=== PATIENT | female | born 1930 | race Caucasian/White ===

== ENCOUNTER → 2016-09-22 | Outpatient (CLI) | payer OTHER, MEDICARE ==
[~2016-09-22] MED LIST: ACET-1311 PO; ALBINS/ INH; ALBU1NEB10 INH; ALUMSUS2 PO; ASPI81TA28 PO; ATOR-26 PO; BSP/5 PO; CITA20TA4 PO; CITA40TA12 PO; CLR10 PO; CMD4 PO; DIPH25TA24 PO; DOCU-94 PO; FLUC100T4 PO; FOLI1TAB7 PO; FRRS300 PO; FRS/40 PO; GABA1CAP5 PO; GABA800T PO; INSUINJ4 SQ; LEVO-18 PO; LORA-741 PO; LORA10TA5 PO; LOSA50TA6 PO; LVMI SC; MCRK20 PO; METO2.5T PO; NTRGSL/4 UT; NVLGI SC; NVLGI/PEN SC; OXGN; OXYC1TAB3 PO; POLY335025 PO; POTA10CA28 PO; PRED10TA PO; PRLSR20 PO; ROSU40TA PO; RXNS5 PO; SCOP1DIS14 TD; TAMO20TA47 PO; TOBRSUS OPB; WARF1TAB6 PO; WARF2TAB PO; WARF2TAB8 PO
[2016-09-22 08:30] LABS: BLOOD UREA NITROGEN 33 mg/dl (7-18); BUN/CREATININE RATIO 29.8 (10-20); CALCIUM 8.2 mg/dl (8.5-10.1); CARBON DIOXIDE 33 mmol/L (21-32); CHLORIDE 98 mmol/L (98-107); GLUCOSE 111 mg/dl (70-99); POTASSIUM 3.5 mmol/L (3.5-5.1); SODIUM 141 mmol/L (136-145)
== END | disposition home or self-care (01) ==
LOC: C.LABCC 08:05
PROVIDERS: ATTEND Internal Medicine
DX: R42 Dizziness and giddiness (principal)

== ENCOUNTER → 2016-09-27 | Outpatient (CLI) | payer OTHER, MEDICARE ==
[2016-09-27 10:47] LABS: ESTIMATED AVERAGE GLUCOSE 186 mg/dl; HA1C FLAG Normal (Normal)
== END ==
LOC: C.LABCC 09:22
PROVIDERS: ATTEND Internal Medicine
DX: E11.9 Type 2 diabetes mellitus without complications (principal)

== ENCOUNTER 2016-11-08 11:40 | Inpatient (IN) | payer OTHER, MEDICARE ==
[~2016-11-08] VITALS: Ht 152.4 cm; Wt 87.0 kg
[2016-11-08] VITALS (12 sets, daily range): BP systolic 133–172; BP diastolic 55–80; PULSE 75–87; TEMP 36.3–37.1; O2SAT 96–99; BMI 37.9
[~2016-11-08 11:40] MED LIST changes: -ACET-1311 PO; -ALBINS/ INH; -ALUMSUS2 PO; -CITA20TA4 PO; -CLR10 PO; -FLUC100T4 PO; -FOLI1TAB7 PO; -FRRS300 PO; -GABA800T PO; -LEVO-18 PO; -LORA-741 PO; -LVMI SC; -METO2.5T PO; -NTRGSL/4 UT; -NVLGI/PEN SC; -POTA10CA28 PO; -ROSU40TA PO; -RXNS5 PO; -SCOP1DIS14 TD; -TOBRSUS OPB; -WARF1TAB6 PO; -WARF2TAB PO; -WARF2TAB8 PO
[2016-11-08] MEDS ORDERED: FOLI1TAB7 PO (12:21)
[2016-11-08] MEDS ORDERED: LVMI SC (12:21)
[2016-11-08] MEDS ORDERED: WARF2TAB8 PO (12:21)
[2016-11-08] MEDS ORDERED: POTA10CA28 PO (12:21)
[2016-11-08] MEDS ORDERED: OXYC1TAB3 PO (12:21)
[2016-11-08] MEDS ORDERED: ACET-1311 PO (12:21)
[2016-11-08] MEDS ORDERED: CITA20TA4 PO (12:21)
[2016-11-08] MEDS ORDERED: ALBINS/ INH (12:21)
[2016-11-08] MEDS ORDERED: METO2.5T PO (12:21)
[2016-11-08] MEDS ORDERED: WARF1TAB6 PO (12:21)
[2016-11-08] MEDS ORDERED: NVLGI/PEN SC ×2 (12:21)
[2016-11-08] MEDS ORDERED: PHYTONADIONE INJ 10 MG in SODIUM CHLORIDE 0.9% 50ML 50 ML IV ONE (13:00)
--- NOTE | 2016-11-08 13:24 | DIAGNOSTIC IMAGING REPORT ---
CHEST ONE VIEW PORTABLE CLINICAL HISTORY: sob chest pain COMPARISON STUDY: 11/10/2015 FINDINGS: Moderate cardiomegaly. Lungs are clear. Diaphragms are smooth. IMPRESSION: Moderate cardiomegaly. Otherwise negative study Electronically signed by: Abimael Perez M.D. 11/08/2016 1:22 PM Dictated Date/Time: 11/08/2016 1:21 PM
[2016-11-08] MEDS ORDERED: PANTOprazole INJ 80 MG in DEXTROSE 5% 100ML IV SCH (13:30)
[2016-11-08 13:39] LABS: MAGNESIUM 1.5 mg/dl (1.8-2.4)
[2016-11-08] MEDS ORDERED: MAGNESIUM SULFATE 1GM / D5W 1 GM BAG IV STA (13:42)
[2016-11-08] MEDS ORDERED: PANTOprazole INJ 40 MG in DEXTROSE 5% 100ML IV SCH (13:45)
--- NOTE | 2016-11-08 14:27 | EMERGENCY ROOM VISIT NOTE ---
History Report prepared by Cyndi: Soha Hernandez Under the Supervision of: Dr. Davidson Xiong M.D. 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 The patient had lab work drawn within the past day or two and was found to have a hemoglobin of 5.3. Currently, the patient states that she feels "drunk." She admits to feeling dizzy when she moves, although her family notes this is an ongoing issue that is being worked up. Her family agrees that the patient appears pale compared to baseline. The patient is unsure if she has had any black or bloody stool, but her family states that no one has made a comment about it from [facility]. The patient has been anemic in the past. She follows up with Dr. Encinas from Oncology for breast cancer. Denies chest pain, shortness of breath, vomiting, diarrhea, abdominal pain, urinary symptoms, fever, or other complaints. She is on Coumadin due to a history of blood clots. Denies a history of GI bleeding. Source of History: patient Onset: FORKLIFT TECHNICIAN Position: other (global) Symptom Intensity: hemoglobin 5.3 Timing: constant Associated Symptoms: No SOB, No chest pain, No diarrhea, No fevers, No urinary symptoms, No vomiting Note: Other symptoms: feels "drunk," dizziness Review of Systems See HPI for pertinent positives & negatives. A total of 10 systems reviewed and were otherwise negative. Past Medical & Surgical Medical Problems: (1) Anticoagulated on warfarin (2) Benign hypertension (3) Breast mass (4) Cerebrovascular disease (5) Chronic respiratory failure (6) COPD (chronic obstructive pulmonary disease) (7) Crohn's disease (8) Depressive disorder (9) Diabetes mellitus type 2 (10) Diabetic neuropathy (11) Dyslipidemia (12) History of pulmonary embolism (13) Hypercoagulable state (14) Obstructive sleep apnea syndrome (15) Panic disorder (16) Polymyalgia rheumatica (17) Pulmonary nodules (18) Supratherapeutic INR (19) Urinary tract infection (20) UTI (urinary tract infection) Surgical Problems: (1) Status post appendectomy (2) Status post hip replacement (3) Status post hysterectomy (4) Status post partial colectomy Family History FH: breast cancer DAUGHTER FH: coronary artery disease FATHER FH: diabetes mellitus BROTHER BROTHER FH: lung cancer FATHER FH: stroke FATHER MOTHER Social History Smoking Status: Former Smoker Alcohol Use: none Drug Use: none Marital Status: Housing Status: lives with family Occupation Status: retired Current/Historical Medications Scheduled Aspirin (Aspirin Ec), 81 MG PO HS Atorvastatin (Lipitor), 80 MG PO DAILY Buspirone HCl (Buspirone HCl), 5 MG PO QAM Citalopram Hydrobromide (Citalopram Hydrobromide), 20 MG PO DAILY Docusate Sodium (Colace), 100 MG PO BID Folic Acid (Folvite), 1 MG PO DAILY Furosemide (Lasix), 40 MG PO BID Gabapentin (Neurontin), 800 MG PO HS Gabapentin (Neurontin), 400 MG PO QAM Insulin Aspart (Novolog Flexpen), 15 UNITS SC BID Insulin Detemir (Levemir), 25 UNITS SC BID Losartan Potassium (Cozaar), 50 MG PO DAILY Metolazone (Zaroxolyn), 2.5 MG PO QAM Omeprazole (Prilosec), 20 MG PO QAM Potassium Chloride (Micro-K Ext Rel), 40 MEQ PO TID Prednisone (Prednisone), 10 MG PO DAILY Tamoxifen (Nolvadex), 20 MG PO DAILY Warfarin Sod (Jantoven), 1 MG PO 2XWK Warfarin Sod (Jantoven), 2 MG PO 5XWK Scheduled PRN Acetaminophen (Tylenol), 650 MG PO Q6 PRN for Mild Pain Albuterol Sulf (Proventil 0.083% 2.5MG/3ML), 2.5 MG INH Q4 PRN for SOB/Wheezing Insulin Aspart (Novolog Flexpen), 8-18 UNITS SC UD PRN for SLIDING SCALE Oxycodone Immediate Rel Tab (Roxicodone Ir), 5 MG PO Q8 PRN for Moderate Pain Oxycodone Ir (Roxicodone Ir), 10 MG PO Q8 PRN for Severe Pain Allergies Coded Allergies: Ibuprofen (Verified Allergy, Severe, ANAPHYLAXIS, 05/23/16) Amoxicillin (Verified Allergy, Mild, URTICARIA-HAS TOLERATED ZOSYN PREV ADM., 05/23/16) Noted at [facility] 12/07/10 Has tolerated Zosyn on previous admissions Aspartame (Unverified Allergy, Mild, HIVES, 05/23/16) Cephalexin (Unverified Allergy, Mild, HIVES, 05/23/16) Clavulanic Acid (Verified Allergy, Mild, urticaria-HAS TOLERATED ZOSYN PREV ADM., 05/23/16) Noted at [facility] 12/07/10 Cephalosporins (Verified Allergy, Unknown, HAS TOLERATED CEFTRIAXONE, CEFEPIME, 05/23/16) 05/14/12 - PATIENT DENIES EVER HAVING A REACTION TO OR TAKING ANY CEPHALOSPORINS Codeine (Verified Allergy, Unknown, 05/23/16) Cromolyn (Verified Allergy, Unknown, 05/23/16) Morphine and Related (Verified Allergy, Unknown, Unknown, 05/23/16) Naproxen (Verified Allergy, Unknown, ANAPHYLAXIS, 05/23/16) Penicillins (Verified Allergy, Unknown, Unknown, 05/23/16) Sulfa Antibiotics (Verified Allergy, Unknown, 05/14/12 - STATES THAT SHE IS UNABLE TO TOLERATE ANY SULFA, 05/23/16) 05/14/12 - STATES THAT SHE IS UNABLE TO TOLERATE ANY SULFA DRUGS Quinolones (Verified Adverse Reaction, Mild, NAUSEA, 05/23/16) PER DR. GARCIA - SPOKE W PT WHO SAID SHE HAD CIPRO FOR UTI A "LONG TIME AGO". REACTION WAS NAUSEA. I CONFIRMED ADMINISTREATION HX WITH OUR RECORDS - ADMIN 06/19/08. THEREFORE PT LIKELY ABLE TO TOLERATE CIPRO. Physical Exam Vital Signs Date Time Temp Pulse Resp B/P Pulse Ox O2 Delivery O2 Flow Rate FiO2 11/08/16 16:53 37.1 82 18 139/67 97 2.0 11/08/16 16:41 36.7 80 20 133/57 99 11/08/16 16:21 36.7 83 20 155/62 98 11/08/16 15:45 81 18 99 11/08/16 15:31 172/69 11/08/16 15:15 82 20 100 11/08/16 15:00 140/63 11/08/16 14:52 36.6 87 20 146/62 99 11/08/16 14:45 89 17 146/62 99 11/08/16 14:34 36.3 85 20 144/72 98 11/08/16 14:30 36.7 80 20 172/69 99 11/08/16 14:30 144/72 11/08/16 14:15 96 18 140/62 97 11/08/16 14:00 151/61 11/08/16 13:50 152/57 11/08/16 13:45 84 20 100 11/08/16 13:30 129/71 11/08/16 13:15 85 22 11/08/16 13:03 134/70 11/08/16 13:03 84 20 134/70 97 11/08/16 12:45 87 19 11/08/16 12:40 84 19 98 11/08/16 12:00 135/61 11/08/16 11:58 95 11/08/16 11:55 114/57 11/08/16 11:42 36.7 95 18 132/73 99 Nasal Cannula 2.0 Physical Exam GENERAL: Patient is in no acute distress. HEENT: No acute trauma, normocephalic atraumatic, mucous membranes moist, no nasal congestion, no scleral icterus. NECK: No stridor, no adenopathy, no meningismus, trachea is midline. LUNGS: Clear to auscultation bilaterally, no wheeze, no rhonchi, breath sounds equal. HEART: Irregular with a normal rate and a 2/6 systolic murmur ABDOMEN: Soft, nontender, bowel sounds positive, right sided ventral abdominal wall hernia, no peritonitis. RECTAL: Brown stool, heme positive. EXTREMITIES: No cyanosis or edema, full range of motion of all the joints without pain or difficulty, no signs for acute trauma. NEUROLOGIC: Oriented x 3, no acute motor or sensory deficits, no focal weakness. SKIN: Pale, no rash, no jaundice, no diaphoresis. Medical Decision & Procedures ER Provider Diagnostic Interpretation: Radiology results and stated below per my review and radiologist interpretation: CHEST ONE VIEW PORTABLE CLINICAL HISTORY: sob chest pain COMPARISON STUDY: 11/10/2015 FINDINGS: Moderate cardiomegaly. Lungs are clear. Diaphragms are smooth. IMPRESSION: Moderate cardiomegaly. Otherwise negative study Electronically signed by: Abimael Perez M.D. 11/08/2016 1:22 PM Dictated Date/Time: 11/08/2016 1:21 PM Laboratory Results Test 11/08/16 12:05 Magnesium Level 1.5 mg/dl (1.8-2.4) Troponin I < 0.015 ng/ml (0-0.045) Laboratory results reviewed by me. Medications Administered Medications (Trade) Dose Ordered Sig/Rea Route Start Time Stop Time Status Last Admin Dose Admin Phytonadione 10 mg/Sodium Chloride 51 ml @ 102 mls/hr ONE ONCE IV 11/08/16 13:00 11/08/16 13:29 DC 11/08/16 13:46 102 MLS/HR Pantoprazole Sodium 80 mg/ Dextrose 120 ml @ 480 mls/hr 1330 IV 11/08/16 13:30 11/08/16 13:44 DC 11/08/16 13:42 480 MLS/HR Pantoprazole Sodium/Dextrose (Protonix Inj/D5 100ml) 100 ml @ 20 mls/hr TODAY@1345 IV 11/08/16 13:45 11/08/16 18:44 11/08/16 13:43 20 MLS/HR Magnesium Sulfate (Magnesium Sulfate) 1 gm NOW STAT IV 11/08/16 13:42 11/08/16 13:44 DC 11/08/16 14:54 1 GM Furosemide (Lasix Inj) 40 mg STK-MED ONCE .ROUTE 11/08/16 16:23 11/08/16 16:26 DC 11/08/16 16:29 40 MG ECG Indication: other (low hemoglobin) Rate (beats per minute): 86 Rhythm: sinus rhythm Findings: PAC, no acute ischemic change, no ectopy ED Course 1239: The patient was evaluated in room C1A. A complete history and physical exam was performed. 1250: Ordered Pantoprazole Sodium 1 ea IV. 1256: I discussed the case with Dr. Sarabia, [facility] [place] Hospitalist. The patient will be evaluated for further management. 1300: Ordered Phytonadione 10 mg/NSS 51 ml @ 102 mls/hr IV. 1315: Upon reexamination the patient is resting comfortably. I discussed results and treatment plan with the patient. She verbalizes agreement and understanding. The patient will be evaluated for further management. 1330: Ordered Pantoprazole Sodium 80 mg/Dextrose 120 ml @ 480 mls/hr IV. 1342: Ordered Magnesium Sulfate 1 gm IV, Pantoprazole Sodium 40 mg/Dextrose 100 ml @ 20 mls/hr IV. Medical Decision Differential includes but is not limited to electrolyte imbalance, anemia, dehydration, upper or lower GI bleeding, UTI, cardiac ischemia, stroke, vertigo. I did review the patient's blood work from earlier today. There was no leukocytosis. She was markedly anemic with a hemoglobin of 5.3. INR was elevated at 2.9 consistent with her Coumadin use. No significant electrolyte abnormality, kidney failure or hepatitis. Urinalysis did not show infection. Here, an EKG was performed. This showed a sinus rhythm with PACs, no acute ischemia. Cardiac enzyme testing 1 is not suggestive of acute cardiac injury. Chest x-ray did not show CHF or pneumonia. Magnesium was low 1.5. The patient has felt short of breath and dizzy for about a month. I suspect her symptoms are from her low hemoglobin value. A rectal exam was performed and her stool is heme positive, the stool is brown. Patient was given IV Protonix, she received IV magnesium and was given IV vitamin K. She was ordered for blood for transfusion, 2 units were ordered to be transfused. She did sign consent for the transfusion. I talked to the patient and family at length. I spoke with the case repairer. The on-call hospitalist was consulted. Consults Time Called: 1250 Consulting Physician: Dr. Sarabia [facility] [place] Hospitalist Returned Call: [phone] I discussed the case with her. The patient will be evaluated for further management. Impression Primary Impression: Anemia Additional Impressions: Weakness GI bleeding Hypomagnesemia Critical Care I have personally spent greater than 30 minutes of critical care time in the direct management of this patient. This includes bedside care, interpretation of diagnostic studies, and testing, discussion with consultants, patient, and family members, and other required patient management activities. This 30 minutes is in excess of all separately billable procedures. Scribe Attestation The scribe's documentation has been prepared under my direction and personally reviewed by me in its entirety. I confirm that the note above accurately reflects all work, treatment, procedures, and medical decision making performed by me. Departure Information Dispostion Being Evaluated By Hospitalist Referrals Ryne Walters (PCP) Patient Instructions My [facility] Problem Qualifiers
[2016-11-08] MEDS ORDERED: GLUCOSE 40% GEL 15 GM TUBE PO PRN (14:45)
[2016-11-08] MEDS ORDERED: GLUCOSE 10 TABS/TUBE PO PRN (14:45)
[2016-11-08] MEDS ORDERED: POLYETHYLENE (MIRALAX) 17 GM PACK PO PRN (14:45)
[2016-11-08] MEDS ORDERED: ALBUTEROL 0.083% NEBU SOLN 3 ML VIAL INH PRN (14:45)
[2016-11-08] MEDS ORDERED: FUROSEMIDE INJ 20 MG in SYRINGE 0 ML IV ONE (14:45)
[2016-11-08] MEDS ORDERED: DEXTROSE 50% 50 ML SYR IV PRN (14:45)
[2016-11-08] MEDS ORDERED: ALUMINUM/MAGNESIUM/SIMETH (MAALOX MAX) 30 ML UDC PO PRN (14:45)
[2016-11-08] MEDS ORDERED: GLUCAGON FOR INJ 1 MG VIAL SQ PRN (14:45)
[2016-11-08] MEDS ORDERED: MAGNESIUM HYDROXIDE SUSP 30 ML UDC PO PRN (14:45)
--- NOTE | 2016-11-08 15:54 | History and Physical ---
History & Physical Date & Time of Service: Nov 08, 2016 at 15:11 Chief Complaint: Ref By Dr Ramo Babcock Lab Work Primary Care Physician: Ryne Walters History of Present Illness Source: patient, family (son and daughter in law at bedside), hospital records , [facility] ([facility] records) This is an 86 y/o female with a history of breast cancer, DM II w/neuropathy, hypertension, hyperlipidemia, COPD, chronic diastolic heart failure, anxiety/ depression, h/o PE/DVT, and GERD who presented to the ED on 11/08 with acute on chronic anemia. The patient is a resident at [facility] and had routine labs done prior to arrival which revealed a hemoglobin of 5.3. Patient has baseline hemoglobin of 8-10. The patient reports feeling dizziness for the last month. She states that this is worse with movement and activity, although it can occur at rest or while lying down as well. The patient complains of dyspnea on exertion but denies shortness of breath at rest. She also notes that she is been feeling more fatigued lately. Her son and [id number] are at bedside and state that when they visit the patient, she seems less engaged than normal and has not been getting out of bed much lately. They also note that she looks very pale. The patient denies any bloody stools, blood in the urine, bruising, falls or any other obvious source of bleeding. Family states that they have not heard anything like that from the [facility] staff either. The patient is on long-term Coumadin for previous DVT and PE, although is unclear why she has been on this chronically. Patient is unsure if she has had multiple episodes of clotting. She reports that she has had an EGD and a colonoscopy in the past, but she is unsure of when these were or what the findings were. [facility] records show that she has a history of colonic polyps. The patient denies fevers, chills, sweats, chest pain, palpitations, claudication, cough, wheezing, nausea, vomiting, abdominal pain, dysuria, hematuria, urinary retention, paralysis, numbness and tingling. In the ED, the patient had a bowel movement which appeared to be brown, although it was heme-positive. The patient has received 10 mg of vitamin K and was started on a Protonix drip. 3 units of packed red blood cells have been ordered per the ED physician. Past Medical/Surgical History Medical Problems: (1) Anticoagulated on warfarin Status: Chronic (2) Benign hypertension Status: Chronic (3) Breast mass Permanent Comment: noted on CT 04/21/14 Status: Chronic (4) Cerebrovascular disease Permanent Comment: s/p stroke Status: Chronic (5) Chronic respiratory failure Permanent Comment: home O2 3 LPM Status: Chronic (6) COPD (chronic obstructive pulmonary disease) Permanent Comment: severe Status: Chronic (7) Crohn's disease Status: Chronic (8) Depressive disorder Status: Chronic (9) Diabetes mellitus type 2 Status: Chronic (10) Diabetic neuropathy Status: Chronic (11) Dyslipidemia Status: Chronic (12) History of pulmonary embolism Status: Chronic (13) Hypercoagulable state Permanent Comment: homozygous MTHFR Status: Chronic (14) Obstructive sleep apnea syndrome Status: Chronic (15) Panic disorder Status: Chronic (16) Polymyalgia rheumatica Status: Chronic (17) Pulmonary nodules Permanent Comment: (stable per CT 06/11/12 --> 04/21/14) Status: Chronic (18) Urinary tract infection Status: Resolved Surgical Problems: (1) Status post appendectomy Status: Chronic (2) Status post hip replacement Permanent Comment: left COLTON Dr. Martines 2012 Status: Chronic (3) Status post hysterectomy Status: Chronic (4) Status post partial colectomy Permanent Comment: diverticulitis Status: Chronic Family History FH: breast cancer DAUGHTER FH: coronary artery disease FATHER FH: diabetes mellitus FATHER MOTHER BROTHER BROTHER FH: lung cancer FATHER FH: stroke FATHER MOTHER Social History Smoking Status: Former Smoker Smokeless Tobacco Use: No Alcohol Use: none Drug Use: none Marital Status: Housing status: [facility] ([facility]) Occupational Status: retired Immunizations History of Influenza Vaccine: Yes History of Tetanus Vaccine?: Yes Tetanus Immunization Date: Oct 25, 2012 History of Pneumococcal: Yes Pneumococcal Date: Nov 16, 2014 History of Hepatitis B Vaccine: No Multi-Drug Resistant Organisms History of MDRO: No Allergies Coded Allergies: Ibuprofen (Verified Allergy, Severe, ANAPHYLAXIS, 05/23/16) Amoxicillin (Verified Allergy, Mild, URTICARIA-HAS TOLERATED ZOSYN PREV ADM., 05/23/16) Noted at [facility] 12/07/10 Has tolerated Zosyn on previous admissions Aspartame (Unverified Allergy, Mild, HIVES, 05/23/16) Cephalexin (Unverified Allergy, Mild, HIVES, 05/23/16) Clavulanic Acid (Verified Allergy, Mild, urticaria-HAS TOLERATED ZOSYN PREV ADM., 05/23/16) Noted at [facility] 12/07/10 Cephalosporins (Verified Allergy, Unknown, HAS TOLERATED CEFTRIAXONE, CEFEPIME, 05/23/16) 05/14/12 - PATIENT DENIES EVER HAVING A REACTION TO OR TAKING ANY CEPHALOSPORINS Codeine (Verified Allergy, Unknown, 05/23/16) Cromolyn (Verified Allergy, Unknown, 05/23/16) Morphine and Related (Verified Allergy, Unknown, Unknown, 05/23/16) Naproxen (Verified Allergy, Unknown, ANAPHYLAXIS, 05/23/16) Penicillins (Verified Allergy, Unknown, Unknown, 05/23/16) Sulfa Antibiotics (Verified Allergy, Unknown, 05/14/12 - STATES THAT SHE IS UNABLE TO TOLERATE ANY SULFA, 05/23/16) 05/14/12 - STATES THAT SHE IS UNABLE TO TOLERATE ANY SULFA DRUGS Quinolones (Verified Adverse Reaction, Mild, NAUSEA, 05/23/16) PER DR. GARCIA - SPOKE W PT WHO SAID SHE HAD CIPRO FOR UTI A "LONG TIME AGO". REACTION WAS NAUSEA. I CONFIRMED ADMINISTREATION HX WITH OUR RECORDS - ADMIN 06/19/08. THEREFORE PT LIKELY ABLE TO TOLERATE CIPRO. Home Medications Scheduled Aspirin (Aspirin Ec), 81 MG PO HS Atorvastatin (Lipitor), 80 MG PO DAILY Buspirone HCl (Buspirone HCl), 5 MG PO QAM Citalopram Hydrobromide (Citalopram Hydrobromide), 20 MG PO DAILY Docusate Sodium (Colace), 100 MG PO BID Folic Acid (Folvite), 1 MG PO DAILY Furosemide (Lasix), 40 MG PO BID Gabapentin (Neurontin), 800 MG PO HS Gabapentin (Neurontin), 400 MG PO QAM Insulin Aspart (Novolog Flexpen), 15 UNITS SC BID Insulin Detemir (Levemir), 25 UNITS SC BID Losartan Potassium (Cozaar), 50 MG PO DAILY Metolazone (Zaroxolyn), 2.5 MG PO QAM Omeprazole (Prilosec), 20 MG PO QAM Potassium Chloride (Micro-K Ext Rel), 40 MEQ PO TID Prednisone (Prednisone), 10 MG PO DAILY Tamoxifen (Nolvadex), 20 MG PO DAILY Warfarin Sod (Jantoven), 1 MG PO 2XWK Warfarin Sod (Jantoven), 2 MG PO 5XWK Scheduled PRN Acetaminophen (Tylenol), 650 MG PO Q6 PRN for Mild Pain Albuterol Sulf (Proventil 0.083% 2.5MG/3ML), 2.5 MG INH Q4 PRN for SOB/Wheezing Insulin Aspart (Novolog Flexpen), 8-18 UNITS SC UD PRN for SLIDING SCALE Oxycodone Immediate Rel Tab (Roxicodone Ir), 5 MG PO Q8 PRN for Moderate Pain Oxycodone Ir (Roxicodone Ir), 10 MG PO Q8 PRN for Severe Pain Review of Systems Constitutional: + fatigue, + weakness, No chills, No fever, No sweats Eyes: No diplopia, No eye pain, No worsening of vision ENT: No hearing loss, No sore throat, No trouble swallowing Respiratory: + dyspnea on exertion, No cough, No dyspnea at rest, No wheezing Cardiovascular: No chest pain, No claudication, No palpitations Abdomen: + GI bleeding (heme positive stool), No nausea, No pain, No vomiting Musculoskeletal: No calf pain, No joint pain, No muscle pain Genitourinary - Female: + urinary incontinence, No dysuria, No hematuria Neurologic: + memory loss (per family, declining over last 6 months), + problem reported (dizziness x 1 month), No numbness/tingling, No paralysis, No weakness Integumentary: No color change, No itch, No rash Physical Exam Vital Signs Date Time Temp Pulse Resp B/P Pulse Ox O2 Delivery O2 Flow Rate FiO2 11/08/16 14:52 36.6 87 20 146/62 99 11/08/16 14:34 36.3 85 20 144/72 98 11/08/16 13:03 84 20 134/70 97 11/08/16 12:40 84 19 98 11/08/16 12:00 135/61 11/08/16 11:58 95 11/08/16 11:55 114/57 11/08/16 11:42 36.7 95 18 132/73 99 Nasal Cannula 2.0 General Appearance: WD/WN, no apparent distress, + obese Head: normocephalic, atraumatic Eyes: normal inspection, EOMI, + pertinent finding (R pupil more dilated but both reactive to light) ENT: normal ENT inspection, hearing grossly normal, pharynx normal, + pertinent finding (pale oral mucosa) Neck: supple, no JVD, trachea midline Respiratory/Chest: normal breath sounds, no respiratory distress, + decreased breath sounds (bases), + crackles (right base) Cardiovascular: regular rate, rhythm, no gallop, + systolic murmur Abdomen/GI: normal bowel sounds, soft, + tenderness (mild diffuse tenderness), + hernia (large hernia RLQ) Extremities/Musculoskelatal: normal inspection, no calf tenderness, + swelling (1+ pitting edema bilaterally) Neurologic/Psych: alert, normal mood/affect, + disoriented (oriented to person and place, not time) Skin: warm/dry, no rash, + pallor Diagnostics Laboratory Results Results Past 24 Hours Test 11/08/16 12:05 Range/Units Magnesium Level 1.5 1.8-2.4 mg/dl Troponin I < 0.015 0-0.045 ng/ml Diagnostic Radiology Reviewed the following studies and agree with interpretation as follows: Patient Name: NGOZI EISENBERG Unit Number: [id number] Dictated: 11/08/161320 Transcribed: 11/08/161320 MS Printed Date/Time: [~ rep prt dt]/[~ rep prt tm] [~ rep ct labl] - [~ rep ct ivnm] [facility] [place] [place] [address] Dictated: 11/08/161320 Transcribed: 11/08/16 132 MS Printed Date/Time: [~ rep prt dt]/[~ rep prt tm] [~ rep ct labl] - [~ rep ct ivnm] Patient: NGOZI EISENBERG Address1: [address] [facility] Rec: [id number] Address2: Acct ID: [id number] [facility] Zip: [place] [address] Date: 1930 Sex: F Room/Bed: Ref Phy: Ryne Walters SC: MAKENNA Att Phy: Report #: [id number] [place] Phy: Ryne Walters Test: CXR1P Admit Phy: Flexible Nanny: MARCIA Interpreting Phy: Abimael Perez M.D. Diagnosis: REF BY - AMALIA LAB WORK Ordering Phy: Davidson Xiong M.D. Service Date: 11/08/16 Admit Date: 11/08/16 MNE: [id number] CONF: DICTATED BY: Abimael Perez M.D.]] CC: Heath, Goldsby Davidson Xiong M.D. Endcc: [~ rep ct add3]] CHEST ONE VIEW PORTABLE CLINICAL HISTORY: sob chest pain COMPARISON STUDY: 11/10/2015 FINDINGS: Moderate cardiomegaly. Lungs are clear. Diaphragms are smooth. IMPRESSION: Moderate cardiomegaly. Otherwise negative study Electronically signed by: Abimael Perez M.D. 11/08/2016 1:22 PM Dictated Date/Time: 11/08/2016 1:21 PM The status of this report is Signed. Draft = Not yet reviewed or approved by Radiologist. Signed = Reviewed and approved by Radiologist. <AttendingPhy></AttendingPhy> <FamilyPhy>[facility]</FamilyPhy> <PrimaryPhy> [facility]</PrimaryPhy> <UnitNumber>[id number]</UnitNumber> <VisitNumber> [id number]</VisitNumber> <PatientName>NGOZI EISENBERG</PatientName> <DateOfBirth >1930</DateOfBirth> <Location>[facility]</Location> <ServiceDate>11/08/16</ ServiceDate> <MNE>ESINDI</MNE> <OrderingPhy>Davidson Xiong M.D.</OrderingPhy> < OrderingPhyMNE>f rep ord dr rosenthal</OrderingPhyMNE> <DictatingPhyMNE>f rep dict dr rosenthal</DictatingPhyMNE> <CCListMNE>f rep ct mne</CCListMNE> <AdmittingPhyMNE>f pt admit dr rosenthal</AdmittingPhyMNE> <AttendingPhyMNE>f pt attend dr rosenthal</ AttendingPhyMNE> <ConsultingPhyMNE>f pt consult dr rosenthal</ConsultingPhyMNE> <FamilyPhyMNE>f pt fam dr rosenthal</FamilyPhyMNE> <OtherPhyMNE>f pt other dr rosenthal</OtherPhyMNE> < PrimaryPhyMNE>f pt prim care dr rosenthal</PrimaryPhyMNE> <ReferringPhyMNE>f pt referring dr rosenthal</ReferringPhyMNE> EKG Reviewed EKG and agree with interpretation as follows: 86 bpm, sinus rhythm with PACs, 1st degree AV block (RI interval 208 ms) Impression Assessment and Plan 86 y/o female with a history of breast cancer, DM II w/neuropathy, hypertension , hyperlipidemia, COPD, chronic diastolic heart failure, anxiety/depression, h/ o PE/DVT, and GERD who presented to the ED on 11/08 with acute on chronic anemia. Patient complaining of dizziness for the last month. She has baseline anemia with hemoglobin around 8-10. After getting routine labs done at [facility] prior to arrival, she was found to have a hemoglobin of 5.3. Patient has been on chronic warfarin. No obvious source of acute bleeding, however, she was positive for occult blood in her stool. Patient presented to the ED with tachycardia and pallor. INR 2.9. Patient given 10 mg of vitamin K for reversal. 3 units of packed red blood cells ordered by Dr. Xiong and patient started on Protonix drip. Acute on chronic anemia secondary to "acute" blood loss--Likely the patient has actually been slowly bleeding for quite some time -Admit to telemetry -H&H every 6 hours 4. -3 units PRBC ordered in ED. Patient with crackles and pitting edema on exam, will give Lasix 20 mg IV x 1 between first and second units of blood -Continue Protonix drip -Consult GI, appreciate recs -Clear liquid diet -D/C Coumadin -Follow PT/INR Hypomagnesemia -Magnesium on arrival 1.5 -Given magnesium sulfate 1 gm IV x 1 -Continue to monitor H/o breast cancer status post left mastectomy -Continue tamoxifen 20 mg PO qd Diabetes type 2 w/diabetic neuropathy--last hemoglobin A1c on 09/27/16 was 8.1 -Lantus 20 units SC BID. Pt typically takes 25 units BID of Levemir, reduce to 80% due to little PO intake -Insulin sliding scale -Check BSGs q ac and qhs -Continue gabapentin 400 mg PO qam and 800 mg PO qhs HTN--stable -Continue losartan 50 mg PO qd HLD -Continue atorvastatin 80 mg PO qd COPD--pt on supplemental oxygen at home continuously, 2L NC -O2 by protocol -Continue prednisone 10 mg PO qd and albuterol nebulizers when necessary Chronic diastolic CHF -Continue Lasix 40 mg PO BID and metolazone 2.5 mg PO qam -Continue KCl 40 mEq PO TID Anxiety and depression -Continue BuSpar 5 mg PO qd , Celexa 20 mg PO qd DVT prophylaxis -Hold chemical prophylaxis due to bleeding -STACIA argueta and SCDs Code Status -Level V, DO NOT RESUSCITATE Level of Care Telemetry Resuscitation Status DO NOT RESUSCITATE VTE Prophylaxis VTE Risk Assessment Done? Y/N: Yes Risk Level: Moderate Given or contraindicated: Gamal Stockings, SCD's Reviewed: Pt Seen/Exam by Me History Physician Analog Device Designer Supervision Note: I interviewed and examined the patient. Discussed with MYLES Mojica and agree with findings and plan as documented in the note. 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 Here with chronic blood loss severe symptomatic anemia. With no gross bleeding and advanced age, will not likely require urgent endoscopies, however consideration should be given for this. She does have a h/ o Crohn's and is on chronic steroid use, both of which can cause chronic blood loss anemia. Pt denies cheat pain, headache, SOB. INR reversed with Vit K in ER. Vital sreviewed Obese, NAD, AAOx2 RRR no mgr Pulm with diminished BS throughout but no wheezes, some mild bibasilar crackles Abd soft +BS, large ventral hernia on right is reducible Ext no edema Skin no rashes 86 yo female with multiple medical problems here with symptomatic severe anemia , hgb 5.3, heme+ stool, no gross bleeding. -transfuse to keep hgb>7-8 then start iron supplementation -GI consult to see if needs scopes above and below -continue home meds otherwise except holding coumadin -will likely need to go back on coumadin given MTHFR mutation and sedentary lifestyle in [place], but with closer monitoring of CBC -watch for volume overload with diastolic dysfunction, give IV lasix between PRBC units Documented By: Joselyn Sarabia
[2016-11-08] MEDS ORDERED: FUROSEMIDE 40 MG/4 ML VIAL ONE (16:23)
[2016-11-08] MEDS: PANTOprazole INJ 40 MG in DEXTROSE 5% 100ML 90 ML IV SCH ×2 (19:10→23:49)
[2016-11-08] MEDS: FUROSEMIDE 40 MG TAB PO SCH (19:15)
[2016-11-08] MEDS: INSULIN ASPART 100 UNITS/ML 3 ML PEN SC SCH ×2 (19:17→21:04)
[2016-11-08 20:45] LABS: HEMATOCRIT 27.4 % (37-47)
[2016-11-08] MEDS ORDERED: INSULIN ASPART 100 UNITS/ML 3 ML PEN SC ONE (21:00)
[2016-11-08] MEDS: INSULIN GLARGINE SOLOSTAR 100 UNITS/ML 3 ML PEN SC SCH (21:05)
[2016-11-08] MEDS: DOCUSATE SODIUM 100 MG CAP PO SCH (21:07)
[2016-11-08] MEDS: GABAPENTIN 400 MG CAP PO SCH (21:07)
[2016-11-08] MEDS: POTASSIUM CHLORIDE 10 MEQ TABCR PO SCH (21:08)
[2016-11-09] VITALS (8 sets, daily range): BP systolic 121–160; BP diastolic 64–77; PULSE 70–78; TEMP 36.4–36.7; O2SAT 93–99; Ht 152.4 cm; Wt 87.0 kg
[2016-11-09 03:27] LABS: HEMATOCRIT 26.8 % (37-47); MEAN CELL VOLUME 68.4 fL (80-100); MEAN CORPUSCULAR HEMOGLOBIN 21.2 pg (25-34); MEAN PLATELET VOLUME 8.5 fL (7.4-10.4); PLATELET COUNT 271 K/uL (130-400); RED BLOOD COUNT 3.92 M/uL (4.2-5.4); WHITE BLOOD COUNT 9.57 K/uL (4.8-10.8)
[2016-11-09 03:37] LABS: INR 1.2 (0.9-1.1); PARTIAL THROMBOPLASTIN RATIO 0.8; PROTHROMBIN TIME (PATIENT) 12.7 SECONDS (9.0-12.0)
[2016-11-09 03:56] LABS: BUN/CREATININE RATIO 25.3 (10-20); CALCIUM 8.4 mg/dl (8.5-10.1); CREATININE 1.1 mg/dl (0.60-1.20); MAGNESIUM 2.1 mg/dl (1.8-2.4); POTASSIUM 3.7 mmol/L (3.5-5.1)
[2016-11-09] MEDS: PANTOprazole INJ 40 MG in DEXTROSE 5% 100ML 90 ML IV SCH ×3 (05:47→15:18)
[2016-11-09] MEDS: INSULIN ASPART 100 UNITS/ML 3 ML PEN SC SCH ×4 (06:30→20:35)
[2016-11-09] MEDS: INSULIN GLARGINE SOLOSTAR 100 UNITS/ML 3 ML PEN SC SCH ×2 (08:01→20:36)
[2016-11-09] MEDS: DOCUSATE SODIUM 100 MG CAP PO SCH ×2 (08:04→19:50)
[2016-11-09] MEDS: TAMOXIFEN CITRATE 10 MG TAB PO SCH (08:04)
[2016-11-09] MEDS: LOSARTAN POTASSIUM 50 MG TAB PO SCH (08:04)
[2016-11-09] MEDS: ATORVASTATIN 40 MG TAB PO SCH (08:05)
[2016-11-09] MEDS: CITALOPRAM 20 MG TAB PO SCH (08:05)
[2016-11-09] MEDS: POTASSIUM CHLORIDE 10 MEQ TABCR PO SCH ×3 (08:06→19:50)
[2016-11-09] MEDS: FUROSEMIDE 40 MG TAB PO SCH ×2 (08:07→17:36)
[2016-11-09] MEDS: METOLAZONE 2.5 MG TAB PO SCH (08:07)
[2016-11-09] MEDS: GABAPENTIN 400 MG CAP PO SCH ×2 (08:07→19:50)
--- NOTE | 2016-11-09 08:36 | Clinical Documentation Query ---
CLINICAL DOCUMENTATION QUERY 86 year old female who presents to the Emergency Room from [facility] to be evaluated for a low hemoglobin UNIFORMER. In your clinical opinion is this patient being managed for: (x ) GI bleed in setting of warfarin therapy treated with holding warfarin and 2 units of PRBC's. ( ) Other explanation of clinical findings (Please Explain) ( ) Unable to determine (Please Define) ( ) Need to Discuss ( ) Not Agree The medical record reflects the following clinical findings, treatment, and risk factors. Clinical Indicators: +outpatient FOCB, Hgb 5.3, Hct 20.6 Treatment: Warfarin on hold, GI consult, 2 units of PRBC's, Risk Factors: Age, Warfarin therapy Please clarify and document your clinical opinion in the progress notes and discharge summary. Terms such as "probable", "suspected", "likely", "questionable", "possible", or "still to be ruled out" are acceptable. IF IN AGREEMENT, YOU MUST DOCUMENT ABOVE DIAGNOSTIC STATEMENT IN DAILY PROGRESS NOTES AND DISCHARGE SUMMARY. This document is not part of the patient's record. Thank You, Grabiel Man, KANU [phone]
[2016-11-09 10:15] LABS: HEMATOCRIT 28.8 % (37-47)
[2016-11-09] MEDS: ACETAMINOPHEN 325 MG TAB PO PRN (13:21)
--- NOTE | 2016-11-09 14:48 | Hospitalist Progress Note ---
Hospitalist Progress Note Date of Service Nov 09, 2016. (Mckayla Mojica ., JEANETTEC) Subjective Pt evaluation today including: conversation w/ patient, physical exam, chart review, lab review, review of inpatient medication list Pain: 4/10 dull central chest pressure PO Intake: Tolerating PO diet Voiding: matute catheter in place The patient complains of a 4/10 dull central chest pressure. She states that this is chronic and has been going on for a long time, although she did not mention this when I asked about chest pain upon admission. She states that it does not feel any worse or different today than it usually does. Initial troponin upon admission had been negative, and repeat EKG this morning did not show any ischemic changes. The patient also complains of feeling fatigued and weak. She currently denies any shortness of breath or dizziness at the moment. She complains of a wet, non-productive cough. She has not had a bowel movement today and denies seeing any jesse blood. Tolerating PO diet. Matute catheter in place. The patient denies fevers, chills, sweats, palpitations, claudication, wheezing, shortness of breath, nausea, vomiting, abdominal pain, dysuria, hematuria, urinary retention, paralysis, weakness, numbness and tingling. Additional Comments: See HPI for pertinent positives and negatives. All other systems reviewed and negative. (Mckayla Mojica ., MYLES-C) Objective Vital Signs Date Time Temp Pulse Resp B/P Pulse Ox O2 Delivery O2 Flow Rate FiO2 11/09/16 12:00 Nasal Cannula 2.0 11/09/16 11:24 36.7 77 18 121/73 93 11/09/16 08:00 Nasal Cannula 2.0 11/09/16 07:48 36.7 70 18 160/76 96 2.0 11/09/16 04:00 98 Nasal Cannula 2.0 11/09/16 03:50 36.4 73 18 129/77 95 Nasal Cannula 2.0 11/09/16 00:05 98 Nasal Cannula 2.0 11/08/16 23:24 36.8 75 18 135/80 96 Nasal Cannula 2.0 11/08/16 20:01 36.8 80 18 145/75 97 2.0 11/08/16 20:00 Nasal Cannula 2.0 11/08/16 19:00 36.7 82 16 149/75 98 2.0 11/08/16 18:25 98 Nasal Cannula 2.0 11/08/16 17:55 37.1 79 18 138/72 98 2.0 11/08/16 17:25 37.0 80 20 142/55 99 11/08/16 17:20 76 19 98 11/08/16 17:15 142/55 11/08/16 17:00 137/65 11/08/16 16:53 139/67 11/08/16 16:53 37.1 82 18 139/67 97 2.0 11/08/16 16:50 82 18 98 11/08/16 16:41 36.7 80 20 133/57 99 11/08/16 16:30 133/57 11/08/16 16:21 36.7 83 20 155/62 98 11/08/16 16:20 86 18 97 11/08/16 16:00 155/62 11/08/16 15:50 81 19 99 11/08/16 15:45 81 18 99 11/08/16 15:31 172/69 11/08/16 15:15 82 20 100 11/08/16 15:00 140/63 11/08/16 14:52 36.6 87 20 146/62 99 11/08/16 14:45 89 17 146/62 99 11/08/16 14:34 36.3 85 20 144/72 98 11/08/16 14:30 36.7 80 20 172/69 99 11/08/16 14:30 144/72 11/08/16 14:15 96 18 140/62 97 11/08/16 14:00 151/61 11/08/16 13:50 152/57 11/08/16 13:45 84 20 100 11/08/16 13:30 129/71 11/08/16 13:15 85 22 11/08/16 13:03 134/70 11/08/16 13:03 84 20 134/70 97 (Mckayla Mojica, PA-C) Physical Exam General Appearance: WD/WN, no apparent distress, + obese Eyes: normal inspection, PERRL, EOMI ENT: normal ENT inspection, hearing grossly normal, pharynx normal Neck: supple, no JVD, trachea midline Respiratory/Chest: normal breath sounds, no respiratory distress, + decreased breath sounds Cardiovascular: regular rate, rhythm, no gallop, + systolic murmur Abdomen: normal bowel sounds, soft, + tenderness (RUQ TTP), + hernia (large ventral hernia RLQ) Extremities: non-tender, normal inspection, + swelling (1+ pitting edema) Neurologic/Psychiatric: alert, normal mood/affect, + disoriented (disoriented to time. knew day of the week and month, but stated year was 1941) Skin: normal color, warm/dry, no rash (Mckayla Mojica PA-C) Laboratory Results Last 24 Hours Test 11/08/16 18:31 11/08/16 20:07 11/08/16 20:30 11/09/16 03:10 Bedside Glucose 245 mg/dl 380 mg/dl Hemoglobin 8.2 g/dL 8.3 g/dL Hematocrit 27.4 % 26.8 % White Blood Count 9.57 K/uL Red Blood Count 3.92 M/uL Mean Corpuscular Volume 68.4 fL Mean Corpuscular Hemoglobin 21.2 pg Mean Corpuscular Hemoglobin Concent 31.0 g/dl RDW Standard Deviation 57.8 fL RDW Coefficient of Variation 23.3 % Platelet Count 271 K/uL Mean Platelet Volume 8.5 fL Nucleated RBC Absolute Count (auto) 0.43 K/uL Nucleated Red Blood Cells % 4.5 % Prothrombin Time 12.7 SECONDS Prothromb Time International Ratio 1.2 Activated Partial Thromboplast Time 22.0 SECONDS Partial Thromboplastin Ratio 0.8 Sodium Level 139 mmol/L Potassium Level 3.7 mmol/L Chloride Level 96 mmol/L Carbon Dioxide Level 38 mmol/L Anion Gap 5.0 mmol/L Blood Urea Nitrogen 28 mg/dl Creatinine 1.10 mg/dl Est Creatinine Clear Calc Drug Dose 37.6 ml/min Estimated GFR () 53.4 Estimated GFR (Non- 46.1 BUN/Creatinine Ratio 25.3 Random Glucose 142 mg/dl Calcium Level 8.4 mg/dl Magnesium Level 2.1 mg/dl Test 11/09/16 09:55 Hemoglobin 8.6 g/dL Hematocrit 28.8 % (Mckayla Mojica PA-C) Diagnostic Results Reviewed EKG and agree with interpretation as follows: 72 bpm, sinus rhythm with 1st degree AV block (Mckayla Mojica PA-C) Assessment and Plan 86 y/o female with a history of breast cancer, DM II w/neuropathy, hypertension , hyperlipidemia, COPD, chronic diastolic heart failure, anxiety/depression, h/ o PE/DVT, and GERD who presented to the ED on 11/08 with acute on chronic anemia. Patient complaining of dizziness for the last month. She has baseline anemia with hemoglobin around 8-10. After getting routine labs done at [facility] prior to arrival, she was found to have a hemoglobin of 5.3. Patient has been on chronic warfarin. No obvious source of acute bleeding, however, she was positive for occult blood in her stool. Patient presented to the ED with tachycardia and pallor. INR 2.9. Patient given 10 mg of vitamin K for reversal. 3 units of packed red blood cells ordered by Dr. Xiong and patient started on Protonix drip. Acute on chronic anemia secondary to "acute" blood loss--improved. Likely the patient has actually been slowly bleeding for quite some time. Last CBC February 2016 -Admit to telemetry. No events overnight, sinus rhythm in 60s-80s. Transfer to med/surg. -3 units PRBC ordered in ED. 2 units given. Patient with crackles and pitting edema on exam, will give Lasix 20 mg IV x 1 between first and second units of blood -Last Hgb 8.6 on 11/09 after 2 units PRBC -Hgb stable in 8s x 3, will monitor qd now -Continue Protonix drip -Consult GI, appreciate recs -Diabetic diet for now until GI sees -D/C Coumadin -INR on 11/09 was 1.2, down from 2.9 on arrival -Follow PT/INR Hypomagnesemia--resolved -Magnesium on arrival 1.5 -Given magnesium sulfate 1 gm IV x 1 -Repeat magnesium 2.1 on 11/09 H/o breast cancer status post left mastectomy -Continue tamoxifen 20 mg PO qd Diabetes type 2 w/diabetic neuropathy--last hemoglobin A1c on 09/27/16 was 8.1 -Sugars in 250s, will increase Lantus to 25 units SC BID -Insulin sliding scale -Check BSGs q ac and qhs -Continue gabapentin 400 mg PO qam and 800 mg PO qhs HTN--stable -Continue losartan 50 mg PO qd HLD -Continue atorvastatin 80 mg PO qd COPD--pt on supplemental oxygen at home continuously, 2L NC -O2 by protocol -Continue prednisone 10 mg PO qd and albuterol nebulizers when necessary Chronic diastolic CHF -Continue Lasix 40 mg PO BID and metolazone 2.5 mg PO qam -Continue KCl 40 mEq PO TID Anxiety and depression -Continue BuSpar 5 mg PO qd , Celexa 20 mg PO qd DVT prophylaxis -Hold chemical prophylaxis due to bleeding -STACIA hose and SCDs Code Status -Level V, DO NOT RESUSCITATE Dispo -Pt from [facility] -PT/OT evaluate and treat (Mckayla Mojica, SEBASTIÁN) Reviewed: Pt Seen/Exam by Me (Joselyn Sarabia MD) History Physician Manager Restaurant Supervision Note: I interviewed and examined the patient. Discussed with MYLES Mojica and agree with findings and plan as documented in the note. 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 Here with chronic blood loss severe symptomatic anemia. She does have a h/o Crohn's and is on chronic steroid use, both of which can cause chronic blood loss anemia. Vitals reviewed Obese, NAD, AAOx2 RRR no mgr Pulm with diminished BS throughout but no wheezes, some mild bibasilar crackles Abd soft +BS, large ventral hernia on right is reducible Ext no edema Skin no rashes 86 yo female with multiple medical problems here with symptomatic severe anemia , hgb 5.3, heme+ stool, no gross bleeding. Hgb up to 8.3 after transfusion 2 units -transfuse to keep hgb>7-8 then start iron supplementation after scopes -GI consult appreciated-plan for EGD/colonoscopy tomorrow -will likely need to go back on coumadin at some point given MTHFR mutation and sedentary lifestyle in [place], but with closer monitoring of CBC -can hopefully dc to [place] tomorrow after scopes Documented By: Joselyn Sarabia GI bleed in setting of warfarin therapy treated with holding warfarin and 2 units of PRBC's. (Joselyn Sarabia MD)
--- NOTE | 2016-11-09 16:06 | GASTROINTESTINAL CONSULTATION ---
DATE OF CONSULTATION: 11/09/2016 DATE OF CONSULTATION: 11/09/2016. REQUESTING PHYSICIAN: Dr. Sarabia. INDICATIONS: Chronic gastrointestinal blood loss anemia. HISTORY OF PRESENT ILLNESS: Mrs. Skinner is an 86-year-old white female who was admitted on 11/08/2016 from [facility] and presented to the Emergency Department for acute on chronic anemia. The patient was reporting feeling dizzy recently as well as dyspnea on exertion but no shortness of breath while at rest. The patient is on Coumadin for DVT and PE but denies any reports of melena or bright red blood per rectum. The patient had not reported any fevers, chills, hematemesis, coffee-ground emesis, diarrhea or constipation. PAST MEDICAL HISTORY: Significant for DVT and PE on anticoagulation, breast mass, cerebrovascular disease, Crohn's disease for which she underwent some surgical resection at least 20 years ago according to the patient, although she is unaware of the diagnosis of Crohn's at this time. There is also history of diabetes with neuropathy, hyperlipidemia. She has a hypercoagulable state with homozygous MTHFR, sleep apnea. She also has a history of TREVER-BSO and partial colectomy. FAMILY HISTORY: Significant for breast cancer, coronary artery disease, diabetes, lung cancer and stroke. SOCIAL HISTORY: The patient denies alcohol use, was a former smoker. He is , lives in a retirement. ALLERGIES: SEVERAL ALLERGIES INCLUDING IBUPROFEN, AMOXICILLIN, ASPARTAME, KEFLEX, AUGMENTIN, CODEINE, CROMOLYN, MORPHINE, NAPROXEN, SULFAS AND QUINOLONES. HOME MEDICATIONS: Include aspirin, atorvastatin, buspirone, citalopram, docusate, folic acid, Lasix, gabapentin, insulin, losartan, metolazone, omeprazole, potassium chloride, prednisone, tamoxifen, warfarin. REVIEW OF SYSTEMS: Otherwise noncontributory based on 14-point exam. The patient denies any chest pain, shortness of breath, palpitations at the present time. She denies any history of dysuria or hematuria. PHYSICAL EXAMINATION: VITAL SIGNS: At the present time afebrile 36.7, respirations 18, heart rate 77, blood pressure 129/73, 93% on 2 liters. GENERAL: The patient is awake, alert and oriented to person and place. HEAD, EYES, EARS, NOSE, AND THROAT: The sclerae are anicteric. Conjunctivae are moist. Oral mucosa is moist. NECK: There is no cervical or supraclavicular adenopathy. I do not appreciate thyromegaly. HEART: Normal S1, S2. LUNGS: Clear to auscultation. ABDOMEN: Soft with evidence of multiple abdominal surgeries. There is a right-sided large ventral wall hernia that is minimally tender with palpation. There is no rebound or guarding. I do not appreciate evidence of ascites or shifting dullness. There is a midline incision as well as several other smaller incisions in the mid to lower abdomen. EXTREMITIES: Without clubbing, cyanosis. There is trace edema. LABORATORY STUDIES: On admission showed a hemoglobin yesterday of 5.8. However, today this morning after 2 units of packed red cells her hemoglobin is up to 8.6. There are no reports of melena or bright red blood per rectum. Serum chemistries today BUN is 28 and creatinine 1.1, potassium 3.7, blood sugar 160, magnesium normal at 2.1. INR is 1.2 at 3:00 this morning. Imaging studies showed a chest x-ray on 11/08/2016 which showed moderate cardiomegaly, otherwise normal study. IMPRESSION: The patient with recurrent anemia which may be acute on chronic. There are no reports at least from the patient of melena or bright red blood per rectum. Nevertheless, she has had trouble with this in the past and does have a diagnosis of Crohn's disease. The patient is currently stable and is willing to undergo bidirectional endoscopy and will make plans for this for tomorrow with Dr. Hardin. The patient will undergo bowel prep. We will make the patient clear liquids through midnight and n.p.o. except for meds after midnight with bowel prep. All questions answered for the patient. Thank you for allowing me to participate in this pleasant lady's care.
[2016-11-09] MEDS ORDERED: INSULIN ASPART 100 UNITS/ML 3 ML PEN SC ONE (17:15)
[2016-11-09] MEDS ORDERED: NURSING VERBAL MED ORDER ONE (17:15)
[2016-11-09] MEDS ORDERED: LAVAGE SOLUTION 4000ML PO ONE (17:30)
[2016-11-09] MEDS: ONDANSETRON INJ 2 MG/ML 2 ML VIAL IV PRN (19:49)
[2016-11-09] MEDS: PANTOprazole INJ 40 MG in DEXTROSE 5% 100ML IV SCH (19:50)
[2016-11-09] MEDS ORDERED: INSULIN GLARGINE SOLOSTAR 100 UNITS/ML 3 ML PEN SC SCH (21:00)
[2016-11-10] MEDS: PANTOprazole INJ 40 MG in DEXTROSE 5% 100ML IV SCH ×5 (01:47→21:41)
--- NOTE | 2016-11-10 05:11 | Clinical Documentation Query ---
CLINICAL DOCUMENTATION QUERY 86 year old female who presents to the Emergency Room from [facility] to be evaluated for a low hemoglobin SECURITIES COMPLIANCE EXAMINER. In your clinical opinion is this patient being managed for: ( x ) GI bleed in setting of warfarin therapy treated with holding warfarin and 2 units of PRBC's. ( ) Other explanation of clinical findings (Please Explain) ( ) Unable to determine (Please Define) ( ) Need to Discuss ( ) Not Agree The medical record reflects the following clinical findings, treatment, and risk factors. Clinical Indicators: +outpatient FOCB, Hgb 5.3, Hct 20.6 Treatment: Warfarin on hold, GI consult, 2 units of PRBC's, Risk Factors: Age, Warfarin therapy Please clarify and document your clinical opinion in the progress notes and discharge summary. Terms such as "probable", "suspected", "likely", "questionable", "possible", or "still to be ruled out" are acceptable. IF IN AGREEMENT, YOU MUST DOCUMENT ABOVE DIAGNOSTIC STATEMENT IN DAILY PROGRESS NOTES AND DISCHARGE SUMMARY. This document is not part of the patient's record. Thank You, Grabiel Man, KANU [phone]
[2016-11-10 07:21] VITALS: BP 150/76; PULSE 77; TEMP 36.7; O2SAT 99
[2016-11-10] MEDS: ONDANSETRON INJ 2 MG/ML 2 ML VIAL IV PRN (07:38)
[2016-11-10] MEDS: ACETAMINOPHEN 325 MG TAB PO PRN ×2 (07:44→09:00)
[2016-11-10] MEDS: CITALOPRAM 20 MG TAB PO SCH (07:45)
[2016-11-10] MEDS: ATORVASTATIN 40 MG TAB PO SCH (07:45)
[2016-11-10] MEDS: DOCUSATE SODIUM 100 MG CAP PO SCH ×2 (07:45→21:42)
[2016-11-10] MEDS: GABAPENTIN 400 MG CAP PO SCH ×2 (07:45→21:44)
[2016-11-10] MEDS: METOLAZONE 2.5 MG TAB PO SCH (07:45)
[2016-11-10] MEDS: FUROSEMIDE 40 MG TAB PO SCH (07:46)
[2016-11-10] MEDS: LOSARTAN POTASSIUM 50 MG TAB PO SCH (07:46)
[2016-11-10] MEDS: INSULIN ASPART 100 UNITS/ML 3 ML PEN SC SCH ×4 (07:47→21:40)
[2016-11-10] MEDS: POTASSIUM CHLORIDE 10 MEQ TABCR PO SCH ×3 (07:47→21:43)
[2016-11-10] MEDS: TAMOXIFEN CITRATE 10 MG TAB PO SCH (07:49)
[2016-11-10] MEDS: INSULIN GLARGINE SOLOSTAR 100 UNITS/ML 3 ML PEN SC SCH ×2 (07:50→21:38)
[2016-11-10 08:13] LABS: BUN/CREATININE RATIO 23.9 (10-20); CALCIUM 8.5 mg/dl (8.5-10.1); CREATININE 1.1 mg/dl (0.60-1.20)
[2016-11-10 08:23] LABS: HEMATOCRIT 29.8 % (37-47); MEAN CELL VOLUME 70.8 fL (80-100); MEAN CORPUSCULAR HEMOGLOBIN 20.4 pg (25-34); MEAN CORPUSCULAR HGB CONC 28.9 g/dl (32-36); MEAN PLATELET VOLUME 9.2 fL (7.4-10.4); PLATELET COUNT 186 K/uL (130-400); RED BLOOD COUNT 4.21 M/uL (4.2-5.4); WHITE BLOOD COUNT 10.94 K/uL (4.8-10.8)
[2016-11-10] MEDS: POTASSIUM CHLR 10 MEQ / WTR 10 MEQ in PREMIXED WATER 100 ML IV SCH ×4 (09:46→17:05)
[2016-11-10] MEDS ORDERED: ACETAMINOPHEN 325 MG TAB PO ONE (13:45)
[2016-11-10] MEDS ORDERED: NURSING VERBAL MED ORDER ONE (13:45)
[2016-11-10] MEDS ORDERED: ACETAMINOPHEN IV 650 MG / 65ML IV ONE (14:15)
[2016-11-10] MEDS ORDERED: NSS + 20MEQ KCL 1000ML 1,000 ML IV SCH (15:00)
[2016-11-10] MEDS ORDERED: D5NSS + 20MEQ KCL 1,000 ML IV SCH (15:00)
--- NOTE | 2016-11-10 15:09 | Hospitalist Progress Note ---
Hospitalist Progress Note Date of Service Nov 10, 2016. (Mckayla Mojica ., PA-C) Subjective Pt evaluation today including: conversation w/ patient, physical exam, chart review, lab review, review of inpatient medication list Pain: None PO Intake: NPO for EGD Voiding: incontinence Patient reports feeling weak and fatigued. She denies any chest pain or shortness breath at the moment. She states that she has been urinating without any difficulties. She reports a non-productive cough. The patient is being kept nothing by mouth for an EGD later today. The patient denies fevers, chills , sweats, chest pain, palpitations, claudication, wheezing, shortness of breath , nausea, vomiting, abdominal pain, dysuria, hematuria, urinary retention, paralysis, numbness and tingling. Additional Comments: See HPI for pertinent positives and negatives. All other systems reviewed and negative. (Mckayla Mojica ., PA-C) Objective Vital Signs Date Time Temp Pulse Resp B/P Pulse Ox O2 Delivery O2 Flow Rate FiO2 11/10/16 09:15 Nasal Cannula 2.0 11/10/16 07:21 36.7 77 20 150/76 99 Nasal Cannula 2.0 11/10/16 05:04 Room Air 11/10/16 01:00 Nasal Cannula 2.0 11/09/16 23:51 36.4 73 20 144/77 99 Nasal Cannula 2.0 11/09/16 18:57 Nasal Cannula 2.0 11/09/16 17:10 36.6 74 18 124/72 95 Nasal Cannula 11/09/16 16:41 Nasal Cannula 2.0 11/09/16 16:19 36.7 78 18 127/64 95 2.0 (Mckayla Mojica ., PA-C) Physical Exam General Appearance: WD/WN, no apparent distress, + obese Eyes: normal inspection, EOMI, sclerae normal ENT: normal ENT inspection, hearing grossly normal, pharynx normal Neck: supple, no JVD, trachea midline Respiratory/Chest: lungs clear, normal breath sounds, no respiratory distress, + decreased breath sounds Cardiovascular: regular rate, rhythm, no gallop, + systolic murmur Abdomen: normal bowel sounds, soft, + tenderness (mild diffuse tenderness), + hernia (RLQ) Extremities: non-tender, normal inspection, + swelling (trace pitting edema) Neurologic/Psychiatric: alert, normal mood/affect, + disoriented Skin: normal color, warm/dry, no rash (Mckayla Mojica ., MYLES-C) Laboratory Results Last 24 Hours Test 11/09/16 16:41 11/09/16 20:28 11/10/16 07:00 11/10/16 07:44 Bedside Glucose 332 mg/dl 240 mg/dl 158 mg/dl White Blood Count 10.94 K/uL Red Blood Count 4.21 M/uL Hemoglobin 8.6 g/dL Hematocrit 29.8 % Mean Corpuscular Volume 70.8 fL Mean Corpuscular Hemoglobin 20.4 pg Mean Corpuscular Hemoglobin Concent 28.9 g/dl RDW Standard Deviation 64.5 fL RDW Coefficient of Variation 25.1 % Platelet Count 186 K/uL Mean Platelet Volume 9.2 fL Nucleated RBC Absolute Count (auto) 0.14 K/uL Nucleated Red Blood Cells % 1.3 % Sodium Level 139 mmol/L Potassium Level 3.0 mmol/L Chloride Level 95 mmol/L Carbon Dioxide Level 32 mmol/L Anion Gap 12.0 mmol/L Blood Urea Nitrogen 26 mg/dl Creatinine 1.10 mg/dl Est Creatinine Clear Calc Drug Dose 37.3 ml/min Estimated GFR () 53.4 Estimated GFR (Non- 46.1 BUN/Creatinine Ratio 23.9 Random Glucose 139 mg/dl Calcium Level 8.5 mg/dl Test 11/10/16 11:56 Bedside Glucose 210 mg/dl (Mckayla Mojica ., PA-C) Assessment and Plan 86 y/o female with a history of breast cancer, DM II w/neuropathy, hypertension , hyperlipidemia, COPD, chronic diastolic heart failure, anxiety/depression, h/ o PE/DVT, and GERD who presented to the ED on 11/08 with acute on chronic anemia. Patient complaining of dizziness for the last month. She has baseline anemia with hemoglobin around 8-10. After getting routine labs done at [facility] prior to arrival, she was found to have a hemoglobin of 5.3. Patient has been on chronic warfarin. No obvious source of acute bleeding, however, she was positive for occult blood in her stool. Patient presented to the ED with tachycardia and pallor. INR 2.9. Patient given 10 mg of vitamin K for reversal. 3 units of packed red blood cells ordered by Dr. Xiong and patient started on Protonix drip. Acute on chronic anemia secondary to "acute" blood loss; GI bleed in setting of warfarin therapy--improved and stable. Likely the patient has actually been slowly bleeding for quite some time. Last CBC February 2016 -Admit to telemetry. Transferred to med/surg on 11/09. -3 units PRBC ordered in ED. 2 units given. Patient with crackles and pitting edema on exam, will give Lasix 20 mg IV x 1 between first and second units of blood -Last Hgb 8.6 on 11/09 after 2 units PRBC -Hgb stable in 8s x 3, will monitor qd now -Hgb remains stable in mid 8s. -Continue Protonix drip -Consult GI, appreciate recs: recommend EGD and colonoscopy for today. -The patient could not tolerate bowel prep for colonoscopy and will go for EGD only -NPO for EGD -IV hydration with D5 NSS + 20 mEq at 75 cc/hr -D/C Coumadin -INR on 11/09 was 1.2, down from 2.9 on arrival -Follow PT/INR Hypomagnesemia--resolved -Magnesium on arrival 1.5 -Given magnesium sulfate 1 gm IV x 1 -Repeat magnesium 2.1 on 11/09 Hypokalemia -Potassium 3.0 on 11/10, down from 3.7 on 11/09 -KCl 40 mEq IV -Continue to monitor H/o breast cancer status post left mastectomy -Continue tamoxifen 20 mg PO qd Diabetes type 2 w/diabetic neuropathy--last hemoglobin A1c on 09/27/16 was 8.1 -Sugars in 250s, will increase Lantus to 22 units SC BID -Insulin sliding scale -Check BSGs q ac and qhs -Continue gabapentin 400 mg PO qam and 800 mg PO qhs HTN--stable -Continue losartan 50 mg PO qd HLD -Continue atorvastatin 80 mg PO qd COPD--pt on supplemental oxygen at home continuously, 2L NC -O2 by protocol -Continue prednisone 10 mg PO qd and albuterol nebulizers when necessary Chronic diastolic CHF -Continue Lasix 40 mg PO BID and metolazone 2.5 mg PO qam -Continue KCl 40 mEq PO TID Anxiety and depression -Continue BuSpar 5 mg PO qd , Celexa 20 mg PO qd DVT prophylaxis -Hold chemical prophylaxis due to bleeding -STACIA argueta and SCDs Code Status -Level V, DO NOT RESUSCITATE Dispo -Pt from [facility], has bed hold -PT/OT evaluate and treat (Mckayla Mojica ., SEBASTIÁN) History Physician Reconciliation Coordinator Supervision Note: I interviewed and examined the patient. Discussed with MYLES Mojica and agree with findings and plan as documented in the note. 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 Here with chronic blood loss severe symptomatic anemia. She does have a h/o Crohn's and is on chronic steroid use, both of which can cause chronic blood loss anemia. having headache today, is NPO and awaiting EGD Had EGD today--> Candidal esophagitis found Vitals reviewed Obese,drowsy today as I woke her from sleep RRR no mgr Pulm with diminished BS throughout but no wheezes, some mild bibasilar crackles Abd soft +BS, large ventral hernia on right is reducible Ext no edema Skin no rashes 86 yo female with multiple medical problems here with symptomatic severe anemia , hgb 5.3, heme+ stool, no gross bleeding. Hgb up to 8.3 after transfusion 2 units. GI bleed in setting of warfarin therapy treated with holding warfarin and 2 units of PRBC's. EGD with Candidal esophagitis, start Diflucan po Plan for colonoscopy on Mon after extended prep through weekend as could not tolerate prep last night -transfuse to keep hgb>7-8 then start iron supplementation after scopes -GI consult appreciated -will likely need to go back on coumadin at some point given MTHFR mutation and sedentary lifestyle in [place], but with closer monitoring of CBC Documented By: Joselyn Sarabia (Joselyn Sarabia MD)
[2016-11-10 15:41] VITALS: BP 133/81; PULSE 77; TEMP 36.6; O2SAT 98
[2016-11-10] MEDS ORDERED: PROPOFOL IV EMULSION 10 MG/ML 20 ML VIAL IV ONE (15:45)
[2016-11-10] MEDS ORDERED: LIDOCAINE HCL 2% 2 ML VIAL (20MG/ML) ONE ×2 (15:45→15:57)
--- NOTE | 2016-11-10 16:01 | Endo History and Physical ---
History & Physical Date of Service: Nov 10, 2016. Chief Complaint: blood in the stool Referring Physician: DR Elkins History of Present Illness For EGD Past Medical History Diabetes, Arthritis, Anxiety, Sleep Apnea, Hypertension, COPD, CVA/TIA, Other Past Surgical History Hx Cardiac Surgery: No Hx Abdominal Surgery: Yes (APPENDECTOMY, HYSTERECTOMY, PARTIAL COLECTOMY) Hx Post-Op Nausea and Vomiting: No Hx Cancer Surgery: Yes (LEFT MASTECTOMY 2014) Hx Thoracic Surgery: No Hx Orthopedic: Yes (HIP REPLACED 2012, bilateral knees) Hx Urinary Tract Surgery: No Social History Smoking Status: Former Smoker Smokeless Tobacco Use: No Hx Substance Use: No Hx Alcohol Use: No Allergies Coded Allergies: Ibuprofen (Verified Allergy, Severe, ANAPHYLAXIS, 05/23/16) Amoxicillin (Verified Allergy, Mild, URTICARIA-HAS TOLERATED ZOSYN PREV ADM., 05/23/16) Noted at [facility] 12/07/10 Has tolerated Zosyn on previous admissions Aspartame (Unverified Allergy, Mild, HIVES, 05/23/16) Cephalexin (Unverified Allergy, Mild, HIVES, 05/23/16) Clavulanic Acid (Verified Allergy, Mild, urticaria-HAS TOLERATED ZOSYN PREV ADM., 05/23/16) Noted at [facility] 12/07/10 Cephalosporins (Verified Allergy, Unknown, HAS TOLERATED CEFTRIAXONE, CEFEPIME, 05/23/16) 05/14/12 - PATIENT DENIES EVER HAVING A REACTION TO OR TAKING ANY CEPHALOSPORINS Codeine (Verified Allergy, Unknown, 05/23/16) Cromolyn (Verified Allergy, Unknown, 05/23/16) Morphine and Related (Verified Allergy, Unknown, Unknown, 05/23/16) Naproxen (Verified Allergy, Unknown, ANAPHYLAXIS, 05/23/16) Penicillins (Verified Allergy, Unknown, Unknown, 05/23/16) Sulfa Antibiotics (Verified Allergy, Unknown, 05/14/12 - STATES THAT SHE IS UNABLE TO TOLERATE ANY SULFA, 05/23/16) 05/14/12 - STATES THAT SHE IS UNABLE TO TOLERATE ANY SULFA DRUGS Quinolones (Verified Adverse Reaction, Mild, NAUSEA, 05/23/16) PER DR. GARCIA - SPOKE W PT WHO SAID SHE HAD CIPRO FOR UTI A "LONG TIME AGO". REACTION WAS NAUSEA. I CONFIRMED ADMINISTREATION HX WITH OUR RECORDS - ADMIN 06/19/08. THEREFORE PT LIKELY ABLE TO TOLERATE CIPRO. Current Medications Reported Home Medications Medications Dose Route/Sig Max Daily Dose Days Date Category Dose Instructions Proventil 0.083% 2.5MG/3ML (Albuterol Sulf) 2.5 Mg/3 Ml Nebu 2.5 Mg INH Q4 PRN 11/08/16 Reported Roxicodone Ir (Oxycodone HCl) 5 Mg Tab 10 Mg PO Q8 PRN 11/08/16 Reported Tylenol (Acetaminophen) 325 Mg Tab 650 Mg PO Q6 PRN 11/08/16 Reported Micro-K Ext Rel (Potassium Chloride) 10 Meq Capcr 40 Meq PO TID 11/08/16 Reported Novolog Flexpen (Insulin Aspart) 100 Units/Ml Inj 8-18 Units SC UD PRN 11/08/16 Reported USE 4 TIMES DAILY IF BLOOD SUGAR: 351-400 = 8 UNITS 304-450 = 12 UNITS 451-500= 16 UNITS > 500= 18 UNITS AND RECHECK BSG IN 2 HOURS Novolog Flexpen (Insulin Aspart) 100 Units/Ml Inj 15 Units SC BID 11/08/16 Reported Zaroxolyn (Metolazone) 2.5 Mg Tab 2.5 Mg PO QAM 11/08/16 Reported TAKE 2 HOURS PRIOR TO AM LASIX DOSE Levemir (Insulin Detemir) 100 Units/Ml Inj 25 Units SC BID 11/08/16 Reported Jantoven (Warfarin Sodium) 2 Mg Tab 2 Mg PO 5XWK 11/08/16 Reported GIA-ZYI-TOW-SAT-SUN Jantoven (Warfarin Sodium) 1 Mg Tab 1 Mg PO 2XWK 11/08/16 Reported TU-TH Folvite (Folic Acid) 1 Mg Tab 1 Mg PO DAILY 11/08/16 Reported Citalopram Hydrobromide 20 Mg Tab 20 Mg PO DAILY 11/08/16 Reported Roxicodone Ir (Oxycodone HCl) 5 Mg Tab 5 Mg PO Q8 PRN 11/09/15 Reported Cozaar (Losartan Potassium) 50 Mg Tab 50 Mg PO DAILY 11/09/15 Reported Nolvadex (Tamoxifen Citrate) 20 Mg Tab 20 Mg PO DAILY 11/07/15 Reported Prednisone 10 Mg Tab 10 Mg PO DAILY 07/31/15 Reported Prilosec (Omeprazole) 20 Mg Capcr 20 Mg PO QAM 07/31/15 Reported CAP MAY BE OPENED & SPRINKLED ON APPLESAUCE Lasix (Furosemide) 40 Mg Tab 40 Mg PO BID 06/09/15 Reported Colace (Docusate Sodium) 100 Mg Cap 100 Mg PO BID 06/09/15 Reported Aspirin Ec (Aspirin) 81 Mg Tab 81 Mg PO HS 04/16/15 Reported Neurontin (Gabapentin) 400 Mg Cap 400 Mg PO QAM 04/15/15 Reported Buspirone HCl 5 Mg Tab 5 Mg PO QAM 08/22/14 Reported Lipitor (Atorvastatin Calcium) 80 Mg Tab 80 Mg PO DAILY 08/13/13 Reported Neurontin (Gabapentin) 400 Mg Cap 800 Mg PO HS 10/06/11 Reported Vital Signs Weight (Kilograms): 87.000 Height (Feet): 5 Height (Inches): 0.00 Date Time Temp Pulse Resp B/P Pulse Ox O2 Delivery O2 Flow Rate FiO2 11/10/16 15:41 36.6 77 18 133/81 98 Nasal Cannula 2.0 11/10/16 15:35 36.9 77 16 134/63 98 Room Air 11/10/16 09:15 Nasal Cannula 2.0 11/10/16 07:21 36.7 77 20 150/76 99 Nasal Cannula 2.0 11/10/16 05:04 Room Air 11/10/16 01:00 Nasal Cannula 2.0 11/09/16 23:51 36.4 73 20 144/77 99 Nasal Cannula 2.0 11/09/16 18:57 Nasal Cannula 2.0 11/09/16 17:10 36.6 74 18 124/72 95 Nasal Cannula 11/09/16 16:41 Nasal Cannula 2.0 11/09/16 16:19 36.7 78 18 127/64 95 2.0 Physical Exam General Appearance: + obese Respiratory/Chest: Auscultation: deminished air movement Cardiovascular: Heart Auscultation: RRR Abdomen: Inspection & Palpation: soft Assessment and Plan Anemia for EGD
--- NOTE | 2016-11-10 16:12 | Discharge Instructions ---
Endoscopy Patient Instructions Date / Procedure(s) Performed Nov 10, 2016. EGD Allergy Information Coded Allergies: Ibuprofen (Verified Allergy, Severe, ANAPHYLAXIS, 05/23/16) Amoxicillin (Verified Allergy, Mild, URTICARIA-HAS TOLERATED ZOSYN PREV ADM., 05/23/16) Noted at [facility] 12/07/10 Has tolerated Zosyn on previous admissions Aspartame (Unverified Allergy, Mild, HIVES, 05/23/16) Cephalexin (Unverified Allergy, Mild, HIVES, 05/23/16) Clavulanic Acid (Verified Allergy, Mild, urticaria-HAS TOLERATED ZOSYN PREV ADM., 05/23/16) Noted at [facility] 12/07/10 Cephalosporins (Verified Allergy, Unknown, HAS TOLERATED CEFTRIAXONE, CEFEPIME, 05/23/16) 05/14/12 - PATIENT DENIES EVER HAVING A REACTION TO OR TAKING ANY CEPHALOSPORINS Codeine (Verified Allergy, Unknown, 05/23/16) Cromolyn (Verified Allergy, Unknown, 05/23/16) Morphine and Related (Verified Allergy, Unknown, Unknown, 05/23/16) Naproxen (Verified Allergy, Unknown, ANAPHYLAXIS, 05/23/16) Penicillins (Verified Allergy, Unknown, Unknown, 05/23/16) Sulfa Antibiotics (Verified Allergy, Unknown, 05/14/12 - STATES THAT SHE IS UNABLE TO TOLERATE ANY SULFA, 05/23/16) 05/14/12 - STATES THAT SHE IS UNABLE TO TOLERATE ANY SULFA DRUGS Quinolones (Verified Adverse Reaction, Mild, NAUSEA, 05/23/16) PER DR. GARCIA - SPOKE W PT WHO SAID SHE HAD CIPRO FOR UTI A "LONG TIME AGO". REACTION WAS NAUSEA. I CONFIRMED ADMINISTREATION HX WITH OUR RECORDS - ADMIN 06/19/08. THEREFORE PT LIKELY ABLE TO TOLERATE CIPRO. Discharge Date / Findings Nov 10, 2016. Noa esophagitis Medication Instructions Restart Stopped Medication(s): resume meds see orders Provider Instructions Activity Restrictions - No exercising or heavy lifting for 24 hours. - Do not drink alcohol the day of the procedure. - Do not drive a car or operate machinery until the day after the procedure. - Do not make any important decisions or sign important papers in 24 hours after the procedure. Following Day: - Return to full activity which may include returning to work/school. Diet Start your diet with liquids and light foods (jello, soup, juice, toast). Then eat your usual diet if not nauseated. Treatment For Common After Affects For mild abdominal pain, bloating, or excessive gas: - Rest - Eat lightly - Lie on right side Follow-Up Information Follow-up with as scheduled Anesthesia Information What You Should Know You have had a procedure that required some medicine to reduce anxiety and discomfort. This treatment is called moderate sedation. After receiving the treatment, you may be sleepy, but you will be able to breathe on your own. The effects of the treatment may last for several hours. Follow these instructions along with Activity/Diet recommendations noted above: * Do NOT do anything where dizziness or clumsiness would be dangerous. * Rest quietly at home today, then you can be up and about tomorrow. * Have a responsible person stay with you the rest of today. * You may have had an I.V. today. If so, you may take the dressing off later today. Recommendations Call your doctor if: * Trouble breathing * Continuous vomiting for more than 24 hours * Temperature above 101 degrees * Severe abdominal pain or bloating * Pain not relieved by pain medicine ordered * There is increased drainage or redness from any incision * A large amount of rectal bleeding greater than 2-3 tablespoons. (If you had a polyp/s removed or have hemorrhoids, a small amount of blood - from the rectum is to be expected.) * You have any unanswered questions or concerns. IN THE EVENT OF A SERIOUS EMERGENCY, GO TO THE NEAREST EMERGENCY ROOM Your discharge instructions were prepared by provider Porter Hardin. Patient Instructions Signature Page Aleena Skinner Patient (or Guardian) Signature/Date: I have read and understand the instructions given to me by my caregivers. Caregiver/RN/Doctor Signature/Date: The above-named patient and/or guardian has received patient instructions on this date. + Original Patient Signature Page (only) stays with chart. Please make copy for patient.
--- NOTE | 2016-11-10 16:24 | GI REPORT ---
Procedure Date: 11/10/2016 3:59 PM Procedure: Upper GI endoscopy Indications: Iron deficiency anemia secondary to chronic blood loss, Heme positive stool Medicines: Propofol total dose 90 mg IV, Lidocaine 100 mg IV Complications: No immediate complications. Estimated Blood Loss: Estimated blood loss: none. Procedure: Pre-Anesthesia Assessment: - Prior to the procedure, a History and Physical was performed, and patient medications, allergies and sensitivities were reviewed. The patient's tolerance of previous anesthesia was reviewed. - The risks and benefits of the procedure and the sedation options and risks were discussed with the patient. All questions were answered and informed consent was obtained. After obtaining informed consent, the endoscope was passed under direct vision. Throughout the procedure, the patient's blood pressure, pulse, and oxygen saturations were monitored continuously. The scope was introduced through the mouth, and advanced to the second part of duodenum. The upper GI endoscopy was accomplished without difficulty. The patient tolerated the procedure well. Findings: Patchy candidiasis was found in the middle third of the esophagus. Cells for cytology were obtained by brushing. Estimated blood loss: none. The entire examined stomach was normal. The examined duodenum was normal. Impression: - Monilial esophagitis. Cells for cytology obtained. - Normal stomach. - Normal examined duodenum. Recommendation: - Return patient to [facility] for ongoing care. - Perform a colonoscopy in 3 days. Porter Hardin M.D. Porter Hardin MD 11/10/2016 4:25:01 PM This report has been signed electronically. Note Initiated On: 11/10/2016 3:59 PM I attest to the content of the Intraoperative Record and orders documented therein, exceptions below
--- NOTE | 2016-11-10 16:38 | PROGRESS NOTE ---
DATE: 11/10/2016 The patient presents with severe anemia and heme positive stool. She has been on blood thinners for clotting disorder. The patient was unable to tolerate the Colyte bowel prep last night, was vomiting it, so we decided not to do EGD and colonoscopy today but just do an EGD. This was performed this afternoon. She does have evidence of Noa esophagitis. Brushings were sent and she will be started on Diflucan. The remainder of the esophagus, stomach and duodenum were normal with no evidence of source of blood loss. The patient will be prepped over the weekend with clear liquid diet, magnesium citrate Sunday and Sunday as well as Fleet enema daily for the next 3 days and hopefully she will be cleaned enough that we can proceed with colonoscopy on Sunday. She will remain on a clear liquid diet through the weekend. [facility]
--- NOTE | 2016-11-10 16:38 | Anesthesiology Progress Note ---
Anesthesia Post Op Note Date & Time Nov 10, 2016 at 16:38 Vital Signs Pain Intensity: 0 Vital Signs Past 12 Hours Date Time Temp Pulse Resp B/P Pulse Ox O2 Delivery O2 Flow Rate FiO2 11/10/16 16:28 71 20 124/60 100 Nasal Cannula 2.0 11/10/16 16:13 70 20 109/53 97 Nasal Cannula 2.0 11/10/16 15:41 36.6 77 18 133/81 98 Nasal Cannula 2.0 11/10/16 15:35 36.9 77 16 134/63 98 Room Air 11/10/16 09:15 Nasal Cannula 2.0 11/10/16 07:21 36.7 77 20 150/76 99 Nasal Cannula 2.0 11/10/16 05:04 Room Air Notes Mental Status: alert / awake / arousable, participated in evaluation Pt Amnestic to Procedure: Yes Nausea / Vomiting: adequately controlled Pain: adequately controlled Airway Patency, RR, SpO2: stable & adequate BP & HR: stable & adequate Hydration State: stable & adequate Anesthetic Complications: no major complications apparent
[2016-11-10] MEDS: FLUCONAZOLE 100 MG TAB PO SCH (19:31)
[2016-11-10 23:56] VITALS: BP 130/73; PULSE 70; TEMP 36.6; O2SAT 99
[2016-11-11] MEDS: PANTOprazole INJ 40 MG in DEXTROSE 5% 100ML IV SCH ×3 (01:55→11:37)
[2016-11-11 06:30] LABS: MEAN CELL VOLUME 72.7 fL (80-100); MEAN CORPUSCULAR HEMOGLOBIN 21.1 pg (25-34); MEAN PLATELET VOLUME 8.7 fL (7.4-10.4); PLATELET COUNT 208 K/uL (130-400); RED BLOOD COUNT 3.99 M/uL (4.2-5.4)
[2016-11-11 06:43] LABS: INR 1.1 (0.9-1.1); PARTIAL THROMBOPLASTIN RATIO 0.9; PROTHROMBIN TIME (PATIENT) 11.3 SECONDS (9.0-12.0)
[2016-11-11 06:59] LABS: BUN/CREATININE RATIO 19.6 (10-20); CALCIUM 8.4 mg/dl (8.5-10.1); CREATININE 1.1 mg/dl (0.60-1.20); POTASSIUM 3.1 mmol/L (3.5-5.1)
[2016-11-11] MEDS ORDERED: POTASSIUM CHLORIDE 10 MEQ TABCR PO STA (07:26)
[2016-11-11] MEDS ORDERED: POTASSIUM CHLORIDE 20 MEQ TABCR PO STA (07:28)
[2016-11-11 07:30] VITALS: BP 115/68; PULSE 72; TEMP 36.5; O2SAT 91
[2016-11-11] MEDS: TAMOXIFEN CITRATE 10 MG TAB PO SCH (08:11)
[2016-11-11] MEDS: DOCUSATE SODIUM 100 MG CAP PO SCH ×2 (08:11→20:46)
[2016-11-11] MEDS: MAGNESIUM CITRATE 296 ML/BTL PO SCH (08:12)
[2016-11-11] MEDS: FLUCONAZOLE 100 MG TAB PO SCH (08:12)
[2016-11-11] MEDS: GABAPENTIN 400 MG CAP PO SCH ×2 (08:12→20:46)
[2016-11-11] MEDS: LOSARTAN POTASSIUM 50 MG TAB PO SCH (08:12)
[2016-11-11] MEDS: CITALOPRAM 20 MG TAB PO SCH (08:12)
[2016-11-11] MEDS: METOLAZONE 2.5 MG TAB PO SCH (08:14)
[2016-11-11] MEDS: ATORVASTATIN 40 MG TAB PO SCH (08:16)
[2016-11-11] MEDS: POTASSIUM CHLORIDE 10 MEQ TABCR PO SCH ×3 (08:17→13:22)
[2016-11-11] MEDS: SOD PHOSPHATE/SOD BIPHOSPHATE ENEMA 132 ML BTL PR SCH (08:18)
[2016-11-11] MEDS: INSULIN ASPART 100 UNITS/ML 3 ML PEN SC SCH ×4 (08:19→20:52)
[2016-11-11] MEDS: INSULIN GLARGINE SOLOSTAR 100 UNITS/ML 3 ML PEN SC SCH ×2 (08:23→20:52)
[2016-11-11] MEDS: FUROSEMIDE 40 MG TAB PO SCH ×2 (10:02→16:58)
--- NOTE | 2016-11-11 11:11 | PROGRESS NOTE ---
DATE: 11/11/2016 DATE: 11/11/2016. The patient is stable without any signs of overt GI bleeding. The patient's hemoglobin and hematocrit have remained stable since hospitalization and transfusion. The patient currently is being prepped for colonoscopy. Her EGD yesterday did not show any signs of blood source of bleeding. She did have Noa esophagitis and has been started on Diflucan empirically pending cytology results. The patient is being prepped with clear liquids, magnesium citrate and Fleet's enemas and plan is for colonoscopy on Sunday afternoon.
--- NOTE | 2016-11-11 15:17 | Hospitalist Progress Note ---
Hospitalist Progress Note Date of Service Nov 11, 2016. Subjective Pt evaluation today including: conversation w/ patient, physical exam, lab review, review of inpatient medication list No problems. She is tired but no other problems. EGD with esophageal candidiasis Constitutional: No fever Respiratory: No shortness of breath Cardiovascular: No chest pain Abdomen: No GI bleeding, No pain Neurologic: + weakness (chronically in legs, uses wheelchair) All Other Systems: Reviewed and Negative Objective Vital Signs Date Time Temp Pulse Resp B/P Pulse Ox O2 Delivery O2 Flow Rate FiO2 11/11/16 11:14 Nasal Cannula 2.0 11/11/16 10:49 Nasal Cannula 2.0 11/11/16 07:30 36.5 72 20 115/68 91 Room Air 11/11/16 00:00 Nasal Cannula 2.0 11/10/16 23:56 36.6 70 20 130/73 99 Nasal Cannula 2.0 11/10/16 17:00 Nasal Cannula 2.0 11/10/16 16:28 71 20 124/60 100 Nasal Cannula 2.0 11/10/16 16:13 70 20 109/53 97 Nasal Cannula 2.0 11/10/16 15:41 36.6 77 18 133/81 98 Nasal Cannula 2.0 11/10/16 15:35 36.9 77 16 134/63 98 Room Air Physical Exam General Appearance: no apparent distress, + obese Eyes: normal inspection, sclerae normal ENT: pharynx normal Neck: trachea midline Respiratory/Chest: no respiratory distress, no accessory muscle use, + decreased breath sounds (throughout, occasional rhonchi) Cardiovascular: regular rate, rhythm, no edema, no gallop, no murmur Abdomen: normal bowel sounds, non tender, soft (and morbidly obese) Extremities: non-tender, normal inspection, no pedal edema, no calf tenderness Neurologic/Psychiatric: alert, normal mood/affect, + pertinent finding (3/5 strength in LEs throughout, 4/5 in UEs throughout) Skin: normal color, no rash Laboratory Results Last 24 Hours Test 11/10/16 15:03 11/10/16 16:54 11/10/16 20:44 11/11/16 06:15 Bedside Glucose 254 mg/dl 270 mg/dl 302 mg/dl White Blood Count 8.90 K/uL Red Blood Count 3.99 M/uL Hemoglobin 8.4 g/dL Hematocrit 29.0 % Mean Corpuscular Volume 72.7 fL Mean Corpuscular Hemoglobin 21.1 pg Mean Corpuscular Hemoglobin Concent 29.0 g/dl RDW Standard Deviation 67.7 fL RDW Coefficient of Variation 25.8 % Platelet Count 208 K/uL Mean Platelet Volume 8.7 fL Nucleated RBC Absolute Count (auto) 0.09 K/uL Nucleated Red Blood Cells % 1.0 % Prothrombin Time 11.3 SECONDS Prothromb Time International Ratio 1.1 Activated Partial Thromboplast Time 22.4 SECONDS Partial Thromboplastin Ratio 0.9 Sodium Level 140 mmol/L Potassium Level 3.1 mmol/L Chloride Level 97 mmol/L Carbon Dioxide Level 33 mmol/L Anion Gap 10.0 mmol/L Blood Urea Nitrogen 22 mg/dl Creatinine 1.10 mg/dl Est Creatinine Clear Calc Drug Dose 37.3 ml/min Estimated GFR () 53.4 Estimated GFR (Non- 46.1 BUN/Creatinine Ratio 19.6 Random Glucose 111 mg/dl Calcium Level 8.4 mg/dl Test 11/11/16 07:41 11/11/16 11:52 Bedside Glucose 105 mg/dl 196 mg/dl Assessment and Plan 86 y/o female with a history of breast cancer, DM II w/neuropathy, hypertension , hyperlipidemia, COPD, chronic diastolic heart failure, anxiety/depression, PMR with ambulatory dysfunction, Crohn's disease, bowel resection with colostomy and reversal of colostomy with persistent large ventral hernia, carotid artery stenosis, SEKOU, 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 Patient complaining of dizziness for the last month. She has baseline anemia with hemoglobin around 8-10. Patient has been on chronic warfarin. No obvious source of acute bleeding, however, she was positive for occult blood in her stool. INR 2.9 on admission and she was given 10 mg of vitamin K for reversal. GI bleed in setting of warfarin therapy treated with holding warfarin and 2 units of PRBC's, h/o Crohn's in remission, h/o colectomy and colostomy with reversal/Esophageal Candidiasis- Hgb remains stable at 8.4, no gross bleeding. EGD with Candidal esophagitis -continue Diflucan po and continue for 14 day course Plan for colonoscopy on Mon after extended prep through weekend as could not tolerate prep -transfuse to keep hgb>7-8 then start iron supplementation after scopes -GI consult appreciated -will likely need to go back on coumadin at some point given MTHFR mutation and sedentary lifestyle in [place], but with closer monitoring of CBC -dc Protonix drip today and change to IV once daily and then po daily after colonoscopy H/o PE, homozygous MTHFR, sedentary lifestyle-will need to go back on coumadin when safe from GI standpoint Hypomagnesemia--resolved after repletion -follow daily Hypokalemia-persists due to diuretics and NPO status -replace with 60/40/40meq tid po today -follow PRP in AM H/o breast cancer status post left mastectomy-stable, no issues -Continue tamoxifen 20 mg PO qd Diabetes type 2 w/diabetic neuropathy--last hemoglobin A1c on 09/27/16 was 8.1 -with hyperglycemia here, increased Lantus to 23 units SC BID, -Insulin sliding scale -Check BSGs q ac and qhs -Continue gabapentin 400 mg PO qam and 800 mg PO qhs HTN--stable -Continue losartan 50 mg PO qd HLD, RUSSELL-stable, last carotid US 50-69% left ICA stenosis in 2014 -Continue atorvastatin 80 mg PO qd -reimage carotids as an outpat COPD, Chronic respiratory failure--pt on supplemental oxygen at home continuously, 2L NC, on chronic prednisone 10mg daily -O2 by protocol -Continue prednisone -nebs prn Chronic diastolic CHF-stable, no issues -Continue Lasix 40 mg PO BID and metolazone 2.5 mg PO qam -Continue KCl 40 mEq PO TID Anxiety and depression-stable, no issues -Continue BuSpar 5 mg PO qd , Celexa 20 mg PO qd DVT prophylaxis -Hold chemical prophylaxis due to bleeding, restart coumadin in future -STACIA argueta and Veronica Code Status -Level V, DO NOT RESUSCITATE Dispo -Pt from [facility], has bed hold -PT/OT evaluate and treat
[2016-11-11 15:30] VITALS: BP 109/67; PULSE 78; TEMP 36.5; O2SAT 98
[2016-11-11] MEDS ORDERED: NURSING VERBAL MED ORDER ONE (15:30)
[2016-11-11] MEDS: ACETAMINOPHEN 325 MG TAB PO PRN ×2 (16:58→20:45)
[2016-11-11] MEDS: POTASSIUM CHLORIDE 20 MEQ/15 ML UDC PO SCH (20:46)
[2016-11-11 23:40] VITALS: BP 121/64; PULSE 70; TEMP 36.4; O2SAT 98
[2016-11-12 07:04] VITALS: BP 153/71; PULSE 74; TEMP 36.2; O2SAT 98
[2016-11-12 07:29] LABS: BUN/CREATININE RATIO 19.3 (10-20); CALCIUM 7.9 mg/dl (8.5-10.1); CREATININE 1.1 mg/dl (0.60-1.20); MAGNESIUM 1.8 mg/dl (1.8-2.4); POTASSIUM 3.4 mmol/L (3.5-5.1)
[2016-11-12 07:50] LABS: HEMATOCRIT 28.1 % (37-47); MEAN CELL VOLUME 73.9 fL (80-100); MEAN CORPUSCULAR HEMOGLOBIN 21.3 pg (25-34); MEAN CORPUSCULAR HGB CONC 28.8 g/dl (32-36); MEAN PLATELET VOLUME 9.4 fL (7.4-10.4); PLATELET COUNT 170 K/uL (130-400); WHITE BLOOD COUNT 9.15 K/uL (4.8-10.8)
[2016-11-12 07:55] LABS: BASO % 0.4 %; BASO ABS # 0.04 K/uL (0-0.2); COMPLETE YES; EOS % 3.1 %; HYPERSEGMENTED POLYS 1+; HYPOCHROMIA PRESENT; IG% 0.9 %; LYMPH % 22.8 %; LYMPH ABS # 2.09 K/uL (1.2-3.4); MICROCYTOSIS PRESENT; MONO % 11.8 %; POIKILOCYTOSIS PRESENT; POLYCHROMASIA 1+
[2016-11-12] MEDS: PANTOprazole INJ 40 MG in SYRINGE 0 ML IV SCH (08:15)
[2016-11-12] MEDS: POTASSIUM CHLORIDE 20 MEQ/15 ML UDC PO SCH ×3 (08:16→20:58)
[2016-11-12] MEDS: ATORVASTATIN 40 MG TAB PO SCH (08:17)
[2016-11-12] MEDS: GABAPENTIN 400 MG CAP PO SCH (08:17)
[2016-11-12] MEDS: DOCUSATE SODIUM 100 MG CAP PO SCH (08:17)
[2016-11-12] MEDS: METOLAZONE 2.5 MG TAB PO SCH (08:17)
[2016-11-12] MEDS: LOSARTAN POTASSIUM 50 MG TAB PO SCH (08:17)
[2016-11-12] MEDS: CITALOPRAM 20 MG TAB PO SCH (08:17)
[2016-11-12] MEDS: FLUCONAZOLE 100 MG TAB PO SCH (08:18)
[2016-11-12] MEDS: FUROSEMIDE 40 MG TAB PO SCH (08:18)
[2016-11-12] MEDS: MAGNESIUM CITRATE 296 ML/BTL PO SCH (08:18)
[2016-11-12] MEDS: INSULIN ASPART 100 UNITS/ML 3 ML PEN SC SCH ×4 (08:19→20:57)
[2016-11-12] MEDS: SOD PHOSPHATE/SOD BIPHOSPHATE ENEMA 132 ML BTL PR SCH (08:21)
[2016-11-12] MEDS: INSULIN GLARGINE SOLOSTAR 100 UNITS/ML 3 ML PEN SC SCH ×2 (08:21→20:56)
[2016-11-12] MEDS: TAMOXIFEN CITRATE 10 MG TAB PO SCH (08:22)
--- NOTE | 2016-11-12 10:31 | PROGRESS NOTE ---
DATE: 11/12/2016 SUBJECTIVE: The patient is not having any abdominal pain. She has had no signs of overt bleeding. She is taking an extended prep for colonoscopy tomorrow and is tolerating it well. The patient states that she is passing liquid stools and no longer is passing any solid stool. We will give another dose of magnesium citrate and a Fleet Enema today and then another Fleet Enema tomorrow morning with colonoscopy anticipated for tomorrow afternoon. Her hemoglobin remains relatively stable at 8.2. IMPRESSION: The patient has anemia with heme-positive stool. EGD showed Noa, but no bleeding site. She is being treated with Diflucan for that. We will proceed with her colonoscopy tomorrow to look for potential source of blood loss.
[2016-11-12] MEDS ORDERED: NURSING VERBAL MED ORDER ONE ×2 (12:45→16:45)
[2016-11-12 15:27] VITALS: BP 138/73; PULSE 76; TEMP 36.7; O2SAT 97
--- NOTE | 2016-11-12 16:14 | Hospitalist Progress Note ---
Hospitalist Progress Note Date of Service Nov 12, 2016. Subjective Pt evaluation today including: conversation w/ patient, physical exam Voiding: no voiding problems prepping for colonoscopy tomorrow, having liqui sools an passing all of her pills whole, RN switched all meds to liquid for better absorption with my permission. Pt denies any problems All Other Systems: Reviewed and Negative Objective Vital Signs Date Time Temp Pulse Resp B/P Pulse Ox O2 Delivery O2 Flow Rate FiO2 11/12/16 15:27 36.7 76 18 138/73 97 Nasal Cannula 2.0 11/12/16 10:46 Nasal Cannula 2.0 11/12/16 07:04 36.2 74 20 153/71 98 Nasal Cannula 3.0 11/12/16 01:20 Nasal Cannula 2.0 11/11/16 23:40 36.4 70 20 121/64 98 Nasal Cannula 3.0 11/11/16 19:41 Nasal Cannula 2.0 Physical Exam General Appearance: WD/WN, + obese Eyes: normal inspection, sclerae normal ENT: hearing grossly normal Respiratory/Chest: lungs clear, normal breath sounds, no respiratory distress, no accessory muscle use Cardiovascular: regular rate, rhythm, no edema, no gallop, no murmur Abdomen: normal bowel sounds, non tender, soft Extremities: normal inspection, no pedal edema, no calf tenderness Neurologic/Psychiatric: alert, normal mood/affect Skin: no rash Laboratory Results Last 24 Hours Test 11/11/16 16:42 11/11/16 20:10 11/12/16 05:50 11/12/16 07:29 Bedside Glucose 250 mg/dl 327 mg/dl 70 mg/dl White Blood Count 9.15 K/uL Red Blood Count 3.80 M/uL Hemoglobin 8.1 g/dL Hematocrit 28.1 % Mean Corpuscular Volume 73.9 fL Mean Corpuscular Hemoglobin 21.3 pg Mean Corpuscular Hemoglobin Concent 28.8 g/dl Platelet Count 170 K/uL Mean Platelet Volume 9.4 fL Neutrophils (%) (Auto) 61.0 % Lymphocytes (%) (Auto) 22.8 % Monocytes (%) (Auto) 11.8 % Eosinophils (%) (Auto) 3.1 % Basophils (%) (Auto) 0.4 % Neutrophils # (Auto) 5.58 K/uL Lymphocytes # (Auto) 2.09 K/uL Monocytes # (Auto) 1.08 K/uL Eosinophils # (Auto) 0.28 K/uL Basophils # (Auto) 0.04 K/uL RDW Standard Deviation 70.7 fL RDW Coefficient of Variation 26.6 % Immature Granulocyte % (Auto) 0.9 % Immature Granulocyte # (Auto) 0.08 K/uL Hypersegmented Polys 1+ Polychromasia 1+ Hypochromasia PRESENT Poikilocytosis PRESENT Microcytosis PRESENT Sodium Level 140 mmol/L Potassium Level 3.4 mmol/L Chloride Level 99 mmol/L Carbon Dioxide Level 32 mmol/L Anion Gap 9.0 mmol/L Blood Urea Nitrogen 21 mg/dl Creatinine 1.10 mg/dl Est Creatinine Clear Calc Drug Dose 37.3 ml/min Estimated GFR () 53.4 Estimated GFR (Non- 46.1 BUN/Creatinine Ratio 19.3 Random Glucose 60 mg/dl Calcium Level 7.9 mg/dl Magnesium Level 1.8 mg/dl Chemistry Specimen Hemolysis Test 11/12/16 11:44 Bedside Glucose 112 mg/dl Assessment and Plan 86 y/o female with a history of breast cancer, DM II w/neuropathy, hypertension , hyperlipidemia, COPD, chronic diastolic heart failure, anxiety/depression, PMR with ambulatory dysfunction, Crohn's disease, bowel resection with colostomy and reversal of colostomy with persistent large ventral hernia, carotid artery stenosis, SEKOU, 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 Patient complaining of dizziness for the last month. She has baseline anemia with hemoglobin around 8-10. Patient has been on chronic warfarin. No obvious source of acute bleeding, however, she was positive for occult blood in her stool. INR 2.9 on admission and she was given 10 mg of vitamin K for reversal. GI bleed in setting of warfarin therapy treated with holding warfarin and 2 units of PRBC's, h/o Crohn's in remission, h/o colectomy and colostomy with reversal/Esophageal Candidiasis- Hgb remains stable at 8.1, no gross bleeding. EGD with Candidal esophagitis -continue Diflucan po and continue for 14 day course Plan for colonoscopy on Sun after extended prep through weekend as could not tolerate prep previously -transfuse to keep hgb>7-8 then start iron supplementation after scopes -GI consult appreciated -will likely need to go back on coumadin at some point given MTHFR mutation and sedentary lifestyle in [place], but with closer monitoring of CBC -dc Protonix drip and change to IV once daily and then po daily after colonoscopy H/o PE, homozygous MTHFR, sedentary lifestyle-will need to go back on coumadin when safe from GI standpoint Hypomagnesemia--resolved after repletion -follow daily Hypokalemia-persists due to diuretics and po pills passing righ through, changed to po liquid -continue 40 tid liquid -follow PRP in AM H/o breast cancer status post left mastectomy-stable, no issues -Continue tamoxifen 20 mg PO qd Diabetes type 2 w/diabetic neuropathy--last hemoglobin A1c on 09/27/16 was 8.1, glucose here is labile -with hyperglycemia here, increased Lantus to 23 units SC BID, -Insulin sliding scale -Check BSGs q ac and qhs -Continue gabapentin 400 mg PO qam and 800 mg PO qhs for neuropathy HTN--stable -Continue losartan 50 mg PO qd HLD, RUSSELL-stable, last carotid US 50-69% left ICA stenosis in 2014 -Continue atorvastatin 80 mg PO qd -re-image carotids as an outpat COPD, Chronic respiratory failure--pt on supplemental oxygen at home continuously, 2L NC, on chronic prednisone 10mg daily -O2 by protocol -Continue prednisone -nebs prn Chronic diastolic CHF-stable, no issues -Continue Lasix 40 mg PO BID and metolazone 2.5 mg PO qam-HOLD AM of colonoscopy as is hypokalemic and losing a lot of fluid in stool prep -Continue KCl 40 mEq PO TID Anxiety and depression-stable, no issues -Continue BuSpar 5 mg PO qd , Celexa 20 mg PO qd DVT prophylaxis -Hold chemical prophylaxis due to bleeding, restart coumadin in future -STACIA argueta and NIKOLASs Code Status -Level V, DO NOT RESUSCITATE Dispo -Pt from [facility], has bed hold -PT/OT evaluate and treat
[2016-11-12] MEDS: DOCUSATE SODIUM 100 MG/10 ML UDC PO SCH (20:58)
[2016-11-12] MEDS: GABAPENTIN 250 MG/5 ML 470 ML BTL PO SCH (20:59)
[2016-11-12] MEDS: ACETAMINOPHEN SOLN 325 MG/10.15 ML UDC PO PRN (21:44)
[2016-11-12 23:42] VITALS: BP 135/68; PULSE 72; TEMP 36.6; O2SAT 96
[2016-11-13] VITALS (8 sets, daily range): BP systolic 135–173; BP diastolic 70–74; PULSE 72–92; TEMP 36.6–36.9; O2SAT 92–98
[2016-11-13 07:31] LABS: BUN/CREATININE RATIO 16.8 (10-20); CALCIUM 8.4 mg/dl (8.5-10.1); CREATININE 0.9 mg/dl (0.60-1.20); MAGNESIUM 2.1 mg/dl (1.8-2.4); POTASSIUM 3.7 mmol/L (3.5-5.1)
[2016-11-13] MEDS ORDERED: FOLIC ACID 100 MCG/ML PO SCH (08:00)
[2016-11-13] MEDS: INSULIN ASPART 100 UNITS/ML 3 ML PEN SC SCH ×4 (08:06→22:18)
[2016-11-13] MEDS: SOD PHOSPHATE/SOD BIPHOSPHATE ENEMA 132 ML BTL PR SCH ×3 (08:07→11:41)
[2016-11-13 08:33] LABS: HEMATOCRIT 26.2 % (37-47); MEAN CELL VOLUME 72.6 fL (80-100); MEAN CORPUSCULAR HEMOGLOBIN 21.1 pg (25-34); MEAN PLATELET VOLUME 8.9 fL (7.4-10.4); PLATELET COUNT 155 K/uL (130-400); RED BLOOD COUNT 3.61 M/uL (4.2-5.4); WHITE BLOOD COUNT 9.64 K/uL (4.8-10.8)
[2016-11-13 08:34] LABS: ANISOCYTOSIS PRESENT; BASO % 0.4 %; BASO ABS # 0.04 K/uL (0-0.2); COMPLETE YES; EOS % 2.7 %; IG% 0.6 %; LYMPH % 24.6 %; LYMPH ABS # 2.37 K/uL (1.2-3.4); MONO % 13.3 %; NEUT % 58.4 %; POIKILOCYTOSIS PRESENT; POLYCHROMASIA 1+
[2016-11-13] MEDS: POTASSIUM CHLORIDE 20 MEQ/15 ML UDC PO SCH ×3 (08:44→21:56)
[2016-11-13] MEDS: DOCUSATE SODIUM 100 MG/10 ML UDC PO SCH ×2 (08:44→21:56)
[2016-11-13] MEDS: INSULIN GLARGINE SOLOSTAR 100 UNITS/ML 3 ML PEN SC SCH ×2 (08:48→22:19)
[2016-11-13] MEDS ORDERED: NURSING VERBAL MED ORDER ONE ×2 (09:00→09:30)
[2016-11-13] MEDS ORDERED: MAGNESIUM CITRATE 296 ML/BTL ONE (09:31)
[2016-11-13] MEDS: PANTOprazole INJ 40 MG in SYRINGE 0 ML IV SCH (09:40)
[2016-11-13] MEDS: FLUCONAZOLE SUSP 100 MG/10 ML UDP PO SCH (11:02)
[2016-11-13] MEDS: CITALOPRAM 20 MG TAB PO SCH (11:02)
[2016-11-13] MEDS: LOSARTAN POTASSIUM 50 MG TAB PO SCH (11:02)
[2016-11-13] MEDS: ATORVASTATIN 40 MG TAB PO SCH (11:02)
[2016-11-13] MEDS: GABAPENTIN 250 MG/5 ML 470 ML BTL PO SCH ×2 (11:03→22:09)
[2016-11-13] MEDS: TAMOXIFEN CITRATE 10 MG TAB PO SCH (14:09)
--- NOTE | 2016-11-13 15:28 | Endo History and Physical ---
History & Physical Date of Service: Nov 13, 2016. Chief Complaint: Anemia Referring Physician: Wright coni History of Present Illness For colonoscopy Past Medical History Diabetes, Arthritis, Anxiety, Sleep Apnea, Hypertension, COPD, CVA/TIA, Other Past Surgical History Hx Cardiac Surgery: No Hx Abdominal Surgery: Yes (APPENDECTOMY, HYSTERECTOMY, PARTIAL COLECTOMY) Hx Post-Op Nausea and Vomiting: No Hx Cancer Surgery: Yes (LEFT MASTECTOMY 2014) Hx Thoracic Surgery: No Hx Orthopedic: Yes (HIP REPLACED 2012, bilateral knees) Hx Urinary Tract Surgery: No Social History Smoking Status: Former Smoker Smokeless Tobacco Use: No Hx Substance Use: No Hx Alcohol Use: No Allergies Coded Allergies: Ibuprofen (Verified Allergy, Severe, ANAPHYLAXIS, 05/23/16) Amoxicillin (Verified Allergy, Mild, URTICARIA-HAS TOLERATED ZOSYN PREV ADM., 05/23/16) Noted at [facility] 12/07/10 Has tolerated Zosyn on previous admissions Aspartame (Unverified Allergy, Mild, HIVES, 05/23/16) Cephalexin (Unverified Allergy, Mild, HIVES, 05/23/16) Clavulanic Acid (Verified Allergy, Mild, urticaria-HAS TOLERATED ZOSYN PREV ADM., 05/23/16) Noted at [facility] 12/07/10 Cephalosporins (Verified Allergy, Unknown, HAS TOLERATED CEFTRIAXONE, CEFEPIME, 05/23/16) 05/14/12 - PATIENT DENIES EVER HAVING A REACTION TO OR TAKING ANY CEPHALOSPORINS Codeine (Verified Allergy, Unknown, 05/23/16) Cromolyn (Verified Allergy, Unknown, 05/23/16) Morphine and Related (Verified Allergy, Unknown, Unknown, 05/23/16) Naproxen (Verified Allergy, Unknown, ANAPHYLAXIS, 05/23/16) Penicillins (Verified Allergy, Unknown, Unknown, 05/23/16) Sulfa Antibiotics (Verified Allergy, Unknown, 05/14/12 - STATES THAT SHE IS UNABLE TO TOLERATE ANY SULFA, 05/23/16) 05/14/12 - STATES THAT SHE IS UNABLE TO TOLERATE ANY SULFA DRUGS Quinolones (Verified Adverse Reaction, Mild, NAUSEA, 05/23/16) PER DR. GARCIA - SPOKE W PT WHO SAID SHE HAD CIPRO FOR UTI A "LONG TIME AGO". REACTION WAS NAUSEA. I CONFIRMED ADMINISTREATION HX WITH OUR RECORDS - ADMIN 06/19/08. THEREFORE PT LIKELY ABLE TO TOLERATE CIPRO. Current Medications Reported Home Medications Medications Dose Route/Sig Max Daily Dose Days Date Category Dose Instructions Proventil 0.083% 2.5MG/3ML (Albuterol Sulf) 2.5 Mg/3 Ml Nebu 2.5 Mg INH Q4 PRN 11/08/16 Reported Roxicodone Ir (Oxycodone HCl) 5 Mg Tab 10 Mg PO Q8 PRN 11/08/16 Reported Tylenol (Acetaminophen) 325 Mg Tab 650 Mg PO Q6 PRN 11/08/16 Reported Micro-K Ext Rel (Potassium Chloride) 10 Meq Capcr 40 Meq PO TID 11/08/16 Reported Novolog Flexpen (Insulin Aspart) 100 Units/Ml Inj 8-18 Units SC UD PRN 11/08/16 Reported USE 4 TIMES DAILY IF BLOOD SUGAR: 351-400 = 8 UNITS 304-450 = 12 UNITS 451-500= 16 UNITS > 500= 18 UNITS AND RECHECK BSG IN 2 HOURS Novolog Flexpen (Insulin Aspart) 100 Units/Ml Inj 15 Units SC BID 11/08/16 Reported Zaroxolyn (Metolazone) 2.5 Mg Tab 2.5 Mg PO QAM 11/08/16 Reported TAKE 2 HOURS PRIOR TO AM LASIX DOSE Levemir (Insulin Detemir) 100 Units/Ml Inj 25 Units SC BID 11/08/16 Reported Jantoven (Warfarin Sodium) 2 Mg Tab 2 Mg PO 5XWK 11/08/16 Reported YAC-CHK-DAW-SAT-SUN Jantoven (Warfarin Sodium) 1 Mg Tab 1 Mg PO 2XWK 11/08/16 Reported TU-TH Folvite (Folic Acid) 1 Mg Tab 1 Mg PO DAILY 11/08/16 Reported Citalopram Hydrobromide 20 Mg Tab 20 Mg PO DAILY 11/08/16 Reported Roxicodone Ir (Oxycodone HCl) 5 Mg Tab 5 Mg PO Q8 PRN 11/09/15 Reported Cozaar (Losartan Potassium) 50 Mg Tab 50 Mg PO DAILY 11/09/15 Reported Nolvadex (Tamoxifen Citrate) 20 Mg Tab 20 Mg PO DAILY 11/07/15 Reported Prednisone 10 Mg Tab 10 Mg PO DAILY 07/31/15 Reported Prilosec (Omeprazole) 20 Mg Capcr 20 Mg PO QAM 07/31/15 Reported CAP MAY BE OPENED & SPRINKLED ON APPLESAUCE Lasix (Furosemide) 40 Mg Tab 40 Mg PO BID 06/09/15 Reported Colace (Docusate Sodium) 100 Mg Cap 100 Mg PO BID 06/09/15 Reported Aspirin Ec (Aspirin) 81 Mg Tab 81 Mg PO HS 04/16/15 Reported Neurontin (Gabapentin) 400 Mg Cap 400 Mg PO QAM 04/15/15 Reported Buspirone HCl 5 Mg Tab 5 Mg PO QAM 08/22/14 Reported Lipitor (Atorvastatin Calcium) 80 Mg Tab 80 Mg PO DAILY 08/13/13 Reported Neurontin (Gabapentin) 400 Mg Cap 800 Mg PO HS 10/06/11 Reported Vital Signs Weight (Kilograms): 87.000 Height (Feet): 5 Height (Inches): 0.00 Date Time Temp Pulse Resp B/P Pulse Ox O2 Delivery O2 Flow Rate FiO2 11/13/16 15:12 36.8 88 20 160/62 96 Nasal Cannula 2 11/13/16 15:06 36.6 87 17 137/71 98 Nasal Cannula 3.0 11/13/16 14:58 36.6 91 20 147/73 93 Nasal Cannula 2.0 11/13/16 14:10 36.9 72 18 135/71 97 Nasal Cannula 2.0 11/13/16 12:06 Nasal Cannula 2.0 11/13/16 09:43 72 97 11/13/16 07:31 36.9 72 18 139/70 96 Nasal Cannula 2.0 11/13/16 07:21 36.9 72 18 139/70 96 Nasal Cannula 2.0 11/13/16 00:50 Nasal Cannula 2.0 11/12/16 23:42 36.6 72 20 135/68 96 Nasal Cannula 2.0 11/12/16 21:03 Nasal Cannula 2.0 11/12/16 16:17 Nasal Cannula 2.0 Physical Exam General Appearance: + obese Respiratory/Chest: Auscultation: deminished air movement Cardiovascular: Heart Auscultation: RRR Abdomen: Inspection & Palpation: distended Assessment and Plan Anemia for Colonoscopy
[2016-11-13] MEDS ORDERED: PROPOFOL IV EMULSION 10 MG/ML 20 ML VIAL IV ONE (15:58)
[2016-11-13] MEDS ORDERED: LIDOCAINE HCL 2% 2 ML VIAL (20MG/ML) ONE (15:58)
--- NOTE | 2016-11-13 16:05 | Discharge Instructions ---
Endoscopy Patient Instructions Date / Procedure(s) Performed Nov 13, 2016. Colonoscopy, EGD Allergy Information Coded Allergies: Ibuprofen (Verified Allergy, Severe, ANAPHYLAXIS, 05/23/16) Amoxicillin (Verified Allergy, Mild, URTICARIA-HAS TOLERATED ZOSYN PREV ADM., 05/23/16) Noted at [facility] 12/07/10 Has tolerated Zosyn on previous admissions Aspartame (Unverified Allergy, Mild, HIVES, 05/23/16) Cephalexin (Unverified Allergy, Mild, HIVES, 05/23/16) Clavulanic Acid (Verified Allergy, Mild, urticaria-HAS TOLERATED ZOSYN PREV ADM., 05/23/16) Noted at [facility] 12/07/10 Cephalosporins (Verified Allergy, Unknown, HAS TOLERATED CEFTRIAXONE, CEFEPIME, 05/23/16) 05/14/12 - PATIENT DENIES EVER HAVING A REACTION TO OR TAKING ANY CEPHALOSPORINS Codeine (Verified Allergy, Unknown, 05/23/16) Cromolyn (Verified Allergy, Unknown, 05/23/16) Morphine and Related (Verified Allergy, Unknown, Unknown, 05/23/16) Naproxen (Verified Allergy, Unknown, ANAPHYLAXIS, 05/23/16) Penicillins (Verified Allergy, Unknown, Unknown, 05/23/16) Sulfa Antibiotics (Verified Allergy, Unknown, 05/14/12 - STATES THAT SHE IS UNABLE TO TOLERATE ANY SULFA, 05/23/16) 05/14/12 - STATES THAT SHE IS UNABLE TO TOLERATE ANY SULFA DRUGS Quinolones (Verified Adverse Reaction, Mild, NAUSEA, 05/23/16) PER DR. GARCIA - SPOKE W PT WHO SAID SHE HAD CIPRO FOR UTI A "LONG TIME AGO". REACTION WAS NAUSEA. I CONFIRMED ADMINISTREATION HX WITH OUR RECORDS - ADMIN 06/19/08. THEREFORE PT LIKELY ABLE TO TOLERATE CIPRO. Discharge Date / Findings Nov 13, 2016. Diverticulosis, abd wall hernia, polyp not removed Medication Instructions Restart Stopped Medication(s): resume meds Test 11/08/16 12:05 11/09/16 03:10 11/10/16 07:00 11/11/16 06:15 Troponin I < 0.015 Prothrombin Time 12.7 11.3 Prothrombin Time INR 1.2 1.1 PTT 22.0 22.4 Partial Thromboplastin Ratio 0.8 0.9 Nucleated RBC Absolute Count (auto) 0.14 0.09 Nucleated Red Blood Cells % 1.3 1.0 Test 11/12/16 05:50 11/13/16 05:50 11/13/16 07:29 11/13/16 11:13 White Blood Count 9.15 9.64 Red Blood Count 3.80 3.61 Hemoglobin 8.1 7.6 Hematocrit 28.1 26.2 Mean Corpuscular Volume 73.9 72.6 Mean Corpuscular Hemoglobin 21.3 21.1 Mean Corpuscular Hemoglobin Concent 28.8 29.0 Platelet Count 170 155 Mean Platelet Volume 9.4 8.9 Neutrophils (%) (Auto) 61.0 58.4 Lymphocytes (%) (Auto) 22.8 24.6 Monocytes (%) (Auto) 11.8 13.3 Eosinophils (%) (Auto) 3.1 2.7 Basophils (%) (Auto) 0.4 0.4 Neutrophils # (Auto) 5.58 5.63 Lymphocytes # (Auto) 2.09 2.37 Monocytes # (Auto) 1.08 1.28 Eosinophils # (Auto) 0.28 0.26 Basophils # (Auto) 0.04 0.04 RDW Standard Deviation 70.7 69.7 RDW Coefficient of Variation 26.6 26.8 Immature Granulocyte % (Auto) 0.9 0.6 Immature Granulocyte # (Auto) 0.08 0.06 Hypersegmented Polys 1+ Polychromasia 1+ 1+ Hypochromasia PRESENT Poikilocytosis PRESENT PRESENT Microcytosis PRESENT Sodium Level 140 140 Potassium Level 3.4 3.7 Chloride Level 99 102 Carbon Dioxide Level 32 29 Anion Gap 9.0 9.0 Blood Urea Nitrogen 21 15 Creatinine 1.10 0.90 Est Creatinine Clear Calc Drug Dose 37.3 45.6 Estimated GFR () 53.4 68.1 Estimated GFR (Non- 46.1 58.7 BUN/Creatinine Ratio 19.3 16.8 Random Glucose 60 68 Calcium Level 7.9 8.4 Magnesium Level 1.8 2.1 Chemistry Specimen Hemolysis Anisocytosis PRESENT POC Glucose 83 121 Current Inpatient Medications Medications (Trade) Dose Ordered Sig/Rea Route Start Time Stop Time Status Last Admin Dose Admin Al Hydrox/Mg Hydrox/Simethicone (Maalox Max Susp) 15 ml Q4H PRN PO 3/15/17 14:45 12/08/16 14:44 Magnesium Hydroxide (Milk Of Magnesia Susp) 30 ml Q12H PRN PO 11/08/16 14:45 12/08/16 14:44 Ondansetron HCl (Zofran Inj) 4 mg Q6H PRN IV 11/08/16 14:45 12/08/16 14:44 11/10/16 07:38 4 MG Polyethylene (Miralax Powder Packet) 17 gm DAILY PRN PO 11/08/16 14:45 12/08/16 14:44 Insulin Aspart (novoLOG ASPART) SLIDING SCALE If C... ACHS SC 11/08/16 16:00 12/08/16 15:59 11/12/16 20:57 4 UNITS Glucose (Glucose 40% Gel) 15-30 GRAMS 15 GRAMS... UD PRN PO 11/08/16 14:45 12/08/16 14:44 Glucose (Glucose Chew Tab) 4-8 Tablets 4 Tabl... UD PRN PO 11/08/16 14:45 12/08/16 14:44 Dextrose (Dextrose 50% 50ML Syringe) 25-50ML OF 50% DW IV FOR... UD PRN IV 11/08/16 14:45 12/08/16 14:44 Glucagon (Glucagon Inj) 1 mg UD PRN SQ 11/08/16 14:45 12/08/16 14:44 Albuterol Sulfate (Ventolin 0.083% 2.5MG/3ML Neb) 2.5 mg Q4 PRN INH 11/08/16 14:45 12/08/16 14:44 Atorvastatin Calcium (Lipitor Tab) 80 mg DAILY PO 11/09/16 09:00 12/09/16 08:59 11/12/16 08:17 80 MG Buspirone HCl (Buspar Tab) 5 mg QAM PO 11/09/16 09:00 12/09/16 08:59 11/12/16 08:17 5 MG Citalopram Hydrobromide (celeXA TAB) 20 mg DAILY PO 11/09/16 09:00 12/09/16 08:59 11/12/16 08:17 20 MG Folic Acid (Folvite Tab) 1 mg DAILY PO 11/09/16 09:00 12/09/16 08:59 11/12/16 08:18 1 MG Losartan Potassium (coZAAR TAB) 50 mg DAILY PO 11/09/16 09:00 12/09/16 08:59 11/12/16 08:17 50 MG Metolazone (Zaroxolyn Tab) 2.5 mg QAM PO 11/09/16 09:00 12/09/16 08:59 Future Hold 11/12/16 08:17 2.5 MG Prednisone (PredniSONE TAB) 10 mg DAILY PO 11/09/16 09:00 12/09/16 08:59 11/12/16 08:17 10 MG Tamoxifen Citrate 20 mg 20 mg DAILY PO 11/09/16 09:00 12/09/16 08:59 11/12/16 08:22 20 MG Pantoprazole Sodium/Syringe (Protonix Inj/ Syringe) 10 ml @ 5 mls/min DAILY@11 IV 11/12/16 11:00 12/12/16 10:59 11/13/16 09:40 5 MLS/MIN Insulin Glargine (Lantus Solostar Pen) 23 unit Q12 SC 11/11/16 21:00 12/11/16 20:59 11/12/16 20:56 23 UNIT Potassium Chloride (Yareli Ciel Elix) 40 meq TID PO 11/11/16 20:00 12/11/16 19:59 11/12/16 20:58 40 MEQ Acetaminophen (Tylenol Soln) 650 mg Q4H PRN PO 11/12/16 13:00 12/12/16 12:59 11/12/16 21:44 650 MG Docusate Sodium (coLACE SYRUP) 100 mg BID PO 11/12/16 20:00 12/12/16 19:59 11/12/16 20:58 100 MG Fluconazole (Diflucan Susp) 100 mg QAM PO 11/13/16 08:00 11/19/16 08:01 Gabapentin (Neurontin) 400 mg QAM PO 11/13/16 08:00 12/13/16 07:59 Gabapentin (Neurontin) 800 mg QPM PO 11/12/16 21:00 12/12/16 20:59 11/12/16 20:59 800 MG Furosemide (Lasix Oral Soln) 40 mg BID17 PO 11/12/16 17:00 12/12/16 16:59 Future hold Provider Instructions Activity Restrictions - No exercising or heavy lifting for 24 hours. - Do not drink alcohol the day of the procedure. - Do not drive a car or operate machinery until the day after the procedure. - Do not make any important decisions or sign important papers in 24 hours after the procedure. Following Day: - Return to full activity which may include returning to work/school. Diet Start your diet with liquids and light foods (jello, soup, juice, toast). Then eat your usual diet if not nauseated. Treatment For Common After Affects For mild abdominal pain, bloating, or excessive gas: - Rest - Eat lightly - Lie on right side Follow-Up Information Follow-up with as scheduled Anesthesia Information What You Should Know You have had a procedure that required some medicine to reduce anxiety and discomfort. This treatment is called moderate sedation. After receiving the treatment, you may be sleepy, but you will be able to breathe on your own. The effects of the treatment may last for several hours. Follow these instructions along with Activity/Diet recommendations noted above: * Do NOT do anything where dizziness or clumsiness would be dangerous. * Rest quietly at home today, then you can be up and about tomorrow. * Have a responsible person stay with you the rest of today. * You may have had an I.V. today. If so, you may take the dressing off later today. Recommendations Call your doctor if: * Trouble breathing * Continuous vomiting for more than 24 hours * Temperature above 101 degrees * Severe abdominal pain or bloating * Pain not relieved by pain medicine ordered * There is increased drainage or redness from any incision * A large amount of rectal bleeding greater than 2-3 tablespoons. (If you had a polyp/s removed or have hemorrhoids, a small amount of blood - from the rectum is to be expected.) * You have any unanswered questions or concerns. IN THE EVENT OF A SERIOUS EMERGENCY, GO TO THE NEAREST EMERGENCY ROOM Your discharge instructions were prepared by provider Porter Hardin. Patient Instructions Signature Page Aleena Skinner Patient (or Guardian) Signature/Date: I have read and understand the instructions given to me by my caregivers. Caregiver/RN/Doctor Signature/Date: The above-named patient and/or guardian has received patient instructions on this date. + Original Patient Signature Page (only) stays with chart. Please make copy for patient.
--- NOTE | 2016-11-13 16:10 | GI REPORT ---
Procedure Date: 11/13/2016 3:35 PM Procedure: Colonoscopy Indications: Unexplained iron deficiency anemia Medicines: Propofol total dose 120 mg IV, Lidocaine 40 mg IV Complications: No immediate complications. Estimated Blood Loss: Estimated blood loss: none. Procedure: Pre-Anesthesia Assessment: - Prior to the procedure, a History and Physical was performed, and patient medications, allergies and sensitivities were reviewed. The patient's tolerance of previous anesthesia was reviewed. - The risks and benefits of the procedure and the sedation options and risks were discussed with the patient. All questions were answered and informed consent was obtained. After I obtained informed consent, the scope was passed under direct vision. Throughout the procedure, the patient's blood pressure, pulse, and oxygen saturations were monitored continuously. The scope was introduced through the anus and advanced to the cecum, identified by appendiceal orifice and ileocecal valve. The colonoscopy was technically difficult and complex due to large abdwall hernia. Successful completion of the procedure was aided by applying abdominal pressure. The patient tolerated the procedure well. The quality of the bowel preparation was fair. Findings: A 6 mm polyp was found at the hepatic flexure. The polyp was semi-sessile. A few diverticula were found in the sigmoid colon and in the ascending colon. Impression: - One 6 mm polyp at the hepatic flexure. - Diverticulosis in the sigmoid colon and in the ascending colon. - No specimens collected. Recommendation: - Return patient to hospital [facility] for ongoing care. - Continue present medications. Porter Hardin M.D. Porter Hardin MD 11/13/2016 4:10:45 PM This report has been signed electronically. Note Initiated On: 11/13/2016 3:35 PM I attest to the content of the Intraoperative Record and orders documented therein, exceptions below
--- NOTE | 2016-11-13 16:23 | Anesthesiology Progress Note ---
Anesthesia Post Op Note Date & Time Nov 13, 2016 at 16:24 Vital Signs Pain Intensity: 0.0 Vital Signs Past 12 Hours Date Time Temp Pulse Resp B/P Pulse Ox O2 Delivery O2 Flow Rate FiO2 11/13/16 16:18 83 16 164/72 97 Nasal Cannula 2 11/13/16 16:03 87 16 163/65 98 Nasal Cannula 2 11/13/16 15:12 36.8 88 20 160/62 96 Nasal Cannula 2 11/13/16 15:06 36.6 87 17 137/71 98 Nasal Cannula 3.0 11/13/16 14:58 36.6 91 20 147/73 93 Nasal Cannula 2.0 11/13/16 14:10 36.9 72 18 135/71 97 Nasal Cannula 2.0 11/13/16 12:06 Nasal Cannula 2.0 11/13/16 09:43 72 97 11/13/16 07:31 36.9 72 18 139/70 96 Nasal Cannula 2.0 11/13/16 07:21 36.9 72 18 139/70 96 Nasal Cannula 2.0 Notes Mental Status: alert / awake / arousable, participated in evaluation Pt Amnestic to Procedure: Yes Nausea / Vomiting: adequately controlled Pain: adequately controlled Airway Patency, RR, SpO2: stable & adequate BP & HR: stable & adequate Hydration State: stable & adequate Anesthetic Complications: no major complications apparent
--- NOTE | 2016-11-13 17:24 | Progress Note ---
Subjective Date of Service: Nov 13, 2016. Subjective Pt evaluation today including: conversation w/ patient, physical exam, lab review, review of studies, conversation w/ artist consultant, review of inpatient medication list Pain: no pain PO Intake: NPO for colonoscopy Voiding: no voiding problems patient doing well this AM, no complaints, had enema with liquid BM colonoscopy today, found two separate polyps, diverticula, no active bleeding, tolerated well Problem List Medical Problems: (1) Anemia Status: Acute (2) Dehydration Status: Acute (3) E. coli UTI (urinary tract infection) Status: Acute (4) GI bleeding Status: Acute (5) Hyperglycemia Status: Acute (6) Hypomagnesemia Status: Acute (7) Substernal chest pain Status: Acute (8) Urinary tract infection Status: Acute (9) Weakness Status: Acute (10) Weakness Status: Acute Review of Systems Constitutional: + fatigue, + weakness Abdomen: + diarrhea All Other Systems: Reviewed and Negative Medications Current Inpatient Medications Medications (Trade) Dose Ordered Sig/Rea Route Start Time Stop Time Status Last Admin Dose Admin Al Hydrox/Mg Hydrox/Simethicone (Maalox Max Susp) 15 ml Q4H PRN PO 11/08/16 14:45 12/08/16 14:44 Magnesium Hydroxide (Milk Of Magnesia Susp) 30 ml Q12H PRN PO 11/08/16 14:45 12/08/16 14:44 Ondansetron HCl (Zofran Inj) 4 mg Q6H PRN IV 11/08/16 14:45 12/08/16 14:44 11/10/16 07:38 4 MG Polyethylene (Miralax Powder Packet) 17 gm DAILY PRN PO 11/08/16 14:45 12/08/16 14:44 Insulin Aspart (novoLOG ASPART) SLIDING SCALE If C... ACHS SC 11/08/16 16:00 12/08/16 15:59 11/12/16 20:57 4 UNITS Glucose (Glucose 40% Gel) 15-30 GRAMS 15 GRAMS... UD PRN PO 11/08/16 14:45 12/08/16 14:44 Glucose (Glucose Chew Tab) 4-8 Tablets 4 Tabl... UD PRN PO 11/08/16 14:45 12/08/16 14:44 Dextrose (Dextrose 50% 50ML Syringe) 25-50ML OF 50% DW IV FOR... UD PRN IV 11/08/16 14:45 12/08/16 14:44 Glucagon (Glucagon Inj) 1 mg UD PRN SQ 11/08/16 14:45 12/08/16 14:44 Albuterol Sulfate (Ventolin 0.083% 2.5MG/3ML Neb) 2.5 mg Q4 PRN INH 11/08/16 14:45 12/08/16 14:44 Atorvastatin Calcium (Lipitor Tab) 80 mg DAILY PO 11/09/16 09:00 12/09/16 08:59 11/12/16 08:17 80 MG Buspirone HCl (Buspar Tab) 5 mg QAM PO 11/09/16 09:00 12/09/16 08:59 11/12/16 08:17 5 MG Citalopram Hydrobromide (celeXA TAB) 20 mg DAILY PO 11/09/16 09:00 12/09/16 08:59 11/12/16 08:17 20 MG Folic Acid (Folvite Tab) 1 mg DAILY PO 11/09/16 09:00 12/09/16 08:59 11/12/16 08:18 1 MG Losartan Potassium (coZAAR TAB) 50 mg DAILY PO 11/09/16 09:00 12/09/16 08:59 11/12/16 08:17 50 MG Metolazone (Zaroxolyn Tab) 2.5 mg QAM PO 11/09/16 09:00 12/09/16 08:59 Future Hold 11/12/16 08:17 2.5 MG Prednisone (PredniSONE TAB) 10 mg DAILY PO 11/09/16 09:00 12/09/16 08:59 11/12/16 08:17 10 MG Tamoxifen Citrate 20 mg 20 mg DAILY PO 11/09/16 09:00 12/09/16 08:59 11/12/16 08:22 20 MG Pantoprazole Sodium/Syringe (Protonix Inj/ Syringe) 10 ml @ 5 mls/min DAILY@11 IV 11/12/16 11:00 12/12/16 10:59 11/13/16 09:40 5 MLS/MIN Insulin Glargine (Lantus Solostar Pen) 23 unit Q12 SC 11/11/16 21:00 12/11/16 20:59 11/12/16 20:56 23 UNIT Potassium Chloride (Yareli Ciel Elix) 40 meq TID PO 11/11/16 20:00 12/11/16 19:59 11/12/16 20:58 40 MEQ Acetaminophen (Tylenol Soln) 650 mg Q4H PRN PO 11/12/16 13:00 12/12/16 12:59 11/12/16 21:44 650 MG Docusate Sodium (coLACE SYRUP) 100 mg BID PO 11/12/16 20:00 12/12/16 19:59 11/12/16 20:58 100 MG Fluconazole (Diflucan Susp) 100 mg QAM PO 11/13/16 08:00 11/19/16 08:01 Gabapentin (Neurontin) 400 mg QAM PO 11/13/16 08:00 12/13/16 07:59 Gabapentin (Neurontin) 800 mg QPM PO 11/12/16 21:00 12/12/16 20:59 11/12/16 20:59 800 MG Furosemide (Lasix Oral Soln) 40 mg BID17 PO 11/12/16 17:00 12/12/16 16:59 Future hold Objective Vital Signs Date Time Temp Pulse Resp B/P Pulse Ox O2 Delivery O2 Flow Rate FiO2 11/13/16 17:09 36.6 85 18 173/74 97 Nasal Cannula 2.0 11/13/16 16:33 82 18 152/67 98 Nasal Cannula 2 11/13/16 16:18 83 16 164/72 97 Nasal Cannula 2 11/13/16 16:03 87 16 163/65 98 Nasal Cannula 2 11/13/16 15:12 36.8 88 20 160/62 96 Nasal Cannula 2 11/13/16 15:06 36.6 87 17 137/71 98 Nasal Cannula 3.0 11/13/16 14:58 36.6 91 20 147/73 93 Nasal Cannula 2.0 11/13/16 14:10 36.9 72 18 135/71 97 Nasal Cannula 2.0 11/13/16 12:06 Nasal Cannula 2.0 11/13/16 09:43 72 97 11/13/16 07:31 36.9 72 18 139/70 96 Nasal Cannula 2.0 11/13/16 07:21 36.9 72 18 139/70 96 Nasal Cannula 2.0 11/13/16 00:50 Nasal Cannula 2.0 11/12/16 23:42 36.6 72 20 135/68 96 Nasal Cannula 2.0 11/12/16 21:03 Nasal Cannula 2.0 Physical Exam General Appearance: no apparent distress, + obese Eyes: normal inspection, EOMI, sclerae normal ENT: normal ENT inspection, hearing grossly normal, pharynx normal Neck: supple, no adenopathy, no JVD, trachea midline Respiratory/Chest: chest non-tender, lungs clear, normal breath sounds, no respiratory distress, no accessory muscle use Cardiovascular: regular rate, rhythm, no edema, no gallop, no JVD, no murmur Abdomen: normal bowel sounds, non tender, soft, no organomegaly Extremities: normal range of motion, non-tender, normal inspection, no pedal edema, no calf tenderness, pelvis stable Neurologic/Psychiatric: 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, no motor/sensory deficits, alert, normal mood/affect, oriented x 3 Skin: normal color, warm/dry, no rash Laboratory Results Last 24 Hours Test 11/12/16 20:18 11/13/16 05:50 11/13/16 07:29 11/13/16 11:13 Bedside Glucose 259 mg/dl 83 mg/dl 121 mg/dl White Blood Count 9.64 K/uL Red Blood Count 3.61 M/uL Hemoglobin 7.6 g/dL Hematocrit 26.2 % Mean Corpuscular Volume 72.6 fL Mean Corpuscular Hemoglobin 21.1 pg Mean Corpuscular Hemoglobin Concent 29.0 g/dl Platelet Count 155 K/uL Mean Platelet Volume 8.9 fL Neutrophils (%) (Auto) 58.4 % Lymphocytes (%) (Auto) 24.6 % Monocytes (%) (Auto) 13.3 % Eosinophils (%) (Auto) 2.7 % Basophils (%) (Auto) 0.4 % Neutrophils # (Auto) 5.63 K/uL Lymphocytes # (Auto) 2.37 K/uL Monocytes # (Auto) 1.28 K/uL Eosinophils # (Auto) 0.26 K/uL Basophils # (Auto) 0.04 K/uL RDW Standard Deviation 69.7 fL RDW Coefficient of Variation 26.8 % Immature Granulocyte % (Auto) 0.6 % Immature Granulocyte # (Auto) 0.06 K/uL Polychromasia 1+ Poikilocytosis PRESENT Anisocytosis PRESENT Sodium Level 140 mmol/L Potassium Level 3.7 mmol/L Chloride Level 102 mmol/L Carbon Dioxide Level 29 mmol/L Anion Gap 9.0 mmol/L Blood Urea Nitrogen 15 mg/dl Creatinine 0.90 mg/dl Est Creatinine Clear Calc Drug Dose 45.6 ml/min Estimated GFR () 68.1 Estimated GFR (Non- 58.7 BUN/Creatinine Ratio 16.8 Random Glucose 68 mg/dl Calcium Level 8.4 mg/dl Magnesium Level 2.1 mg/dl Chemistry Specimen Hemolysis Test 11/13/16 17:00 Bedside Glucose 140 mg/dl Assessment and Plan 86 y/o female with a history of breast cancer, DM II w/neuropathy, hypertension , hyperlipidemia, COPD, chronic diastolic heart failure, anxiety/depression, PMR with ambulatory dysfunction, Crohn's disease, bowel resection with colostomy and reversal of colostomy with persistent large ventral hernia, carotid artery stenosis, SEKOU, 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 Patient complaining of dizziness for the last month. She has baseline anemia with hemoglobin around 8-10. Patient has been on chronic warfarin. No obvious source of acute bleeding, however, she was positive for occult blood in her stool. INR 2.9 on admission and she was given 10 mg of vitamin K for reversal. GI bleed in setting of warfarin therapy treated with holding warfarin and 2 units of PRBC's, h/o Crohn's in remission, h/o colectomy and colostomy with reversal/Esophageal Candidiasis Hgb dropped slightly to 7.6, monitor, transfuse if < 7.0 EGD with Candidal esophagitis -continue Diflucan po and continue for 14 day course Colonoscopy 11/13: polyps, diverticula, no active bleeding, tolerated well iron supplementation -will likely need to go back on coumadin at some point given MTHFR mutation and sedentary lifestyle in [place], but with closer monitoring of CBC Protonix PO daily H/o PE, homozygous MTHFR, sedentary lifestyle-will need to go back on coumadin when safe from GI standpoint, not yet Hypomagnesemia--resolved after repletion -follow daily Hypokalemia-persists due to diuretics and po pills passing righ through, changed to po liquid -continue 40 tid liquid -K is 3.7 today H/o breast cancer status post left mastectomy-stable, no issues -Continue tamoxifen 20 mg PO qd Diabetes type 2 w/diabetic neuropathy--last hemoglobin A1c on 09/27/16 was 8.1, sugars stable today despite prep for c-scope -with hyperglycemia here, increased Lantus to 23 units SC BID, -Insulin sliding scale -Check BSGs q ac and qhs -Continue gabapentin 400 mg PO qam and 800 mg PO qhs for neuropathy HTN--stable -Continue losartan 50 mg PO qd HLD, RUSSELL-stable, last carotid US 50-69% left ICA stenosis in 2014 -Continue atorvastatin 80 mg PO qd -re-image carotids as an outpat COPD, Chronic respiratory failure--pt on supplemental oxygen at home continuously, 2L NC, on chronic prednisone 10mg daily -O2 by protocol -Continue prednisone -nebs prn Chronic diastolic CHF-stable, no issues -Continue Lasix 40 mg PO BID and metolazone 2.5 mg PO qam-HOLD AM of colonoscopy as is hypokalemic and losing a lot of fluid in stool prep -Continue KCl 40 mEq PO TID Anxiety and depression-stable, no issues -Continue BuSpar 5 mg PO qd , Celexa 20 mg PO qd DVT prophylaxis -Hold chemical prophylaxis due to bleeding, restart coumadin in future -STACIA argueta and SCDs Code Status -Level V, DO NOT RESUSCITATE Dispo -Pt from [facility], has bed hold, will return once medically stable -PT/OT evaluate and treat
[2016-11-13] MEDS: FUROSEMIDE ORAL SOLN 40 MG/5 ML UDP PO SCH (17:26)
[2016-11-13] MEDS: ACETAMINOPHEN SOLN 325 MG/10.15 ML UDC PO PRN (17:27)
[2016-11-13] MEDS: ONDANSETRON INJ 2 MG/ML 2 ML VIAL IV PRN (22:12)
[2016-11-14] VITALS (8 sets, daily range): BP systolic 105–135; BP diastolic 63–75; PULSE 79–91; TEMP 36.5–37.4; O2SAT 97–98
[2016-11-14] MEDS: INSULIN ASPART 100 UNITS/ML 3 ML PEN SC SCH ×4 (06:30→20:31)
[2016-11-14] MEDS: ATORVASTATIN 40 MG TAB PO SCH (09:19)
[2016-11-14] MEDS: LOSARTAN POTASSIUM 50 MG TAB PO SCH (09:19)
[2016-11-14] MEDS: TAMOXIFEN CITRATE 10 MG TAB PO SCH (09:19)
[2016-11-14] MEDS: CITALOPRAM 20 MG TAB PO SCH (09:19)
[2016-11-14] MEDS: POTASSIUM CHLORIDE 20 MEQ/15 ML UDC PO SCH ×3 (09:20→20:29)
[2016-11-14] MEDS: FUROSEMIDE ORAL SOLN 40 MG/5 ML UDP PO SCH ×2 (09:21→17:56)
[2016-11-14] MEDS: INSULIN GLARGINE SOLOSTAR 100 UNITS/ML 3 ML PEN SC SCH ×2 (09:24→20:32)
[2016-11-14] MEDS: DOCUSATE SODIUM 100 MG/10 ML UDC PO SCH ×2 (09:27→20:29)
[2016-11-14] MEDS: FLUCONAZOLE SUSP 100 MG/10 ML UDP PO SCH (09:31)
[2016-11-14] MEDS: GABAPENTIN 250 MG/5 ML 470 ML BTL PO SCH ×2 (09:37→20:28)
[2016-11-14] MEDS: PANTOprazole SOD 40 MG TAB PO SCH (11:00)
--- NOTE | 2016-11-14 16:31 | Progress Note ---
Subjective Date of Service: Nov 14, 2016. Subjective Pt evaluation today including: conversation w/ patient, conversation w/ family (daughter), physical exam, lab review, review of inpatient medication list Pain: no pain today PO Intake: adequate Voiding: no voiding problems patient c/o fatigue, sleeping a lot, otherwise no issues no chest pain or dyspnea, no vomiting or diarrhea at baseline she is in wheelchair or in bed, walks rarely, very weak discussed blood transfusion today, she agrees Problem List Medical Problems: (1) Anemia Status: Acute (2) Dehydration Status: Acute (3) E. coli UTI (urinary tract infection) Status: Acute (4) GI bleeding Status: Acute (5) Hyperglycemia Status: Acute (6) Hypomagnesemia Status: Acute (7) Substernal chest pain Status: Acute (8) Urinary tract infection Status: Acute (9) Weakness Status: Acute (10) Weakness Status: Acute Review of Systems Constitutional: + fatigue, + weakness Neurologic: + balance problems, + weakness All Other Systems: Reviewed and Negative Medications Current Inpatient Medications Medications (Trade) Dose Ordered Sig/Rea Route Start Time Stop Time Status Last Admin Dose Admin Al Hydrox/Mg Hydrox/Simethicone (Maalox Max Susp) 15 ml Q4H PRN PO 11/08/16 14:45 12/08/16 14:44 Magnesium Hydroxide (Milk Of Magnesia Susp) 30 ml Q12H PRN PO 11/08/16 14:45 12/08/16 14:44 Ondansetron HCl (Zofran Inj) 4 mg Q6H PRN IV 11/08/16 14:45 12/08/16 14:44 11/13/16 22:12 4 MG Polyethylene (Miralax Powder Packet) 17 gm DAILY PRN PO 11/08/16 14:45 12/08/16 14:44 Insulin Aspart (novoLOG ASPART) SLIDING SCALE If C... ACHS SC 11/08/16 16:00 12/08/16 15:59 11/14/16 11:00 3 UNITS Glucose (Glucose 40% Gel) 15-30 GRAMS 15 GRAMS... UD PRN PO 11/08/16 14:45 12/08/16 14:44 Glucose (Glucose Chew Tab) 4-8 Tablets 4 Tabl... UD PRN PO 11/08/16 14:45 12/08/16 14:44 Dextrose (Dextrose 50% 50ML Syringe) 25-50ML OF 50% DW IV FOR... UD PRN IV 11/08/16 14:45 12/08/16 14:44 Glucagon (Glucagon Inj) 1 mg UD PRN SQ 11/08/16 14:45 12/08/16 14:44 Albuterol Sulfate (Ventolin 0.083% 2.5MG/3ML Neb) 2.5 mg Q4 PRN INH 11/08/16 14:45 12/08/16 14:44 Atorvastatin Calcium (Lipitor Tab) 80 mg DAILY PO 11/09/16 09:00 12/09/16 08:59 11/14/16 09:19 80 MG Buspirone HCl (Buspar Tab) 5 mg QAM PO 11/09/16 09:00 12/09/16 08:59 11/14/16 09:19 5 MG Citalopram Hydrobromide (celeXA TAB) 20 mg DAILY PO 11/09/16 09:00 12/09/16 08:59 11/14/16 09:19 20 MG Folic Acid (Folvite Tab) 1 mg DAILY PO 11/09/16 09:00 12/09/16 08:59 11/14/16 09:21 1 MG Losartan Potassium (coZAAR TAB) 50 mg DAILY PO 11/09/16 09:00 12/09/16 08:59 11/14/16 09:19 50 MG Metolazone (Zaroxolyn Tab) 2.5 mg QAM PO 11/09/16 09:00 12/09/16 08:59 Future Hold 11/12/16 08:17 2.5 MG Prednisone (PredniSONE TAB) 10 mg DAILY PO 11/09/16 09:00 12/09/16 08:59 11/14/16 09:16 10 MG Tamoxifen Citrate (Nolvadex Tab) 20 mg DAILY PO 11/09/16 09:00 12/09/16 08:59 11/14/16 09:19 20 MG Insulin Glargine (Lantus Solostar Pen) 23 unit Q12 SC 11/11/16 21:00 12/11/16 20:59 11/14/16 09:24 23 UNIT Potassium Chloride (Yareli Ciel Elix) 40 meq TID PO 11/11/16 20:00 12/11/16 19:59 11/14/16 14:22 40 MEQ Acetaminophen (Tylenol Soln) 650 mg Q4H PRN PO 11/12/16 13:00 12/12/16 12:59 11/13/16 17:27 650 MG Docusate Sodium (coLACE SYRUP) 100 mg BID PO 11/12/16 20:00 12/12/16 19:59 11/14/16 09:27 100 MG Fluconazole (Diflucan Susp) 100 mg QAM PO 11/13/16 08:00 11/19/16 08:01 11/14/16 09:31 100 MG Gabapentin (Neurontin) 400 mg QAM PO 11/13/16 08:00 12/13/16 07:59 11/14/16 09:37 400 MG Gabapentin (Neurontin) 800 mg QPM PO 11/12/16 21:00 12/12/16 20:59 11/13/16 22:09 800 MG Furosemide (Lasix Oral Soln) 40 mg BID17 PO 11/12/16 17:00 12/12/16 16:59 Future hold 11/14/16 09:21 40 MG Ferrous Sulfate (Feosol Tab) 325 mg BIDM PO 11/14/16 17:00 12/14/16 16:59 Pantoprazole Sodium (Protonix Tab) 40 mg QAM PO 11/14/16 11:00 12/14/16 10:59 11/14/16 11:00 40 MG Objective Vital Signs Date Time Temp Pulse Resp B/P Pulse Ox O2 Delivery O2 Flow Rate FiO2 11/14/16 15:15 Nasal Cannula 2.0 11/14/16 14:38 Nasal Cannula 2.0 11/14/16 14:15 36.6 79 16 113/68 98 11/14/16 13:15 36.5 89 18 112/66 98 11/14/16 12:45 36.6 88 18 127/70 98 11/14/16 12:15 37.4 80 18 115/63 97 3.0 11/14/16 12:00 37.0 80 20 123/65 98 3.0 11/14/16 11:43 37.2 80 20 119/66 11/14/16 09:12 36.6 91 14 135/75 97 Nasal Cannula 2.0 3/20/17 23:59 Nasal Cannula 2.0 11/13/16 23:55 36.8 92 20 135/71 92 Nasal Cannula 2.0 11/13/16 17:09 36.6 85 18 173/74 97 Nasal Cannula 2.0 11/13/16 17:00 Nasal Cannula 2.0 11/13/16 16:33 82 18 152/67 98 Nasal Cannula 2 Physical Exam General Appearance: WD/WN, no apparent distress Eyes: normal inspection, EOMI, sclerae normal ENT: normal ENT inspection, hearing grossly normal, pharynx normal Neck: supple, no adenopathy, no JVD, trachea midline Respiratory/Chest: chest non-tender, lungs clear, normal breath sounds, no respiratory distress, no accessory muscle use Cardiovascular: regular rate, rhythm, no edema, no gallop, no JVD, no murmur Abdomen: normal bowel sounds, non tender, soft, no organomegaly Extremities: normal range of motion, non-tender, normal inspection, no pedal edema, no calf tenderness Neurologic/Psychiatric: 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, alert, normal mood/affect, oriented x 3, + motor weakness (generalized, very weak) Skin: normal color, warm/dry, no rash Laboratory Results Last 24 Hours Test 11/13/16 17:00 11/13/16 20:18 11/14/16 05:35 11/14/16 07:28 Bedside Glucose 140 mg/dl 230 mg/dl 120 mg/dl Hemoglobin 7.3 g/dL Hematocrit 25.0 % Test 11/14/16 11:28 Bedside Glucose 245 mg/dl Assessment and Plan 86 y/o female with a history of breast cancer, DM II w/neuropathy, hypertension , hyperlipidemia, COPD, chronic diastolic heart failure, anxiety/depression, PMR with ambulatory dysfunction, Crohn's disease, bowel resection with colostomy and reversal of colostomy with persistent large ventral hernia, carotid artery stenosis, SEKOU, PE in 2012 secondary to homozygous MTHFR gene mutation and sedentary lifestyle, and GERD who presented to the ED on 11/08 with acute on chronic anemia and a Hgb of 5.2. Patient complaining of dizziness for the last month. She has baseline anemia with hemoglobin around 8-10. Patient has been on chronic warfarin. No obvious source of acute bleeding, however, she was positive for occult blood in her stool. INR 2.9 on admission and she was given 10 mg of vitamin K for reversal. GI bleed in setting of warfarin therapy treated with holding warfarin and 2 units of PRBC's, h/o Crohn's in remission, h/o colectomy and colostomy with reversal/Esophageal Candidiasis Hgb dropped to 7.3, will transfuse one unit today and repeat H/H tomorrow EGD with Candidal esophagitis -continue Diflucan po and continue for 14 day course Colonoscopy 11/13: polyps, diverticula, no active bleeding, tolerated well iron supplementation, started on Ferrous sulfate BID -will likely need to go back on coumadin at some point given MTHFR mutation and sedentary lifestyle in [place], but with closer monitoring of CBC Protonix PO daily H/o PE, homozygous MTHFR, sedentary lifestyle-will need to go back on coumadin when safe from GI standpoint will resume Coumadin tomorrow as long as there are no further signs of bleeding or drop in H/H Hypomagnesemia--resolved after repletion Hypokalemia-persists due to diuretics and po pills passing righ through, changed to po liquid -continue 40 tid liquid -K was 3.7 yesterday, repeat tomorrow H/o breast cancer status post left mastectomy-stable, no issues -Continue tamoxifen 20 mg PO qd Diabetes type 2 w/diabetic neuropathy--last hemoglobin A1c on 09/27/16 was 8.1, sugars up slightly today, increase Lantus back to 25 units BID -Insulin sliding scale -Check BSGs q ac and qhs -Continue gabapentin 400 mg PO qam and 800 mg PO qhs for neuropathy HTN--stable -Continue losartan 50 mg PO qd HLD, RUSSELL-stable, last carotid US 50-69% left ICA stenosis in 2015 -Continue atorvastatin 80 mg PO qd -re-image carotids as an outpat COPD, Chronic respiratory failure--pt on supplemental oxygen at home continuously, 2L NC, on chronic prednisone 10mg daily -O2 by protocol -Continue prednisone -nebs prn Chronic diastolic CHF-stable, no issues -Continue Lasix 40 mg PO BID and metolazone 2.5 mg PO qam-HOLD AM of colonoscopy as is hypokalemic and losing a lot of fluid in stool prep -Continue KCl 40 mEq PO TID Anxiety and depression-stable, no issues -Continue BuSpar 5 mg PO qd , Celexa 20 mg PO qd DVT prophylaxis -Hold chemical prophylaxis due to bleeding, restart coumadin in future -STACIA argueta and NIKOLASs Code Status -Level V, DO NOT RESUSCITATE Dispo -Pt from [facility], has bed hold, will return once medically stable -PT/OT evaluate and treat - possible return in 1-2 days
[2016-11-14] MEDS: FERROUS SULFATE 325 MG TAB PO SCH (17:56)
[2016-11-15 01:45] VITALS: O2SAT 98
[2016-11-15 05:52] LABS: HEMATOCRIT 29.8 % (37-47)
[2016-11-15 07:38] VITALS: BP 135/70; PULSE 75; TEMP 37.5; O2SAT 96
[2016-11-15] MEDS: DOCUSATE SODIUM 100 MG/10 ML UDC PO SCH (08:00)
[2016-11-15] MEDS: FUROSEMIDE ORAL SOLN 40 MG/5 ML UDP PO SCH (08:06)
[2016-11-15] MEDS: FLUCONAZOLE SUSP 100 MG/10 ML UDP PO SCH (08:06)
[2016-11-15] MEDS: ATORVASTATIN 40 MG TAB PO SCH (08:07)
[2016-11-15] MEDS: CITALOPRAM 20 MG TAB PO SCH (08:07)
[2016-11-15] MEDS: POTASSIUM CHLORIDE 20 MEQ/15 ML UDC PO SCH (08:07)
[2016-11-15] MEDS: FERROUS SULFATE 325 MG TAB PO SCH (08:07)
[2016-11-15] MEDS: LOSARTAN POTASSIUM 50 MG TAB PO SCH (08:09)
[2016-11-15] MEDS: TAMOXIFEN CITRATE 10 MG TAB PO SCH (08:11)
[2016-11-15] MEDS: INSULIN ASPART 100 UNITS/ML 3 ML PEN SC SCH ×2 (08:25→13:00)
[2016-11-15] MEDS: INSULIN GLARGINE SOLOSTAR 100 UNITS/ML 3 ML PEN SC SCH (08:25)
[2016-11-15] MEDS: GABAPENTIN 250 MG/5 ML 470 ML BTL PO SCH (08:31)
[2016-11-15] MEDS: PANTOprazole SOD 40 MG TAB PO SCH (08:39)
[2016-11-15 11:14] VITALS: BP 135/70; PULSE 75; TEMP 37.5; O2SAT 96
[2016-11-15] MEDS ORDERED: FRRS300 PO (11:51)
[2016-11-15] MEDS ORDERED: FLUC100T4 PO (11:51)
--- NOTE | 2016-11-15 12:05 | Discharge Instructions ---
Discharge Instructions Date of Service Nov 15, 2016. Admission Reason for Admission: Anemia Gi Bleeding Discharge Discharge Diagnosis / Problem: Acute on chronic anemia, heme positive stools, chronic coumadin use Discharge Goals Goal(s): Improve function, Improve disease control, Diagnostic testing (follow H/H closely) Activity Recommendations Activity Level: Bedrest (and in wheelchair, chronic) Lifting Limitations: none Exercise/Sports Limitations: as tolerated Shower/Bathe: no limitations . Additional Information Patient informed of condition: Yes Advance Directives: Yes DNR: Yes Level of Care: Skilled Communicable Disease: No Prognosis: Stable Oxygen at (LPM): 2 liters Adams Catheter: No Instructions / Follow-Up Instructions / Follow-Up Medications: - DIFLUCAN: needs to take 10 more doses to complete a 14 day course, this is for esophageal candidiasis seen on EGD - FERROUS SULFATE: 325mg BID, iron deficient, please monitor bowel function and use laxatives/stool softeners as needed - COUMADIN: continue to hold for now, has history of VTE 5 years ago, has MTHFR gene mutation, would need Coumadin again but not until proven that H/H is stable Acute on chronic anemia, iron deficiency patient [facility] with outpatient lab showing Hb of 5.3, transfused two units, Hb up to 8.2 heme positive stools, brown stool, never had any melena or jesse bleeding EGD showed esophageal candidiasis, no ulcers colonoscopy showed 6mm sessile polyp, diverticula, no active bleeding Hb slowly dipped to 7.3, transfused one unit, up to 8.7 appropriately started on Ferrous sulfate vitals stable, no signs of active bleeding at this point plan is to hold Coumadin, follow H/H twice a week at [facility] if H/H would drop again would refer to [facility] for capsule endoscopy FOLLOW UP - physician at [facility] within week needs H/H on Friday 11/17, Hb today is 8.7 Current Hospital Diet Patient's current hospital diet: Diabetes Type 2 Diet Discharge Diet Recommended Diet: Diabetes Type 2 Diet Procedures Procedures Performed: Colonoscopy EGD Pending Studies Studies pending at discharge: no Physician Orders On Transfer Additional Orders: please check H/H twice a week for two weeks, start on Friday 11/17, could check every Sunday/Sunday POLST Discussion: Not Applicable Laboratory Results Hemoglobin A1c Test 09/27/16 06:38 Range/Units Estimated Average Glucose 186 mg/dl Hemoglobin A1c 8.1 H 4.5-5.6 % Medical Emergencies . Who to Call and When: Medical Emergencies: If at any time you feel your situation is an emergency, please call 911 immediately. . Non-Emergent Contact Non-Emergency issues call your: Primary Care Provider Call Non-Emergent contact if: you have any medication questions . . "Provider Documentation" section prepared by Eron Olivia. Core Measure Problem Core Measures: None [place] Drug Monitoring Program Search Results: no issues identified
--- NOTE | 2016-11-15 13:12 | Discharge Summary ---
Discharge Summary Date of Service Nov 15, 2016. Discharge Summary Admission Date: Nov 08, 2016 at 15:02 Discharge Date: Nov 15, 2016 Discharge Disposition: assisted facility Principal Diagnosis: Acute on chronic anemia Problems/Secondary Diagnoses: Iron deficiency Heme positive stools, no identifiable sources of bleeding DM type II, insulin dependent H/o breast cancer H/o VTE with PE Immunizations: Have You Had Influenza Vaccine: Yes History of Tetanus Vaccine?: Yes Tetanus Immunization Date: Oct 25, 2012 History of Pneumococcal: Yes Pneumococcal Date: Nov 16, 2014 History of Hepatitis B Vaccine: No Procedures: EGD - esophageal candidiasis, no ulcers Colonoscopy - 6mm sessile polyp, no biopsy, diverticular disease, no active bleeding seen Consultations: Gastroenterology Medication Reconciliation New Medications: Ferrous Sulfate (Ferrous Sulfate) 325 Mg Tab 325 MG PO BIDM, #60 TAB 3 Refills Fluconazole (Diflucan) 100 Mg Tab 1 TAB PO DAILY for 10 Days, #10 TAB 0 Refills Continued Medications: Acetaminophen (Tylenol) 325 Mg Tab 650 MG PO Q6 PRN for Mild Pain Albuterol Sulf (Proventil 0.083% 2.5MG/3ML) 2.5 Mg/3 Ml Nebu 2.5 MG INH Q4 PRN for SOB/Wheezing, EA Aspirin (Aspirin Ec) 81 Mg Tab 81 MG PO HS Atorvastatin (Lipitor) 80 Mg Tab 80 MG PO DAILY Buspirone HCl (Buspirone HCl) 5 Mg Tab 5 MG PO QAM Citalopram Hydrobromide (Citalopram Hydrobromide) 20 Mg Tab 20 MG PO DAILY Docusate Sodium (Colace) 100 Mg Cap 100 MG PO BID, CAP Folic Acid (Folvite) 1 Mg Tab 1 MG PO DAILY Furosemide (Lasix) 40 Mg Tab 40 MG PO BID, TAB Gabapentin (Neurontin) 400 Mg Cap 800 MG PO HS, 0 Refills Gabapentin (Neurontin) 400 Mg Cap 400 MG PO QAM Insulin Aspart (Novolog Flexpen) 100 Units/Ml Inj 15 UNITS SC BID Insulin Aspart (Novolog Flexpen) 100 Units/Ml Inj 8-18 UNITS SC UD PRN for SLIDING SCALE USE 4 TIMES DAILY IF BLOOD SUGAR: 351-400 = 8 UNITS 304-450 = 12 UNITS 451-500= 16 UNITS > 500= 18 UNITS AND RECHECK BSG IN 2 HOURS Insulin Detemir (Levemir) 100 Units/Ml Inj 25 UNITS SC BID Losartan Potassium (Cozaar) 50 Mg Tab 50 MG PO DAILY, TAB Metolazone (Zaroxolyn) 2.5 Mg Tab 2.5 MG PO QAM TAKE 2 HOURS PRIOR TO AM LASIX DOSE Omeprazole (Prilosec) 20 Mg Capcr 20 MG PO QAM, CAP CAP MAY BE OPENED & SPRINKLED ON APPLESAUCE Oxycodone Immediate Rel Tab (Roxicodone Ir) 5 Mg Tab 5 MG PO Q8 PRN for Moderate Pain, TAB Oxycodone Ir (Roxicodone Ir) 5 Mg Tab 10 MG PO Q8 PRN for Severe Pain, TAB Potassium Chloride (Micro-K Ext Rel) 10 Meq Capcr 40 MEQ PO TID Prednisone (Prednisone) 10 Mg Tab 10 MG PO DAILY, TAB Tamoxifen (Nolvadex) 20 Mg Tab 20 MG PO DAILY, TAB Discontinued Medications: Warfarin Sod (Jantoven) 1 Mg Tab 1 MG PO 2XWK - Warfarin Sod (Jantoven) 2 Mg Tab 2 MG PO 5XWK [id number]-[id number] Discharge Exam Patient feeling well today, most energy she's had in days. She drank all her liquids, advanced to regular diet and she ate all her food, very hungry. Breathing stable, no chest pain. No dark stools still. Stable to go to [facility] today, updated daughter over the phone. Review of Systems: Constitutional: + fatigue, + weakness (chronic), No chills, No fever, No problem reported, No sweats, No weight loss Eyes: No diplopia, No discharge, No eye pain, No problem reported, No redness, No worsening of vision ENT: No dental problems, No hearing loss, No nasal symptoms, No problem reported, No sore throat, No tinnitus, No trouble swallowing, No unusual epistaxis Respiratory: No cough, No dyspnea at rest, No dyspnea on exertion, No hemoptysis, No problem reported, No shortness of breath, No sputum, No wheezing Cardiovascular: + edema (right arm, due to IV site), No PND, No chest pain, No claudication, No orthopnea, No palpitations, No problem reported Abdomen: No GI bleeding, No constipation, No diarrhea, No nausea, No pain, No problem reported, No vomiting Musculoskeletal: No calf pain, No joint pain, No muscle pain, No problem reported, No swelling Genitourinary - Female: No dysuria, No urinary frequency, No urinary incontinence, No urinary urgency Neurologic: + weakness (generalized, bed bound and in wheelchair, chronic), No balance problems, No memory loss, No numbness/tingling, No paralysis, No problem reported, No vertigo Psychiatric: No anhedonism, No anxiety, No depression symptoms, No insomnia , No problem reported, No substance abuse Endocrine: No excessive thirst, No excessive urination, No fatigue, No problem reported Hematologic / Lymphatic: No abnormal bleeding/bruising, No clotting problems , No night sweats, No problem reported, No swollen lymph nodes Integumentary: No bleeding, No color change, No itch, No new/changing skin lesions, No problem reported, No rash Physical Exam: General Appearance: WD/WN, no apparent distress Eyes: normal inspection, EOMI, sclerae normal ENT: normal ENT inspection, hearing grossly normal, pharynx normal Neck: supple, no adenopathy, no JVD, trachea midline Respiratory/Chest: chest non-tender, lungs clear, normal breath sounds, no respiratory distress, no accessory muscle use Cardiovascular: regular rate, rhythm, no edema, no gallop, no JVD, no murmur , normal peripheral pulses Abdomen / GI: normal bowel sounds, non tender, soft, no organomegaly Extremities: no calf tenderness, normal capillary refill, normal range of motion, pelvis stable, + pedal edema (right arm swollen, non-tender) Neurologic/Psychiatric: 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, alert, normal mood/affect , normal reflexes, oriented x 3, + motor weakness (generalized, cannot ambulate , bedrest) Skin: normal color, warm/dry, + rash Lymphatic: no adenopathy Hospital Course 86 y/o female with a history of breast cancer, DM II w/neuropathy, hypertension , hyperlipidemia, COPD, chronic diastolic heart failure, anxiety/depression, PMR with ambulatory dysfunction, Crohn's disease, bowel resection with colostomy and reversal of colostomy with persistent large ventral hernia, carotid artery stenosis, SEKOU, 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 Patient complaining of dizziness for the last month and pallor. She has baseline anemia with hemoglobin around 8- 10. Patient has been on chronic warfarin. No obvious source of acute bleeding , however, she was positive for occult blood in her stool although it was brown. INR 2.9 on admission and she was given 10 mg of vitamin K for reversal. Transfused 2 units PRBC on admission and initial repeat Hb up to 8.2, perhaps outpatient level was not accurate at 5.3. Never had any evidence of jesse GI bleeding, no melena. Had EGD that showed some candidiasis but no ulcers. Colonoscopy showed a 6mm sessile polyp, no active bleeding or masses. Hb slowly drifted down from 8.2 to 7.3 over 4 days, transfused one unit on 11/14 and Hb up to 8.7. Vitals stable. Decided to d/c back to [facility], will hold on Coumadin for now, check H/H twice a week for two weeks to assure stability. If further drop in future then would recommend referral to GI for capsule endoscopy, could always consider IVC filter but never had any jesse bleeding. Acute on chronic anemia in setting of warfarin therapy, heme positive stools but no jesse bleeding or melena, brown stools treated with holding warfarin and 2 units of PRBC's, h/o Crohn's in remission , h/o colectomy and colostomy with reversal Hgb dropped to 7.3 from 8.2 over 4 days, transfused one unit on 11/14, Hb up to 8.7, vitals stable EGD with Candidal esophagitis -continue Diflucan po and continue for 14 day course, needs ten more days , last dose 11/25/16 Colonoscopy 11/13: 6mm sessile polyp, diverticula, no active bleeding, tolerated well iron supplementation, started on Ferrous sulfate BID, should continue indefinitely, watch for constipation issues -will likely need to go back on coumadin at some point given MTHFR mutation and sedentary lifestyle in [place], but with closer monitoring of CBC at this point plan to hold Coumadin, monitor H/H twice a week for two weeks if further blood loss then refer to GI for capsule endoscopy may need to consider IVC filter if continues to lose blood even while off of Coumadin, no indication currently continue PPI daily H/o PE, homozygous MTHFR, sedentary lifestyle-will need to go back on coumadin when safe from GI standpoint will hold Coumadin for another 2 weeks, follow H/H while off anticoagulation may need to consider IVC filter in future Hypomagnesemia--resolved after repletion Hypokalemia-persists due to diuretics and po pills passing righ through, changed to po liquid -continue 40 tid H/o breast cancer status post left mastectomy-stable, no issues -Continue tamoxifen 20 mg PO qd Diabetes type 2 w/diabetic neuropathy--last hemoglobin A1c on 09/27/16 was 8.1, sugars up slightly today, increase Lantus back to 25 units BID -Insulin sliding scale -Check BSGs q ac and qhs -Continue gabapentin 400 mg PO qam and 800 mg PO qhs for neuropathy on d/c will resume prior regimen of Levemir, Novolog with meals and coverage HTN--stable -Continue losartan 50 mg PO qd HLD, RUSSELL-stable, last carotid US 50-69% left ICA stenosis in 2014 -Continue atorvastatin 80 mg PO qd COPD, Chronic respiratory failure--pt on supplemental oxygen at home continuously, 2L NC, on chronic prednisone 10mg daily -O2 by protocol -Continue prednisone -nebs prn Chronic diastolic CHF-stable, no issues -Continue Lasix 40 mg PO BID and metolazone 2.5 mg PO qam-HOLD AM of colonoscopy as is hypokalemic and losing a lot of fluid in stool prep -Continue KCl 40 mEq PO TID Anxiety and depression-stable, no issues -Continue BuSpar 5 mg PO qd , Celexa 20 mg PO qd DVT prophylaxis -Hold chemical prophylaxis due to bleeding, restart coumadin in future -STACIA argueta and SCDs Code Status -Level V, DO NOT RESUSCITATE Dispo - return to [facility] today Total Time Spent: Greater than 30 minutes This includes examination of the patient, discharge planning, medication reconciliation, and communication with other providers. Discharge Instructions Please refer to the electronic Patient Visit Report (Discharge Instructions) for additional information. Follow-Up Physician at [facility] within week Additional Copies To Ryne Walters
[2016-11-30] MEDS ORDERED: LEVO-18 PO (12:52)
[2017-02-22] MEDS ORDERED: SCOP1DIS14 TD (12:55)
== END 2016-11-15 14:44 | DRG 813 ==
LOC: ENRESERVDT → ENRESERVTM → C.EDB 11:41 → C.MED 15:02 → C.4E 11-09 18:25
PROVIDERS: ADMIT Family Medicine; ATTEND Internal Medicine
PROC: 0DJ08ZZ Inspection of Upper Intestinal Tract, Via Natural or Artificial Opening Endoscopic (ICD-10-PCS; principal; 2016-11-10 15:28)
PROC: 0DJD8ZZ Inspection of Lower Intestinal Tract, Via Natural or Artificial Opening Endoscopic (ICD-10-PCS; 2016-11-13)
DX: D68.32 Hemorrhagic disorder due to extrinsic circulating anticoagulants (principal); I50.32 Chronic diastolic (congestive) heart failure; J96.10 Chronic respiratory failure, unspecified whether with hypoxia or hypercapnia; K50.90 Crohn's disease, unspecified, without complications; B37.81 Candidal esophagitis; D62 Acute posthemorrhagic anemia; E87.6 Hypokalemia; T45.515A Adverse effect of anticoagulants, initial encounter; D50.9 Iron deficiency anemia, unspecified; E08.40 Diabetes mellitus due to underlying condition with diabetic neuropathy, unspecified; I10 Essential (primary) hypertension; E78.5 Hyperlipidemia, unspecified; J44.9 Chronic obstructive pulmonary disease, unspecified; F41.9 Anxiety disorder, unspecified; F32.9 Major depressive disorder, single episode, unspecified; M35.3 Polymyalgia rheumatica; G47.33 Obstructive sleep apnea (adult) (pediatric); I65.22 Occlusion and stenosis of left carotid artery; K21.9 Gastro-esophageal reflux disease without esophagitis; E83.42 Hypomagnesemia; Z90.49 Acquired absence of other specified parts of digestive tract; Z99.81 Dependence on supplemental oxygen; Z66 Do not resuscitate; Z85.3 Personal history of malignant neoplasm of breast; Z90.12 Acquired absence of left breast and nipple; Z86.718 Personal history of other venous thrombosis and embolism; Z79.4 Long term (current) use of insulin; Z80.3 Family history of malignant neoplasm of breast; Z82.49 Family history of ischemic heart disease and other diseases of the circulatory system; Z83.3 Family history of diabetes mellitus; Z80.1 Family history of malignant neoplasm of trachea, bronchus and lung; Z87.891 Personal history of nicotine dependence; Z79.82 Long term (current) use of aspirin; Z79.01 Long term (current) use of anticoagulants; Z79.52 Long term (current) use of systemic steroids; T50.2X5A Adverse effect of carbonic-anhydrase inhibitors, benzothiadiazides and other diuretics, initial encounter; K57.90 Diverticulosis of intestine, part unspecified, without perforation or abscess without bleeding; R19.5 Other fecal abnormalities; D75.89 Other specified diseases of blood and blood-forming organs; R41.82 Altered mental status, unspecified; R53.83 Other fatigue

== ENCOUNTER → 2016-11-08 | Outpatient (CLI) | payer OTHER, MEDICARE ==
[2016-11-08 10:28] LABS: MANUAL MICROSCOPIC REQUIRED? NO; REVIEW REQ? NO; URINE APPEARANCE CLEAR (CLEAR); URINE BILIRUBIN NEG (NEG); URINE COLOR YELLOW; URINE NITRITE NEG (NEG); URINE SPECIFIC GRAVITY 1.008 (1.000-1.030); UROBILINOGEN NEG (NEG)
== END ==
LOC: C.LABCC 08:58
PROVIDERS: ATTEND Internal Medicine
DX: R53.83 Other fatigue (principal); R41.82 Altered mental status, unspecified

== ENCOUNTER → 2016-11-08 | Outpatient (CLI) | payer OTHER, MEDICARE ==
[2016-11-08 09:40] LABS: ALT/SGPT 20 U/L (12-78); AST/SGOT 13 U/L (15-37); BLOOD UREA NITROGEN 32 mg/dl (7-18); BUN/CREATININE RATIO 28.8 (10-20); CALCIUM 8.6 mg/dl (8.5-10.1); CARBON DIOXIDE 32 mmol/L (21-32); CHLORIDE 101 mmol/L (98-107); GLUCOSE 99 mg/dl (70-99); POTASSIUM 3.5 mmol/L (3.5-5.1); SODIUM 142 mmol/L (136-145)
[2016-11-08 09:45] LABS: INR 2.9 (0.9-1.1); PROTHROMBIN TIME (PATIENT) 32.8 SECONDS (9.0-12.0)
[2016-11-08 09:50] LABS: ALB/GLOB RATIO 0.9 (0.9-2); ALKALINE PHOSPHATASE 35 U/L (45-117); THYROID STIMULATING HORMONE 0.833 uIu/ml (0.300-4.500)
[2016-11-08 09:56] LABS: HEMATOCRIT 20.6 % (37-47); MEAN CORPUSCULAR HEMOGLOBIN 16.7 pg (25-34); MEAN CORPUSCULAR HGB CONC 25.7 g/dl (32-36); MEAN PLATELET VOLUME 9.2 fL (7.4-10.4); PLATELET COUNT 316 K/uL (130-400); RED BLOOD COUNT 3.17 M/uL (4.2-5.4); WHITE BLOOD COUNT 9.14 K/uL (4.8-10.8)
[2016-11-08 10:59] LABS: ANISOCYTOSIS PRESENT; BASO % 0.7 %; BASO ABS # 0.06 K/uL (0-0.2); COMPLETE YES; EOS % 2.8 %; HYPOCHROMIA PRESENT; IG% 0.9 %; LYMPH ABS # 2.74 K/uL (1.2-3.4); MICROCYTOSIS PRESENT; MONO % 9.6 %; POIKILOCYTOSIS PRESENT; POLYCHROMASIA 1+
== END ==
LOC: C.LABCC 08:30
PROVIDERS: ATTEND Internal Medicine
DX: R53.83 Other fatigue (principal); Z86.718 Personal history of other venous thrombosis and embolism

== ENCOUNTER 2016-11-25 13:51 | Inpatient (IN) | payer OTHER, MEDICARE ==
[~2016-11-25] VITALS: Ht 147.3 cm; Wt 81.7 kg
[~2016-11-25 13:51] MED LIST changes: +ACET-1311 PO; +ALBINS/ INH; -ALBU1NEB10 INH; +CITA20TA4 PO; -CITA40TA12 PO; -CMD4 PO; -DIPH25TA24 PO; +FLUC100T4 PO; +FOLI1TAB7 PO; +FRRS300 PO; -INSUINJ4 SQ; -LORA10TA5 PO; +LVMI SC; -MCRK20 PO; +METO2.5T PO; -NVLGI SC; +NVLGI/PEN SC; -OXGN; -POLY335025 PO; +POTA10CA28 PO; -TAMO20TA47 PO; +TAMO20TA9 PO
--- NOTE | 2016-11-25 14:16 | EMERGENCY ROOM VISIT NOTE ---
History Report prepared by Cyndi: James Luna Under the Supervision of: Dr. Ruben Dupree D.O. First contact with patient: 13:52 Stated Complaint: ALTERED MENTAL STATUS History of Present Illness The patient is an 86 year old female who presents to the Emergency Room via ambulance from [facility] with complaints of worsening altered mental status beginning three days prior to arrival. As per daughter, the patient was in the ED for a week, in which, she had three blood transfusions a week and a half ago for a low blood clot but did not find the cause. The daughter states the PA-C saw the patient yesterday for her watery eyes, redness, and yellow discharge. She notes the patient has bad kidneys, as well. The patient associates worsening shortness of breath and a worsening cough with today's symptoms. She states her symptoms worsen with lying flat. The daughter notes the [facility] reported the patient has been declining over the past three days since being released from the hospital. She states the patient has been off of her blood thinners. The daughter notes the penitentiary stated the patient was experiencing dry heaves this morning. She states the patient has a history of UTIs, but she has not had any recently since being at [facility] for the past year. The daughter denies the patient experiencing a fever, runny nose, leg swelling or leg pain, and abdominal pain. She is unaware of the patient's last bowel movement. The daughter denies the patient experiencing recent falls or seizures. She denies the patient having a history of CHF of pulmonary edema. The daughter does state the patient has a history of mini-strokes. Source of History: family (daughter) Onset: three days APPLICATIONS SUPPORT LEAD Position: other (global) Quality: other (AMS) Timing: worsening Associated Symptoms: + SOB (worsening), + cough (worsening), No abdominal pain, No fevers Review of Systems See HPI for pertinent positives & negatives. A total of 10 systems reviewed and were otherwise negative. Past Medical & Surgical Medical Problems: (1) Anticoagulated on warfarin (2) Benign hypertension (3) Breast mass (4) Cerebrovascular disease (5) Chronic respiratory failure (6) COPD (chronic obstructive pulmonary disease) (7) Crohn's disease (8) Depressive disorder (9) Diabetes mellitus type 2 (10) Diabetic neuropathy (11) Dyslipidemia (12) History of pulmonary embolism (13) Hypercoagulable state (14) Obstructive sleep apnea syndrome (15) Panic disorder (16) Polymyalgia rheumatica (17) Pulmonary nodules (18) Supratherapeutic INR (19) Urinary tract infection (20) UTI (urinary tract infection) Surgical Problems: (1) Status post appendectomy (2) Status post hip replacement (3) Status post hysterectomy (4) Status post partial colectomy Family History FH: breast cancer DAUGHTER FH: coronary artery disease FATHER FH: diabetes mellitus FATHER MOTHER BROTHER BROTHER FH: lung cancer FATHER FH: stroke FATHER MOTHER Social History Smoking Status: Former Smoker Alcohol Use: none Drug Use: none Marital Status: Housing Status: lives with family Occupation Status: retired Current/Historical Medications Scheduled Aspirin (Aspirin Ec), 81 MG PO DAILY Atorvastatin (Lipitor), 80 MG PO DAILY Buspirone HCl (Buspirone HCl), 5 MG PO QAM Citalopram Hydrobromide (Citalopram Hydrobromide), 20 MG PO DAILY Docusate Sodium (Colace), 100 MG PO BID Ferrous Sulfate (Ferrous Sulfate), 325 MG PO BIDM Fluconazole (Diflucan), 1 TAB PO DAILY Folic Acid (Folvite), 1 MG PO DAILY Furosemide (Lasix), 40 MG PO BID Gabapentin (Neurontin), 800 MG PO HS Gabapentin (Neurontin), 400 MG PO QAM Insulin Aspart (Novolog Flexpen), 15 UNITS SC BID Insulin Detemir (Levemir), 25 UNITS SC QAM Insulin Detemir (Levemir), 20 UNITS SC PM Loratadine (Claritin), 10 MG PO DAILY Losartan Potassium (Cozaar), 50 MG PO DAILY Metolazone (Zaroxolyn), 2.5 MG PO QAM Nitroglycerin (Nitrostat), 0.4 MG UT PRN Omeprazole (Prilosec), 20 MG PO QAM Potassium Chloride (Micro-K Ext Rel), 40 MEQ PO TID Prednisone (Prednisone), 10 MG PO DAILY Tamoxifen (Nolvadex), 20 MG PO DAILY Tobramycin/Dexamethasone 0.3% Oph (Tobradex 0.3% Oph), 2 DROPS OPB BID Scheduled PRN Acetaminophen (Tylenol), 650 MG PO Q6 PRN for Mild Pain Albuterol Sulf (Proventil 0.083% 2.5MG/3ML), 2.5 MG INH Q4 PRN for SOB/Wheezing Aluminum/Magnesium/Simeth (Maalox Max Susp), 30 ML PO Q6 PRN for Gas or Constipation Insulin Aspart (Novolog Flexpen), 8-18 UNITS SC UD PRN for SLIDING SCALE Oxycodone Immediate Rel Tab (Roxicodone Ir), 5 MG PO Q8 PRN for Moderate Pain Oxycodone Ir (Roxicodone Ir), 10 MG PO Q8 PRN for Severe Pain Allergies Coded Allergies: Ibuprofen (Verified Allergy, Severe, ANAPHYLAXIS, 05/23/16) Amoxicillin (Verified Allergy, Mild, URTICARIA-HAS TOLERATED ZOSYN PREV ADM., 05/23/16) Noted at [facility] 12/07/10 Has tolerated Zosyn on previous admissions Aspartame (Unverified Allergy, Mild, HIVES, 05/23/16) Cephalexin (Unverified Allergy, Mild, HIVES, 05/23/16) Clavulanic Acid (Verified Allergy, Mild, urticaria-HAS TOLERATED ZOSYN PREV ADM., 05/23/16) Noted at [facility] 12/07/10 Cephalosporins (Verified Allergy, Unknown, HAS TOLERATED CEFTRIAXONE, CEFEPIME, 05/23/16) 05/14/12 - PATIENT DENIES EVER HAVING A REACTION TO OR TAKING ANY CEPHALOSPORINS Codeine (Verified Allergy, Unknown, 05/23/16) Cromolyn (Verified Allergy, Unknown, 05/23/16) Morphine and Related (Verified Allergy, Unknown, Unknown, 05/23/16) Naproxen (Verified Allergy, Unknown, ANAPHYLAXIS, 05/23/16) Penicillins (Verified Allergy, Unknown, Unknown, 05/23/16) Sulfa Antibiotics (Verified Allergy, Unknown, 05/14/12 - STATES THAT SHE IS UNABLE TO TOLERATE ANY SULFA, 05/23/16) 05/14/12 - STATES THAT SHE IS UNABLE TO TOLERATE ANY SULFA DRUGS Quinolones (Verified Adverse Reaction, Mild, NAUSEA, 05/23/16) PER DR. GARCIA - SPOKE W PT WHO SAID SHE HAD CIPRO FOR UTI A "LONG TIME AGO". REACTION WAS NAUSEA. I CONFIRMED ADMINISTREATION HX WITH OUR RECORDS - ADMIN 06/19/08. THEREFORE PT LIKELY ABLE TO TOLERATE CIPRO. Physical Exam Vital Signs Date Time Temp Pulse Resp B/P Pulse Ox O2 Delivery O2 Flow Rate FiO2 11/25/16 16:05 89 24 157/71 94 Nasal Cannula 2.0 11/25/16 14:18 87 11/25/16 14:09 93 Nasal Cannula 2.0 11/25/16 14:02 37.2 88 28 157/71 94 Nasal Cannula 2.0 11/25/16 14:02 93 Nasal Cannula 2.0 Physical Exam GENERAL: Patient is listless. Patient falls asleep easily when she is not spoken to. She does not appear to be in pain. EYES: Pupils are equal, round, and reactive to light. There was a thin, clear discharge from both eyes. EARS, NOSE, MOUTH AND THROAT: The nose is without any evidence of any deformity. Mucous membranes are moist tongue is midline NECK: The neck is nontender and supple. RESPIRATORY: Shallow respirations were noted. Diminished breath sounds noted throughout. Rales noted throughout. Prolonged expiratory phase was noted. CARDIOVASCULAR: Distant with a regular rate and rhythm noted to auscultation. No definite murmur was appreciated. GASTROINTESTINAL: The abdomen is soft. Bowel sounds are present in all quadrants. Abdomen is nontender MUSCULOSKELETAL/EXTREMITIES: There is no evidence of gross deformity full range of motion is noted in the hips and shoulders SKIN: Trace pedal edema bilaterally. There is no obvious evidence of any rash. There are no petechiae, pallor or cyanosis noted. NEUROLOGIC: Patient answers questions appropriately. Appears to be aware of her surroundings. Strength was significantly diminished but equal. No facial droop was noted. Medical Decision & Procedures ER Provider Diagnostic Interpretation: X-ray results as stated below per interpretation by me and the radiologist. CHEST ONE VIEW PORTABLE CLINICAL HISTORY: Shortness of breath. COMPARISON STUDY: Chest radiograph November 08, 2016. FINDINGS: Lung volumes are diminished. This is unchanged. Cardiomegaly is unchanged. There is hazy left basilar opacity. Old right-sided rib fractures are present. There is no evidence of pulmonary edema. IMPRESSION: 1. Hazy left basilar opacity which could reflect atelectasis, an area of pneumonia or a small pleural effusion. 2. Stable cardiomegaly without evidence of pulmonary edema. Electronically signed by: Shahab Mendez M.D. 11/25/2016 2:42 PM Laboratory Results 11/25/16 14:35 Red Blood Count 4.06, Mean Corpuscular Volume 75.6, Mean Corpuscular Hemoglobin 22.9, Mean Corpuscular Hemoglobin Concent 30.3, Mean Platelet Volume 9.4, Neutrophils (%) (Auto) 84.6, Lymphocytes (%) (Auto) 6.1, Monocytes (%) (Auto) 5.4, Eosinophils (%) (Auto) 0.9, Basophils (%) (Auto) 0.5, Neutrophils # (Auto) 10.96, Lymphocytes # (Auto) 0.79, Monocytes # (Auto) 0.70, Eosinophils # (Auto) 0.12, Basophils # (Auto) 0.07 11/25/16 14:35 Test 11/25/16 14:20 11/25/16 14:35 Urine Color YELLOW Urine Appearance TURBID (CLEAR) Urine pH 7.0 (4.5-7.5) Urine Specific [place] 1.010 (1.000-1.030) Urine Protein NEG (NEG) Urine Glucose (UA) NEG (NEG) Urine Ketones NEG (NEG) Urine Occult Blood TRACE (NEG) Urine Nitrite NEG (NEG) Urine Bilirubin NEG (NEG) Urine Urobilinogen NEG (NEG) Urine Leukocyte Esterase LARGE (NEG) Urine WBC (Auto) >30 /hpf (0-5) Urine RBC (Auto) 5-10 /hpf (0-4) Urine Hyaline Casts (Auto) 1-5 /lpf (0-5) Urine Epithelial Cells (Auto) >30 /lpf (0-5) Urine Bacteria (Auto) 4+ (NEG) Urine Yeast (Auto) (NONE PRSENT) White Blood Count 12.97 K/uL (4.8-10.8) Red Blood Count 4.06 M/uL (4.2-5.4) Hemoglobin 9.3 g/dL (12.0-16.0) Hematocrit 30.7 % (37-47) Mean Corpuscular Volume 75.6 fL (80-100) Mean Corpuscular Hemoglobin 22.9 pg (25-34) Mean Corpuscular Hemoglobin Concent 30.3 g/dl (32-36) Platelet Count 219 K/uL (130-400) Mean Platelet Volume 9.4 fL (7.4-10.4) Neutrophils (%) (Auto) 84.6 % Lymphocytes (%) (Auto) 6.1 % Monocytes (%) (Auto) 5.4 % Eosinophils (%) (Auto) 0.9 % Basophils (%) (Auto) 0.5 % Neutrophils # (Auto) 10.96 K/uL (1.4-6.5) Lymphocytes # (Auto) 0.79 K/uL (1.2-3.4) Monocytes # (Auto) 0.70 K/uL (0.11-0.59) Eosinophils # (Auto) 0.12 K/uL (0-0.5) Basophils # (Auto) 0.07 K/uL (0-0.2) RDW Standard Deviation 75.2 fL (36.4-46.3) RDW Coefficient of Variation 28.2 % (11.5-14.5) Immature Granulocyte % (Auto) 2.5 % Immature Granulocyte # (Auto) 0.33 K/uL (0.00-0.02) Nucleated RBC Absolute Count (auto) 0.15 K/uL (0-0) Nucleated Red Blood Cells % 1.2 % Polychromasia 1+ Poikilocytosis PRESENT Anisocytosis PRESENT Spherocytes 2+ Schistocytes 1+ Prothrombin Time 11.5 SECONDS (9.0-12.0) Prothromb Time International Ratio 1.1 (0.9-1.1) Activated Partial Thromboplast Time 21.4 SECONDS (21.0-31.0) Partial Thromboplastin Ratio 0.8 Anion Gap 10.0 mmol/L (3-11) Est Creatinine Clear Calc Drug Dose 34.5 ml/min Estimated GFR () 53.4 Estimated GFR (Non- 46.1 BUN/Creatinine Ratio 19.4 (10-20) Calcium Level 8.8 mg/dl (8.5-10.1) Total Bilirubin 0.4 mg/dl (0.2-1) Direct Bilirubin 0.1 mg/dl (0-0.2) Aspartate Amino Transf (AST/SGOT) 19 U/L (15-37) Alanine Aminotransferase (ALT/SGPT) 19 U/L (12-78) Alkaline Phosphatase 64 U/L (45-117) Total Creatine Kinase 45 U/L (26-192) Creatine Kinase MB 2.5 ng/ml (0.5-3.6) Creatine Kinase MB Ratio 5.6 (0-3.0) Troponin I 0.022 ng/ml (0-0.045) Pro-B-Type Natriuretic Peptide 1250 pg/ml (0-1800) Total Protein 6.7 gm/dl (6.4-8.2) Albumin 2.8 gm/dl (3.4-5.0) Lipase 73 U/L (73-393) Laboratory results per my review. Medications Administered Medications (Trade) Dose Ordered Sig/Rea Route Start Time Stop Time Status Last Admin Dose Admin Levofloxacin (Levaquin / D5W) 750 mg NOW STAT IV 11/25/16 15:44 11/25/16 15:45 DC 11/25/16 16:06 750 MG ECG Indication: altered mental status Rate (beats per minute): 87 Rhythm: sinus rhythm Findings: 1st degree AV block, no ectopy, other (No acute ST segment abnormalities) Comparison ECG Date: 11/10/2016 Change: no significant change ED Course 1358: The patient was evaluated in room B9. A complete history and physical examination were performed. 1544: Ordered Levofloxacin 750 mg IV. 1553: I spoke to PETER Ramirez (Hospitalist) about the patient's case, and she will follow the patient for further evaluation. Medical Decision Differential diagnosis: Etiologies such as infections, reactive airway disease, pneumonia, pneumothorax , COPD, CHF, cardiac ischemia, pulmonary embolism, musculoskeletal, gastrointestinal, as well as others were entertained. Nursing notes reviewed. Additional history is obtained from the patient's family members. The patient is an 86-year-old female who presented to the emergency department for an evaluation of altered mental status. The patient was also noted to have shortness of breath over the last few days. She was recently at our facility for GI bleeding. She has a history of venous thromboembolic disease but does not take anticoagulation because of GI bleeding. She is also a significant fall risk. She was having difficulty breathing and her physical exam appeared to be consistent more with pulmonary edema. Her chest x-ray did not show overwhelming pulmonary edema. She was also found have signs of urinary tract infection on urinalysis. I did review the patient's most recent urinary culture. I discussed patient's laboratory and radiographic studies with her and her family members. The patient is a DO NOT RESUSCITATE currently but the family members are still very concerned with her overall condition at this time. I discussed the patient' s condition with the on-call [facility] hospitalist group. They have agreed to evaluate patient in the emergency department for further management and disposition. Consults Time Called: [phone] Consulting Physician: PETER Ramirez (Hospitalist) Returned Call: [phone] I spoke to PETER Ramirez (Hospitalist) about the patient's case, and she will follow the patient for further evaluation. Impression Primary Impression: Altered mental status Additional Impressions: UTI (urinary tract infection) SOB (shortness of breath) Scribe Attestation The scribe's documentation has been prepared under my direction and personally reviewed by me in its entirety. I confirm that the note above accurately reflects all work, treatment, procedures, and medical decision making performed by me. Departure Information Dispostion Being Evaluated By Hospitalist (PETER Ramirez (Hospitalist)) Referrals [place], [place] (PCP) Problem Qualifiers Primary Impression: Altered mental status Altered mental status type: unspecified Qualified Codes: R41.82 - Altered mental status, unspecified Additional Impressions: UTI (urinary tract infection) Urinary tract infection type: acute cystitis Hematuria presence: without hematuria Qualified Codes: N30.00 - Acute cystitis without hematuria
[2016-11-25] MEDS ORDERED: CLR10 PO (14:32)
[2016-11-25] MEDS ORDERED: LVMI SC (14:32)
[2016-11-25] MEDS ORDERED: NTRGSL/4 UT (14:32)
[2016-11-25] MEDS ORDERED: ALUMSUS2 PO (14:32)
[2016-11-25] MEDS ORDERED: TOBRSUS OPB (14:32)
--- NOTE | 2016-11-25 14:43 | DIAGNOSTIC IMAGING REPORT ---
CHEST ONE VIEW PORTABLE CLINICAL HISTORY: Shortness of breath. COMPARISON STUDY: Chest radiograph November 08, 2016. FINDINGS: Lung volumes are diminished. This is unchanged. Cardiomegaly is unchanged. There is hazy left basilar opacity. Old right-sided rib fractures are present. There is no evidence of pulmonary edema. IMPRESSION: 1. Hazy left basilar opacity which could reflect atelectasis, an area of pneumonia or a small pleural effusion. 2. Stable cardiomegaly without evidence of pulmonary edema. Electronically signed by: Shahab Mendez M.D. 11/25/2016 2:42 PM Dictated Date/Time: 11/25/2016 2:39 PM
[2016-11-25 14:44] LABS: BASO % 0.5 %; BASO ABS # 0.07 K/uL (0-0.2); EOS % 0.9 %; HEMATOCRIT 30.7 % (37-47); IG% 2.5 %; LYMPH % 6.1 %; LYMPH ABS # 0.79 K/uL (1.2-3.4); MEAN CELL VOLUME 75.6 fL (80-100); MEAN CORPUSCULAR HEMOGLOBIN 22.9 pg (25-34); MEAN CORPUSCULAR HGB CONC 30.3 g/dl (32-36); MEAN PLATELET VOLUME 9.4 fL (7.4-10.4); MONO % 5.4 %; NEUT % 84.6 %; PLATELET COUNT 219 K/uL (130-400); RED BLOOD COUNT 4.06 M/uL (4.2-5.4); WHITE BLOOD COUNT 12.97 K/uL (4.8-10.8)
[2016-11-25 14:47] LABS: URINE APPEARANCE TURBID (CLEAR); URINE BILIRUBIN NEG (NEG); URINE COLOR YELLOW; URINE EPITHELIAL CELL AUTO >30 /lpf (0-5); URINE NITRITE NEG (NEG); UROBILINOGEN NEG (NEG)
[2016-11-25 14:48] LABS: MANUAL MICROSCOPIC REQUIRED? NO; REVIEW REQ? YES; ZZURINE CULT IF INDIC CATH YES
[2016-11-25 15:00] LABS: INR 1.1 (0.9-1.1); PARTIAL THROMBOPLASTIN RATIO 0.8; PROTHROMBIN TIME (PATIENT) 11.5 SECONDS (9.0-12.0)
[2016-11-25 15:03] LABS: BUN/CREATININE RATIO 19.4 (10-20); CALCIUM 8.8 mg/dl (8.5-10.1); CREATININE 1.1 mg/dl (0.60-1.20); POTASSIUM 4.1 mmol/L (3.5-5.1)
[2016-11-25 15:08] LABS: CKMB/CK RATIO 5.6 (0-3.0)
[2016-11-25 15:12] LABS: ANISOCYTOSIS PRESENT; COMPLETE YES; POIKILOCYTOSIS PRESENT; POLYCHROMASIA 1+; SCHISTOCYTES 1+; SPHEROCYTE 2+
[2016-11-25] MEDS ORDERED: LEVAQUIN 750MG / 150ML D5W IV STA (15:44)
[2016-11-25 16:23] VITALS: O2SAT 94; Ht 147.3 cm; Wt 81.7 kg
[2016-11-25] MEDS ORDERED: TOBRAMYCIN SULF INJ 0 MG in DEXTROSE 5% 100ML 100 ML IV STA (17:27)
[2016-11-25] MEDS ORDERED: AZTREONAM IV 2,000 MG in DEXTROSE 5% 100ML 100 ML IV STA (17:27)
[2016-11-25] MEDS ORDERED: NITROGLYCERIN 0.4 MG SL PER TAB CHARGE UT SCH (17:30)
[2016-11-25] MEDS ORDERED: ALBUT/IPRATROP 3MG/0.5MG NEB 3 ML VIAL INH PRN (17:30)
[2016-11-25] MEDS ORDERED: OXYCODONE HCL IR 5 MG TAB (IMMEDIATE RELEASE) PO PRN ×2 (17:30)
[2016-11-25] MEDS ORDERED: PIPERACILL/TAZOBAC IV 3.375 GM in DEXTROSE 5% 100ML 100 ML IV SCH (17:38)
[2016-11-25 18:40] VITALS: BP 138/64; PULSE 87; TEMP 39.2; O2SAT 98
[2016-11-25] MEDS ORDERED: ACETAMINOPHEN 325 MG TAB ONE (18:51)
[2016-11-25 19:00] VITALS: O2SAT 93
[2016-11-25] MEDS ORDERED: PIPERACILL/TAZOBAC CONSULT ACTIVE PRN (19:15)
[2016-11-25] MEDS ORDERED: LEVOFLOXACIN CONSULT ACTIVE PRN (19:15)
[2016-11-25] MEDS ORDERED: VANCOMYCIN CONSULT ACTIVE PRN (19:15)
[2016-11-25 19:20] VITALS: PULSE 82; O2SAT 98
[2016-11-25] MEDS ORDERED: VANCOMYCIN INJ 2,000 MG in SODIUM CHLORIDE 0.9% 500ML 500 ML IV SCH (19:30)
[2016-11-25] MEDS ORDERED: GLUCOSE 10 TABS/TUBE PO PRN ×2 (19:30→22:45)
[2016-11-25] MEDS ORDERED: GLUCAGON FOR INJ 1 MG VIAL SQ PRN ×2 (19:30→22:45)
[2016-11-25] MEDS ORDERED: DEXTROSE 50% 50 ML SYR IV PRN ×2 (19:30→22:45)
[2016-11-25] MEDS ORDERED: GLUCOSE 40% GEL 15 GM TUBE PO PRN ×2 (19:30→22:45)
[2016-11-25] MEDS: ALBUT/IPRATROP 3MG/0.5MG NEB 3 ML VIAL INH SCH (19:57)
[2016-11-25 20:00] VITALS: O2SAT 98
[2016-11-25] MEDS: OFLOXACIN 0.3% OP SOLN 5 ML BTL OPB SCH (20:53)
[2016-11-25] MEDS: DOCUSATE SODIUM 100 MG CAP PO SCH (20:53)
[2016-11-25] MEDS: GABAPENTIN 800 MG TAB PO SCH (20:54)
[2016-11-25] MEDS: FUROSEMIDE 40 MG TAB PO SCH (20:54)
[2016-11-25] MEDS: POTASSIUM CHLORIDE 20 MEQ TABCR PO SCH (20:54)
[2016-11-25] MEDS: INSULIN DETEMIR FLEXPEN/FLEX TOUCH 100 UNITS/ML 3ML SC SCH (20:55)
[2016-11-25] MEDS: HEPARIN SOD 5000 UNIT/0.5 ML CARP SQ SCH (20:56)
--- NOTE | 2016-11-25 21:07 | Pharmacy Progress Note ---
Pharmacy Antibiotic Consult Date of Service: Nov 25, 2016. Pharmacy Dosing Scope Pharmacy is consulted to initiate VANCOMYCIN / ZOSYN / LEVAQUIN IV dosing therapy, order appropriate labs and adjust drug dose/frequency. Subjective The patient is a 86 year old female admitted on Nov 25, 2016 at 17:36. Objective Height (Feet): 4 Height (Inches): 10.00 Weight (Kilograms): 82.300 Lab Results (24hrs): Laboratory Tests Test 11/25/16 14:35 BUN/Creatinine Ratio 19.4 Blood Urea Nitrogen 21 mg/dl Creatinine 1.10 mg/dl White Blood Count 12.97 K/uL Red Blood Count 4.06 M/uL Hemoglobin 9.3 g/dL Hematocrit 30.7 % Mean Corpuscular Volume 75.6 fL Mean Corpuscular Hemoglobin 22.9 pg Mean Corpuscular Hemoglobin Concent 30.3 g/dl Platelet Count 219 K/uL Mean Platelet Volume 9.4 fL Neutrophils (%) (Auto) 84.6 % Lymphocytes (%) (Auto) 6.1 % Monocytes (%) (Auto) 5.4 % Eosinophils (%) (Auto) 0.9 % Basophils (%) (Auto) 0.5 % Neutrophils # (Auto) 10.96 K/uL Lymphocytes # (Auto) 0.79 K/uL Monocytes # (Auto) 0.70 K/uL Eosinophils # (Auto) 0.12 K/uL Basophils # (Auto) 0.07 K/uL Micro Results: * 11/25/16 -- Urine, cath -- pending * 11/25/16 -- Blood x 2 -- pending Recent Pertinent Medications Item Value Date Time Levofloxacin 750 150 ml @ 100 mls/hr 11/27/16 1600 mg/Prmx Q2D@1600/IV Vancomycin HCl 274 ml @ 125 mls/hr 11/26/16 2200 1200 mg/Sodium Q24H/IV Chloride Piperacillin Sod/ 115 ml @ 28.75 mls/hr 11/26/16 0000 Tazobactam Sod Q8H/IV 3.375 gm/Dextrose Vancomycin HCl 540 ml @ 200 mls/hr 11/25/16 1930 2000 mg/Sodium 1930/IV 11/25/16 2052 Chloride Piperacillin Sod/ 115 ml @ 230 mls/hr 11/25/16 1738 Tazobactam Sod 1738/IV 11/25/16 1820 3.375 gm/Dextrose Assessment & Plan 86yo female ordered VANCOMYCIN / LEVAQUIN / ZOSYN for pneumonia. Renal function is stable (SCr 1.1, CrCl ~35ml/min). VANCOMYCIN: * Loading dose: VANCOMYCIN 2000mg (~24mg/kg) IV X 1 dose then VANCOMYCIN 1200mg (~15mg/kg) IV every 24 hours. * Estimated Pk paramters: Vd ~0.7 L/kg ke ~0.033 t 1/2 ~21 hours * Goal trough level estimate: between 15 - 20 mcg/mL. * Trough level has been ordered for: @ 2130. Pharmacy will continue to follow and will adjust dose/frequency as necessary. Thank you
--- NOTE | 2016-11-25 23:00 | History and Physical ---
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 She presents to the ER from [facility] with complaints of generalized weakness, increased shortness of breath and cough, and emesis 1. Her son reports that she was actually doing the best he had seen her yet earlier this week, but then his sister witnessed her have a prolonged coughing spell after eating an orange slice 2 days ago. Since then, she seems to have gotten worse. She also developed a bilateral conjunctivitis and runny nose yesterday. She denies fevers, but the son reports she is definitely confused above her baseline. In the ER, her pulse ox was reportedly in the mid 80s, but as documented in the low 90s. She is on chronic O2 at home. She is found to have a grossly abnormal urinalysis consistent with urinary tract infection, as well as a leukocytosis with a white blood cell count of 12. Her chest x-ray showed a left basilar opacity that was not there on and previous chest x-ray. She will be admitted for most likely aspiration pneumonia versus HCAP, UTI, and acute metabolic encephalopathy. Past Medical/Surgical History Past Medical History: Benign hypertension Cerebrovascular disease Chronic respiratory failure COPD (chronic obstructive pulmonary disease) Crohn's disease Depressive disorder Diabetes mellitus type 2 Diabetic neuropathy Dyslipidemia History of pulmonary embolism-in 2011 secondary to homozygous MTHFR gene mutation and sedentary lifestyle Hypercoagulable state Permanent Comment: homozygous MTHFR Obstructive sleep apnea syndrome Polymyalgia rheumatica Pulmonary nodules History of breast cancer Chronic diastolic heart failure History of bowel resection with colostomy and reversal of colostomy with persistent large ventral hernia Carotid artery stenosis GERD Severe anemia secondary to esophageal candidiasis Surgical Problems: (1) Status post appendectomy Status: Chronic (2) Status post hip replacement Permanent Comment: left COLTON Dr. Martines 2012 Status: Chronic (3) Status post hysterectomy Status: Chronic (4) Status post partial colectomy with colostomy and reversal of colostomy Permanent Comment: diverticulitis Status: Chronic Family History FH: breast cancer DAUGHTER FH: coronary artery disease FATHER FH: diabetes mellitus FATHER MOTHER BROTHER BROTHER FH: lung cancer FATHER FH: stroke FATHER MOTHER Social History Smoking Status: Former Smoker Alcohol Use: none Drug Use: none Marital Status: Housing status: jail ([facility]) Occupational Status: retired Immunizations History of Influenza Vaccine: Yes History of Tetanus Vaccine?: Yes Tetanus Immunization Date: Oct 25, 2012 History of Pneumococcal: Yes Pneumococcal Date: Nov 16, 2014 History of Hepatitis B Vaccine: No Multi-Drug Resistant Organisms History of MDRO: No Allergies Coded Allergies: Ibuprofen (Verified Allergy, Severe, ANAPHYLAXIS, 05/23/16) Amoxicillin (Verified Allergy, Mild, URTICARIA-HAS TOLERATED ZOSYN PREV ADM., 05/23/16) Noted at [facility] 12/07/10 Has tolerated Zosyn on previous admissions Aspartame (Unverified Allergy, Mild, HIVES, 05/23/16) Cephalexin (Unverified Allergy, Mild, HIVES, 05/23/16) Clavulanic Acid (Verified Allergy, Mild, urticaria-HAS TOLERATED ZOSYN PREV ADM., 05/23/16) Noted at [facility] 12/07/10 Cephalosporins (Verified Allergy, Unknown, HAS TOLERATED CEFTRIAXONE, CEFEPIME, 05/23/16) 05/14/12 - PATIENT DENIES EVER HAVING A REACTION TO OR TAKING ANY CEPHALOSPORINS Codeine (Verified Allergy, Unknown, 05/23/16) Cromolyn (Verified Allergy, Unknown, 05/23/16) Morphine and Related (Verified Allergy, Unknown, Unknown, 05/23/16) Naproxen (Verified Allergy, Unknown, ANAPHYLAXIS, 05/23/16) Penicillins (Verified Allergy, Unknown, Unknown, 05/23/16) Sulfa Antibiotics (Verified Allergy, Unknown, 05/14/12 - STATES THAT SHE IS UNABLE TO TOLERATE ANY SULFA, 05/23/16) 05/14/12 - STATES THAT SHE IS UNABLE TO TOLERATE ANY SULFA DRUGS Quinolones (Verified Adverse Reaction, Mild, NAUSEA, 05/23/16) PER DR. GARCIA - SPOKE W PT WHO SAID SHE HAD CIPRO FOR UTI A "LONG TIME AGO". REACTION WAS NAUSEA. I CONFIRMED ADMINISTREATION HX WITH OUR RECORDS - ADMIN 06/19/08. THEREFORE PT LIKELY ABLE TO TOLERATE CIPRO. Home Medications Scheduled Aspirin (Aspirin Ec), 81 MG PO DAILY Atorvastatin (Lipitor), 80 MG PO DAILY Buspirone HCl (Buspirone HCl), 5 MG PO QAM Citalopram Hydrobromide (Citalopram Hydrobromide), 20 MG PO DAILY Docusate Sodium (Colace), 100 MG PO BID Ferrous Sulfate (Ferrous Sulfate), 325 MG PO BIDM Fluconazole (Diflucan), 1 TAB PO DAILY Folic Acid (Folvite), 1 MG PO DAILY Furosemide (Lasix), 40 MG PO BID Gabapentin (Neurontin), 800 MG PO HS Gabapentin (Neurontin), 400 MG PO QAM Insulin Aspart (Novolog Flexpen), 15 UNITS SC BID Insulin Detemir (Levemir), 25 UNITS SC QAM Insulin Detemir (Levemir), 20 UNITS SC PM Loratadine (Claritin), 10 MG PO DAILY Losartan Potassium (Cozaar), 50 MG PO DAILY Metolazone (Zaroxolyn), 2.5 MG PO QAM Nitroglycerin (Nitrostat), 0.4 MG UT PRN Omeprazole (Prilosec), 20 MG PO QAM Potassium Chloride (Micro-K Ext Rel), 40 MEQ PO TID Prednisone (Prednisone), 10 MG PO DAILY Tamoxifen (Nolvadex), 20 MG PO DAILY Tobramycin/Dexamethasone 0.3% Oph (Tobradex 0.3% Oph), 2 DROPS OPB BID Scheduled PRN Acetaminophen (Tylenol), 650 MG PO Q6 PRN for Mild Pain Albuterol Sulf (Proventil 0.083% 2.5MG/3ML), 2.5 MG INH Q4 PRN for SOB/Wheezing Aluminum/Magnesium/Simeth (Maalox Max Susp), 30 ML PO Q6 PRN for Gas or Constipation Insulin Aspart (Novolog Flexpen), 8-18 UNITS SC UD PRN for SLIDING SCALE Oxycodone Immediate Rel Tab (Roxicodone Ir), 5 MG PO Q8 PRN for Moderate Pain Oxycodone Ir (Roxicodone Ir), 10 MG PO Q8 PRN for Severe Pain Review of Systems Constitutional: No chills, No fever Eyes: + discharge, + redness ENT: + nasal symptoms (runny nose), No trouble swallowing Respiratory: + cough, + shortness of breath, + sputum, No wheezing Cardiovascular: No chest pain, No edema Abdomen: + nausea, + vomiting, No diarrhea, No pain Musculoskeletal: No problem reported Genitourinary - Female: No problem reported Neurologic: + memory loss, + weakness (generalized) Psychiatric: No problem reported Endocrine: No problem reported Hematologic / Lymphatic: No problem reported Integumentary: No problem reported Allergic / Immunologic: No problem reported Physical Exam Vital Signs Date Time Temp Pulse Resp B/P Pulse Ox O2 Delivery O2 Flow Rate FiO2 11/25/16 19:20 82 18 98 Nasal Cannula 2.0 11/25/16 18:40 39.2 87 22 138/64 98 Nasal Cannula 2.0 11/25/16 18:16 89 22 143/62 96 Nasal Cannula 2.0 11/25/16 17:27 95 22 120/68 95 Room Air 11/25/16 16:23 94 Nasal Cannula 2.0 11/25/16 16:05 89 24 157/71 94 Nasal Cannula 2.0 11/25/16 14:18 87 11/25/16 14:09 93 Nasal Cannula 2.0 11/25/16 14:02 37.2 88 28 157/71 94 Nasal Cannula 2.0 11/25/16 14:02 93 Nasal Cannula 2.0 General Appearance: + mild distress (appears ill), + obese Head: normocephalic, atraumatic Eyes: PERRL, EOMI, + pertinent finding (conjunctiva erythematous, with yellow crusted discharge from eyes bilaterally) ENT: hearing grossly normal, pharynx normal Neck: supple (obese), no adenopathy, no carotid bruits, trachea midline Respiratory/Chest: no respiratory distress, no accessory muscle use, + decreased breath sounds (diminished throughout, more so in the left lower lung field, no wheezes or rhonchi) Cardiovascular: regular rate, rhythm, no edema, no gallop, no murmur, normal peripheral pulses Abdomen/GI: normal bowel sounds, non tender, soft (and obese), + hernia (large ventral hernia that is reducible in the right lower quadrant) Back: normal inspection Extremities/Musculoskelatal: no calf tenderness, no pedal edema Neurologic/Psych: alert, normal mood/affect, + disoriented Skin: normal color, warm/dry, no rash Lymphatic: no adenopathy Diagnostics Laboratory Results Results Past 24 Hours Test 11/25/16 14:20 11/25/16 14:35 11/25/16 21:15 Range/Units Urine Color YELLOW Urine Appearance TURBID CLEAR Urine pH 7.0 4.5-7.5 Urine Specific [place] 1.010 1.000-1.030 Urine Protein NEG NEG Urine Glucose (UA) NEG NEG Urine Ketones NEG NEG Urine Occult Blood TRACE NEG Urine Nitrite NEG NEG Urine Bilirubin NEG NEG Urine Urobilinogen NEG NEG Urine Leukocyte Esterase LARGE NEG Urine WBC (Auto) >30 0-5 /hpf Urine RBC (Auto) 5-10 0-4 /hpf Urine Hyaline Casts (Auto) 1-5 0-5 /lpf Urine Epithelial Cells (Auto) >30 0-5 /lpf Urine Bacteria (Auto) 4+ NEG Urine Yeast (Auto) NONE PRSENT White Blood Count 12.97 4.8-10.8 K/uL Red Blood Count 4.06 4.2-5.4 M/uL Hemoglobin 9.3 12.0-16.0 g/dL Hematocrit 30.7 37-47 % Mean Corpuscular Volume 75.6 80-100 fL Mean Corpuscular Hemoglobin 22.9 25-34 pg Mean Corpuscular Hemoglobin Concent 30.3 32-36 g/dl Platelet Count 219 130-400 K/uL Mean Platelet Volume 9.4 7.4-10.4 fL Neutrophils (%) (Auto) 84.6 % Lymphocytes (%) (Auto) 6.1 % Monocytes (%) (Auto) 5.4 % Eosinophils (%) (Auto) 0.9 % Basophils (%) (Auto) 0.5 % Neutrophils # (Auto) 10.96 1.4-6.5 K/uL Lymphocytes # (Auto) 0.79 1.2-3.4 K/uL Monocytes # (Auto) 0.70 0.11-0.59 K/uL Eosinophils # (Auto) 0.12 0-0.5 K/uL Basophils # (Auto) 0.07 0-0.2 K/uL RDW Standard Deviation 75.2 36.4-46.3 fL RDW Coefficient of Variation 28.2 11.5-14.5 % Immature Granulocyte % (Auto) 2.5 % Immature Granulocyte # (Auto) 0.33 0.00-0.02 K/uL Nucleated RBC Absolute Count (auto) 0.15 0-0 K/uL Nucleated Red Blood Cells % 1.2 % Polychromasia 1+ Poikilocytosis PRESENT Anisocytosis PRESENT Spherocytes 2+ Schistocytes 1+ Prothrombin Time 11.5 9.0-12.0 SECONDS Prothromb Time International Ratio 1.1 0.9-1.1 Activated Partial Thromboplast Time 21.4 21.0-31.0 SECONDS Partial Thromboplastin Ratio 0.8 Sodium Level 138 136-145 mmol/L Potassium Level 4.1 3.5-5.1 mmol/L Chloride Level 99 98-107 mmol/L Carbon Dioxide Level 29 21-32 mmol/L Anion Gap 10.0 3-11 mmol/L Blood Urea Nitrogen 21 7-18 mg/dl Creatinine 1.10 0.60-1.20 mg/dl Est Creatinine Clear Calc Drug Dose 34.5 ml/min Estimated GFR () 53.4 Estimated GFR (Non- 46.1 BUN/Creatinine Ratio 19.4 10-20 Random Glucose 234 70-99 mg/dl Calcium Level 8.8 8.5-10.1 mg/dl Total Bilirubin 0.4 0.2-1 mg/dl Direct Bilirubin 0.1 0-0.2 mg/dl Aspartate Amino Transf (AST/SGOT) 19 15-37 U/L Alanine Aminotransferase (ALT/SGPT) 19 12-78 U/L Alkaline Phosphatase 64 45-117 U/L Total Creatine Kinase 45 26-192 U/L Creatine Kinase MB 2.5 0.5-3.6 ng/ml Creatine Kinase MB Ratio 5.6 0-3.0 Troponin I 0.022 0-0.045 ng/ml Pro-B-Type Natriuretic Peptide 1250 0-1800 pg/ml Total Protein 6.7 6.4-8.2 gm/dl Albumin 2.8 3.4-5.0 gm/dl Lipase 73 73-393 U/L Microbiology Results 11/25/16 Blood Culture, Received Pending 11/25/16 Blood Culture, Received Pending 11/25/16 Urine Culture, Received Pending Diagnostic Radiology Chest x-ray reviewed, left basilar opacity EKG First-degree A-V block, old inferior infarct, no acute ischemic changes Impression Assessment and Plan This patient is an 86 y/o female with a history of breast cancer, DM II w/ neuropathy, hypertension, hyperlipidemia, COPD, chronic diastolic heart failure , anxiety/depression, PMR with ambulatory dysfunction, Crohn's disease, bowel resection with colostomy and reversal of colostomy with persistent large ventral hernia, carotid artery stenosis, SEKOU, 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 She presents to the ER from [facility] with complaints of generalized weakness, increased shortness of breath and cough, and emesis 1. Her son reports that she was actually doing the best he had seen her yet earlier this week, but then his sister witnessed her have a prolonged coughing spell after eating an orange slice 2 days ago. She also developed a bilateral conjunctivitis and runny nose but has been afebrile and is confused above her baseline. She is found to have a grossly abnormal urinalysis consistent with urinary tract infection, as well as a leukocytosis with a white blood cell count of 12. Her chest x-ray showed a left basilar opacity that was not there on and previous chest x-ray. She will be admitted for most likely aspiration pneumonia versus HCAP, UTI, and acute metabolic encephalopathy. Acute metabolic encephalopathy secondary to Pneumonia, acute on chronic respiratory failure, sepsis, COPD-left lower lobe pneumonia, also with upper respiratory symptoms and conjunctivitis seems more consistent with a viral picture. Did have possible aspiration 2 days ago, [facility] a jail. We'll cover with antibiotics for healthcare associated pneumonia with suspected gram-negative connie pneumonia as well as for aspiration pneumonia. -We'll give Zosyn, Levaquin, and vancomycin and narrow down as able to -Follow blood cultures and nasal MRSA swab -Bronchodilators -O2 via nasal cannula -Follow CBC -Ocuflox eyedrops for conjunctivitis -Check flu swab -Continue chronic prednisone 10 mg daily UTI, sepsis-urinalysis grossly abnormal -On Zosyn, Levaquin, and vancomycin as above for pneumonia which should also cover for UTI -Follow urine cultures Hypertension, hyperlipidemia, chronic diastolic CHF-stable -Continue home diuretics of Lasix and metolazone, potassium -Continue losartan and statin, baby aspirin -Follow electrolytes and renal function Diabetes mellitus type 2 with diabetic peripheral neuropathy-with hyperglycemia in the setting of acute infection -Continue home doses of Lantus -Glucose checks before every meal and qHS and sliding scale NovoLog -Check hemoglobin A1c in the morning Anemia-hemoglobin is actually increased from previous admission at 9. -Follow CBC History of PE and homozygous MTH far gene mutation/hypercoagulable state-was discontinued from her Coumadin at the last admission for severe anemia and heme- positive stool. -Continue to hold Coumadin at this time but consider restarting in the near future if hemoglobin remains stable Anxiety/depression-stable -Continue SSRI, BuSpar Chronic pain-stable -Continue gabapentin and oxycodone with bowel regimen DVT prophylaxis-heparin subcutaneous GI prophylaxis-PPI Disposition-to jail when medically stable DO NOT RESUSCITATE/DO NOT INTUBATE as per discussion with patient and her son at the bedside Advanced Directives Existing Living Will: Yes Existing Power of Chiropractic Physician: Yes VTE Prophylaxis VTE Risk Assessment Done? Y/N: Yes Risk Level: Moderate Additional Copies To Lazaro Mccoy M.D.
[2016-11-25 23:14] LABS: INFLUENZA A PCR Neg for Influ A (NEG); INFLUENZA B PCR Neg for Influ B (NEG)
[2016-11-25 23:59] VITALS: O2SAT 98
[2016-11-26] VITALS (13 sets, daily range): BP systolic 98–127; BP diastolic 45–66; PULSE 77–91; TEMP 36.7–37.5; O2SAT 93–98
[2016-11-26] MEDS: PIPERACILL/TAZOBAC IV 3.375 GM in DEXTROSE 5% 100ML 100 ML IV SCH ×3 (00:06→16:07)
[2016-11-26] MEDS: OFLOXACIN 0.3% OP SOLN 5 ML BTL OPB SCH ×6 (00:07→20:25)
[2016-11-26] MEDS: INSULIN ASPART 100 UNITS/ML 3 ML PEN SC SCH ×5 (06:00→20:36)
[2016-11-26 07:00] LABS: CREATININE 1.5 mg/dl (0.60-1.20)
[2016-11-26] MEDS: ALBUT/IPRATROP 3MG/0.5MG NEB 3 ML VIAL INH SCH ×4 (07:45→19:15)
[2016-11-26 09:07] LABS: BASO % 0.3 %; BASO ABS # 0.05 K/uL (0-0.2); EOS % 2.9 %; HEMATOCRIT 30.8 % (37-47); MEAN CORPUSCULAR HEMOGLOBIN 23.3 pg (25-34); MEAN CORPUSCULAR HGB CONC 29.9 g/dl (32-36); MEAN PLATELET VOLUME 9.1 fL (7.4-10.4); MONO % 7.1 %; NEUT % 78.7 %; PLATELET COUNT 183 K/uL (130-400); RED BLOOD COUNT 3.95 M/uL (4.2-5.4); WHITE BLOOD COUNT 14.37 K/uL (4.8-10.8)
[2016-11-26] MEDS: CITALOPRAM 20 MG TAB PO SCH (09:07)
[2016-11-26] MEDS: ASPIRIN 81 MG ECTAB PO SCH (09:07)
[2016-11-26] MEDS: DOCUSATE SODIUM 100 MG CAP PO SCH ×2 (09:07→20:22)
[2016-11-26] MEDS: FUROSEMIDE 40 MG TAB PO SCH ×2 (09:07→17:24)
[2016-11-26] MEDS: TAMOXIFEN CITRATE 10 MG TAB PO SCH (09:09)
[2016-11-26] MEDS: INSULIN DETEMIR FLEXPEN/FLEX TOUCH 100 UNITS/ML 3ML SC SCH ×2 (09:10→20:35)
[2016-11-26] MEDS: POTASSIUM CHLORIDE 20 MEQ TABCR PO SCH ×3 (09:11→20:23)
[2016-11-26] MEDS: HEPARIN SOD 5000 UNIT/0.5 ML CARP SQ SCH ×2 (09:11→20:25)
[2016-11-26] MEDS: PANTOprazole SOD 40 MG TAB PO SCH (09:11)
[2016-11-26] MEDS: GABAPENTIN 400 MG CAP PO SCH (09:12)
[2016-11-26] MEDS: LORATADINE 10 MG TAB PO SCH (09:12)
[2016-11-26] MEDS: METOLAZONE 2.5 MG TAB PO SCH (09:12)
[2016-11-26] MEDS: FERROUS SULFATE 325 MG TAB PO SCH ×2 (09:12→16:07)
[2016-11-26] MEDS: ATORVASTATIN 40 MG TAB PO SCH (09:13)
[2016-11-26] MEDS: LOSARTAN POTASSIUM 50 MG TAB PO SCH (09:17)
[2016-11-26 09:51] LABS: ANISOCYTOSIS PRESENT; COMPLETE YES; HYPOCHROMIA PRESENT; POLYCHROMASIA 1+
--- NOTE | 2016-11-26 11:20 | Progress Note ---
Subjective Date of Service: Nov 26, 2016. Subjective Pt evaluation today including: conversation w/ patient, conversation w/ family , physical exam, chart review, lab review, review of studies, review of inpatient medication list Pt still confused, oriented only to name No acute distress Resting comfortably in bed SPoke to daughter, questions answered Problem List Medical Problems: (1) Altered mental status Status: Acute (2) Anemia Status: Acute (3) Dehydration Status: Acute (4) E. coli UTI (urinary tract infection) Status: Acute (5) GI bleeding Status: Acute (6) Hyperglycemia Status: Acute (7) Hypomagnesemia Status: Acute (8) SOB (shortness of breath) Status: Acute (9) Substernal chest pain Status: Acute (10) Urinary tract infection Status: Acute (11) UTI (urinary tract infection) Status: Acute (12) Weakness Status: Acute (13) Weakness Status: Acute Review of Systems Constitutional: No chills, No fever Respiratory: No cough, No shortness of breath, No sputum, No wheezing Cardiac: No chest pain, No orthopnea Abdomen: No diarrhea, No nausea, No pain, No vomiting Musculoskeletal: No joint pain, No muscle pain Female : No dysuria, No urinary frequency Psychiatric: No anhedonism, No depression symptoms Objective Vital Signs Date Time Temp Pulse Resp B/P Pulse Ox O2 Delivery O2 Flow Rate FiO2 11/26/16 08:42 36.8 88 18 117/49 95 11/26/16 08:09 78 16 93 Nasal Cannula 2.0 11/26/16 04:00 98 Nasal Cannula 2.0 11/26/16 03:52 36.9 77 20 123/66 94 Nasal Cannula 2.0 11/26/16 00:00 36.9 78 20 98/58 94 Nasal Cannula 2.0 11/25/16 23:59 98 Nasal Cannula 2.0 11/25/16 20:00 98 Nasal Cannula 2.0 11/25/16 19:20 82 18 98 Nasal Cannula 2.0 11/25/16 19:00 93 Nasal Cannula 2.0 11/25/16 18:40 39.2 87 22 138/64 98 Nasal Cannula 2.0 11/25/16 18:16 89 22 143/62 96 Nasal Cannula 2.0 11/25/16 17:27 95 22 120/68 95 Room Air 11/25/16 16:23 94 Nasal Cannula 2.0 11/25/16 16:05 89 24 157/71 94 Nasal Cannula 2.0 11/25/16 14:18 87 11/25/16 14:09 93 Nasal Cannula 2.0 11/25/16 14:02 37.2 88 28 157/71 94 Nasal Cannula 2.0 11/25/16 14:02 93 Nasal Cannula 2.0 Physical Exam General Appearance: WD/WN, no apparent distress Neck: supple, no adenopathy Respiratory/Chest: lungs clear, + decreased breath sounds Cardiovascular: no gallop, no JVD Abdomen: non tender, soft Neurologic/Psychiatric: alert, normal mood/affect, + disoriented Laboratory Results Last 24 Hours Test 11/25/16 14:20 11/25/16 14:35 11/25/16 21:15 11/26/16 00:16 Urine Color YELLOW Urine Appearance TURBID Urine pH 7.0 Urine Specific [place] 1.010 Urine Protein NEG Urine Glucose (UA) NEG Urine Ketones NEG Urine Occult Blood TRACE Urine Nitrite NEG Urine Bilirubin NEG Urine Urobilinogen NEG Urine Leukocyte Esterase LARGE Urine WBC (Auto) >30 /hpf Urine RBC (Auto) 5-10 /hpf Urine Hyaline Casts (Auto) 1-5 /lpf Urine Epithelial Cells (Auto) >30 /lpf Urine Bacteria (Auto) 4+ Urine Yeast (Auto) White Blood Count 12.97 K/uL Red Blood Count 4.06 M/uL Hemoglobin 9.3 g/dL Hematocrit 30.7 % Mean Corpuscular Volume 75.6 fL Mean Corpuscular Hemoglobin 22.9 pg Mean Corpuscular Hemoglobin Concent 30.3 g/dl Platelet Count 219 K/uL Mean Platelet Volume 9.4 fL Neutrophils (%) (Auto) 84.6 % Lymphocytes (%) (Auto) 6.1 % Monocytes (%) (Auto) 5.4 % Eosinophils (%) (Auto) 0.9 % Basophils (%) (Auto) 0.5 % Neutrophils # (Auto) 10.96 K/uL Lymphocytes # (Auto) 0.79 K/uL Monocytes # (Auto) 0.70 K/uL Eosinophils # (Auto) 0.12 K/uL Basophils # (Auto) 0.07 K/uL RDW Standard Deviation 75.2 fL RDW Coefficient of Variation 28.2 % Immature Granulocyte % (Auto) 2.5 % Immature Granulocyte # (Auto) 0.33 K/uL Nucleated RBC Absolute Count (auto) 0.15 K/uL Nucleated Red Blood Cells % 1.2 % Polychromasia 1+ Poikilocytosis PRESENT Anisocytosis PRESENT Spherocytes 2+ Schistocytes 1+ Prothrombin Time 11.5 SECONDS Prothromb Time International Ratio 1.1 Activated Partial Thromboplast Time 21.4 SECONDS Partial Thromboplastin Ratio 0.8 Sodium Level 138 mmol/L Potassium Level 4.1 mmol/L Chloride Level 99 mmol/L Carbon Dioxide Level 29 mmol/L Anion Gap 10.0 mmol/L Blood Urea Nitrogen 21 mg/dl Creatinine 1.10 mg/dl Est Creatinine Clear Calc Drug Dose 34.5 ml/min Estimated GFR () 53.4 Estimated GFR (Non- 46.1 BUN/Creatinine Ratio 19.4 Random Glucose 234 mg/dl Calcium Level 8.8 mg/dl Total Bilirubin 0.4 mg/dl Direct Bilirubin 0.1 mg/dl Aspartate Amino Transf (AST/SGOT) 19 U/L Alanine Aminotransferase (ALT/SGPT) 19 U/L Alkaline Phosphatase 64 U/L Total Creatine Kinase 45 U/L Creatine Kinase MB 2.5 ng/ml Creatine Kinase MB Ratio 5.6 Troponin I 0.022 ng/ml Pro-B-Type Natriuretic Peptide 1250 pg/ml Total Protein 6.7 gm/dl Albumin 2.8 gm/dl Lipase 73 U/L Influenza Type A (RT-PCR) Neg for Influ A Influenza Type B (RT-PCR) Neg for Influ B Bedside Glucose 118 mg/dl Test 11/26/16 05:30 11/26/16 06:00 11/26/16 08:56 Creatinine 1.50 mg/dl Est Creatinine Clear Calc Drug Dose 25.2 ml/min Estimated GFR () 36.7 Estimated GFR (Non- 31.7 Bedside Glucose 128 mg/dl White Blood Count 14.37 K/uL Red Blood Count 3.95 M/uL Hemoglobin 9.2 g/dL Hematocrit 30.8 % Mean Corpuscular Volume 78.0 fL Mean Corpuscular Hemoglobin 23.3 pg Mean Corpuscular Hemoglobin Concent 29.9 g/dl Platelet Count 183 K/uL Mean Platelet Volume 9.1 fL Neutrophils (%) (Auto) 78.7 % Lymphocytes (%) (Auto) 9.0 % Monocytes (%) (Auto) 7.1 % Eosinophils (%) (Auto) 2.9 % Basophils (%) (Auto) 0.3 % Neutrophils # (Auto) 11.30 K/uL Lymphocytes # (Auto) 1.30 K/uL Monocytes # (Auto) 1.02 K/uL Eosinophils # (Auto) 0.41 K/uL Basophils # (Auto) 0.05 K/uL RDW Standard Deviation 78.1 fL RDW Coefficient of Variation 28.6 % Immature Granulocyte % (Auto) 2.0 % Immature Granulocyte # (Auto) 0.29 K/uL Nucleated RBC Absolute Count (auto) 0.08 K/uL Nucleated Red Blood Cells % 0.6 % Polychromasia 1+ Hypochromasia PRESENT Anisocytosis PRESENT Assessment and Plan This patient is an 86 y/o female with a history of breast cancer, DM II w/ neuropathy, hypertension, hyperlipidemia, COPD, chronic diastolic heart failure , anxiety/depression, PMR with ambulatory dysfunction, Crohn's disease, bowel resection with colostomy and reversal of colostomy with persistent large ventral hernia, carotid artery stenosis, SEKOU, 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 She presents to the ER from [facility] with complaints of generalized weakness, increased shortness of breath and cough, and emesis 1. Her son reports that she was actually doing the best he had seen her yet earlier this week, but then his sister witnessed her have a prolonged coughing spell after eating an orange slice 2 days ago. She also developed a bilateral conjunctivitis and runny nose but has been afebrile and is confused above her baseline. She is found to have a grossly abnormal urinalysis consistent with urinary tract infection, as well as a leukocytosis with a white blood cell count of 12. Her chest x-ray showed a left basilar opacity that was not there on and previous chest x-ray. She will be admitted for most likely aspiration pneumonia versus HCAP, UTI, and acute metabolic encephalopathy. Acute metabolic encephalopathy secondary to Pneumonia, acute on chronic respiratory failure, sepsis, COPD-left lower lobe pneumonia, also with upper respiratory symptoms and conjunctivitis seems more consistent with a viral picture. Did have possible aspiration in a skilled nursing. We'll cover with antibiotics for healthcare associated pneumonia with suspected gram-negative connie pneumonia as well as for aspiration pneumonia. -Day #2 Zosyn, Levaquin, and vancomycin -Follow blood cultures and nasal MRSA swab -Bronchodilators -O2 via nasal cannula -Follow CBC -Ocuflox eyedrops for conjunctivitis -Flu neg -Continue chronic prednisone 10 mg daily UTI, sepsis-urinalysis grossly abnormal -On Zosyn, Levaquin, and vancomycin as above for pneumonia which should also cover for UTI -Follow urine cultures, prelim cx determined e coli Hypertension, hyperlipidemia, chronic diastolic CHF-stable -Continue home diuretics of Lasix and metolazone, potassium -Continue losartan and statin, baby aspirin -Follow electrolytes and renal function Diabetes mellitus type 2 with diabetic peripheral neuropathy-with hyperglycemia in the setting of acute infection -Continue home doses of Lantus -Glucose checks before every meal and qHS and sliding scale NovoLog -Check hemoglobin A1c in the morning Anemia-hemoglobin is actually increased from previous admission at 9. -Follow CBC History of PE and homozygous MTH far gene mutation/hypercoagulable state-was discontinued from her Coumadin at the last admission for severe anemia and heme- positive stool. -Continue to hold Coumadin at this time but consider restarting in the near future if hemoglobin remains stable Anxiety/depression-stable -Continue SSRI, BuSpar Chronic pain-stable -Continue gabapentin and oxycodone with bowel regimen DVT prophylaxis-heparin subcutaneous GI prophylaxis-PPI Disposition-to skilled nursing when medically stable DO NOT RESUSCITATE/DO NOT INTUBATE as per discussion with patient and her son at the bedside
[2016-11-26] MEDS ORDERED: NURSING VERBAL MED ORDER ONE (17:00)
[2016-11-26] MEDS: GABAPENTIN 800 MG TAB PO SCH (20:23)
[2016-11-26] MEDS: ACETAMINOPHEN 325 MG TAB PO PRN (20:26)
[2016-11-26] MEDS ORDERED: VANCOMYCIN INJ 1,200 MG in SODIUM CHLORIDE 0.9% 250ML 250 ML IV SCH (22:00)
[2016-11-27] VITALS (11 sets, daily range): BP systolic 116–135; BP diastolic 54–67; PULSE 77–92; TEMP 36.5–37.1; O2SAT 90–97
[2016-11-27] MEDS: OFLOXACIN 0.3% OP SOLN 5 ML BTL OPB SCH ×7 (00:11→23:30)
[2016-11-27] MEDS: PIPERACILL/TAZOBAC IV 3.375 GM in DEXTROSE 5% 100ML 100 ML IV SCH ×3 (00:32→19:17)
[2016-11-27 07:01] LABS: SPHEROCYTE 1+
[2016-11-27 07:07] LABS: POIKILOCYTOSIS PRESENT
[2016-11-27] MEDS: ALBUT/IPRATROP 3MG/0.5MG NEB 3 ML VIAL INH SCH ×5 (07:12→19:36)
--- NOTE | 2016-11-27 07:27 | Clinical Documentation Query ---
JADA Huang : CLINICAL DOCUMENTATION QUERY Patient is an 86 year old female admitted for evaluation and treatment of metabolic encephalopathy and acute on chronic respiratory failure in the setting of gram negative and/or aspiration pneumonia and UTI. Admission BUN, creatinine, and estimated GFR were 21 mg/dl, 1.10 mg/dl, and 46 ml/min. The following a.m. (11/26), repeat creatinine and GFR were 1.50 mg/dl and 32 ml/min. She is being monitored by serial chemistries. In your clinical opinion is this patient being managed for: (X ) Acute kidney failure ( ) Other explanation of clinical findings (Please Explain) ( ) Unable to determine (Please Define) ( ) Need to Discuss ( ) Not Agree The medical record reflects the following clinical findings, treatment, and risk factors. Clinical Indicators: As above Treatment: Being monitored by serial chemistries Risk Factors: Age, infection, encephalopathy, NPO status, medications Please clarify and document your clinical opinion in the progress notes and discharge summary. Terms such as "probable", "suspected", "likely", "questionable", "possible", or "still to be ruled out" are acceptable. IF IN AGREEMENT, YOU MUST DOCUMENT ABOVE DIAGNOSTIC STATEMENT IN DAILY PROGRESS NOTES AND DISCHARGE SUMMARY. This document is not part of the patient's record. Thank You, Danial Lawton, KANU [phone]
[2016-11-27 07:36] LABS: CREATININE 1.6 mg/dl (0.60-1.20)
[2016-11-27 07:37] LABS: ESTIMATED AVERAGE GLUCOSE 143 mg/dl; HA1C FLAG Normal (Normal)
[2016-11-27 07:43] LABS: CALCIUM 8.3 mg/dl (8.5-10.1); POTASSIUM 3.8 mmol/L (3.5-5.1)
[2016-11-27] MEDS: FERROUS SULFATE 325 MG TAB PO SCH ×2 (08:17→18:15)
[2016-11-27] MEDS: DOCUSATE SODIUM 100 MG CAP PO SCH ×2 (08:19→20:47)
[2016-11-27] MEDS: CITALOPRAM 20 MG TAB PO SCH (08:19)
[2016-11-27] MEDS: LORATADINE 10 MG TAB PO SCH (08:19)
[2016-11-27] MEDS: LOSARTAN POTASSIUM 50 MG TAB PO SCH (08:20)
[2016-11-27] MEDS: ASPIRIN 81 MG ECTAB PO SCH (08:20)
[2016-11-27] MEDS: POTASSIUM CHLORIDE 20 MEQ TABCR PO SCH ×3 (08:21→20:48)
[2016-11-27] MEDS: ATORVASTATIN 40 MG TAB PO SCH (08:22)
[2016-11-27] MEDS: GABAPENTIN 400 MG CAP PO SCH (08:22)
[2016-11-27] MEDS: FUROSEMIDE 40 MG TAB PO SCH ×2 (08:22→18:15)
[2016-11-27] MEDS: TAMOXIFEN CITRATE 10 MG TAB PO SCH (08:25)
[2016-11-27] MEDS: INSULIN ASPART 100 UNITS/ML 3 ML PEN SC SCH ×4 (08:27→20:55)
[2016-11-27] MEDS: PANTOprazole SOD 40 MG TAB PO SCH (08:28)
[2016-11-27] MEDS: METOLAZONE 2.5 MG TAB PO SCH (08:28)
[2016-11-27] MEDS: INSULIN DETEMIR FLEXPEN/FLEX TOUCH 100 UNITS/ML 3ML SC SCH ×2 (08:29→20:55)
[2016-11-27] MEDS: HEPARIN SOD 5000 UNIT/0.5 ML CARP SQ SCH ×2 (08:30→20:56)
--- NOTE | 2016-11-27 10:45 | Progress Note ---
Subjective Date of Service: Nov 27, 2016. Subjective Pt evaluation today including: conversation w/ patient, physical exam, chart review, lab review, review of studies, review of inpatient medication list Pt resting comfortably in bed Still states cough No shortness of breath or chest pain Alert and oriented only to herself Problem List Medical Problems: (1) Altered mental status Status: Acute (2) Anemia Status: Acute (3) Dehydration Status: Acute (4) E. coli UTI (urinary tract infection) Status: Acute (5) GI bleeding Status: Acute (6) Hyperglycemia Status: Acute (7) Hypomagnesemia Status: Acute (8) SOB (shortness of breath) Status: Acute (9) Substernal chest pain Status: Acute (10) Urinary tract infection Status: Acute (11) UTI (urinary tract infection) Status: Acute (12) Weakness Status: Acute (13) Weakness Status: Acute Review of Systems Constitutional: No chills, No fever Respiratory: + cough, + sputum, No dyspnea on exertion, No shortness of breath , No wheezing Cardiac: No chest pain, No orthopnea Abdomen: No constipation, No diarrhea, No nausea, No pain, No vomiting Musculoskeletal: No joint pain, No muscle pain Female : No dysuria, No urinary frequency Objective Vital Signs Date Time Temp Pulse Resp B/P Pulse Ox O2 Delivery O2 Flow Rate FiO2 11/27/16 08:15 96 Nasal Cannula 3.0 11/27/16 08:05 37.0 90 26 124/60 90 Nasal Cannula 2.0 11/27/16 07:12 77 18 97 Nasal Cannula 3.0 11/27/16 04:00 96 Nasal Cannula 3.0 11/27/16 03:24 37.1 81 20 135/60 93 Nasal Cannula 3.0 11/27/16 00:02 36.6 79 21 128/64 96 Nasal Cannula 3.0 11/26/16 23:59 96 Nasal Cannula 3.0 11/26/16 20:00 96 Nasal Cannula 3.0 11/26/16 19:32 36.8 91 22 127/55 96 Nasal Cannula 3.0 11/26/16 19:15 88 18 95 Nasal Cannula 3.0 11/26/16 16:00 Room Air 11/26/16 15:38 37.5 82 16 116/57 97 Nasal Cannula 3.0 4/2/17 15:28 86 16 95 Nasal Cannula 3.0 11/26/16 12:11 36.7 87 18 111/45 96 11/26/16 12:00 Room Air 11/26/16 11:15 86 16 93 Nasal Cannula 2.0 Physical Exam General Appearance: WD/WN, no apparent distress Neck: supple, no adenopathy Respiratory/Chest: lungs clear, + decreased breath sounds Cardiovascular: no edema, no gallop Abdomen: non tender, soft Neurologic/Psychiatric: alert, + disoriented Laboratory Results Last 24 Hours Test 11/26/16 12:00 11/26/16 16:36 11/26/16 20:32 11/27/16 06:20 Bedside Glucose 295 mg/dl 269 mg/dl 262 mg/dl Sodium Level 141 mmol/L Potassium Level 3.8 mmol/L Chloride Level 104 mmol/L Carbon Dioxide Level 27 mmol/L Anion Gap 10.0 mmol/L Blood Urea Nitrogen 26 mg/dl Creatinine 1.60 mg/dl Est Creatinine Clear Calc Drug Dose 23.6 ml/min Estimated GFR () 33.9 Estimated GFR (Non- 29.3 BUN/Creatinine Ratio 16.0 Random Glucose 151 mg/dl Calcium Level 8.3 mg/dl Test 11/27/16 06:52 Bedside Glucose 162 mg/dl Assessment and Plan This patient is an 86 y/o female with a history of breast cancer, DM II w/ neuropathy, hypertension, hyperlipidemia, COPD, chronic diastolic heart failure , anxiety/depression, PMR with ambulatory dysfunction, Crohn's disease, bowel resection with colostomy and reversal of colostomy with persistent large ventral hernia, carotid artery stenosis, SEKOU, 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 She presents to the ER from [facility] with complaints of generalized weakness, increased shortness of breath and cough, and emesis 1. Her son reports that she was actually doing the best he had seen her yet earlier this week, but then his sister witnessed her have a prolonged coughing spell after eating an orange slice 2 days ago. She also developed a bilateral conjunctivitis and runny nose but has been afebrile and is confused above her baseline. She is found to have a grossly abnormal urinalysis consistent with urinary tract infection, as well as a leukocytosis with a white blood cell count of 12. Her chest x-ray showed a left basilar opacity that was not there on and previous chest x-ray. She will be admitted for most likely aspiration pneumonia versus HCAP, UTI, and acute metabolic encephalopathy. Acute metabolic encephalopathy secondary to Pneumonia, acute on chronic respiratory failure, sepsis, COPD-left lower lobe pneumonia, also with upper respiratory symptoms and conjunctivitis seems more consistent with a viral picture. Did have possible aspiration in a fdc. We'll cover with antibiotics for healthcare associated pneumonia with suspected gram-negative connie pneumonia as well as for aspiration pneumonia. -Day # 3 Zosyn, Levaquin, and vancomycin -Blood cultures neg and nasal MRSA swab neg -Bronchodilators -O2 via nasal cannula -Follow CBC, slightly worsening leukocytosis -Ocuflox eyedrops for conjunctivitis -Flu neg -Continue chronic prednisone 10 mg daily UTI, sepsis-urinalysis grossly abnormal -On Zosyn, Levaquin, and vancomycin as above for pneumonia which should also cover for UTI -Urine cultures pos e coli, pansensitive Acute kidney failure likely secondary to sepsis Hypertension, hyperlipidemia, chronic diastolic CHF-stable -Continue home diuretics of Lasix and metolazone, potassium -Continue losartan and statin, baby aspirin -Follow electrolytes and renal function Diabetes mellitus type 2 with diabetic peripheral neuropathy-with hyperglycemia in the setting of acute infection -Continue home doses of Lantus -Glucose checks before every meal and qHS and sliding scale NovoLog -Check hemoglobin A1c in the morning Anemia-hemoglobin is actually increased from previous admission at 9. -Follow CBC History of PE and homozygous MTH far gene mutation/hypercoagulable state-was discontinued from her Coumadin at the last admission for severe anemia and heme- positive stool. -Continue to hold Coumadin at this time but consider restarting in the near future if hemoglobin remains stable Anxiety/depression-stable -Continue SSRI, BuSpar Chronic pain-stable -Continue gabapentin and oxycodone with bowel regimen DVT prophylaxis-heparin subcutaneous GI prophylaxis-PPI Disposition-to fdc when medically stable DO NOT RESUSCITATE/DO NOT INTUBATE as per discussion with patient and her son at the bedside
[2016-11-27] MEDS: ACETAMINOPHEN 325 MG TAB PO PRN ×2 (12:39→23:29)
--- NOTE | 2016-11-27 16:19 | Pharmacy Progress Note ---
Pharmacy Antibiotic Prog Note Date of Service: Nov 27, 2016. Subjective: The patient is currently receiving vancomycin 1200 mg q24h- on hold; Zosyn 3.375 Gm IV (infused over 4 hr) q8h, and Levaquin 750 mg IV every 48 hours. The patient is currently on day # 3 of vancomycin, Zosyn, Levaquin IV therapy. Objective: Height (Feet): 4 Height (Inches): 10.00 Weight (Kilograms): 81.500 Levels: Item Value Date Time Random Vancomycin Level 22.4 mcg/ml 11/27/16 1153 Previous dose hung 11/26 @2213. Lab Results (24hrs): Laboratory Tests Test 11/27/16 06:20 BUN/Creatinine Ratio 16.0 Blood Urea Nitrogen 26 mg/dl Creatinine 1.60 mg/dl Micro Results: 11/25 cath urine E.coli pansensitive 11/25 blood x2 NGTD 11/26 nasal swab neg MRSA Recent Pertinent Medications: Item Value Date Time Levofloxacin 750 150 ml @ 100 mls/hr 11/27/16 1600 mg/Prmx Q2D@1600/IV Vancomycin HCl 274 ml @ 125 mls/hr 11/26/16 2200 1200 mg/Sodium Q24H/IV 11/26/16 2213 Chloride Piperacillin Sod/ 115 ml @ 28.75 mls/hr 11/26/16 0000 Tazobactam Sod Q8H/IV 11/27/16 0830 3.375 gm/Dextrose Assessment & Plan: This drug level is: slightly Supratherapeutic. Renal function is still declining , so will hold next vancomycin dose, and get a 2nd random level in am to calculate elimination rate constant. Hold vancomycin IV for now. Goal trough level estimate: between 15-20 mcg/mL. Random level has been ordered for: 11/28/16 with am labs. Continue same Zosyn and Levaquin doses for now. Pharmacy will continue to follow and will adjust dose/frequency as necessary. Thank you
[2016-11-27] MEDS: LEVOFLOXACIN / D5W 750 MG in PREMIXED IN D5W 150 ML IV SCH (17:06)
[2016-11-27] MEDS: GABAPENTIN 800 MG TAB PO SCH (20:47)
[2016-11-27] MEDS ORDERED: VANCOMYCIN TROUGH SCH (21:30)
[2016-11-28] VITALS (7 sets, daily range): BP systolic 112–128; BP diastolic 65–71; PULSE 74–97; TEMP 36.5–37.1; O2SAT 85–97
[2016-11-28] MEDS: PIPERACILL/TAZOBAC IV 3.375 GM in DEXTROSE 5% 100ML 100 ML IV SCH ×3 (02:36→18:47)
[2016-11-28] MEDS: OFLOXACIN 0.3% OP SOLN 5 ML BTL OPB SCH ×6 (04:00→23:54)
[2016-11-28 06:24] LABS: HEMATOCRIT 30.1 % (37-47); MEAN CELL VOLUME 77.6 fL (80-100); MEAN CORPUSCULAR HEMOGLOBIN 23.5 pg (25-34); MEAN CORPUSCULAR HGB CONC 30.2 g/dl (32-36); MEAN PLATELET VOLUME 9.1 fL (7.4-10.4); PLATELET COUNT 192 K/uL (130-400); RED BLOOD COUNT 3.88 M/uL (4.2-5.4); WHITE BLOOD COUNT 9.92 K/uL (4.8-10.8)
[2016-11-28 06:51] LABS: BUN/CREATININE RATIO 18.6 (10-20); CALCIUM 8.2 mg/dl (8.5-10.1); CREATININE 1.3 mg/dl (0.60-1.20); POTASSIUM 3.9 mmol/L (3.5-5.1)
[2016-11-28] MEDS: ALBUT/IPRATROP 3MG/0.5MG NEB 3 ML VIAL INH SCH ×4 (07:14→19:18)
[2016-11-28] MEDS: INSULIN ASPART 100 UNITS/ML 3 ML PEN SC SCH ×4 (08:48→21:07)
[2016-11-28] MEDS: CITALOPRAM 20 MG TAB PO SCH (08:49)
[2016-11-28] MEDS: ASPIRIN 81 MG ECTAB PO SCH (08:49)
[2016-11-28] MEDS: ATORVASTATIN 40 MG TAB PO SCH (08:49)
[2016-11-28] MEDS: DOCUSATE SODIUM 100 MG CAP PO SCH ×2 (08:49→21:05)
[2016-11-28] MEDS: FERROUS SULFATE 325 MG TAB PO SCH ×2 (08:49→16:21)
[2016-11-28] MEDS: POTASSIUM CHLORIDE 20 MEQ TABCR PO SCH ×3 (08:50→21:05)
[2016-11-28] MEDS: METOLAZONE 2.5 MG TAB PO SCH (08:51)
[2016-11-28] MEDS: GABAPENTIN 400 MG CAP PO SCH (08:51)
[2016-11-28] MEDS: FUROSEMIDE 40 MG TAB PO SCH ×2 (08:51→16:21)
[2016-11-28] MEDS: PANTOprazole SOD 40 MG TAB PO SCH (08:51)
[2016-11-28] MEDS: TAMOXIFEN CITRATE 10 MG TAB PO SCH (08:55)
[2016-11-28] MEDS: INSULIN DETEMIR FLEXPEN/FLEX TOUCH 100 UNITS/ML 3ML SC SCH (08:56)
[2016-11-28] MEDS: HEPARIN SOD 5000 UNIT/0.5 ML CARP SQ SCH ×2 (08:56→21:08)
[2016-11-28] MEDS: LOSARTAN POTASSIUM 50 MG TAB PO SCH (08:57)
[2016-11-28] MEDS: LORATADINE 10 MG TAB PO SCH (08:57)
--- NOTE | 2016-11-28 09:58 | Pharmacy Progress Note ---
Pharmacy Antibiotic Prog Note Date of Service: Nov 28, 2016. Subjective: The patient is currently receiving vancomycin 1200 mg q24h- on hold; Zosyn 3.375 Gm IV (infused over 4 hr) q8h, and Levaquin 750 mg IV every 48 hours. The patient is currently on day # 4 of vancomycin, Zosyn, Levaquin IV therapy. Objective: Height (Feet): 4 Height (Inches): 10.00 Weight (Kilograms): 81.500 Levels: Elimination rate based on these two levels = half-life of ~33 hours Item Value Date Time Random Vancomycin Level 22.4 mcg/ml 11/27/16 1153 Random Vancomycin Level 15.3 mcg/ml 11/28/16 0547 Lab Results (24hrs): Laboratory Tests Test 11/28/16 05:47 BUN/Creatinine Ratio 18.6 Blood Urea Nitrogen 24 mg/dl Creatinine 1.30 mg/dl White Blood Count 9.92 K/uL Micro Results: 11/25 cath urine E.coli pansensitive 11/25 blood x2 NGTD 11/26 nasal swab neg MRSA Recent Pertinent Medications: Item Value Date Time Levofloxacin 750 150 ml @ 100 mls/hr 11/27/16 1600 mg/Prmx Q2D@1600/IV 11/27/16 1706 Item Value Date Time Piperacillin Sod/ 115 ml @ 28.75 mls/hr 11/28/16 0300 Tazobactam Sod Q8H/IV 11/28/16 0236 3.375 gm/Dextrose Vancomycin HCl 274 ml @ 125 mls/hr 11/26/16 2200 1200 mg/Sodium Q24H/IV 11/26/16 2213 Chloride Assessment & Plan: [age] yo female empirically on broad spectrum antibiotics for E. coli UTI and empiric coverage for pneumonia in [place] resident. Based on serial levels drawn yesterday and today, Vancomycin clearance = half-life of 33 hours therefore will widen dosing interval to q40 hours. Serum creatinine improved to 1.3 mg/dL today. Change to Vancomycin 1000 mg (~12.2 mg/kg) IV every 40 hours. Goal peak level estimate: between 30 - 40 mcg/mL. Goal trough level estimate: between 15 - 20 mcg/mL. No additional Vancomycin levels ordered at this time. Will closely follow renal function to adjust dose/monitoring accordingly. If renal function stable , will possibly draw one additional level if full course of therapy is required. Pharmacy will continue to follow and will adjust dose/frequency as necessary. Thank you
[2016-11-28] MEDS ORDERED: VANCOMYCIN INJ 1,000 MG in SODIUM CHLORIDE 0.9% 250ML 250 ML IV SCH (10:00)
--- NOTE | 2016-11-28 15:55 | Progress Note ---
Subjective Date of Service: Nov 28, 2016. Subjective Pt evaluation today including: conversation w/ patient, physical exam, chart review, lab review, review of studies, review of inpatient medication list Confused at times still Resting comfortably in bed SPoke with daughter, not at baseline Problem List Medical Problems: (1) Altered mental status Status: Acute (2) Anemia Status: Acute (3) Dehydration Status: Acute (4) E. coli UTI (urinary tract infection) Status: Acute (5) GI bleeding Status: Acute (6) Hyperglycemia Status: Acute (7) Hypomagnesemia Status: Acute (8) SOB (shortness of breath) Status: Acute (9) Substernal chest pain Status: Acute (10) Urinary tract infection Status: Acute (11) UTI (urinary tract infection) Status: Acute (12) Weakness Status: Acute (13) Weakness Status: Acute Review of Systems Constitutional: No chills, No fever Respiratory: No cough, No dyspnea on exertion, No shortness of breath, No sputum, No wheezing Cardiac: No chest pain, No orthopnea Abdomen: No constipation, No diarrhea, No nausea, No pain, No vomiting Musculoskeletal: No joint pain, No muscle pain Female : No dysuria, No urinary frequency Objective Vital Signs Date Time Temp Pulse Resp B/P Pulse Ox O2 Delivery O2 Flow Rate FiO2 11/28/16 15:14 77 16 92 Nasal Cannula 4.0 11/28/16 14:56 36.8 97 20 112/71 97 3.0 11/28/16 11:27 81 16 85 Nasal Cannula 2.0 11/28/16 08:00 Nasal Cannula 2.0 11/28/16 07:21 36.5 88 20 120/65 90 Nasal Cannula 2.0 11/28/16 07:14 79 16 90 Nasal Cannula 2.0 11/28/16 00:50 37.1 90 20 128/70 92 2.0 11/28/16 00:00 Nasal Cannula 2.0 11/27/16 20:15 Nasal Cannula 2.0 11/27/16 19:36 92 16 91 Nasal Cannula 2.0 11/27/16 16:20 Nasal Cannula 2.0 Physical Exam General Appearance: WD/WN, no apparent distress Neck: supple, thyroid normal Respiratory/Chest: lungs clear, normal breath sounds Cardiovascular: no edema, no gallop Abdomen: non tender, soft Neurologic/Psychiatric: alert, oriented x 3 Laboratory Results Last 24 Hours Test 11/27/16 16:41 11/27/16 20:50 11/28/16 05:47 11/28/16 07:21 Bedside Glucose 198 mg/dl 196 mg/dl 139 mg/dl White Blood Count 9.92 K/uL Red Blood Count 3.88 M/uL Hemoglobin 9.1 g/dL Hematocrit 30.1 % Mean Corpuscular Volume 77.6 fL Mean Corpuscular Hemoglobin 23.5 pg Mean Corpuscular Hemoglobin Concent 30.2 g/dl RDW Standard Deviation 79.0 fL RDW Coefficient of Variation 28.7 % Platelet Count 192 K/uL Mean Platelet Volume 9.1 fL Nucleated RBC Absolute Count (auto) 0.04 K/uL Nucleated Red Blood Cells % 0.4 % Sodium Level 139 mmol/L Potassium Level 3.9 mmol/L Chloride Level 101 mmol/L Carbon Dioxide Level 28 mmol/L Anion Gap 10.0 mmol/L Blood Urea Nitrogen 24 mg/dl Creatinine 1.30 mg/dl Est Creatinine Clear Calc Drug Dose 29.1 ml/min Estimated GFR () 43.6 Estimated GFR (Non- 37.6 BUN/Creatinine Ratio 18.6 Random Glucose 119 mg/dl Calcium Level 8.2 mg/dl Random Vancomycin Level 15.3 mcg/ml Test 11/28/16 11:01 11/28/16 15:48 Bedside Glucose 218 mg/dl Assessment and Plan This patient is an 86 y/o female with a history of breast cancer, DM II w/ neuropathy, hypertension, hyperlipidemia, COPD, chronic diastolic heart failure , anxiety/depression, PMR with ambulatory dysfunction, Crohn's disease, bowel resection with colostomy and reversal of colostomy with persistent large ventral hernia, carotid artery stenosis, SEKOU, 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 She presents to the ER from [facility] with complaints of generalized weakness, increased shortness of breath and cough, and emesis 1. Her son reports that she was actually doing the best he had seen her yet earlier this week, but then his sister witnessed her have a prolonged coughing spell after eating an orange slice 2 days ago. She also developed a bilateral conjunctivitis and runny nose but has been afebrile and is confused above her baseline. She is found to have a grossly abnormal urinalysis consistent with urinary tract infection, as well as a leukocytosis with a white blood cell count of 12. Her chest x-ray showed a left basilar opacity that was not there on and previous chest x-ray. She will be admitted for most likely aspiration pneumonia versus HCAP, UTI, and acute metabolic encephalopathy. Acute metabolic encephalopathy secondary to Pneumonia, acute on chronic respiratory failure, sepsis, COPD-left lower lobe pneumonia, also with upper respiratory symptoms and conjunctivitis seems more consistent with a viral picture. Did have possible aspiration in a correction. We'll cover with antibiotics for healthcare associated pneumonia with suspected gram-negative connie pneumonia as well as for aspiration pneumonia. -Day # 4 Zosyn, Levaquin, and vancomycin -Blood cultures neg and nasal MRSA swab neg -Bronchodilators -O2 via nasal cannula -Follow CBC, slightly worsening leukocytosis -Ocuflox eyedrops for conjunctivitis -Flu neg -Continue chronic prednisone 10 mg daily - Obtain MRI brain, B12, folate, lyme titers for persistent confusion UTI, sepsis-urinalysis grossly abnormal -On Zosyn, Levaquin, and vancomycin as above for pneumonia which should also cover for UTI -Urine cultures pos e coli, pansensitive Acute kidney failure likely secondary to sepsis Hypertension, hyperlipidemia, chronic diastolic CHF-stable -Continue home diuretics of Lasix and metolazone, potassium -Continue losartan and statin, baby aspirin -Follow electrolytes and renal function Diabetes mellitus type 2 with diabetic peripheral neuropathy-with hyperglycemia in the setting of acute infection -Continue home doses of Lantus -Glucose checks before every meal and qHS and sliding scale NovoLog -Check hemoglobin A1c in the morning Anemia-hemoglobin is actually increased from previous admission at 9. -Follow CBC History of PE and homozygous MTH far gene mutation/hypercoagulable state-was discontinued from her Coumadin at the last admission for severe anemia and heme- positive stool. -Continue to hold Coumadin at this time but consider restarting in the near future if hemoglobin remains stable Anxiety/depression-stable -Continue SSRI, BuSpar Chronic pain-stable -Continue gabapentin and oxycodone with bowel regimen DVT prophylaxis-heparin subcutaneous GI prophylaxis-PPI Disposition-to correction when medically stable DO NOT RESUSCITATE/DO NOT INTUBATE as per discussion with patient and her son at the bedside
[2016-11-28] MEDS: ACETAMINOPHEN 325 MG TAB PO PRN (17:05)
[2016-11-28] MEDS ORDERED: NURSING VERBAL MED ORDER ONE (18:00)
[2016-11-28] MEDS ORDERED: INSULIN ASPART 100 UNITS/ML 3 ML PEN SC SCH (18:25)
[2016-11-28] MEDS ORDERED: INSULIN DETEMIR FLEXPEN/FLEX TOUCH 100 UNITS/ML 3ML SC SCH (21:00)
[2016-11-28] MEDS: GABAPENTIN 800 MG TAB PO SCH (21:05)
--- NOTE | 2016-11-28 22:44 | DIAGNOSTIC IMAGING REPORT ---
MRI OF THE BRAIN WITHOUT AND WITH IV CONTRAST CLINICAL HISTORY: confusion mental status change COMPARISON STUDY: 05/28/2015 TECHNIQUE: Utilizing a 1.5 Elo magnet and dedicated coil, multiplanar, multiecho imaging of the brain was performed pre and postcontrast administration. IV administration of 8 mL of Gadavist contrast was uneventful. FINDINGS: No evidence for an acute ischemic event. Age-related cerebellar as well as cerebral atrophy. Considerable chronic small vessel change. 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 No evidence for midline shift. No evidence for abnormal postcontrast enhancement. IMPRESSION: 1. Atrophy. 2. Considerable chronic small vessel change. 3. 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 4. No acute intracranial abnormality Electronically signed by: Abimael Perez M.D. 11/28/2016 10:42 PM Dictated Date/Time: 11/28/2016 10:40 PM
[2016-11-28] MEDS ORDERED: GADAVIST IV PRN (22:45)
[2016-11-29] VITALS (9 sets, daily range): BP systolic 111–131; BP diastolic 47–68; PULSE 69–91; TEMP 36.5–37.1; O2SAT 92–98
[2016-11-29] MEDS: OFLOXACIN 0.3% OP SOLN 5 ML BTL OPB SCH ×6 (03:23→23:22)
[2016-11-29] MEDS: PIPERACILL/TAZOBAC IV 3.375 GM in DEXTROSE 5% 100ML 100 ML IV SCH ×2 (03:23→11:05)
[2016-11-29] MEDS: ALBUT/IPRATROP 3MG/0.5MG NEB 3 ML VIAL INH SCH ×4 (07:13→19:15)
[2016-11-29 07:16] LABS: BUN/CREATININE RATIO 16.5 (10-20); CALCIUM 8.2 mg/dl (8.5-10.1); CREATININE 1.2 mg/dl (0.60-1.20); POTASSIUM 3.9 mmol/L (3.5-5.1)
[2016-11-29] MEDS: PANTOprazole SOD 40 MG TAB PO SCH (08:22)
[2016-11-29] MEDS: POTASSIUM CHLORIDE 20 MEQ TABCR PO SCH ×3 (08:22→20:06)
[2016-11-29] MEDS: CITALOPRAM 20 MG TAB PO SCH (08:23)
[2016-11-29] MEDS: LOSARTAN POTASSIUM 50 MG TAB PO SCH (08:23)
[2016-11-29] MEDS: METOLAZONE 2.5 MG TAB PO SCH (08:23)
[2016-11-29] MEDS: LORATADINE 10 MG TAB PO SCH (08:23)
[2016-11-29] MEDS: GABAPENTIN 400 MG CAP PO SCH (08:23)
[2016-11-29] MEDS: FERROUS SULFATE 325 MG TAB PO SCH ×2 (08:23→16:18)
[2016-11-29] MEDS: FUROSEMIDE 40 MG TAB PO SCH ×2 (08:23→16:18)
[2016-11-29] MEDS: DOCUSATE SODIUM 100 MG CAP PO SCH ×2 (08:23→20:06)
[2016-11-29] MEDS: ATORVASTATIN 40 MG TAB PO SCH (08:24)
[2016-11-29] MEDS: ASPIRIN 81 MG ECTAB PO SCH (08:24)
[2016-11-29] MEDS: INSULIN DETEMIR FLEXPEN/FLEX TOUCH 100 UNITS/ML 3ML SC SCH ×2 (08:29→21:06)
[2016-11-29] MEDS: INSULIN ASPART 100 UNITS/ML 3 ML PEN SC SCH ×4 (08:29→20:13)
[2016-11-29] MEDS: TAMOXIFEN CITRATE 10 MG TAB PO SCH (08:30)
[2016-11-29] MEDS: HEPARIN SOD 5000 UNIT/0.5 ML CARP SQ SCH ×2 (08:30→20:13)
--- NOTE | 2016-11-29 09:52 | Neurology Consultation ---
Neurology Consultation Date of Consultation: Nov 29, 2016. Attending Physician: Oliver Michelle D.O. Primary Care Physician: Ryne Walters Reason for Consultation: Altered mental status History of Present Illness Source: patient, clinic records, hospital records This is a 86-year-old female who presents with pneumonia and UTI. Patient herself does not have any complaints and reports that she feels like her normal self. She denies any headaches. Initially denied any shortness of breath, but towards the end of the examination reported some shortness of breath. Denied any chest pain. Denied any abdominal pain. Denied any new numbness or weakness. MRI of the brain report and images were reviewed by myself. There was extensive T2 hyperintensities in the subcortical white matter likely representing extensive small vessel ischemic disease versus multiple lacunar infarcts. B12 level was 558 Folate was unremarkable Of note patient had seen Dr. Barraza with [facility] neurology in 2014 for possible TIA Past Medical/Surgical History Medical Problems: (1) Altered mental status Status: Acute (2) Anemia Status: Acute (3) Dehydration Status: Acute (4) E. coli UTI (urinary tract infection) Status: Acute (5) GI bleeding Status: Acute (6) Hyperglycemia Status: Acute (7) Hypomagnesemia Status: Acute (8) SOB (shortness of breath) Status: Acute (9) Substernal chest pain Status: Acute (10) Urinary tract infection Status: Acute (11) UTI (urinary tract infection) Status: Acute (12) Weakness Status: Acute (13) Weakness Status: Acute Stroke/TIA PE in 2011 Diabetes with neuropathy Hypertension Dyslipidemia COPD Obstructive sleep apnea Crohn's disease Diastolic heart failure Anxiety/depression MTHFR gene mutation Family History Family history both parents having strokes Social History Patient lives at [facility]. Former tobacco use. She quit smoking in 2014. Smoking Status: Former smoker Alcohol Use: none Drug Use: none Marital Status: Housing Status: lives with family Occupation Status: retired Allergies Coded Allergies: Ibuprofen (Verified Allergy, Severe, ANAPHYLAXIS, 05/23/16) Amoxicillin (Verified Allergy, Mild, URTICARIA-HAS TOLERATED ZOSYN PREV ADM., 05/23/16) Noted at [facility] 12/07/10 Has tolerated Zosyn on previous admissions Aspartame (Unverified Allergy, Mild, HIVES, 05/23/16) Cephalexin (Unverified Allergy, Mild, HIVES, 05/23/16) Clavulanic Acid (Verified Allergy, Mild, urticaria-HAS TOLERATED ZOSYN PREV ADM., 05/23/16) Noted at [facility] 12/07/10 Cephalosporins (Verified Allergy, Unknown, HAS TOLERATED CEFTRIAXONE, CEFEPIME, 05/23/16) 05/14/12 - PATIENT DENIES EVER HAVING A REACTION TO OR TAKING ANY CEPHALOSPORINS Codeine (Verified Allergy, Unknown, 05/23/16) Cromolyn (Verified Allergy, Unknown, 05/23/16) Morphine and Related (Verified Allergy, Unknown, Unknown, 05/23/16) Naproxen (Verified Allergy, Unknown, ANAPHYLAXIS, 05/23/16) Penicillins (Verified Allergy, Unknown, Unknown, 05/23/16) Sulfa Antibiotics (Verified Allergy, Unknown, 05/14/12 - STATES THAT SHE IS UNABLE TO TOLERATE ANY SULFA, 05/23/16) 05/14/12 - STATES THAT SHE IS UNABLE TO TOLERATE ANY SULFA DRUGS Quinolones (Verified Adverse Reaction, Mild, NAUSEA, 05/23/16) PER DR. GARCIA - SPOKE W PT WHO SAID SHE HAD CIPRO FOR UTI A "LONG TIME AGO". REACTION WAS NAUSEA. I CONFIRMED ADMINISTREATION HX WITH OUR RECORDS - ADMIN 06/19/08. THEREFORE PT LIKELY ABLE TO TOLERATE CIPRO. Current Inpatient Medications Current Inpatient Medications Medications (Trade) Dose Ordered Sig/Rea Route Start Time Stop Time Status Last Admin Dose Admin Levofloxacin/Prmx (Levaquin / D5W/ Premixed D5W) 150 ml @ 100 mls/hr Q2D@1600 IV 11/27/16 16:00 12/02/16 15:59 11/27/16 17:06 100 MLS/HR Albuterol/ Ipratropium (Duoneb) 3 ml QIDR INH 11/25/16 20:00 12/25/16 19:59 11/29/16 07:13 3 ML Albuterol/ Ipratropium (Duoneb) 3 ml Q2H PRN INH 11/25/16 17:30 12/25/16 17:29 Heparin Sodium (Porcine) (Heparin Sq 5000 Unit/0.5ml) 5,000 unit Q12 SQ 11/25/16 21:00 12/25/16 20:59 11/29/16 08:30 5,000 UNIT Acetaminophen (Tylenol Tab) 650 mg Q4H PRN PO 11/25/16 17:30 12/25/16 17:29 11/28/16 17:05 650 MG Aspirin (Ecotrin Tab) 81 mg DAILY PO 11/26/16 09:00 12/26/16 08:59 11/29/16 08:24 81 MG Atorvastatin Calcium (Lipitor Tab) 80 mg DAILY PO 11/26/16 09:00 12/26/16 08:59 11/29/16 08:24 80 MG Buspirone HCl (Buspar Tab) 5 mg QAM PO 11/26/16 09:00 12/26/16 08:59 11/29/16 08:23 5 MG Citalopram Hydrobromide (celeXA TAB) 20 mg DAILY PO 11/26/16 09:00 12/26/16 08:59 11/29/16 08:23 20 MG Docusate Sodium (coLACE CAP) 100 mg BID PO 11/25/16 21:00 12/25/16 20:59 11/29/16 08:23 100 MG Ferrous Sulfate (Feosol Tab) 325 mg BIDM PO 11/25/16 18:00 12/25/16 17:59 11/29/16 08:23 325 MG Folic Acid (Folvite Tab) 1 mg DAILY PO 11/26/16 09:00 12/26/16 08:59 11/29/16 08:23 1 MG Furosemide (Lasix Tab) 40 mg BID17 PO 11/25/16 21:00 12/25/16 20:59 11/29/16 08:23 40 MG Gabapentin (Neurontin Cap) 400 mg QAM PO 11/26/16 09:00 12/26/16 08:59 11/29/16 08:23 400 MG Gabapentin (Neurontin Tab) 800 mg HS PO 11/25/16 21:00 12/25/16 20:59 11/28/16 21:05 800 MG Loratadine (Claritin Tab) 10 mg DAILY PO 11/26/16 09:00 12/26/16 08:59 11/29/16 08:23 10 MG Losartan Potassium (coZAAR TAB) 50 mg DAILY PO 11/26/16 09:00 12/26/16 08:59 11/29/16 08:23 50 MG Metolazone (Zaroxolyn Tab) 2.5 mg QAM PO 11/26/16 09:00 12/26/16 08:59 11/29/16 08:23 2.5 MG Nitroglycerin (Nitrostat Tab) 0.4 mg PRN UT 11/25/16 17:30 12/25/16 17:29 Oxycodone HCl (Roxicodone Immediate Rel Tab) 5 mg Q8 PRN PO 11/25/16 17:30 12/09/16 17:29 Oxycodone HCl (Roxicodone Immediate Rel Tab) 10 mg Q8 PRN PO 11/25/16 17:30 12/09/16 17:29 Potassium Chloride (Klor-Con Tab) 40 meq TID PO 11/25/16 21:00 12/25/16 20:59 11/29/16 08:22 40 MEQ Prednisone (PredniSONE TAB) 10 mg DAILY PO 11/26/16 09:00 12/26/16 08:59 11/29/16 08:23 10 MG Tamoxifen Citrate (Nolvadex Tab) 20 mg DAILY PO 11/26/16 09:00 12/26/16 08:59 11/29/16 08:30 20 MG Insulin Detemir (Levemir Flexpen/ FlexTouch) 20 unit PM SC 11/25/16 21:00 12/25/16 20:59 Future hold 11/27/16 20:55 20 UNIT Insulin Detemir (Levemir Flexpen/ FlexTouch) 25 unit QAM SC 11/26/16 09:00 12/26/16 08:59 11/29/16 08:29 25 UNIT Pantoprazole Sodium (Protonix Tab) 40 mg QAM PO 11/26/16 09:00 12/26/16 08:59 11/29/16 08:22 40 MG Ofloxacin (Ocuflox 0.3% Oph Soln) 1 drops Q4 OPB 11/25/16 20:00 12/05/16 19:59 11/29/16 08:22 1 DROPS Levofloxacin (Consult) 1 ea UD PRN N/A 11/25/16 19:15 12/25/16 19:14 Piperacillin Sod/ Tazobactam Sod (Consult) 1 ea UD PRN N/A 11/25/16 19:15 12/25/16 19:14 Vancomycin HCl (Consult) 1 ea UD PRN N/A 11/25/16 19:15 12/25/16 19:14 Glucose (Glucose 40% Gel) 15-30 GRAMS 15 GRAMS... UD PRN PO 11/25/16 19:30 12/25/16 19:29 Glucose (Glucose Chew Tab) 4-8 Tablets 4 Tabl... UD PRN PO 11/25/16 19:30 12/25/16 19:29 Dextrose (Dextrose 50% 50ML Syringe) 25-50ML OF 50% DW IV FOR... UD PRN IV 11/25/16 19:30 12/25/16 19:29 Glucagon (Glucagon Inj) 1 mg UD PRN SQ 11/25/16 19:30 12/25/16 19:29 Insulin Aspart SLIDING SCALE If C... ACHS SC 11/26/16 17:15 12/26/16 17:14 11/29/16 08:29 4 UNITS Piperacillin Sod/ Tazobactam Sod 3.375 gm/Dextrose 115 ml @ 28.75 mls/ hr Q8H IV 11/28/16 03:00 12/03/16 02:59 11/29/16 03:23 28.75 MLS/HR Vancomycin HCl/ Sodium Chloride (Vancomycin Inj/ Nss 250ml) 270 ml @ 125 mls/hr Q40H IV 11/28/16 10:00 12/02/16 21:59 11/28/16 10:19 125 MLS/HR Gadobutrol (Gadavist) 8 mmol UD PRN IV 11/28/16 22:45 12/02/16 22:44 Review of Systems Complete review of systems otherwise negative except for the above noted in history of present illness. Physical Exam Vital Signs (Past 24 Hrs): Date Time Temp Pulse Resp B/P Pulse Ox O2 Delivery O2 Flow Rate FiO2 11/29/16 08:00 Nasal Cannula 4.0 11/29/16 07:13 82 16 95 Nasal Cannula 4.0 11/29/16 06:41 36.8 69 18 131/65 97 4.0 11/29/16 00:10 36.8 86 20 128/47 98 4.0 11/29/16 00:08 Nasal Cannula 4.0 11/28/16 19:19 74 16 91 Nasal Cannula 4.0 11/28/16 16:00 Nasal Cannula 4.0 11/28/16 15:14 77 16 92 Nasal Cannula 4.0 11/28/16 14:56 36.8 97 20 112/71 97 3.0 11/28/16 11:27 81 16 85 Nasal Cannula 2.0 Gen.: Patient appears tired, in no acute distress. HEENT: Normocephalic /atraumatic, no scleral icterus Heart: Regular rate and rhythm Extremities: No gross deformities or rashes noted Neurological examination: Mental status: Patient appears tired. oriented to person only. Patient was tired and had to wake her up several times. Poor historian Speech is fluent without any dysarthria or aphasia noted Cranial nerve: Funduscopic examination was unremarkable. No papilledema. Pupils equally round and reactive to light. Extraocular muscles intact without nystagmus. No facial asymmetry noted. Facial sensation intact. Tongue is midline. Good palatal elevation. Good shoulder shrug bilaterally. Hearing grossly intact to voice. Strength: 5/5 both proximal and distally in all extremities with the exception of bilateral hip flexion 4/5. There is no arm drift. Tone is normal. Sensation: Grossly intact to light touch in all extremities. Deep tendon reflexes: +1 in bilateral biceps, brachioradialis and patellar. Toes were downgoing to plantar stimulation Coordination: Patient had good finger to nose without dysmetria Station within the bed was normal By the end of the examination, the patient did appear to be breathing more heavily with some wheezing. Laboratory Results Past 24 Hours: 11/29/16 06:16 Test 11/28/16 16:13 11/29/16 06:16 11/29/16 07:30 11/29/16 08:09 Vitamin B12 Level 558 pg/mL (211-911) Folate > 24.00 ng/mL (>5.38) Anion Gap 9.0 mmol/L (3-11) Est Creatinine Clear Calc Drug Dose 31.5 ml/min Estimated GFR () 48.1 Estimated GFR (Non- 41.5 BUN/Creatinine Ratio 16.5 (10-20) Calcium Level 8.2 mg/dl (8.5-10.1) Bedside Glucose 169 mg/dl (70-90) Test 11/29/16 08:18 Imaging MRI of the brain reviewed above Impression This is a 86-year-old female who presented with pneumonia and UTI with acute encephalopathy. Suspect that the patient likely has underlying vascular dementia contributing to worsening mental status in the setting of acute illness. Plan I have ordered an EEG to make sure there is no suspicion for underlying epileptic process for change in mental status. My suspicion for seizures is low. For workup of other metabolic causes for encephalopathy, recommend checking a TSH, ammonia, and thiamine level. Could also consider checking an RPR. Could also consider checking arterial blood gas for secondary causes of encephalopathy. Vascular risk factor modifications per primary care: Stroke risk factor modifications and recommendations: Blood pressure recommendations 130/80-110/70 Total cholesterol goal 100- 200 and LDL goal less than 70 Hemoglobin A1c goal less than 7 Encourage exercise at least 3 times a week for 30 minutes. Continue antiplatelet therapy Could consider a formal cognitive evaluation as an outpatient once the patient has been treated for her acute illnesses in about 1 month if desired. It does appear that the patient has been seen by [facility] neurology in the past. Please make sure that the patient is not currently following with [facility] neurology as an outpatient before scheduling with [facility] Thank you for allowing me to participate in this patient's care. If there is any questions or concerns, feel free to call/patient may
[2016-11-29 10:44] LABS: MEAN CELL VOLUME 78.1 fL (80-100); MEAN CORPUSCULAR HEMOGLOBIN 23.2 pg (25-34); MEAN CORPUSCULAR HGB CONC 29.7 g/dl (32-36); MEAN PLATELET VOLUME 9.4 fL (7.4-10.4); PLATELET COUNT 197 K/uL (130-400); RED BLOOD COUNT 3.97 M/uL (4.2-5.4)
[2016-11-29 11:16] LABS: ANISOCYTOSIS PRESENT; BASO % 1.2 %; BASO ABS # 0.14 K/uL (0-0.2); COMPLETE YES; EOS % 4.5 %; IG% 5.3 %; LYMPH % 13.4 %; LYMPH ABS # 1.62 K/uL (1.2-3.4); MICROCYTOSIS PRESENT; MONO % 8.4 %; NEUT % 67.2 %; OVALOCYTES 1+; POIKILOCYTOSIS PRESENT; POLYCHROMASIA 1+
[2016-11-29 12:02] LABS: LYME DISEASE AB IGM NEG (NEG)
[2016-11-29 12:08] LABS: LYME DISEASE AB IGG NEG (NEG)
--- NOTE | 2016-11-29 12:58 | EEG Procedure Note ---
EEG Procedure Note Date of Service Nov 29, 2016. Start / End Times Start Time: 11:38 AM End Time: 11:58 AM Referring Physician Ange Varela History This is a 86-year-old female with acute encephalopathy. EEG for further evaluation of possible seizure etiology. Home Medication List Scheduled Aspirin (Aspirin Ec), 81 MG PO DAILY Atorvastatin (Lipitor), 80 MG PO DAILY Buspirone HCl (Buspirone HCl), 5 MG PO QAM Citalopram Hydrobromide (Citalopram Hydrobromide), 20 MG PO DAILY Docusate Sodium (Colace), 100 MG PO BID Ferrous Sulfate (Ferrous Sulfate), 325 MG PO BIDM Fluconazole (Diflucan), 1 TAB PO DAILY Folic Acid (Folvite), 1 MG PO DAILY Furosemide (Lasix), 40 MG PO BID Gabapentin (Neurontin), 800 MG PO HS Gabapentin (Neurontin), 400 MG PO QAM Insulin Aspart (Novolog Flexpen), 15 UNITS SC BID Insulin Detemir (Levemir), 25 UNITS SC QAM Insulin Detemir (Levemir), 20 UNITS SC PM Loratadine (Claritin), 10 MG PO DAILY Losartan Potassium (Cozaar), 50 MG PO DAILY Metolazone (Zaroxolyn), 2.5 MG PO QAM Nitroglycerin (Nitrostat), 0.4 MG UT PRN Omeprazole (Prilosec), 20 MG PO QAM Potassium Chloride (Micro-K Ext Rel), 40 MEQ PO TID Prednisone (Prednisone), 10 MG PO DAILY Tamoxifen (Nolvadex), 20 MG PO DAILY Tobramycin/Dexamethasone 0.3% Oph (Tobradex 0.3% Oph), 2 DROPS OPB BID Scheduled PRN Acetaminophen (Tylenol), 650 MG PO Q6 PRN for Mild Pain Albuterol Sulf (Proventil 0.083% 2.5MG/3ML), 2.5 MG INH Q4 PRN for SOB/Wheezing Aluminum/Magnesium/Simeth (Maalox Max Susp), 30 ML PO Q6 PRN for Gas or Constipation Insulin Aspart (Novolog Flexpen), 8-18 UNITS SC UD PRN for SLIDING SCALE Oxycodone Immediate Rel Tab (Roxicodone Ir), 5 MG PO Q8 PRN for Moderate Pain Oxycodone Ir (Roxicodone Ir), 10 MG PO Q8 PRN for Severe Pain Inpatient Medication List Current Inpatient Medications Medications (Trade) Dose Ordered Sig/Rea Route Start Time Stop Time Status Last Admin Dose Admin Levofloxacin/Prmx (Levaquin / D5W/ Premixed D5W) 150 ml @ 100 mls/hr Q2D@1600 IV 11/27/16 16:00 12/02/16 15:59 11/27/16 17:06 100 MLS/HR Albuterol/ Ipratropium (Duoneb) 3 ml QIDR INH 11/25/16 20:00 12/25/16 19:59 11/29/16 10:52 3 ML Albuterol/ Ipratropium (Duoneb) 3 ml Q2H PRN INH 11/25/16 17:30 12/25/16 17:29 Heparin Sodium (Porcine) (Heparin Sq 5000 Unit/0.5ml) 5,000 unit Q12 SQ 11/25/16 21:00 12/25/16 20:59 11/29/16 08:30 5,000 UNIT Acetaminophen (Tylenol Tab) 650 mg Q4H PRN PO 11/25/16 17:30 12/25/16 17:29 11/28/16 17:05 650 MG Aspirin (Ecotrin Tab) 81 mg DAILY PO 11/26/16 09:00 12/26/16 08:59 11/29/16 08:24 81 MG Atorvastatin Calcium (Lipitor Tab) 80 mg DAILY PO 11/26/16 09:00 12/26/16 08:59 11/29/16 08:24 80 MG Buspirone HCl (Buspar Tab) 5 mg QAM PO 11/26/16 09:00 12/26/16 08:59 11/29/16 08:23 5 MG Citalopram Hydrobromide (celeXA TAB) 20 mg DAILY PO 11/26/16 09:00 12/26/16 08:59 11/29/16 08:23 20 MG Docusate Sodium (coLACE CAP) 100 mg BID PO 11/25/16 21:00 12/25/16 20:59 11/29/16 08:23 100 MG Ferrous Sulfate (Feosol Tab) 325 mg BIDM PO 11/25/16 18:00 12/25/16 17:59 11/29/16 08:23 325 MG Folic Acid (Folvite Tab) 1 mg DAILY PO 11/26/16 09:00 12/26/16 08:59 11/29/16 08:23 1 MG Furosemide (Lasix Tab) 40 mg BID17 PO 11/25/16 21:00 12/25/16 20:59 11/29/16 08:23 40 MG Gabapentin (Neurontin Cap) 400 mg QAM PO 11/26/16 09:00 12/26/16 08:59 11/29/16 08:23 400 MG Gabapentin (Neurontin Tab) 800 mg HS PO 11/25/16 21:00 12/25/16 20:59 11/28/16 21:05 800 MG Loratadine (Claritin Tab) 10 mg DAILY PO 11/26/16 09:00 12/26/16 08:59 11/29/16 08:23 10 MG Losartan Potassium (coZAAR TAB) 50 mg DAILY PO 11/26/16 09:00 12/26/16 08:59 11/29/16 08:23 50 MG Metolazone (Zaroxolyn Tab) 2.5 mg QAM PO 11/26/16 09:00 12/26/16 08:59 11/29/16 08:23 2.5 MG Nitroglycerin (Nitrostat Tab) 0.4 mg PRN UT 11/25/16 17:30 12/25/16 17:29 Oxycodone HCl (Roxicodone Immediate Rel Tab) 5 mg Q8 PRN PO 11/25/16 17:30 12/09/16 17:29 Oxycodone HCl (Roxicodone Immediate Rel Tab) 10 mg Q8 PRN PO 11/25/16 17:30 12/09/16 17:29 Potassium Chloride (Klor-Con Tab) 40 meq TID PO 11/25/16 21:00 12/25/16 20:59 11/29/16 08:22 40 MEQ Prednisone (PredniSONE TAB) 10 mg DAILY PO 11/26/16 09:00 12/26/16 08:59 11/29/16 08:23 10 MG Tamoxifen Citrate (Nolvadex Tab) 20 mg DAILY PO 11/26/16 09:00 12/26/16 08:59 11/29/16 08:30 20 MG Insulin Detemir (Levemir Flexpen/ FlexTouch) 20 unit PM SC 11/25/16 21:00 12/25/16 20:59 Future hold 11/27/16 20:55 20 UNIT Insulin Detemir (Levemir Flexpen/ FlexTouch) 25 unit QAM SC 11/26/16 09:00 12/26/16 08:59 11/29/16 08:29 25 UNIT Pantoprazole Sodium (Protonix Tab) 40 mg QAM PO 11/26/16 09:00 12/26/16 08:59 11/29/16 08:22 40 MG Ofloxacin (Ocuflox 0.3% Oph Soln) 1 drops Q4 OPB 11/25/16 20:00 12/05/16 19:59 11/29/16 11:05 1 DROPS Levofloxacin (Consult) 1 ea UD PRN N/A 11/25/16 19:15 12/25/16 19:14 Piperacillin Sod/ Tazobactam Sod (Consult) 1 ea UD PRN N/A 11/25/16 19:15 12/25/16 19:14 Glucose (Glucose 40% Gel) 15-30 GRAMS 15 GRAMS... UD PRN PO 11/25/16 19:30 12/25/16 19:29 Glucose (Glucose Chew Tab) 4-8 Tablets 4 Tabl... UD PRN PO 11/25/16 19:30 12/25/16 19:29 Dextrose (Dextrose 50% 50ML Syringe) 25-50ML OF 50% DW IV FOR... UD PRN IV 11/25/16 19:30 12/25/16 19:29 Glucagon (Glucagon Inj) 1 mg UD PRN SQ 11/25/16 19:30 12/25/16 19:29 Insulin Aspart SLIDING SCALE If C... ACHS SC 11/26/16 17:15 12/26/16 17:14 11/29/16 12:24 6 UNITS Piperacillin Sod/ Tazobactam Sod/ Dextrose (Zosyn Iv/D5 100ml) 115 ml @ 28.75 mls/ hr Q8H IV 11/28/16 03:00 12/03/16 02:59 11/29/16 11:05 28.75 MLS/HR Gadobutrol (Gadavist) 8 mmol UD PRN IV 11/28/16 22:45 12/02/16 22:44 Description This is a 21 electrode EEG with a single channel dedicated to limited EKG. The electrodes were placed in accordance with the International 10-20 system. At the start of this recording the patient was in an awake state. Background was poorly organized with no well formed anterior to posterior gradient. Background was composed of predominantly symmetric moderate amplitude 5-6 Hz theta frequencies with intermixed delta and alpha frequencies. Rarely there would be a posterior dominant rhythm of 7-8 Hz. Hyperventilation was not done. Photic stimulation at various frequencies did not produce any abnormalities. Drowsiness was indicated by loss of muscle artifact and slowing of the background rhythm. Interpretation This is an abnormal routine EEG secondary to mild to moderate background disorganization and slowing. There was no electrographic seizures or epileptiform discharges. Clinical Correlation This EEG indicates a mild to moderate encephalopathy of nonspecific etiology.
--- NOTE | 2016-11-29 14:00 | Progress Note ---
Subjective Date of Service: Nov 29, 2016. Subjective Pt evaluation today including: conversation w/ patient, physical exam, chart review, lab review, review of studies, review of inpatient medication list Problem List Medical Problems: (1) Altered mental status Status: Acute (2) Anemia Status: Acute (3) Dehydration Status: Acute (4) E. coli UTI (urinary tract infection) Status: Acute (5) GI bleeding Status: Acute (6) Hyperglycemia Status: Acute (7) Hypomagnesemia Status: Acute (8) SOB (shortness of breath) Status: Acute (9) Substernal chest pain Status: Acute (10) Urinary tract infection Status: Acute (11) UTI (urinary tract infection) Status: Acute (12) Weakness Status: Acute (13) Weakness Status: Acute Review of Systems Constitutional: No chills, No fever Respiratory: No cough, No dyspnea on exertion, No shortness of breath, No sputum, No wheezing Cardiac: No chest pain, No orthopnea Abdomen: No constipation, No diarrhea, No nausea, No pain, No vomiting Musculoskeletal: No joint pain, No muscle pain Female : No dysuria, No urinary frequency Objective Vital Signs Date Time Temp Pulse Resp B/P Pulse Ox O2 Delivery O2 Flow Rate FiO2 11/29/16 10:52 75 16 93 Nasal Cannula 4.0 11/29/16 10:36 97 Nasal Cannula 4.0 11/29/16 08:00 Nasal Cannula 4.0 11/29/16 07:13 82 16 95 Nasal Cannula 4.0 11/29/16 06:41 36.8 69 18 131/65 97 4.0 11/29/16 00:10 36.8 86 20 128/47 98 4.0 11/29/16 00:08 Nasal Cannula 4.0 11/28/16 19:19 74 16 91 Nasal Cannula 4.0 11/28/16 16:00 Nasal Cannula 4.0 11/28/16 15:14 77 16 92 Nasal Cannula 4.0 11/28/16 14:56 36.8 97 20 112/71 97 3.0 Physical Exam General Appearance: WD/WN, no apparent distress, + obese Neck: supple, no adenopathy Respiratory/Chest: lungs clear, normal breath sounds Cardiovascular: no edema, no gallop Abdomen: non tender, soft Neurologic/Psychiatric: alert, + disoriented Laboratory Results Last 24 Hours Test 11/28/16 16:13 11/28/16 17:35 11/28/16 20:15 11/29/16 06:16 Vitamin B12 Level 558 pg/mL Folate > 24.00 ng/mL Bedside Glucose 347 mg/dl 292 mg/dl Sodium Level 140 mmol/L Potassium Level 3.9 mmol/L Chloride Level 102 mmol/L Carbon Dioxide Level 29 mmol/L Anion Gap 9.0 mmol/L Blood Urea Nitrogen 20 mg/dl Creatinine 1.20 mg/dl Est Creatinine Clear Calc Drug Dose 31.5 ml/min Estimated GFR () 48.1 Estimated GFR (Non- 41.5 BUN/Creatinine Ratio 16.5 Random Glucose 162 mg/dl Calcium Level 8.2 mg/dl Test 11/29/16 07:30 11/29/16 10:25 11/29/16 11:03 11/29/16 13:46 Bedside Glucose 169 mg/dl 223 mg/dl White Blood Count 12.10 K/uL Red Blood Count 3.97 M/uL Hemoglobin 9.2 g/dL Hematocrit 31.0 % Mean Corpuscular Volume 78.1 fL Mean Corpuscular Hemoglobin 23.2 pg Mean Corpuscular Hemoglobin Concent 29.7 g/dl Platelet Count 197 K/uL Mean Platelet Volume 9.4 fL Neutrophils (%) (Auto) 67.2 % Lymphocytes (%) (Auto) 13.4 % Monocytes (%) (Auto) 8.4 % Eosinophils (%) (Auto) 4.5 % Basophils (%) (Auto) 1.2 % Neutrophils # (Auto) 8.13 K/uL Lymphocytes # (Auto) 1.62 K/uL Monocytes # (Auto) 1.02 K/uL Eosinophils # (Auto) 0.55 K/uL Basophils # (Auto) 0.14 K/uL RDW Standard Deviation 78.8 fL RDW Coefficient of Variation 28.5 % Immature Granulocyte % (Auto) 5.3 % Immature Granulocyte # (Auto) 0.64 K/uL Polychromasia 1+ Poikilocytosis PRESENT Anisocytosis PRESENT Microcytosis PRESENT Ovalocytes 1+ Lyme Disease IgG Antibody NEG Lyme Disease IgM Antibody NEG Assessment and Plan This patient is an 86 y/o female with a history of breast cancer, DM II w/ neuropathy, hypertension, hyperlipidemia, COPD, chronic diastolic heart failure , anxiety/depression, PMR with ambulatory dysfunction, Crohn's disease, bowel resection with colostomy and reversal of colostomy with persistent large ventral hernia, carotid artery stenosis, SEKOU, 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 She presents to the ER from [facility] with complaints of generalized weakness, increased shortness of breath and cough, and emesis 1. Her son reports that she was actually doing the best he had seen her yet earlier this week, but then his sister witnessed her have a prolonged coughing spell after eating an orange slice 2 days ago. She also developed a bilateral conjunctivitis and runny nose but has been afebrile and is confused above her baseline. She is found to have a grossly abnormal urinalysis consistent with urinary tract infection, as well as a leukocytosis with a white blood cell count of 12. Her chest x-ray showed a left basilar opacity that was not there on and previous chest x-ray. She will be admitted for most likely aspiration pneumonia versus HCAP, UTI, and acute metabolic encephalopathy. Acute metabolic encephalopathy secondary to Pneumonia, acute on chronic respiratory failure, sepsis, COPD-left lower lobe pneumonia, also with upper respiratory symptoms and conjunctivitis seems more consistent with a viral picture. Did have possible aspiration in a skilled nursing. We'll cover with antibiotics for healthcare associated pneumonia with suspected gram-negative connie pneumonia as well as for aspiration pneumonia. -Day # 5 Zosyn, Levaquin. 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, agree with BP and chol control -B12, folate, lyme titers unremarkable -Neurology consulted, will check thiamine, ammonia and EEG UTI, sepsis-urinalysis grossly abnormal -On Zosyn, Levaquin above for pneumonia which should also cover for UTI -Urine cultures pos e coli, pansensitive Acute kidney failure likely secondary to sepsis Hypertension, hyperlipidemia, chronic diastolic CHF-stable -Continue home diuretics of Lasix and metolazone, potassium -Continue losartan and statin, baby aspirin -Follow electrolytes and renal function Diabetes mellitus type 2 with diabetic peripheral neuropathy-with hyperglycemia in the setting of acute infection -Continue home doses of Lantus -Glucose checks before every meal and qHS and sliding scale NovoLog -Check hemoglobin A1c in the morning Anemia-hemoglobin is actually increased from previous admission at 9. -Follow CBC History of PE and homozygous MTH far gene mutation/hypercoagulable state-was discontinued from her Coumadin at the last admission for severe anemia and heme- positive stool. -Continue to hold Coumadin at this time but consider restarting in the near future if hemoglobin remains stable Anxiety/depression-stable -Continue SSRI, BuSpar Chronic pain-stable -Continue gabapentin and oxycodone with bowel regimen DVT prophylaxis-heparin subcutaneous GI prophylaxis-PPI Disposition-to skilled nursing when medically stable DO NOT RESUSCITATE/DO NOT INTUBATE as per discussion with patient and her son at the bedside
--- NOTE | 2016-11-29 14:40 | Medical Student: [facility] ---
Med Student History & Physical Date & Time of Service: Nov 29, 2016 at 14:14 Chief Complaint: Acute Metabolic Encephalopathy,Pneumonia Primary Care Physician: Ryne Walters History of Present Illness Source: patient, hospital records Reason for consultation: worsening altered mental status HPI: The patient is a 86 year old right handed female with a PMH significant for breast CA, DM II w/ neuropathy, HTN, hyperlipidemia, COPD, chronic diastolic heart failure, anxiety/depression, polymyalgia rheumatica, Crohn's with bowel resection, carotid artery stenosis, SEKOU, PE in 2011 and MTHFR gene mutation, GERD, anemia, and stroke who was consulted for worsening altered mental status. She arrived to the ED on 11/25 for altered mental status of 3 days duration, weakness, emesis X 1, worsening SOB, and cough. Her pulse ox was reported in the 80s in the ER and she was found to have leukocytosis at WBC count of 12.97. She is on chronic oxygen at home. She had a prolonged coughing spell 2 days prior to coming to the ER. Additionally she was diagnosed with b/l conjunctivitis and a runny nose a day before her arrival to the ER. Her symptoms get worse when lying flat. She has not had a fever, but her current confusion is above baseline according to her daughter. According to the patient' s daughter, she has no history of recent falls or seizures, but she does have a history of stroke. As an inpatient, she is currently being managed for acute metabolic encephalopathy most likely secondary to left lower lobe pneumonia (aspiration vs HCAP), sepsis and/or acute on chronic respiratory failure. She is also being managed for a UTI (e coli). She is currently taking Zosyn and Levaquin to cover for both her pneumonia and UTI. EKG showed no acute ischemic changes, but did show first degree AV block and an old inferior infarct. Brain MRI showed no evidence of acute ischemic event, but did show age-related cerebellar and cerebral atrophy as well as considerable chronic small vessel change. Additionally it showed old occipital and cerebellar infarcts. B12, folate and lyme titers were all unremarkable. B12 was 558 and folate was >24. She was recently hospitalized a week and a half ago for asymptomatic bacteremia and supratherapeutic INR. According to the patient's daughter however, the patient has not been compliant with her anticoagulation. The patient does have a history of CVA in the past. In 2014, she had a TIA which presented as hemiparesis, slurred speech, and confusion. Carotid US at the time showed <50% stenosis of right internal carotid artery and 50-69% stenosis of left internal carotid artery. In 2008, she had a CVA in the right occipital lobe and in 2007 she had evidence of a left and right occipital infarct, left superior cerebellar infarct, and deep small vessel disease. PMH: PMH is significant for breast CA, DM II w/ neuropathy, HTN, hyperlipidemia , COPD, chronic diastolic heart failure, anxiety/depression, polymyalgia rheumatica, Crohn's with bowel resection, carotid artery stenosis, SEKOU, PE in 2011 and MTHFR gene mutation, GERD, anemia, and CVAs. Meds: Aspirin (Aspirin Ec), 81 MG PO DAILY Atorvastatin (Lipitor), 80 MG PO DAILY Buspirone HCl (Buspirone HCl), 5 MG PO QAM Citalopram Hydrobromide (Citalopram Hydrobromide), 20 MG PO DAILY Docusate Sodium (Colace), 100 MG PO BID Ferrous Sulfate (Ferrous Sulfate), 325 MG PO BIDM Fluconazole (Diflucan), 1 TAB PO DAILY Folic Acid (Folvite), 1 MG PO DAILY Furosemide (Lasix), 40 MG PO BID Gabapentin (Neurontin), 800 MG PO HS Gabapentin (Neurontin), 400 MG PO QAM Insulin Aspart (Novolog Flexpen), 15 UNITS SC BID Insulin Detemir (Levemir), 25 UNITS SC QAM Insulin Detemir (Levemir), 20 UNITS SC PM Loratadine (Claritin), 10 MG PO DAILY Losartan Potassium (Cozaar), 50 MG PO DAILY Metolazone (Zaroxolyn), 2.5 MG PO QAM Nitroglycerin (Nitrostat), 0.4 MG UT PRN Omeprazole (Prilosec), 20 MG PO QAM Potassium Chloride (Micro-K Ext Rel), 40 MEQ PO TID Prednisone (Prednisone), 10 MG PO DAILY Tamoxifen (Nolvadex), 20 MG PO DAILY Tobramycin/Dexamethasone 0.3% Oph (Tobradex 0.3% Oph), 2 DROPS OPB BID Surgeries: Surgical history is significant for total abdominal hysterectomy with b/l salpingectomy and oophorectomy, appendectomy, small bowel resection in 2001, bilateral cataract surgery, and b/l knee replacements. FH: Family history is significant for father have lung cancer. Her father at age 70 from an NC. Her mother of a stroke at age 61. SH: The patient lives at [facility] and has 3 children. She used to work as a sales development director at [employer] and was a former smoker. She quit smoking in 2005. She smoked 2 packs per day for 60 years. She does not consume alcohol. Allergies: Amoxicillin, Aspartame, Cephalexin, Cephalosporins, Clavulanic Acid, Codeine, Cromolyn, Ibuprofen, Morphine, Naproxen, Penicillins, Quinolones, and Sulfa Antibiotics ROS: Positive for shortness of breath and difficulty breathing. She denies chest pain, abdominal pain, fever ,or any another source of bodily pain. Past Medical/Surgical History Medical Problems: (1) Altered mental status Status: Acute (2) Anemia Status: Acute (3) Dehydration Status: Acute (4) E. coli UTI (urinary tract infection) Status: Acute (5) GI bleeding Status: Acute (6) Hyperglycemia Status: Acute (7) Hypomagnesemia Status: Acute (8) SOB (shortness of breath) Status: Acute (9) Substernal chest pain Status: Acute (10) Urinary tract infection Status: Resolved (11) Urinary tract infection Status: Acute (12) UTI (urinary tract infection) Status: Acute (13) Weakness Status: Acute (14) Weakness Status: Acute Social History Smoking Status: Former Smoker Alcohol Use: none Drug Use: none Marital Status: Housing status: retirement ([facility]) Occupational Status: retired Immunizations History of Influenza Vaccine: Yes History of Tetanus Vaccine?: Yes Tetanus Immunization Date: Oct 25, 2012 History of Pneumococcal: Yes Pneumococcal Date: Nov 16, 2014 History of Hepatitis B Vaccine: No Allergies Coded Allergies: Ibuprofen (Verified Allergy, Severe, ANAPHYLAXIS, 05/23/16) Amoxicillin (Verified Allergy, Mild, URTICARIA-HAS TOLERATED ZOSYN PREV ADM., 05/23/16) Noted at [facility] 12/07/10 Has tolerated Zosyn on previous admissions Aspartame (Unverified Allergy, Mild, HIVES, 05/23/16) Cephalexin (Unverified Allergy, Mild, HIVES, 05/23/16) Clavulanic Acid (Verified Allergy, Mild, urticaria-HAS TOLERATED ZOSYN PREV ADM., 05/23/16) Noted at [facility] 12/07/10 Cephalosporins (Verified Allergy, Unknown, HAS TOLERATED CEFTRIAXONE, CEFEPIME, 05/23/16) 05/14/12 - PATIENT DENIES EVER HAVING A REACTION TO OR TAKING ANY CEPHALOSPORINS Codeine (Verified Allergy, Unknown, 05/23/16) Cromolyn (Verified Allergy, Unknown, 05/23/16) Morphine and Related (Verified Allergy, Unknown, Unknown, 05/23/16) Naproxen (Verified Allergy, Unknown, ANAPHYLAXIS, 05/23/16) Penicillins (Verified Allergy, Unknown, Unknown, 05/23/16) Sulfa Antibiotics (Verified Allergy, Unknown, 05/14/12 - STATES THAT SHE IS UNABLE TO TOLERATE ANY SULFA, 05/23/16) 05/14/12 - STATES THAT SHE IS UNABLE TO TOLERATE ANY SULFA DRUGS Quinolones (Verified Adverse Reaction, Mild, NAUSEA, 05/23/16) PER DR. GARCIA - SPOKE W PT WHO SAID SHE HAD CIPRO FOR UTI A "LONG TIME AGO". REACTION WAS NAUSEA. I CONFIRMED ADMINISTREATION HX WITH OUR RECORDS - ADMIN 06/19/08. THEREFORE PT LIKELY ABLE TO TOLERATE CIPRO. Medications Acetaminophen (Tylenol), 650 MG PO Q6 PRN for Mild Pain Albuterol Sulf (Proventil 0.083% 2.5MG/3ML), 2.5 MG INH Q4 PRN for SOB/Wheezing Aluminum/Magnesium/Simeth (Maalox Max Susp), 30 ML PO Q6 PRN for Gas or Constipation Aspirin (Aspirin Ec), 81 MG PO DAILY Atorvastatin (Lipitor), 80 MG PO DAILY Buspirone HCl (Buspirone HCl), 5 MG PO QAM Citalopram Hydrobromide (Citalopram Hydrobromide), 20 MG PO DAILY Docusate Sodium (Colace), 100 MG PO BID Ferrous Sulfate (Ferrous Sulfate), 325 MG PO BIDM Folic Acid (Folvite), 1 MG PO DAILY Furosemide (Lasix), 40 MG PO BID Gabapentin (Neurontin), 800 MG PO HS Gabapentin (Neurontin), 400 MG PO QAM Insulin Aspart (Novolog Flexpen), 15 UNITS SC BID Insulin Aspart (Novolog Flexpen), 8-18 UNITS SC UD PRN for SLIDING SCALE Insulin Detemir (Levemir), 25 UNITS SC QAM Insulin Detemir (Levemir), 20 UNITS SC PM Levofloxacin (Levaquin), 750 MG PO Q2D Loratadine (Claritin), 10 MG PO DAILY Losartan Potassium (Cozaar), 50 MG PO DAILY Metolazone (Zaroxolyn), 2.5 MG PO QAM Nitroglycerin (Nitrostat), 0.4 MG UT PRN Omeprazole (Prilosec), 20 MG PO QAM Oxycodone Immediate Rel Tab (Roxicodone Ir), 5 MG PO Q8 PRN for Moderate Pain Oxycodone Ir (Roxicodone Ir), 10 MG PO Q8 PRN for Severe Pain Potassium Chloride (Micro-K Ext Rel), 40 MEQ PO TID Prednisone (Prednisone), 10 MG PO DAILY Tamoxifen (Nolvadex), 20 MG PO DAILY Tobramycin/Dexamethasone 0.3% Oph (Tobradex 0.3% Oph), 2 DROPS OPB BID Physical Exam Vital Signs (24 Hours) Date Time Temp Pulse Resp B/P Pulse Ox O2 Delivery O2 Flow Rate FiO2 11/29/16 10:52 75 16 93 Nasal Cannula 4.0 11/29/16 10:36 97 Nasal Cannula 4.0 11/29/16 08:00 Nasal Cannula 4.0 11/29/16 07:13 82 16 95 Nasal Cannula 4.0 11/29/16 06:41 36.8 69 18 131/65 97 4.0 11/29/16 00:10 36.8 86 20 128/47 98 4.0 11/29/16 00:08 Nasal Cannula 4.0 11/28/16 19:19 74 16 91 Nasal Cannula 4.0 11/28/16 16:00 Nasal Cannula 4.0 11/28/16 15:14 77 16 92 Nasal Cannula 4.0 11/28/16 14:56 36.8 97 20 112/71 97 3.0 Vitals: HR 82, BP 131/65, RR 16, Pulse Ox 95 on 4.0 L NC Neurological: The patient is an 86 year old right handed female. The patient is oriented to person, but not to time or location. Spontaneous speech is of normal rate and tone without dysarthria. Recent and remote memory is intact. General fund of knowledge is appropriate. Light touch sensation was intact in upper and lower extremities bilaterally, symmetrically. Strength of intrinsic hand muscles, biceps, triceps and deltoids was 4/5 bilaterally, symmetrically. Strength of hip flexion, knee flexion, ankle dorsiflexion and ankle plantarflexion was 4/5 bilaterally, symmetrically. Toes were downgoing bilaterally on Babinski reflex testing. Reflexes were 1+ in biceps, brachioradialis and patellar bilaterally. There was no dysmetria on [id number] testing. No resting or intention tremor was appreciated. No pronator drift was appreciated. Cranial Nerve Exam: CN I: not tested CN II: pupils equal, round, and reactive to light. CN III: pupils equal, round, and reactive to light. extraocular movements intact with no nystagmus. CN IV: extraocular movements intact with no nystagmus CN V: symmetrical sensation to light touch over the 3 distributions of CN V. CN : extraocular movements intact with no nystagmus CN VII: symmetrical wrinkling of forehead and smile CN VIII: not tested CN IX: uvula midline CN X: uvula midline CN XI: trapezius muscle moves symmetrically, 4/5 in strength CN XII: tongue protrudes midline Diagnostics Laboratory Results Results Past 24 Hours Test 11/28/16 16:13 11/28/16 17:35 11/28/16 20:15 11/29/16 06:16 Range/Units Vitamin B12 Level 558 211-911 pg/mL Folate > 24.00 >5.38 ng/mL Bedside Glucose 347 292 70-90 mg/dl Sodium Level 140 136-145 mmol/L Potassium Level 3.9 3.5-5.1 mmol/L Chloride Level 102 98-107 mmol/L Carbon Dioxide Level 29 21-32 mmol/L Anion Gap 9.0 3-11 mmol/L Blood Urea Nitrogen 20 7-18 mg/dl Creatinine 1.20 0.60-1.20 mg/dl Est Creatinine Clear Calc Drug Dose 31.5 ml/min Estimated GFR () 48.1 Estimated GFR (Non- 41.5 BUN/Creatinine Ratio 16.5 10-20 Random Glucose 162 70-99 mg/dl Calcium Level 8.2 8.5-10.1 mg/dl Test 11/29/16 07:30 11/29/16 10:25 11/29/16 11:03 11/29/16 13:46 Range/Units Bedside Glucose 169 223 70-90 mg/dl White Blood Count 12.10 4.8-10.8 K/uL Red Blood Count 3.97 4.2-5.4 M/uL Hemoglobin 9.2 12.0-16.0 g/dL Hematocrit 31.0 37-47 % Mean Corpuscular Volume 78.1 80-100 fL Mean Corpuscular Hemoglobin 23.2 25-34 pg Mean Corpuscular Hemoglobin Concent 29.7 32-36 g/dl Platelet Count 197 130-400 K/uL Mean Platelet Volume 9.4 7.4-10.4 fL Neutrophils (%) (Auto) 67.2 % Lymphocytes (%) (Auto) 13.4 % Monocytes (%) (Auto) 8.4 % Eosinophils (%) (Auto) 4.5 % Basophils (%) (Auto) 1.2 % Neutrophils # (Auto) 8.13 1.4-6.5 K/uL Lymphocytes # (Auto) 1.62 1.2-3.4 K/uL Monocytes # (Auto) 1.02 0.11-0.59 K/uL Eosinophils # (Auto) 0.55 0-0.5 K/uL Basophils # (Auto) 0.14 0-0.2 K/uL RDW Standard Deviation 78.8 36.4-46.3 fL RDW Coefficient of Variation 28.5 11.5-14.5 % Immature Granulocyte % (Auto) 5.3 % Immature Granulocyte # (Auto) 0.64 0.00-0.02 K/uL Polychromasia 1+ Poikilocytosis PRESENT Anisocytosis PRESENT Microcytosis PRESENT Ovalocytes 1+ Lyme Disease IgG Antibody NEG NEG Lyme Disease IgM Antibody NEG NEG Diagnostic Radiology Brain MRI MRI OF THE BRAIN WITHOUT AND WITH IV CONTRAST CLINICAL HISTORY: confusion mental status change COMPARISON STUDY: 05/28/2015 TECHNIQUE: Utilizing a 1.5 Elo magnet and dedicated coil, multiplanar, multiecho imaging of the brain was performed pre and postcontrast administration. IV administration of 8 mL of Gadavist contrast was uneventful. FINDINGS: No evidence for an acute ischemic event. Age-related cerebellar as well as cerebral atrophy. Considerable chronic small vessel change. 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 No evidence for midline shift. No evidence for abnormal postcontrast enhancement. IMPRESSION: 1. Atrophy. 2. Considerable chronic small vessel change. 3. 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 4. No acute intracranial abnormality Electronically signed by: Abimael Perez M.D. 11/28/2016 10:42 PM EEG Description This is a 21 electrode EEG with a single channel dedicated to limited EKG. The electrodes were placed in accordance with the International 10-20 system. At the start of this recording the patient was in an awake state. Background was poorly organized with no well formed anterior to posterior gradient. Background was composed of predominantly symmetric moderate amplitude 5-6 Hz theta frequencies with intermixed delta and alpha frequencies. Rarely there would be a posterior dominant rhythm of 7-8 Hz. Hyperventilation was not done. Photic stimulation at various frequencies did not produce any abnormalities. Drowsiness was indicated by loss of muscle artifact and slowing of the background rhythm. Interpretation This is an abnormal routine EEG secondary to mild to moderate background disorganization and slowing. There was no electrographic seizures or epileptiform discharges. Clinical Correlation This EEG indicates a mild to moderate encephalopathy of nonspecific etiology. Impression Assessment and Plan Assessment: This is a 86 year old right-handed female with a PMH significant for breast CA, DM II w/ neuropathy, HTN, hyperlipidemia, COPD, chronic diastolic heart failure, anxiety/depression, polymyalgia rheumatica, Crohn's with bowel resection, carotid artery stenosis, SEKOU, PE in 2011 and MTHFR gene mutation, GERD, anemia, and multiple CVAs who is currently being managed for pneumonia, acute on chronic respiratory failure, UTI and acute encephalopathy. Neurology was consulted for worsening mental status. It is most likely the patient developed an acute encephalopathy secondary to pneumonia and UTI and has underlying vascular dementia as evidenced by old occipital and cerebellar infarcts and considerable chronic small vessel change on brain MRI. Differential Diagnosis for acute encephalopathy: -I suspect that this is septic encephalopathy. This patient's worsening mental status began when she developed conjunctivitis, pneumonia and a UTI. Her WBC count on arrival to the ER was 12.97. It is most likely that the combination of these infections caused her acute encephalopathy. This diagnosis will be clearer as we track her clinically and see if her mental status improves by treating the underlying infections. -Another consideration is hepatic encephalopathy. This patient does not have a history of liver disease/damage so this consideration is unlikely, but it would still be valuable to check an ammonia level. Brain MRI also did not show cerebral edema, which is often evident in patients with hepatic encephalopathy. Additionally, the patient did not have asterixis on exam or a history of reversed sleep-wake cycle, which are also characteristics of hepatic encephalopathy. An EEG will be valuable in evaluating. EEGs of hepatic encephalopathy often show diffuse slowing and disorganization of background rhythm as well as triphasic waves. EEG in this patient did show disorganization and slowing, but did not show triphasic waves. -Another consideration is Wernicke's encephalopathy. This patient may have absorptive problems in her gastrointestinal tract due to her history of Crohn's disease and bowel resection which may potentially cause a thiamine deficiency. The triad of Wernicke's encephalopathy includes confusion, ataxia and ophthalmoplegia. The patient does exhibit confusion, but not ophthalmoplegia. Ataxia was not assessed. Although she does have risk factors for malabsorption, septic encephalopathy is still a more likely diagnosis given her infections. -Another consideration is electrolyte disturbance. Hypernatremia, hyponatremia, hypercalcemia, hypocalcemia, and hypoglycemia should all be considered. These etiologies were ruled out with labs however. Her sodium and calcium were normal at 138 and 8.8 respectively however. Her glucose was actually elevated at 234. -Another consideration is vitamin deficiency. B12 and folate deficiency should always be considered in altered mental status. These etiologies were ruled out with labs too. Her B12 and folate levels were normal at 558 and >24. -Another consideration a CVA. A TIA or a stroke of any distribution can always cause altered mental status and should always be considered. On physical exam however, this patient did not exhibit any focal neurologic deficits such as facial droop, decreased strength or decreased sensation. Additionally, she did not complain of any weakness or sensory deficits. Finally, this etiology can be ruled out by brain MRI which showed no acute ischemic event. -Another consideration is a seizure. This is unlikely however because there was no history of abnormal muscle movements, incontinence, tongue lacerations or automatisms prior to coming to the ER. Additionally, EEG showed no electrographic seizures or epileptiform discharges and only showed moderate background disorganization and slowing. Plan: -Order TSH to r/o hypo or hyperthyroidism as an etiology of encephalopathy -Order ammonia level to r/o hepatic encephalopathy -Order thiamine level to r/o Wernicke's encephalopathy -Start Aspirin for prevention of a cardiovascular or cerebrovascular event considering her existing risk factors including diabetes, smoking history, age, HTN, hyperlipidemia, and carotid artery stenosis. -Consider f/u in the office in 1 month for formal cognitive evaluation for vascular dementia. Neurology attending addendum: Patient was seen and evaluated with medical student. Please see my separate neurology consult note for full evaluation and recommendations. -Ange Varela, DO Advanced Directives Existing Living Will: Yes Existing Power of Vegetable Cook: Yes
[2016-11-29] MEDS: LEVOFLOXACIN / D5W 750 MG in PREMIXED IN D5W 150 ML IV SCH (16:17)
[2016-11-29] MEDS: GABAPENTIN 800 MG TAB PO SCH (20:38)
[2016-11-30] MEDS: OFLOXACIN 0.3% OP SOLN 5 ML BTL OPB SCH ×3 (04:29→11:56)
[2016-11-30 07:13] VITALS: PULSE 81; O2SAT 95
[2016-11-30] MEDS: ALBUT/IPRATROP 3MG/0.5MG NEB 3 ML VIAL INH SCH ×2 (07:13→11:33)
[2016-11-30 07:30] VITALS: BP 136/73; PULSE 89; TEMP 36.8; O2SAT 99
[2016-11-30 07:39] LABS: BUN/CREATININE RATIO 16.1 (10-20); CALCIUM 8.4 mg/dl (8.5-10.1); CREATININE 1.1 mg/dl (0.60-1.20); POTASSIUM 4.2 mmol/L (3.5-5.1)
[2016-11-30 07:41] LABS: CHOLESTEROL/HDL RATIO 3.8
[2016-11-30 08:00] VITALS: O2SAT 92
[2016-11-30 08:49] LABS: ACANTHOCYTES 2+; BASO % 1.4 %; BASO ABS # 0.17 K/uL (0-0.2); COMPLETE YES; EOS % 4.8 %; HEMATOCRIT 30.4 % (37-47); LARGE PLATELETS 1+; LYMPH % 16.2 %; LYMPH ABS # 1.98 K/uL (1.2-3.4); MEAN CELL VOLUME 78.4 fL (80-100); MEAN CORPUSCULAR HEMOGLOBIN 23.5 pg (25-34); MEAN CORPUSCULAR HGB CONC 29.9 g/dl (32-36); MEAN PLATELET VOLUME 9.7 fL (7.4-10.4); MONO % 10.8 %; NEUT % 60.8 %; OVALOCYTES 1+; PLATELET COUNT 204 K/uL (130-400); RED BLOOD COUNT 3.88 M/uL (4.2-5.4); WHITE BLOOD COUNT 12.21 K/uL (4.8-10.8)
[2016-11-30] MEDS: LORATADINE 10 MG TAB PO SCH (08:54)
[2016-11-30] MEDS: GABAPENTIN 400 MG CAP PO SCH (08:54)
[2016-11-30] MEDS: PANTOprazole SOD 40 MG TAB PO SCH (08:56)
[2016-11-30] MEDS: CITALOPRAM 20 MG TAB PO SCH (08:57)
[2016-11-30] MEDS: FERROUS SULFATE 325 MG TAB PO SCH (08:57)
[2016-11-30] MEDS: DOCUSATE SODIUM 100 MG CAP PO SCH (08:57)
[2016-11-30] MEDS: ASPIRIN 81 MG ECTAB PO SCH (08:57)
[2016-11-30] MEDS: ATORVASTATIN 40 MG TAB PO SCH (08:57)
[2016-11-30] MEDS: POTASSIUM CHLORIDE 20 MEQ TABCR PO SCH ×2 (09:00→13:46)
[2016-11-30] MEDS: METOLAZONE 2.5 MG TAB PO SCH (09:01)
[2016-11-30] MEDS: FUROSEMIDE 40 MG TAB PO SCH (09:01)
[2016-11-30] MEDS: LOSARTAN POTASSIUM 50 MG TAB PO SCH (09:02)
[2016-11-30] MEDS: INSULIN DETEMIR FLEXPEN/FLEX TOUCH 100 UNITS/ML 3ML SC SCH (09:07)
[2016-11-30] MEDS: INSULIN ASPART 100 UNITS/ML 3 ML PEN SC SCH ×2 (09:07→11:56)
[2016-11-30] MEDS: HEPARIN SOD 5000 UNIT/0.5 ML CARP SQ SCH (09:08)
[2016-11-30] MEDS: TAMOXIFEN CITRATE 10 MG TAB PO SCH (09:08)
[2016-11-30 11:34] VITALS: PULSE 81; O2SAT 95
[2016-11-30] MEDS ORDERED: LEVO-18 PO (12:52)
--- NOTE | 2016-11-30 12:59 | Discharge Instructions ---
Discharge Instructions Date of Service Nov 30, 2016. Admission Reason for Admission: Acute Metabolic Encephalopathy,Pneumonia Discharge Discharge Diagnosis / Problem: Acute metabolic encephalopathy, vascular dementia, pneumonia, UTI Discharge Goals Goal(s): Decrease discomfort, Improve function, Increase independence, Improve disease control, Learn about illness, Diagnostic testing, Prevent Disease Progression Activity Recommendations Activity Limitations: resume your previous activity Exercise/Sports Limitations: none . Instructions / Follow-Up Instructions / Follow-Up Patient to be discharged back to [facility] Prescription sent for levaquin 1 pill every other day for 4 more days to finish treating pneumonia and urinary tract infection As far vascular risk factor modifications per primary care: Stroke risk factor modifications and recommendations: Blood pressure recommendations 130/80-110/70 Total cholesterol goal 100- 200 and LDL goal less than 70 Hemoglobin A1c goal less than 7 Encourage exercise at least 3 times a week for 30 minutes. Current Hospital Diet Patient's current hospital diet: AHA Diet (Heart Healthy), Diabetes Type 2 Diet Discharge Diet Recommended Diet: AHA Diet (Heart Healthy), Diabetes Type 2 Diet Pending Studies Studies pending at discharge: no Laboratory Results Hemoglobin A1c Test 11/26/16 05:30 Range/Units Estimated Average Glucose 143 mg/dl Hemoglobin A1c 6.6 H 4.5-5.6 % Lipid Panel Test 11/30/16 06:57 Range/Units Triglycerides Level 468 H 0-150 mg/dl Cholesterol Level 201 H 0-200 mg/dl HDL Cholesterol 53 mg/dl Cholesterol/HDL Ratio 3.8 LDL Cholesterol, Calculated mg/dl Medical Emergencies . Who to Call and When: Medical Emergencies: If at any time you feel your situation is an emergency, please call 911 immediately. . Non-Emergent Contact Non-Emergency issues call your: Primary Care Provider Call Non-Emergent contact if: you have a fever, your pain is worsening . . "Provider Documentation" section prepared by Oliver Michelle. VTE Core Measure Inpt VTE Proph given/why not?: Unfractionated heparin SQ
[2016-11-30 13:04] VITALS: BP 136/73; PULSE 81; TEMP 36.8; O2SAT 95
--- NOTE | 2016-11-30 15:42 | Discharge Summary ---
Discharge Summary Date of Service Nov 30, 2016. Discharge Summary Admission Date: Nov 25, 2016 at 17:36 Discharge Date: Nov 30, 2016 [facility]charge Disposition: [facility] facility Principal Diagnosis: Metabolic encephalopathy, PNA, UTI Immunizations: Have You Had Influenza Vaccine: Yes History of Tetanus Vaccine?: Yes Tetanus Immunization Date: Oct 25, 2012 History of Pneumococcal: Yes Pneumococcal Date: Nov 16, 2014 History of Hepatitis B Vaccine: No Consultations: Neurology Medication Reconciliation New Medications: Levofloxacin (Levaquin) 750 Mg Tab 750 MG PO Q2D for 4 Days, #2 TAB Continued Medications: Acetaminophen (Tylenol) 325 Mg Tab 650 MG PO Q6 PRN for Mild Pain Albuterol Sulf (Proventil 0.083% 2.5MG/3ML) 2.5 Mg/3 Ml Nebu 2.5 MG INH Q4 PRN for SOB/Wheezing, EA Aluminum/Magnesium/Simeth (Maalox Max Susp) Susp 30 ML PO Q6 PRN for Gas or Constipation Aspirin (Aspirin Ec) 81 Mg Tab 81 MG PO DAILY Atorvastatin (Lipitor) 80 Mg Tab 80 MG PO DAILY Buspirone HCl (Buspirone HCl) 5 Mg Tab 5 MG PO QAM Citalopram Hydrobromide (Citalopram Hydrobromide) 20 Mg Tab 20 MG PO DAILY Docusate Sodium (Colace) 100 Mg Cap 100 MG PO BID, CAP Ferrous Sulfate (Ferrous Sulfate) 325 Mg Tab 325 MG PO BIDM, #60 TAB 3 Refills Folic Acid (Folvite) 1 Mg Tab 1 MG PO DAILY Furosemide (Lasix) 40 Mg Tab 40 MG PO BID, TAB Gabapentin (Neurontin) 400 Mg Cap 800 MG PO HS, 0 Refills Gabapentin (Neurontin) 400 Mg Cap 400 MG PO QAM Insulin Aspart (Novolog Flexpen) 100 Units/Ml Inj 15 UNITS SC BID Insulin Aspart (Novolog Flexpen) 100 Units/Ml Inj 8-18 UNITS SC UD PRN for SLIDING SCALE USE 4 TIMES DAILY IF BLOOD SUGAR: 351-400 = 8 UNITS 304-450 = 12 UNITS 451-500= 16 UNITS > 500= 18 UNITS AND RECHECK BSG IN 2 HOURS Insulin Detemir (Levemir) 100 Units/Ml Inj 25 UNITS SC QAM Insulin Detemir (Levemir) 100 Units/Ml Inj 20 UNITS SC PM Loratadine (Claritin) 10 Mg Tab 10 MG PO DAILY, TAB Losartan Potassium (Cozaar) 50 Mg Tab 50 MG PO DAILY, TAB Metolazone (Zaroxolyn) 2.5 Mg Tab 2.5 MG PO QAM TAKE 2 HOURS PRIOR TO AM LASIX DOSE Nitroglycerin (Nitrostat) 0.4 Mg Tab 0.4 MG UT PRN, BTL Omeprazole (Prilosec) 20 Mg Capcr 20 MG PO QAM, CAP CAP MAY BE OPENED & SPRINKLED ON APPLESAUCE Oxycodone Immediate Rel Tab (Roxicodone Ir) 5 Mg Tab 5 MG PO Q8 PRN for Moderate Pain, TAB Oxycodone Ir (Roxicodone Ir) 5 Mg Tab 10 MG PO Q8 PRN for Severe Pain, TAB Potassium Chloride (Micro-K Ext Rel) 10 Meq Capcr 40 MEQ PO TID Prednisone (Prednisone) 10 Mg Tab 10 MG PO DAILY, TAB Tamoxifen (Nolvadex) 20 Mg Tab 20 MG PO DAILY, TAB Tobramycin/Dexamethasone 0.3% Oph (Tobradex 0.3% Oph) Susp 2 DROPS OPB BID for 10 Days Discontinued Medications: Fluconazole (Diflucan) 100 Mg Tab 1 TAB PO DAILY for 10 Days, #10 TAB 0 Refills Discharge Exam Review of Systems: Constitutional: No chills, No fever Respiratory: No cough, No dyspnea on exertion, No shortness of breath, No sputum Cardiovascular: No chest pain, No orthopnea Abdomen: No diarrhea, No nausea, No pain, No vomiting Musculoskeletal: No joint pain, No muscle pain Genitourinary - Female: No dysuria, No urinary frequency Psychiatric: No anxiety, No depression symptoms Physical Exam: General Appearance: WD/WN, no apparent distress Neck: supple, no adenopathy Respiratory/Chest: chest non-tender, + decreased breath sounds Cardiovascular: no edema, no gallop, no JVD Abdomen / GI: non tender, soft Neurologic/Psychiatric: alert, + disoriented Hospital Course This patient is an 86 y/o female with a history of breast cancer, DM II w/ neuropathy, hypertension, hyperlipidemia, COPD, chronic diastolic heart failure , anxiety/depression, PMR with ambulatory dysfunction, Crohn's disease, bowel resection with colostomy and reversal of colostomy with persistent large ventral hernia, carotid artery stenosis, SEKOU, 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 She presents to the ER from [facility] with complaints of generalized weakness, increased shortness of breath and cough, and emesis 1. Her son reports that she was actually doing the best he had seen her yet earlier this week, but then his sister witnessed her have a prolonged coughing spell after eating an orange slice 2 days ago. She also developed a bilateral conjunctivitis and runny nose but has been afebrile and is confused above her baseline. She is found to have a grossly abnormal urinalysis consistent with urinary tract infection, as well as a leukocytosis with a white blood cell count of 12. Her chest x-ray showed a left basilar opacity that was not there on and previous chest x-ray. She will be admitted for most likely aspiration pneumonia versus HCAP, UTI, and acute metabolic encephalopathy. Acute metabolic encephalopathy secondary to Pneumonia, acute on chronic respiratory failure, sepsis, COPD-left lower lobe pneumonia, also with upper respiratory symptoms and conjunctivitis seems more consistent with a viral picture. Did have possible aspiration in a alf. We'll cover with antibiotics for healthcare associated pneumonia with suspected gram-negative connie pneumonia as well as for aspiration pneumonia. -Completed 6 days of Zosyn, Levaquin during hospital course, discharged on 4 more days of levaquin 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, agree with BP and chol control -B12, folate, lyme titers unremarkable -Neurology consulted: vascular risk factor modifications per primary care: Stroke risk factor modifications and recommendations: Blood pressure recommendations 130/80-110/70 Total cholesterol goal 100- 200 and LDL goal less than 70 Hemoglobin A1c goal less than 7 Encourage exercise at least 3 times a week for 30 minutes. UTI, sepsis-urinalysis grossly abnormal -On Zosyn, Levaquin above for pneumonia which should also cover for UTI -Urine cultures pos e coli, pansensitive Acute kidney failure likely secondary to sepsis Hypertension, hyperlipidemia, chronic diastolic CHF-stable -Continue home diuretics of Lasix and metolazone, potassium -Continue losartan and statin, baby aspirin -Follow electrolytes and renal function Diabetes mellitus type 2 with diabetic peripheral neuropathy-with hyperglycemia in the setting of acute infection -Continue home doses of Lantus -Glucose checks before every meal and qHS and sliding scale NovoLog -Check hemoglobin A1c in the morning Anemia-hemoglobin is actually increased from previous admission at 9. -Follow CBC History of PE and homozygous MTH far gene mutation/hypercoagulable state-was discontinued from her Coumadin at the last admission for severe anemia and heme- positive stool. -Continue to hold Coumadin at this time but consider restarting in the near future if hemoglobin remains stable Anxiety/depression-stable -Continue SSRI, BuSpar Chronic pain-stable -Continue gabapentin and oxycodone with bowel regimen DVT prophylaxis-heparin subcutaneous GI prophylaxis-PPI Disposition-to alf when medically stable DO NOT RESUSCITATE/DO NOT INTUBATE as per discussion with patient and her son at the bedside Total Time Spent: Greater than 30 minutes This includes examination of the patient, discharge planning, medication reconciliation, and communication with other providers. Discharge Instructions Please refer to the electronic Patient Visit Report (Discharge Instructions) for additional information. Additional Copies To Lazaro Mccoy M.D.
[2016-12-04 17:27] LABS: TSI <89 % baseline (<140)
[2017-02-22] MEDS ORDERED: LORA-741 PO (12:55)
[2017-02-22] MEDS ORDERED: RXNS5 PO (12:55)
[2017-02-22] MEDS ORDERED: OXYC1TAB3 PO (12:55)
[2017-02-22] MEDS ORDERED: SCOP1.5D2 TD (12:55)
== END 2016-11-30 14:54 | DRG 871 ==
LOC: ENRESERVDT → ENRESERVTM → EDBD 13:51 → C.EDB 13:53 → C.2E 17:36 → C.MS2W 11-27 14:45
PROVIDERS: ADMIT Family Medicine; ATTEND Hospitalist
DX: A41.9 Sepsis, unspecified organism (principal); G93.41 Metabolic encephalopathy; J96.20 Acute and chronic respiratory failure, unspecified whether with hypoxia or hypercapnia; J69.0 Pneumonitis due to inhalation of food and vomit; N17.9 Acute kidney failure, unspecified; N39.0 Urinary tract infection, site not specified; K50.90 Crohn's disease, unspecified, without complications; I50.32 Chronic diastolic (congestive) heart failure; K21.9 Gastro-esophageal reflux disease without esophagitis; G47.33 Obstructive sleep apnea (adult) (pediatric); F41.9 Anxiety disorder, unspecified; F32.9 Major depressive disorder, single episode, unspecified; E11.40 Type 2 diabetes mellitus with diabetic neuropathy, unspecified; E78.5 Hyperlipidemia, unspecified; I10 Essential (primary) hypertension; Z99.81 Dependence on supplemental oxygen; Z85.3 Personal history of malignant neoplasm of breast; Z90.49 Acquired absence of other specified parts of digestive tract; Z96.642 Presence of left artificial hip joint; Z90.710 Acquired absence of both cervix and uterus; Z83.3 Family history of diabetes mellitus; Z82.49 Family history of ischemic heart disease and other diseases of the circulatory system; Z87.891 Personal history of nicotine dependence; Z82.3 Family history of stroke; Z80.1 Family history of malignant neoplasm of trachea, bronchus and lung; Z80.3 Family history of malignant neoplasm of breast; Z79.01 Long term (current) use of anticoagulants; Z88.0 Allergy status to penicillin; Z88.8 Allergy status to other drugs, medicaments and biological substances; Z88.5 Allergy status to narcotic agent; Z88.2 Allergy status to sulfonamides; Z79.82 Long term (current) use of aspirin; Z79.899 Other long term (current) drug therapy; Z79.4 Long term (current) use of insulin; E66.9 Obesity, unspecified; H10.9 Unspecified conjunctivitis; Z79.52 Long term (current) use of systemic steroids; E11.65 Type 2 diabetes mellitus with hyperglycemia; D64.9 Anemia, unspecified; R19.5 Other fecal abnormalities; Z66 Do not resuscitate; B96.20 Unspecified Escherichia coli [E. coli] as the cause of diseases classified elsewhere; R26.9 Unspecified abnormalities of gait and mobility; K43.9 Ventral hernia without obstruction or gangrene; Z86.73 Personal history of transient ischemic attack (TIA), and cerebral infarction without residual deficits

== ENCOUNTER → 2017-01-03 | Outpatient (CLI) | payer OTHER, MEDICARE ==
[~2017-01-03] MED LIST changes: +ALUMSUS2 PO; +CLR10 PO; -FLUC100T4 PO; +GABA800T PO; +LORA-741 PO; +NTRGSL/4 UT; +ROSU40TA PO; +RXNS5 PO; +SCOP1.5D2 TD; +TOBRSUS OPB; +WARF2TAB PO
[2017-01-03 12:39] LABS: BASO % 0.4 %; BASO ABS # 0.04 K/uL (0-0.2); EOS % 3.2 %; HEMATOCRIT 36.2 % (37-47); LYMPH % 19.8 %; LYMPH ABS # 1.99 K/uL (1.2-3.4); MEAN CELL VOLUME 88.9 fL (80-100); MEAN CORPUSCULAR HEMOGLOBIN 27.3 pg (25-34); MEAN CORPUSCULAR HGB CONC 30.7 g/dl (32-36); MONO % 9.6 %; PLATELET COUNT 167 K/uL (130-400); RED BLOOD COUNT 4.07 M/uL (4.2-5.4); WHITE BLOOD COUNT 10.06 K/uL (4.8-10.8)
[2017-01-03 13:01] LABS: ANISOCYTOSIS PRESENT; COMPLETE YES
== END ==
LOC: C.LABCC 11:34 → EDSTATUS 11:34 → C.LABCC 13:15
PROVIDERS: ATTEND Internal Medicine
DX: D64.9 Anemia, unspecified (principal)

== ENCOUNTER → 2017-01-11 | Outpatient (CLI) | payer OTHER, MEDICARE ==
[2017-01-11 08:29] LABS: HEMATOCRIT 37.4 % (37-47); MEAN CELL VOLUME 88.4 fL (80-100); MEAN CORPUSCULAR HEMOGLOBIN 26.7 pg (25-34); MEAN CORPUSCULAR HGB CONC 30.2 g/dl (32-36); MEAN PLATELET VOLUME 9.7 fL (7.4-10.4); PLATELET COUNT 177 K/uL (130-400); RED BLOOD COUNT 4.23 M/uL (4.2-5.4); WHITE BLOOD COUNT 9.55 K/uL (4.8-10.8)
[2017-01-11 08:37] LABS: PROTHROMBIN TIME (PATIENT) 10.9 SECONDS (9.0-12.0)
== END ==
LOC: C.LABCC 08:09 → EDSTATUS 01-12 12:49
PROVIDERS: ATTEND Internal Medicine
DX: I82.409 Acute embolism and thrombosis of unspecified deep veins of unspecified lower extremity (principal); I26.99 Other pulmonary embolism without acute cor pulmonale; D64.9 Anemia, unspecified

== ENCOUNTER → 2017-01-17 | Outpatient (CLI) | payer OTHER, MEDICARE ==
[2017-01-17 12:23] LABS: HEMATOCRIT 38.8 % (37-47); MEAN CELL VOLUME 89.2 fL (80-100); MEAN CORPUSCULAR HEMOGLOBIN 26.9 pg (25-34); MEAN CORPUSCULAR HGB CONC 30.2 g/dl (32-36); MEAN PLATELET VOLUME 10.2 fL (7.4-10.4); PLATELET COUNT 185 K/uL (130-400); RED BLOOD COUNT 4.35 M/uL (4.2-5.4); WHITE BLOOD COUNT 9.84 K/uL (4.8-10.8)
== END ==
LOC: C.LABCC 14:53
PROVIDERS: ATTEND Internal Medicine
DX: D64.9 Anemia, unspecified (principal)

== ENCOUNTER → 2017-01-18 | Outpatient (CLI) | payer OTHER, MEDICARE ==
[2017-01-18 09:43] LABS: INR 1.5 (0.9-1.1); PROTHROMBIN TIME (PATIENT) 16.7 SECONDS (9.0-12.0)
== END ==
LOC: C.LABCC 08:14
PROVIDERS: ATTEND Internal Medicine
DX: Z86.711 Personal history of pulmonary embolism (principal)

== ENCOUNTER → 2017-01-19 | Outpatient (CLI) | payer OTHER, MEDICARE ==
[2017-01-19 12:47] LABS: ALKALINE PHOSPHATASE 44 U/L (45-117); ALT/SGPT 20 U/L (12-78); AST/SGOT 17 U/L (15-37); CHOLESTEROL 212 mg/dl (0-200); CHOLESTEROL/HDL RATIO 3.5; HDL CHOLESTEROL 60 mg/dl; LDL CHOLESTEROL CALCULATED 106 mg/dl; TRIGLYCERIDES 231 mg/dl (0-150); VERY LOW DENSITY LIPOPROT CALC 46 mg/dl
== END ==
LOC: C.LABCC 12:41
PROVIDERS: ATTEND Internal Medicine
DX: E78.5 Hyperlipidemia, unspecified (principal)

== ENCOUNTER → 2017-01-24 | Outpatient (CLI) | payer OTHER, MEDICARE ==
[2017-01-24 12:26] LABS: INR 3.1 (0.9-1.1); PROTHROMBIN TIME (PATIENT) 35.3 SECONDS (9.0-12.0)
== END ==
LOC: C.LABCC 15:36
PROVIDERS: ATTEND Internal Medicine
DX: Z86.718 Personal history of other venous thrombosis and embolism (principal)

== ENCOUNTER → 2017-01-26 | Outpatient (CLI) | payer OTHER, MEDICARE ==
[2017-01-26 09:48] LABS: ESTIMATED AVERAGE GLUCOSE 186 mg/dl; HA1C FLAG Normal (Normal)
== END ==
LOC: C.LABCC 08:14
PROVIDERS: ATTEND Internal Medicine
DX: E11.9 Type 2 diabetes mellitus without complications (principal)

== ENCOUNTER → 2017-02-01 | Outpatient (CLI) | payer OTHER, MEDICARE ==
[2017-02-01 08:48] LABS: INR 3.5 (0.9-1.1)
== END ==
LOC: C.LABCC 08:07
PROVIDERS: ATTEND Internal Medicine
DX: Z86.718 Personal history of other venous thrombosis and embolism (principal)

== ENCOUNTER → 2017-02-06 | Outpatient (CLI) | payer OTHER, MEDICARE ==
[2017-02-06 18:40] LABS: URINE APPEARANCE TURBID (CLEAR); URINE BILIRUBIN NEG (NEG); URINE COLOR YELLOW; URINE EPITHELIAL CELL AUTO >30 /lpf (0-5); URINE NITRITE NEG (NEG); UROBILINOGEN NEG (NEG)
[2017-02-06 18:41] LABS: MANUAL MICROSCOPIC REQUIRED? NO; REVIEW REQ? YES
== END | disposition home or self-care (01) ==
LOC: C.LABCC 17:27
PROVIDERS: ATTEND Internal Medicine
DX: R53.83 Other fatigue (principal); R50.9 Fever, unspecified

== ENCOUNTER → 2017-02-07 | Outpatient (CLI) | payer OTHER, MEDICARE ==
[2017-02-07 08:39] LABS: BASO % 0.6 %; BASO ABS # 0.04 K/uL (0-0.2); COMPLETE YES; EOS % 5.4 %; HEMATOCRIT 31.3 % (37-47); IG% 2.1 %; LYMPH % 20.3 %; LYMPH ABS # 1.46 K/uL (1.2-3.4); MEAN CORPUSCULAR HEMOGLOBIN 29.1 pg (25-34); MEAN CORPUSCULAR HGB CONC 31.9 g/dl (32-36); MEAN PLATELET VOLUME 9.8 fL (7.4-10.4); MONO % 13.2 %; NEUT % 58.4 %; PLATELET COUNT 186 K/uL (130-400); RED BLOOD COUNT 3.44 M/uL (4.2-5.4); WHITE BLOOD COUNT 7.19 K/uL (4.8-10.8)
[2017-02-07 08:46] LABS: BLOOD UREA NITROGEN 48 mg/dl (7-18); BUN/CREATININE RATIO 21.7 (10-20); CARBON DIOXIDE 29 mmol/L (21-32); CHLORIDE 95 mmol/L (98-107); GLUCOSE 169 mg/dl (70-99); POTASSIUM 3.7 mmol/L (3.5-5.1); SODIUM 135 mmol/L (136-145)
[2017-02-07 08:56] LABS: INR 3.8 (0.9-1.1); PROTHROMBIN TIME (PATIENT) 42.6 SECONDS (9.0-12.0)
[2017-02-07 09:01] LABS: CALCIUM 9.1 mg/dl (8.5-10.1)
== END ==
LOC: C.LABCC 08:07
PROVIDERS: ATTEND Internal Medicine
DX: D64.9 Anemia, unspecified (principal); Z86.718 Personal history of other venous thrombosis and embolism; R50.9 Fever, unspecified; R53.83 Other fatigue

== ENCOUNTER → 2017-02-08 | Outpatient (CLI) | payer OTHER, MEDICARE ==
[2017-02-08 09:21] LABS: BLOOD UREA NITROGEN 48 mg/dl (7-18); BUN/CREATININE RATIO 19.1 (10-20); CALCIUM 7.9 mg/dl (8.5-10.1); CARBON DIOXIDE 31 mmol/L (21-32); CHLORIDE 101 mmol/L (98-107); GLUCOSE 132 mg/dl (70-99); POTASSIUM 3.9 mmol/L (3.5-5.1); SODIUM 137 mmol/L (136-145)
== END | disposition home or self-care (01) ==
LOC: C.LABCC 07:58
PROVIDERS: ATTEND Internal Medicine
DX: N17.9 Acute kidney failure, unspecified (principal)

== ENCOUNTER → 2017-02-09 | Outpatient (CLI) | payer OTHER, MEDICARE ==
[2017-02-09 13:10] LABS: BLOOD UREA NITROGEN 39 mg/dl (7-18); BUN/CREATININE RATIO 14.5 (10-20); CARBON DIOXIDE 25 mmol/L (21-32); CHLORIDE 105 mmol/L (98-107); GLUCOSE 109 mg/dl (70-99); POTASSIUM 3.7 mmol/L (3.5-5.1); SODIUM 140 mmol/L (136-145)
[2017-02-09 13:14] LABS: CALCIUM 8.1 mg/dl (8.5-10.1)
== END | disposition home or self-care (01) ==
LOC: C.LABCC 12:52
PROVIDERS: ATTEND Internal Medicine
DX: N17.9 Acute kidney failure, unspecified (principal)

== ENCOUNTER → 2017-02-10 | Outpatient (CLI) | payer OTHER, MEDICARE ==
[2017-02-10 16:40] LABS: URINE APPEARANCE CLOUDY (CLEAR); URINE BILIRUBIN NEG (NEG); URINE COLOR YELLOW; URINE EPITHELIAL CELL AUTO >30 /lpf (0-5); URINE NITRITE NEG (NEG); URINE PH >= 9.0 (4.5-7.5); URINE SPECIFIC GRAVITY 1.011 (1.000-1.030); UROBILINOGEN NEG (NEG)
[2017-02-10 17:08] LABS: MANUAL MICROSCOPIC REQUIRED? NO; REVIEW REQ? YES; SULFASALICYLIC ACID POS (NEG)
== END ==
LOC: C.LABCC 08:05
PROVIDERS: ATTEND Internal Medicine
DX: R53.83 Other fatigue (principal); R50.9 Fever, unspecified

== ENCOUNTER → 2017-02-12 | Outpatient (CLI) | payer OTHER, MEDICARE ==
[2017-02-12 13:18] LABS: INR 2.5 (0.9-1.1); PROTHROMBIN TIME (PATIENT) 27.7 SECONDS (9.0-12.0)
[2017-02-12 14:04] LABS: BLOOD UREA NITROGEN 29 mg/dl (7-18); BUN/CREATININE RATIO 12.8 (10-20); CALCIUM 8.2 mg/dl (8.5-10.1); CARBON DIOXIDE 31 mmol/L (21-32); CHLORIDE 99 mmol/L (98-107); GLUCOSE 249 mg/dl (70-99); POTASSIUM 2.6 mmol/L (3.5-5.1); SODIUM 139 mmol/L (136-145)
== END ==
LOC: C.LABCC 12:19
PROVIDERS: ATTEND Internal Medicine
DX: Z86.711 Personal history of pulmonary embolism (principal); N17.9 Acute kidney failure, unspecified

== ENCOUNTER → 2017-02-13 | Outpatient (CLI) | payer OTHER, MEDICARE ==
[2017-02-13 09:16] LABS: BLOOD UREA NITROGEN 28 mg/dl (7-18); BUN/CREATININE RATIO 11.5 (10-20); CARBON DIOXIDE 29 mmol/L (21-32); CHLORIDE 99 mmol/L (98-107); GLUCOSE 122 mg/dl (70-99); MAGNESIUM 1.4 mg/dl (1.8-2.4); POTASSIUM 3.3 mmol/L (3.5-5.1); SODIUM 139 mmol/L (136-145)
[2017-02-13 10:14] LABS: CALCIUM 8.7 mg/dl (8.5-10.1)
== END ==
LOC: C.LABCC 08:12
PROVIDERS: ATTEND Internal Medicine
DX: N17.9 Acute kidney failure, unspecified (principal)

== ENCOUNTER → 2017-02-14 | Outpatient (CLI) | payer OTHER, MEDICARE ==
[2017-02-14 09:15] LABS: BLOOD UREA NITROGEN 29 mg/dl (7-18); BUN/CREATININE RATIO 13.9 (10-20); CARBON DIOXIDE 29 mmol/L (21-32); CHLORIDE 99 mmol/L (98-107); GLUCOSE 274 mg/dl (70-99); POTASSIUM 3.6 mmol/L (3.5-5.1); SODIUM 137 mmol/L (136-145)
[2017-02-14 09:18] LABS: CALCIUM 8.3 mg/dl (8.5-10.1)
== END ==
LOC: C.LABCC 07:56
PROVIDERS: ATTEND Internal Medicine
DX: N17.9 Acute kidney failure, unspecified (principal)

== ENCOUNTER → 2017-02-15 | Outpatient (CLI) | payer OTHER, MEDICARE ==
[2017-02-15 08:57] LABS: BLOOD UREA NITROGEN 26 mg/dl (7-18); BUN/CREATININE RATIO 13.2 (10-20); CARBON DIOXIDE 30 mmol/L (21-32); CHLORIDE 101 mmol/L (98-107); GLUCOSE 157 mg/dl (70-99); POTASSIUM 3.4 mmol/L (3.5-5.1); SODIUM 140 mmol/L (136-145)
[2017-02-15 09:16] LABS: CALCIUM 8.5 mg/dl (8.5-10.1)
== END ==
LOC: C.LABCC 07:47
PROVIDERS: ATTEND Internal Medicine
DX: N17.9 Acute kidney failure, unspecified (principal)

== ENCOUNTER → 2017-02-16 | Outpatient (CLI) | payer OTHER, MEDICARE ==
[2017-02-16 08:38] LABS: HEMATOCRIT 26.7 % (37-47); MEAN CELL VOLUME 90.2 fL (80-100); MEAN CORPUSCULAR HEMOGLOBIN 27.7 pg (25-34); MEAN CORPUSCULAR HGB CONC 30.7 g/dl (32-36); MEAN PLATELET VOLUME 9.6 fL (7.4-10.4); PLATELET COUNT 247 K/uL (130-400); RED BLOOD COUNT 2.96 M/uL (4.2-5.4); WHITE BLOOD COUNT 9.28 K/uL (4.8-10.8)
[2017-02-16 08:46] LABS: BLOOD UREA NITROGEN 26 mg/dl (7-18); BUN/CREATININE RATIO 13.6 (10-20); CALCIUM 8.7 mg/dl (8.5-10.1); CARBON DIOXIDE 30 mmol/L (21-32); CHLORIDE 99 mmol/L (98-107); GLUCOSE 159 mg/dl (70-99); POTASSIUM 3.1 mmol/L (3.5-5.1); SODIUM 139 mmol/L (136-145)
== END ==
LOC: C.LABCC 07:49
PROVIDERS: ATTEND Internal Medicine
DX: N17.9 Acute kidney failure, unspecified (principal); D64.9 Anemia, unspecified

== ENCOUNTER 2017-02-19 22:03 | Inpatient (IN) | payer OTHER, MEDICARE ==
[~2017-02-19] VITALS: Ht 147.3 cm; Wt 86.1 kg
[~2017-02-19 22:03] MED LIST changes: -GABA800T PO; -LORA-741 PO; -ROSU40TA PO; -RXNS5 PO; -SCOP1.5D2 TD; -WARF2TAB PO
[2017-02-19] MEDS ORDERED: ROSU40TA PO (22:50)
[2017-02-19] MEDS ORDERED: WARF2TAB PO (22:50)
[2017-02-19] MEDS ORDERED: GABA800T PO (22:50)
[2017-02-19 23:46] LABS: URINE APPEARANCE TURBID (CLEAR); URINE BILIRUBIN NEG (NEG); URINE NITRITE NEG (NEG); URINE PH 5.5 (4.5-7.5); URINE SPECIFIC GRAVITY >= 1.030 (1.000-1.030); UROBILINOGEN NEG (NEG)
[2017-02-19 23:49] LABS: MANUAL MICROSCOPIC REQUIRED? NO; REVIEW REQ? NO
[2017-02-19 23:51] LABS: ZZURINE CULT IF INDIC CATH YES
[2017-02-20] VITALS (10 sets, daily range): BP systolic 71–163; BP diastolic 68–77; PULSE 81–96; TEMP 36.7–37.2; O2SAT 93–97; BMI 38.7
[2017-02-20 00:09] LABS: BASO % 0.6 %; BASO ABS # 0.05 K/uL (0-0.2); EOS % 5.4 %; HEMATOCRIT 28.9 % (37-47); IG% 1.7 %; LYMPH % 21.8 %; LYMPH ABS # 1.97 K/uL (1.2-3.4); MEAN CELL VOLUME 91.7 fL (80-100); MEAN CORPUSCULAR HEMOGLOBIN 27.9 pg (25-34); MEAN CORPUSCULAR HGB CONC 30.4 g/dl (32-36); MEAN PLATELET VOLUME 9.1 fL (7.4-10.4); MONO % 9.3 %; NEUT % 61.2 %; PLATELET COUNT 293 K/uL (130-400); RED BLOOD COUNT 3.15 M/uL (4.2-5.4); WHITE BLOOD COUNT 9.04 K/uL (4.8-10.8)
[2017-02-20] MEDS ORDERED: AZTREONAM IV 2,000 MG in DEXTROSE 5% 100ML 100 ML IV STA (00:14)
[2017-02-20 00:20] LABS: INR 2.2 (0.9-1.1); PARTIAL THROMBOPLASTIN RATIO 1.5
--- NOTE | 2017-02-20 00:23 | EMERGENCY ROOM VISIT NOTE ---
History Report prepared by Cyndi: Lex Marshall Under the Supervision of: Dr. Víctor Lopez M.D. First contact with patient: 23:02 Chief Complaint: ALTERED MENTAL STATUS Stated Complaint: AMS Nursing Triage Summary: Patient arrives to ED via ALS transport from [facility] after patient was found to be more increasingly confused. Patient spoke to son at 2pm today and was reportedly speaking and acting normally. Daughter talked to her at 7pm and felt that she was extremely confused. Patient's daughter also notes that patient gets chronic UTIs and is very confused with UTI. Patient just finished abx for UTI yesterday. Patient has periods of confusion, this episode was worse. Patient had near syncopal episode approx. 1 hour TREATER. Patient is alert and oriented to person. Patient also had tarry stool sample on sunday at [facility]. History of Present Illness The patient is a 86 year old female who presents to the Emergency Room with complaints of a persistent altered mental status beginning about 8 hours ago. She is a resident at [facility] and is reported to have been having increased confusion over the past few years. The patient was recently treated for a UTI and black, bloody stools. She finished her UTI treatment a few days ago. Her hemoglobin was found to be 8.2 recently. The patient denies any nausea, SOB, or vomiting. She is on Coumadin for a previous PE. She is on supplemental oxygen at all times. Per nursing staff, the patient's family visited her today and thought that she appeared to have acutely increased confusion. They state that the patient appears to still have dark, bloody stools. Per daughter, the patient has no had any reported falls or trauma recently. HPI limited secondary to altered mental status. On 02/10/17, the patient had proteus mirabilis grow out of a straight cath that was farrell-sensitive other than to fluoroquinolones. She had a farrell-sensitive E. Coli UTI in November. She had a poly-resistant E. Coli UTI in October that was susceptible to Bactrim, some cephalosporins, Imipenem, Gent, and Macrobid. Source of History: patient, family (daughter), nursing staff History Limited By: AMS Onset: about 8 hours ago Quality: other (altered mental status) Timing: other (persistent) Associated Symptoms: + melena, No nausea, No vomiting Review of Systems ROS limited secondary to altered mental status. Past Medical & Surgical Medical Problems: (1) Acute metabolic encephalopathy (2) Anticoagulated on warfarin (3) Benign hypertension (4) Breast mass (5) Cerebrovascular disease (6) Chronic respiratory failure (7) COPD (chronic obstructive pulmonary disease) (8) Crohn's disease (9) Depressive disorder (10) Diabetes mellitus type 2 (11) Diabetic neuropathy (12) Dyslipidemia (13) History of pulmonary embolism (14) Hypercoagulable state (15) Obstructive sleep apnea syndrome (16) Panic disorder (17) Pneumonia (18) Polymyalgia rheumatica (19) Pulmonary nodules (20) Supratherapeutic INR (21) Urinary tract infection (22) UTI (urinary tract infection) Surgical Problems: (1) Status post appendectomy (2) Status post hip replacement (3) Status post hysterectomy (4) Status post partial colectomy Family History FH: breast cancer DAUGHTER FH: coronary artery disease FATHER FH: diabetes mellitus FATHER MOTHER BROTHER BROTHER FH: lung cancer FATHER FH: stroke FATHER MOTHER Social History Smoking Status: Former Smoker Alcohol Use: none Drug Use: none Marital Status: Housing Status: lives with family Occupation Status: retired Current/Historical Medications Scheduled Aspirin (Aspirin Ec), 81 MG PO DAILY Buspirone HCl (Buspirone HCl), 5 MG PO QAM Citalopram Hydrobromide (Citalopram Hydrobromide), 20 MG PO DAILY Docusate Sodium (Colace), 100 MG PO BID Ferrous Sulfate (Ferrous Sulfate), 325 MG PO BIDM Folic Acid (Folvite), 1 MG PO DAILY Furosemide (Lasix), 40 MG PO BID Gabapentin (Neurontin), 400 MG PO QAM Gabapentin (Neurontin), 800 MG PO HS Insulin Aspart (Novolog Flexpen), 15 UNITS SC BID Insulin Detemir (Levemir), 30 UNITS SC QAM Insulin Detemir (Levemir), 20 UNITS SC PM Loratadine (Claritin), 10 MG PO DAILY Losartan Potassium (Cozaar), 50 MG PO DAILY Metolazone (Zaroxolyn), 2.5 MG PO QAM Nitroglycerin (Nitrostat), 0.4 MG UT PRN Omeprazole (Prilosec), 20 MG PO QAM Potassium Chloride (Micro-K Ext Rel), 40 MEQ PO TID Prednisone (Prednisone), 10 MG PO DAILY Rosuvastatin Calcium (Crestor), 40 MG PO HS Tamoxifen (Nolvadex), 20 MG PO DAILY Tobramycin/Dexamethasone 0.3% Oph (Tobradex 0.3% Oph), 2 DROPS OPB BID Warfarin Sodium (Coumadin), 2 MG PO QPM Scheduled PRN Acetaminophen (Tylenol), 650 MG PO Q6 PRN for Mild Pain Albuterol Sulf (Proventil 0.083% 2.5MG/3ML), 2.5 MG INH Q4 PRN for SOB/Wheezing Aluminum/Magnesium/Simeth (Maalox Max Susp), 30 ML PO Q6 PRN for Gas or Constipation Insulin Aspart (Novolog Flexpen), 8-18 UNITS SC UD PRN for SLIDING SCALE Oxycodone Immediate Rel Tab (Roxicodone Ir), 5 MG PO Q8 PRN for Moderate Pain Oxycodone Ir (Roxicodone Ir), 10 MG PO Q8 PRN for Severe Pain Allergies Coded Allergies: Ibuprofen (Verified Allergy, Severe, ANAPHYLAXIS, 05/23/16) Amoxicillin (Verified Allergy, Mild, URTICARIA-HAS TOLERATED ZOSYN PREV ADM., 05/23/16) Noted at [facility] 12/07/10 Has tolerated Zosyn on previous admissions Aspartame (Unverified Allergy, Mild, HIVES, 05/23/16) Cephalexin (Unverified Allergy, Mild, HIVES, 05/23/16) Clavulanic Acid (Verified Allergy, Mild, urticaria-HAS TOLERATED ZOSYN PREV ADM., 05/23/16) Noted at [facility] 12/07/10 Cephalosporins (Verified Allergy, Unknown, HAS TOLERATED CEFTRIAXONE, CEFEPIME, 05/23/16) 05/14/12 - PATIENT DENIES EVER HAVING A REACTION TO OR TAKING ANY CEPHALOSPORINS Codeine (Verified Allergy, Unknown, 05/23/16) Cromolyn (Verified Allergy, Unknown, 05/23/16) Morphine and Related (Verified Allergy, Unknown, Unknown, 05/23/16) Naproxen (Verified Allergy, Unknown, ANAPHYLAXIS, 05/23/16) Penicillins (Verified Allergy, Unknown, Unknown, 05/23/16) Sulfa Antibiotics (Verified Allergy, Unknown, 05/14/12 - STATES THAT SHE IS UNABLE TO TOLERATE ANY SULFA, 05/23/16) 05/14/12 - STATES THAT SHE IS UNABLE TO TOLERATE ANY SULFA DRUGS Quinolones (Verified Adverse Reaction, Mild, NAUSEA, 05/23/16) PER DR. GARCIA - SPOKE W PT WHO SAID SHE HAD CIPRO FOR UTI A "LONG TIME AGO". REACTION WAS NAUSEA. I CONFIRMED ADMINISTREATION HX WITH OUR RECORDS - ADMIN 06/19/08. THEREFORE PT LIKELY ABLE TO TOLERATE CIPRO. Physical Exam Vital Signs Date Time Temp Pulse Resp B/P (MAP) Pulse Ox O2 Delivery O2 Flow Rate FiO2 02/20/17 01:42 99 20 123/75 94 Nasal Cannula 4.0 02/20/17 00:25 98 20 94 Nasal Cannula 4.0 02/19/17 23:24 37.3 02/19/17 22:49 Nasal Cannula 4.0 02/19/17 22:11 37.3 90 19 141/75 96 Nasal Cannula 4.0 02/19/17 22:11 89 Physical Exam GENERAL: Patient is moderately confused, elderly appearing. HEENT: No acute trauma, normocephalic atraumatic, mucous membranes moist, no nasal congestion, no scleral icterus. NECK: No stridor, no adenopathy, no meningismus, trachea is midline. LUNGS: No dyspnea. No wheeze, no rhonchi. Course breath sound bilaterally. HEART: Regular rate and rhythm. No murmurs, rubs, gallops appreciated. ABDOMEN: Soft, nontender, bowel sounds positive, no masses appreciated, no peritonitis. BACK: No midline tenderness, no CVA tenderness RECTAL: Dark black, tarry, heme positive diarrhea noted. EXTREMITIES: Normal motion all extremities, no cyanosis. Bilateral leg edema. Minimally pitting. NEUROLOGIC: Alert and oriented, no acute motor or sensory deficits, no focal weakness, cranial nerves grossly intact. SKIN: No rash, no jaundice, no diaphoresis. Medical Decision & Procedures ER Provider Diagnostic Interpretation: One View Chest X-ray interpreted by me: Diffuse emphysematous scarring. Questionable mass vs infectious left lower pericardiac. Scattered nodules throughout. Laboratory Results 02/19/17 23:50 Red Blood Count 3.15, Mean Corpuscular Volume 91.7, Mean Corpuscular Hemoglobin 27.9, Mean Corpuscular Hemoglobin Concent 30.4, Mean Platelet Volume 9.1, Neutrophils (%) (Auto) 61.2, Lymphocytes (%) (Auto) 21.8, Monocytes (%) (Auto) 9.3, Eosinophils (%) (Auto) 5.4, Basophils (%) (Auto) 0.6, Neutrophils # (Auto) 5.54, Lymphocytes # (Auto) 1.97, Monocytes # (Auto) 0.84, Eosinophils # (Auto) 0.49, Basophils # (Auto) 0.05 02/19/17 23:50 02/20/17 01:20 Test 02/19/17 23:15 02/19/17 23:50 02/20/17 01:26 Urine Color WHITE Urine Appearance TURBID (CLEAR) Urine pH 5.5 (4.5-7.5) Urine Specific Belden >= 1.030 (1.000-1.030) Urine Protein 1+ (NEG) Urine Glucose (UA) NEG (NEG) Urine Ketones 1+ (NEG) Urine Occult Blood 2+ (NEG) Urine Nitrite NEG (NEG) Urine Bilirubin NEG (NEG) Urine Urobilinogen NEG (NEG) Urine Leukocyte Esterase NEG (NEG) White Blood Count 9.04 K/uL (4.8-10.8) Red Blood Count 3.15 M/uL (4.2-5.4) Hemoglobin 8.8 g/dL (12.0-16.0) Hematocrit 28.9 % (37-47) Mean Corpuscular Volume 91.7 fL (80-100) Mean Corpuscular Hemoglobin 27.9 pg (25-34) Mean Corpuscular Hemoglobin Concent 30.4 g/dl (32-36) Platelet Count 293 K/uL (130-400) Mean Platelet Volume 9.1 fL (7.4-10.4) Neutrophils (%) (Auto) 61.2 % Lymphocytes (%) (Auto) 21.8 % Monocytes (%) (Auto) 9.3 % Eosinophils (%) (Auto) 5.4 % Basophils (%) (Auto) 0.6 % Neutrophils # (Auto) 5.54 K/uL (1.4-6.5) Lymphocytes # (Auto) 1.97 K/uL (1.2-3.4) Monocytes # (Auto) 0.84 K/uL (0.11-0.59) Eosinophils # (Auto) 0.49 K/uL (0-0.5) Basophils # (Auto) 0.05 K/uL (0-0.2) RDW Standard Deviation 62.7 fL (36.4-46.3) RDW Coefficient of Variation 18.8 % (11.5-14.5) Immature Granulocyte % (Auto) 1.7 % Immature Granulocyte # (Auto) 0.15 K/uL (0.00-0.02) Nucleated RBC Absolute Count (auto) 0.02 K/uL (0-0) Nucleated Red Blood Cells % 0.3 % Polychromasia 1+ Anisocytosis PRESENT Spherocytes OCCASIONAL Prothrombin Time 24.0 SECONDS (9.0-12.0) Prothromb Time International Ratio 2.2 (0.9-1.1) Activated Partial Thromboplast Time 38.3 SECONDS (21.0-31.0) Partial Thromboplastin Ratio 1.5 Est Creatinine Clear Calc Drug Dose 27.1 ml/min Estimated GFR () 36.7 Estimated GFR (Non- 31.7 BUN/Creatinine Ratio 10.2 (10-20) Calcium Level 8.8 mg/dl (8.5-10.1) Total Bilirubin 0.2 mg/dl (0.2-1) Aspartate Amino Transf (AST/SGOT) 14 U/L (15-37) Alanine Aminotransferase (ALT/SGPT) 14 U/L (12-78) Alkaline Phosphatase 55 U/L (45-117) Total Creatine Kinase 23 U/L (26-192) Troponin I < 0.015 ng/ml (0-0.045) Total Protein 6.2 gm/dl (6.4-8.2) Albumin 2.3 gm/dl (3.4-5.0) Globulin 3.9 gm/dl (2.5-4.0) Albumin/Globulin Ratio 0.6 (0.9-2) Thyroid Stimulating Hormone (TSH) 2.570 uIu/ml (0.300-4.500) Bedside Hemoglobin 8.5 g/dl (12.0-16.0) Bedside Hematocrit 25 % (37-47) Bedside Sodium 135 mEq/L (135-144) Bedside Potassium 5.5 mEq/L (3.3-5.0) Bedside Chloride 104 mEq/L (101-112) Bedside Total CO2 26 mEq/l (24-31) Anion Gap 13.0 mmol/L (16-25) Bedside Blood Urea Nitrogen 15 mg/dl (7-18) Bedside Creatinine 1.3 mg/dl (0.6-1.3) Bedside Glucose (other) 192 mg/dl (70-99) Bedside Ionized Calcium (Gayla) 1.21 mmol/l (1.12-1.32) Date/Time Source Procedure Growth Status 02/19/17 23:15 Stool C.difficile Toxin B Gene (PCR) - Final No C. difficile toxin B gene detected Complete Laboratory results as reviewed by me. Medications Administered Medications (Trade) Dose Ordered Sig/Rea Route Start Time Stop Time Status Last Admin Dose Admin Aztreonam 2000 mg/ Dextrose 110 ml @ 100 mls/hr NOW STAT IV 02/20/17 00:14 02/20/17 01:19 DC 02/20/17 00:38 100 MLS/HR ECG Indication: altered mental status Rate (beats per minute): 89 Rhythm: normal sinus Findings: 1st degree AV block, Q waves (Septal), no ectopy, other (QTC 450) ED Course 2305: The patient was evaluated in room C8. A complete history and physical exam was performed. Patient's urine cath appeared very pus-like in nature. 2345: I spoke with pharmacy who agrees with the treatment. 0014: Ordered Aztreonam 2000 mg/Dextrose 110 mL @ 100 mL/hr IV. 0015: Upon reevaluation, the patient is resting comfortably. Discussed results and treatment plan with the patient. She verbalized understanding and agreement with the treatment plan. The patient will be evaluated for further management. Medical Decision Differential: Toxicological, Infectious, Stroke, SAH, Trauma, Electrolyte Abnormality, Hypoglycemia, Alcohol Intoxication, Drug Intoxication, Cardiac Abnormality, Sepsis, Meningitis/Encephalitis, Trauma, Excited Delirium, Serotonin Syndrome, Psychiatric, amongst other pathologies entertained. 86 [facility] for worsening mental status. Recent treatment for UTI. She has pustulant urine on straight cath. Per daughter she is off from her baseline though she is current awake and without complaint. Abdominal exam benign. Lungs chronically poor. Questionable lower left infiltrate though no hypoxia on normal NC. Clearly has UTI. Also has GI bleed though stable hgb. Will hold on Protonix for now given her recent GI bleed with unremarkable scopes per daughter. Mildly bumped K which likely dehydration. Hospitalist will order gentle hydration. Stable without evidence of sepsis at this time. Aztreonam for uti given recent susceptibilities and her allergy restrictions. Consults Time Called: 7 Consulting Physician: Dr. Kaur -[id number] Returned Call: 14 Discussed the patient's case. The patient will be evaluated for further treatment and disposition. Impression Primary Impression: Altered mental status Additional Impressions: UTI (urinary tract infection) GI bleed Scribe Attestation The scribe's documentation has been prepared under my direction and personally reviewed by me in its entirety. I confirm that the note above accurately reflects all work, treatment, procedures, and medical decision making performed by me. Departure Information Dispostion Being Evaluated By Hospitalist Referrals No Doctor, Assigned (PCP) Patient Instructions My [facility] Problem Qualifiers
[2017-02-20 00:29] LABS: ALT/SGPT 14 U/L (12-78); BLOOD UREA NITROGEN 15 mg/dl (7-18); BUN/CREATININE RATIO 10.2 (10-20); CALCIUM 8.8 mg/dl (8.5-10.1); CARBON DIOXIDE 24 mmol/L (21-32); CHLORIDE 106 mmol/L (98-107); GLUCOSE 179 mg/dl (70-99); SODIUM 137 mmol/L (136-145)
[2017-02-20 00:45] LABS: ANISOCYTOSIS PRESENT; COMPLETE YES; POLYCHROMASIA 1+; SPHEROCYTE OCCASIONAL
[2017-02-20 00:47] LABS: ALB/GLOB RATIO 0.6 (0.9-2); ALKALINE PHOSPHATASE 55 U/L (45-117); AST/SGOT 14 U/L (15-37)
[2017-02-20 01:39] LABS: ISTAT CREATININE 1.3 mg/dl (0.6-1.3); ISTAT HEMOGLOBIN 8.5 g/dl (12.0-16.0); ISTAT IONIZED CALCIUM 1.21 mmol/l (1.12-1.32)
[2017-02-20] MEDS ORDERED: ACETAMINOPHEN 325 MG TAB PO PRN (02:15)
[2017-02-20] MEDS ORDERED: GLUCOSE 10 TABS/TUBE PO PRN (02:15)
[2017-02-20] MEDS ORDERED: GLUCAGON FOR INJ 1 MG VIAL SQ PRN (02:15)
[2017-02-20] MEDS ORDERED: ALUMINUM/MAGNESIUM/SIMETH (MAALOX MAX) 30 ML UDC PO PRN (02:15)
[2017-02-20] MEDS ORDERED: ONDANSETRON INJ 2 MG/ML 2 ML VIAL IV PRN (02:15)
[2017-02-20] MEDS ORDERED: DEXTROSE 50% 50 ML SYR IV PRN (02:15)
[2017-02-20] MEDS ORDERED: GLUCOSE 40% GEL 15 GM TUBE PO PRN (02:15)
--- NOTE | 2017-02-20 02:30 | History and Physical ---
History & Physical Date & Time of Service: Feb 20, 2017 at 02:12 Chief Complaint: AMS Primary Care Physician: Vish Milan M.D. History of Present Illness Source: patient, family The patient is an 86-year-old female resident of [facility] with recent UTIs by Escherichia coli and Proteus, who presents to the emergency department with altered mental status that began about 8 hours prior to arrival. She finished her most recent treatment a few days ago. She has also had a recent issue with dark stools and a low hemoglobin of 8.2, but had a negative workup for GI bleed. She presently is on Coumadin for a PE, and is chronically on 4 L nasal cannula O2. She is brought to the emergency department after being seen by a family member today who thought that she had become acutely worsened mental status. The patient herself is able to contribute in a limited manner to her history of present illness, and most information is provided by her daughter due to the patient's altered mental status. Past Medical/Surgical History Medical Problems: (1) Anticoagulated on warfarin Status: Chronic (2) Benign hypertension Status: Chronic (3) Breast mass Permanent Comment: noted on CT 04/21/14 Status: Chronic (4) Cerebrovascular disease Permanent Comment: s/p stroke Status: Chronic (5) Chronic respiratory failure Permanent Comment: home O2 3 LPM Status: Chronic (6) COPD (chronic obstructive pulmonary disease) Permanent Comment: severe Status: Chronic (7) Crohn's disease Status: Chronic (8) Depressive disorder Status: Chronic (9) Diabetes mellitus type 2 Status: Chronic (10) Diabetic neuropathy Status: Chronic (11) Dyslipidemia Status: Chronic (12) History of pulmonary embolism Status: Chronic (13) Hypercoagulable state Permanent Comment: homozygous MTHFR Status: Chronic (14) Obstructive sleep apnea syndrome Status: Chronic (15) Panic disorder Status: Chronic (16) Polymyalgia rheumatica Status: Chronic (17) Pulmonary nodules Permanent Comment: (stable per CT 06/11/12 --> 04/21/14) Status: Chronic (18) Urinary tract infection Status: Resolved Surgical Problems: (1) Status post appendectomy Status: Chronic (2) Status post hip replacement Permanent Comment: left [facility] Dr. Martines 2012 Status: Chronic (3) Status post hysterectomy Status: Chronic (4) Status post partial colectomy Permanent Comment: diverticulitis Status: Chronic Family History FH: breast cancer DAUGHTER FH: coronary artery disease FATHER FH: diabetes mellitus FATHER MOTHER BROTHER BROTHER FH: lung cancer FATHER FH: stroke FATHER MOTHER Social History Smoking Status: Former Smoker Drug Use: none Marital Status: Housing status: fdc Occupational Status: retired Immunizations History of Influenza Vaccine: Yes History of Tetanus Vaccine?: Yes Tetanus Immunization Date: Oct 25, 2012 History of Pneumococcal: Yes Pneumococcal Date: Nov 16, 2014 History of Hepatitis B Vaccine: No Multi-Drug Resistant Organisms History of MDRO: No Allergies Coded Allergies: Ibuprofen (Verified Allergy, Severe, ANAPHYLAXIS, 05/23/16) Amoxicillin (Verified Allergy, Mild, URTICARIA-HAS TOLERATED ZOSYN PREV ADM., 05/23/16) Noted at [facility] 12/07/10 Has tolerated Zosyn on previous admissions Aspartame (Unverified Allergy, Mild, HIVES, 05/23/16) Cephalexin (Unverified Allergy, Mild, HIVES, 05/23/16) Clavulanic Acid (Verified Allergy, Mild, urticaria-HAS TOLERATED ZOSYN PREV ADM., 05/23/16) Noted at [facility] 12/07/10 Cephalosporins (Verified Allergy, Unknown, HAS TOLERATED CEFTRIAXONE, CEFEPIME, 05/23/16) 05/14/12 - PATIENT DENIES EVER HAVING A REACTION TO OR TAKING ANY CEPHALOSPORINS Codeine (Verified Allergy, Unknown, 05/23/16) Cromolyn (Verified Allergy, Unknown, 05/23/16) Morphine and Related (Verified Allergy, Unknown, Unknown, 05/23/16) Naproxen (Verified Allergy, Unknown, ANAPHYLAXIS, 05/23/16) Penicillins (Verified Allergy, Unknown, Unknown, 05/23/16) Sulfa Antibiotics (Verified Allergy, Unknown, 05/14/12 - STATES THAT SHE IS UNABLE TO TOLERATE ANY SULFA, 05/23/16) 05/14/12 - STATES THAT SHE IS UNABLE TO TOLERATE ANY SULFA DRUGS Quinolones (Verified Adverse Reaction, Mild, NAUSEA, 05/23/16) PER DR. GARCIA - SPOKE W PT WHO SAID SHE HAD CIPRO FOR UTI A "LONG TIME AGO". REACTION WAS NAUSEA. I CONFIRMED ADMINISTREATION HX WITH OUR RECORDS - ADMIN 06/19/08. THEREFORE PT LIKELY ABLE TO TOLERATE CIPRO. Home Medications Scheduled Aspirin (Aspirin Ec), 81 MG PO DAILY Buspirone HCl (Buspirone HCl), 5 MG PO QAM Citalopram Hydrobromide (Citalopram Hydrobromide), 20 MG PO DAILY Docusate Sodium (Colace), 100 MG PO BID Ferrous Sulfate (Ferrous Sulfate), 325 MG PO BIDM Folic Acid (Folvite), 1 MG PO DAILY Furosemide (Lasix), 40 MG PO BID Gabapentin (Neurontin), 400 MG PO QAM Gabapentin (Neurontin), 800 MG PO HS Insulin Aspart (Novolog Flexpen), 15 UNITS SC BID Insulin Detemir (Levemir), 30 UNITS SC QAM Insulin Detemir (Levemir), 20 UNITS SC PM Loratadine (Claritin), 10 MG PO DAILY Losartan Potassium (Cozaar), 50 MG PO DAILY Metolazone (Zaroxolyn), 2.5 MG PO QAM Nitroglycerin (Nitrostat), 0.4 MG UT PRN Omeprazole (Prilosec), 20 MG PO QAM Potassium Chloride (Micro-K Ext Rel), 40 MEQ PO TID Prednisone (Prednisone), 10 MG PO DAILY Rosuvastatin Calcium (Crestor), 40 MG PO HS Tamoxifen (Nolvadex), 20 MG PO DAILY Tobramycin/Dexamethasone 0.3% Oph (Tobradex 0.3% Oph), 2 DROPS OPB BID Warfarin Sodium (Coumadin), 2 MG PO QPM Scheduled PRN Acetaminophen (Tylenol), 650 MG PO Q6 PRN for Mild Pain Albuterol Sulf (Proventil 0.083% 2.5MG/3ML), 2.5 MG INH Q4 PRN for SOB/Wheezing Aluminum/Magnesium/Simeth (Maalox Max Susp), 30 ML PO Q6 PRN for Gas or Constipation Insulin Aspart (Novolog Flexpen), 8-18 UNITS SC UD PRN for SLIDING SCALE Oxycodone Immediate Rel Tab (Roxicodone Ir), 5 MG PO Q8 PRN for Moderate Pain Oxycodone Ir (Roxicodone Ir), 10 MG PO Q8 PRN for Severe Pain Review of Systems The patient, as told by her daughter, has not had any chest pain, palpitations, change in shortness of breath, cough, lower extremity swelling, sore throat, fevers, chills, sweats, nausea, vomiting, abdominal pain, pelvic pain, rash, focal weakness in arms or legs, or night sweats. The review of systems is otherwise negative other than for that already noted above, and at least 10 systems have been reviewed. Physical Exam Vital Signs Date Time Temp Pulse Resp B/P (MAP) Pulse Ox O2 Delivery O2 Flow Rate FiO2 02/20/17 02:05 100 02/20/17 01:42 99 20 123/75 94 Nasal Cannula 4.0 02/20/17 00:25 98 20 94 Nasal Cannula 4.0 02/19/17 23:24 37.3 02/19/17 22:49 Nasal Cannula 4.0 02/19/17 22:11 37.3 90 19 141/75 96 Nasal Cannula 4.0 02/19/17 22:11 89 The patient is awake, alert and oriented 1, has a washcloth over her left eye, lying in bed and in no acute distress. HEENT--PERRL, EOMI, mucous membranes and oropharynx dry. Neck--supple, no JVD or bruits, thyroid normal, trachea midline, no adenopathy. Heart--normal S1 and S2, no extra beats, no murmurs, rubs or gallops. Lungs--coarse breath sounds and wheezes bilaterally, no respiratory distress, no accessory muscle use. Abdomen--normal bowel sounds and soft, nontender and nondistended, no hernias or masses, no organomegaly. Extremities--no cyanosis, clubbing or edema. There are good distal pulses b/l. Dermatologic--normal skin turgor, normal color, warm and dry, no rash. Neurologic--cranial nerves II through XII grossly intact. Rheumatologic--exam is limited. Psychiatric--normal affect. Diagnostics Laboratory Results Results Past 24 Hours Test 02/19/17 23:15 02/19/17 23:50 02/20/17 01:20 02/20/17 01:26 Range/Units Urine Color WHITE Urine Appearance TURBID CLEAR Urine pH 5.5 4.5-7.5 Urine Specific [place] >= 1.030 1.000-1.030 Urine Protein 1+ NEG Urine Glucose (UA) NEG NEG Urine Ketones 1+ NEG Urine Occult Blood 2+ NEG Urine Nitrite NEG NEG Urine Bilirubin NEG NEG Urine Urobilinogen NEG NEG Urine Leukocyte Esterase NEG NEG White Blood Count 9.04 4.8-10.8 K/uL Red Blood Count 3.15 4.2-5.4 M/uL Hemoglobin 8.8 12.0-16.0 g/dL Hematocrit 28.9 37-47 % Mean Corpuscular Volume 91.7 80-100 fL Mean Corpuscular Hemoglobin 27.9 25-34 pg Mean Corpuscular Hemoglobin Concent 30.4 32-36 g/dl Platelet Count 293 130-400 K/uL Mean Platelet Volume 9.1 7.4-10.4 fL Neutrophils (%) (Auto) 61.2 % Lymphocytes (%) (Auto) 21.8 % Monocytes (%) (Auto) 9.3 % Eosinophils (%) (Auto) 5.4 % Basophils (%) (Auto) 0.6 % Neutrophils # (Auto) 5.54 1.4-6.5 K/uL Lymphocytes # (Auto) 1.97 1.2-3.4 K/uL Monocytes # (Auto) 0.84 0.11-0.59 K/uL Eosinophils # (Auto) 0.49 0-0.5 K/uL Basophils # (Auto) 0.05 0-0.2 K/uL RDW Standard Deviation 62.7 36.4-46.3 fL RDW Coefficient of Variation 18.8 11.5-14.5 % Immature Granulocyte % (Auto) 1.7 % Immature Granulocyte # (Auto) 0.15 0.00-0.02 K/uL Nucleated RBC Absolute Count (auto) 0.02 0-0 K/uL Nucleated Red Blood Cells % 0.3 % Polychromasia 1+ Anisocytosis PRESENT Spherocytes OCCASIONAL Prothrombin Time 24.0 9.0-12.0 SECONDS Prothromb Time International Ratio 2.2 0.9-1.1 Activated Partial Thromboplast Time 38.3 21.0-31.0 SECONDS Partial Thromboplastin Ratio 1.5 Sodium Level 137 136-145 mmol/L Potassium Level 6.0 5.5 3.5-5.1 mmol/L Chloride Level 106 98-107 mmol/L Carbon Dioxide Level 24 21-32 mmol/L Anion Gap 7.0 13.0 16-25 mmol/L Blood Urea Nitrogen 15 7-18 mg/dl Creatinine 1.50 0.60-1.20 mg/dl Est Creatinine Clear Calc Drug Dose 27.1 ml/min Estimated GFR () 36.7 Estimated GFR (Non- 31.7 BUN/Creatinine Ratio 10.2 10-20 Random Glucose 179 70-99 mg/dl Calcium Level 8.8 8.5-10.1 mg/dl Total Bilirubin 0.2 0.2-1 mg/dl Aspartate Amino Transf (AST/SGOT) 14 15-37 U/L Alanine Aminotransferase (ALT/SGPT) 14 12-78 U/L Alkaline Phosphatase 55 45-117 U/L Total Creatine Kinase 23 26-192 U/L Troponin I < 0.015 0-0.045 ng/ml Total Protein 6.2 6.4-8.2 gm/dl Albumin 2.3 3.4-5.0 gm/dl Globulin 3.9 2.5-4.0 gm/dl Albumin/Globulin Ratio 0.6 0.9-2 Thyroid Stimulating Hormone (TSH) 2.570 0.300-4.500 uIu/ml Bedside Hemoglobin 8.5 12.0-16.0 g/dl Bedside Hematocrit 25 37-47 % Bedside Sodium 135 135-144 mEq/L Bedside Potassium 5.5 3.3-5.0 mEq/L Bedside Chloride 104 101-112 mEq/L Bedside Total CO2 26 24-31 mEq/l Bedside Blood Urea Nitrogen 15 7-18 mg/dl Bedside Creatinine 1.3 0.6-1.3 mg/dl Bedside Glucose (other) 192 70-99 mg/dl Bedside Ionized Calcium (Gayla) 1.21 1.12-1.32 mmol/l Microbiology Results 02/19/17 C.difficile Toxin B Gene (PCR) - Final, Complete No C. difficile toxin B gene detected 02/19/17 Urine Culture, Received Pending EKG EKG shows normal sinus rhythm at 89 bpm, first-degree heart block, PACs, left axis deviation, old septal MO, old inferior MO Impression Assessment and Plan UTI/SIRS/altered mental status--the patient has been treated for 2 recent UTIs, one due to Escherichia coli and the other due to Proteus. She is allergic to cephalosporins and penicillins, and review of previous sensitivities, she'll be placed on aztreonam 2000 mg IV every 8 hours, and normal saline at 75 ML's per hour. We'll follow urine culture and sensitivity reports. Anemia/GI bleed--she has undergone recent evaluation which reportedly was negative. We'll hold her anticoagulation antiplatelet agents at this point, keep her primarily nothing by mouth except essential medications. Upper respiratory infection--place on vancomycin and aztreonam, continue nebulizers. Diabetes mellitus--change Levemir from 30 units subcutaneous every morning and 20 units subcutaneous every afternoon to 10 units subcutaneous twice a day, place on Accu-Cheks before meals and at bedtime with NovoLog coverage. Hold routine NovoLog 15 units subcutaneous twice a day. CAD/Hypertension--hold aspirin, furosemide, losartan, Zaroxolyn, potassium chloride. PE--hold warfarin for now until hemoglobin is stabilized. Peripheral neuropathy--continue gabapentin. Chronic prednisone use--hold prednisone, place on hydrocortisone 100 mg IV every 8 hours. Breast cancer--continue tamoxifen. Hyperlipidemia--hold Crestor. CODE STATUS--patient is a level V DO NOT RESUSCITATE Level of Care Telemetry Advanced Directives Existing Advance Directive: No Existing Living Will: No Existing Power of Aeronautical Test Engineer: No Resuscitation Status DO NOT RESUSCITATE VTE Prophylaxis VTE Risk Assessment Done? Y/N: Yes Risk Level: Moderate Given or contraindicated: Warfarin (Coumadin) Social Service Consult Lives in Care Home
[2017-02-20] MEDS: SODIUM CHLORIDE 0.9% 1000ML 1,000 ML IV SCH ×2 (02:49→16:57)
[2017-02-20] MEDS ORDERED: AZTREONAM CONSULT ACTIVE PRN ×2 (03:15)
[2017-02-20] MEDS ORDERED: HYDROCORTISONE IV 100 MG in SYRINGE 0 ML IV SCH (03:15)
[2017-02-20] MEDS ORDERED: VANCOMYCIN CONSULT ACTIVE PRN (03:15)
[2017-02-20] MEDS ORDERED: VANCOMYCIN INJ 2,000 MG in SODIUM CHLORIDE 0.9% 500ML 500 ML IV ONE (03:30)
--- NOTE | 2017-02-20 05:38 | Pharmacy Progress Note ---
Pharmacy Abx Initial Consult Date of Service Feb 20, 2017. Pharmacy Dosing Scope Date of Consult: 02/20/2017 Consultation requested by: Dr. Kaur Pharmacy is consulted to initiate VANC/Aztreonam IV/PO dosing therapy, order appropriate labs and adjust drug dose/frequency for complicated UTI/possible pulmonary source. Pertient PMH: [facility] resident, recent hospital stay (early November 2016), diabetes, CKD, recent UTI e.coli, p. mirabelis, multiple antibiotic allergies. Subjective The patient is a 86 year old female admitted on Feb 20, 2017 at 02:03. Objective Height (Feet): 4 Height (Inches): 10.00 Weight (Kilograms): 84.000 Vital Signs (Past 12Hrs) Vital Signs Past 12 Hours Date Time Temp Pulse Resp B/P (MAP) Pulse Ox O2 Delivery O2 Flow Rate FiO2 02/20/17 04:00 93 Nasal Cannula 4.0 02/20/17 03:06 37.0 96 24 71/ 93 Nasal Cannula 4.0 02/20/17 02:25 96 20 142/67 98 Nasal Cannula 4.0 02/20/17 02:05 100 02/20/17 01:42 99 20 123/75 94 Nasal Cannula 4.0 02/20/17 00:25 98 20 94 Nasal Cannula 4.0 02/19/17 23:24 37.3 02/19/17 22:49 Nasal Cannula 4.0 02/19/17 22:11 37.3 90 19 141/75 96 Nasal Cannula 4.0 02/19/17 22:11 89 Lab Results (24Hrs) Laboratory Tests (24 Hours) Test 02/19/17 23:50 White Blood Count 9.04 K/uL (4.8-10.8) Red Blood Count 3.15 M/uL (4.2-5.4) L Hemoglobin 8.8 g/dL (12.0-16.0) L Hematocrit 28.9 % (37-47) L Mean Corpuscular Volume 91.7 fL (80-100) Mean Corpuscular Hemoglobin 27.9 pg (25-34) Mean Corpuscular Hemoglobin Concent 30.4 g/dl (32-36) L Platelet Count 293 K/uL (130-400) Mean Platelet Volume 9.1 fL (7.4-10.4) Neutrophils (%) (Auto) 61.2 % Lymphocytes (%) (Auto) 21.8 % Monocytes (%) (Auto) 9.3 % Eosinophils (%) (Auto) 5.4 % Basophils (%) (Auto) 0.6 % Neutrophils # (Auto) 5.54 K/uL (1.4-6.5) Lymphocytes # (Auto) 1.97 K/uL (1.2-3.4) Monocytes # (Auto) 0.84 K/uL (0.11-0.59) H Eosinophils # (Auto) 0.49 K/uL (0-0.5) Basophils # (Auto) 0.05 K/uL (0-0.2) Total Creatine Kinase 23 U/L (26-192) L Micro Results Date/Time Source Procedure Growth Status 02/19/17 23:15 Stool C.difficile Toxin B Gene (PCR) - Final No C. difficile toxin B gene detected Complete 02/19/17 23:15 Urine,Catheterized Urine Culture Pending Received Assessment & Plan Plan Vancomycin IV * estimated p'kinetics: Vd~0.7L/kg, Ke ~ 0.0276hr-1, t1/2~24 hours * Loading dose: 2000mg (~20-25 mg/kg) * Maintenance dose: 1100mg IV (13 mg/kg) every 24 hours * Goal trough level for pulmonary coverage: 15 to 20 mcg/mL * Trough level ordered @ [facility] prior to 02/23/17 0200 dose * A less than traditional dose and/or extended dosing interval has/have been selected due to likelihood of drug accumulation in obese patient/patient with h/ o CKD. Aztreonam: 2 gram IV load in ED, then Rec 1 gram IV q 8 hours for UTI/ pulmonary source. Renal dose as 500mg IV every 8 hours for estimated CrCL < 30mL/min. Pharmacy will continue to follow and will adjust dose/frequency as necessary. Thank you.
[2017-02-20] MEDS ORDERED: FAMOTIDINE IV INJ 20 MG in DEXTROSE 5% 100ML 100 ML IV SCH (06:00)
[2017-02-20] MEDS: ALBUTEROL 0.083% NEBU SOLN 3 ML VIAL INH PRN ×2 (07:02→17:48)
--- NOTE | 2017-02-20 07:33 | DIAGNOSTIC IMAGING REPORT ---
SINGLE VIEW CHEST CLINICAL HISTORY: Dyspnea. FINDINGS: An AP, portable, upright chest radiograph is compared to study dated 11/25/2016. The heart is enlarged and there is atherosclerotic calcification of the thoracic aorta. The pulmonary vasculature is noncongested. Chronic interstitial thickening is similar to previous. Minimal atelectasis at the left lung base. No airspace consolidation, large pleural effusion, or pneumothorax is seen. A calcified granuloma is noted in the left upper lobe. The skeletal structures are osteopenic. The bony thorax is grossly intact. IMPRESSION: Cardiomegaly with no acute cardiopulmonary abnormality. Electronically signed by: Davidson Donovan M.D. 02/20/2017 7:32 AM Dictated Date/Time: 02/20/2017 7:31 AM
[2017-02-20] MEDS: AZTREONAM IV 500 MG in DEXTROSE 5% 100ML 100 ML IV SCH ×2 (08:29→16:56)
[2017-02-20] MEDS ORDERED: INSULIN DETEMIR FLEXPEN/FLEX TOUCH 100 UNITS/ML 3ML SC SCH ×2 (09:00→21:00)
[2017-02-20] MEDS: FERROUS SULFATE 325 MG TAB PO SCH ×2 (09:37→16:57)
[2017-02-20] MEDS: INSULIN ASPART 100 UNITS/ML 3 ML PEN SC SCH ×4 (09:48→20:34)
[2017-02-20] MEDS: TOBRAMYCIN/DEXAMETHASONE OPH SUSP 2.5 ML BTL OPB SCH ×2 (09:52→20:28)
[2017-02-20] MEDS: CITALOPRAM 20 MG TAB PO SCH (09:54)
[2017-02-20] MEDS: DOCUSATE SODIUM 100 MG CAP PO SCH ×2 (09:54→20:28)
[2017-02-20] MEDS: GABAPENTIN 400 MG CAP PO SCH (09:55)
[2017-02-20] MEDS: TAMOXIFEN CITRATE 10 MG TAB PO SCH (09:57)
[2017-02-20] MEDS ORDERED: INSULIN DETEMIR FLEXPEN/FLEX TOUCH 100 UNITS/ML 3ML SC ONE (11:45)
[2017-02-20 12:41] LABS: HEMATOCRIT 26.6 % (37-47)
[2017-02-20 13:33] LABS: BUN/CREATININE RATIO 9.6 (10-20); CALCIUM 8.1 mg/dl (8.5-10.1); CREATININE 1.6 mg/dl (0.60-1.20); POTASSIUM 5.3 mmol/L (3.5-5.1)
[2017-02-20 14:04] LABS: BETA-HYDROXYBUTYRATE 4.55 mg/dL (0.2-2.81)
[2017-02-20] MEDS ORDERED: SODIUM POLYST. SULF SUSP 15G/60ML PO STA (16:01)
--- NOTE | 2017-02-20 16:11 | Progress Note ---
Subjective Date of Service: Feb 20, 2017. Subjective Pt evaluation today including: conversation w/ patient, conversation w/ family (at the bedside), physical exam, lab review, conversation w/ mainframe consultant (Dr. Connors), review of inpatient medication list Pain: denies pain PO Intake: clears Voiding: no voiding problems patient more alert and conversive after fluids and antibiotics overnight denies pain had a large, dark, foul smelling stool, Heme + Hb stable and BP elevated reviewed prior records, had colonoscopy and EGD in october 2016, no evidence of bleeding at that time d/w Dr. Connors, NPO after midnight, EGD with possible push enteroscopy for full evaluation of bleeding Problem List Medical Problems: (1) Altered mental status Status: Acute (2) Altered mental status Status: Acute (3) Anemia Status: Acute (4) Dehydration Status: Acute (5) E. coli UTI (urinary tract infection) Status: Acute (6) GI bleed Status: Acute (7) GI bleeding Status: Acute (8) Hyperglycemia Status: Acute (9) Hypomagnesemia Status: Acute (10) SOB (shortness of breath) Status: Acute (11) Substernal chest pain Status: Acute (12) Urinary tract infection Status: Acute (13) UTI (urinary tract infection) Status: Acute (14) UTI (urinary tract infection) Status: Acute (15) Weakness Status: Acute (16) Weakness Status: Acute Review of Systems Constitutional: + weakness, + fatigue Respiratory: + wheezing, + shortness of breath Abdomen: + diarrhea, + GI bleeding Neurologic: + weakness, + problem reported (confusion) All Other Systems: Reviewed and Negative Medications Current Inpatient Medications Medications (Trade) Dose Ordered Sig/Rea Route Start Time Stop Time Status Last Admin Dose Admin Acetaminophen (Tylenol Tab) 650 mg Q6 PRN PO 02/20/17 02:15 03/22/17 02:14 Albuterol Sulfate (Ventolin 0.083% 2.5MG/3ML Neb) 2.5 mg Q4 PRN INH 02/20/17 02:15 03/22/17 02:14 02/20/17 07:02 2.5 MG Al Hydrox/Mg Hydrox/Simethicone (Maalox Max Susp) 30 ml Q6 PRN PO 02/20/17 02:15 03/22/17 02:14 Buspirone HCl (Buspar Tab) 5 mg QAM PO 02/20/17 09:00 03/22/17 08:59 02/20/17 09:53 5 MG Citalopram Hydrobromide (celeXA TAB) 20 mg DAILY PO 02/20/17 09:00 03/22/17 08:59 02/20/17 09:54 20 MG Docusate Sodium (coLACE CAP) 100 mg BID PO 02/20/17 09:00 03/22/17 08:59 02/20/17 09:54 100 MG Ferrous Sulfate (Feosol Tab) 325 mg BIDM PO 02/20/17 07:30 03/22/17 07:59 02/20/17 09:37 325 MG Folic Acid (Folvite Tab) 1 mg DAILY PO 02/20/17 09:00 03/22/17 08:59 02/20/17 09:54 1 MG Gabapentin (Neurontin Cap) 400 mg QAM PO 02/20/17 09:00 03/22/17 08:59 02/20/17 09:55 400 MG Gabapentin (Neurontin Tab) 800 mg HS PO 02/20/17 21:00 03/22/17 20:59 Tamoxifen Citrate (Nolvadex Tab) 20 mg DAILY PO 02/20/17 09:00 03/22/17 08:59 02/20/17 09:57 20 MG Tobramycin/ Dexamethasone (Tobradex Oph Susp) 2 drops BID OPB 02/20/17 09:00 03/22/17 08:59 02/20/17 09:52 2 DROPS Ondansetron HCl (Zofran Inj) 4 mg Q6H PRN IV 02/20/17 02:15 03/22/17 02:14 Insulin Aspart (novoLOG ASPART) SLIDING SCALE If C... ACHS SC 02/20/17 07:00 03/22/17 06:59 02/20/17 12:00 9 UNITS Glucose (Glucose 40% Gel) UD PRN PO 02/20/17 02:15 03/22/17 02:14 Glucose (Glucose Chew Tab) 1 tabs UD PRN PO 02/20/17 02:15 03/22/17 02:14 Dextrose (Dextrose 50% 50ML Syringe) 50 ml UD PRN IV 02/20/17 02:15 03/22/17 02:14 Glucagon (Glucagon Inj) 1 mg UD PRN SQ 02/20/17 02:15 03/22/17 02:14 Sodium Chloride 1,000 ml @ 75 mls/hr [id number] IV 02/20/17 02:15 03/22/17 02:14 02/20/17 02:49 75 MLS/HR Aztreonam 500 mg/ Dextrose 102.5 ml @ 100 mls/hr Q8H IV 02/20/17 08:00 03/02/17 07:59 02/20/17 08:29 100 MLS/HR Vancomycin HCl (Consult) 1 ea UD PRN N/A 02/20/17 03:15 03/22/17 03:14 Aztreonam (Consult) 1 ea UD PRN N/A 02/20/17 03:15 03/22/17 03:14 Vancomycin HCl 1100 mg/Sodium Chloride 272 ml @ 125 mls/hr DAILY@0200 IV 02/21/17 02:00 02/28/17 01:59 Insulin Detemir (Levemir Flexpen/ FlexTouch) 30 unit QAM SC 02/21/17 09:00 03/22/17 08:59 Insulin Detemir (Levemir Flexpen/ FlexTouch) 20 unit QPM SC 02/20/17 21:00 03/22/17 20:59 Methylprednisolone Sodium Succinate 40 mg/Syringe 0.64 ml @ 1.5 mls/min Q12 IV 02/20/17 21:00 03/22/17 20:59 Pantoprazole Sodium 40 mg/ Syringe 10 ml @ 5 mls/min DAILY@,21 IV 02/20/17 21:00 03/22/17 20:59 Objective Vital Signs Date Time Temp Pulse Resp B/P (MAP) Pulse Ox O2 Delivery O2 Flow Rate FiO2 02/20/17 13:00 Nasal Cannula 02/20/17 11:39 36.7 92 18 152/69 (96) 94 02/20/17 08:15 Nasal Cannula 02/20/17 08:03 36.9 90 20 157/77 (103) 95 Nasal Cannula 2.0 02/20/17 07:03 81 18 94 Nasal Cannula 3.0 02/20/17 04:00 93 Nasal Cannula 4.0 02/20/17 03:06 37.0 96 24 153/71 93 Nasal Cannula 4.0 02/20/17 02:25 96 20 142/67 98 Nasal Cannula 4.0 02/20/17 02:05 100 02/20/17 01:42 99 20 123/75 94 Nasal Cannula 4.0 02/20/17 00:25 98 20 94 Nasal Cannula 4.0 02/19/17 23:24 37.3 02/19/17 22:49 Nasal Cannula 4.0 02/19/17 22:11 37.3 90 19 141/75 96 Nasal Cannula 4.0 02/19/17 22:11 89 Physical Exam General Appearance: WD/WN, no apparent distress Neck: supple, no adenopathy, no JVD, trachea midline Respiratory/Chest: chest non-tender, no respiratory distress, no accessory muscle use, + decreased breath sounds, + wheezing (faint, bilaterally) Cardiovascular: regular rate, rhythm, no edema, no gallop, no JVD, no murmur Abdomen: normal bowel sounds, non tender, soft, no organomegaly Extremities: normal range of motion, non-tender, normal inspection, no pedal edema, no calf tenderness 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, + motor weakness, + depressed affect, + pertinent finding (confused) Skin: normal color, warm/dry, no rash Lymphatic: no adenopathy Laboratory Results Last 24 Hours Test 02/19/17 23:15 02/19/17 23:50 02/20/17 00:00 02/20/17 01:20 Urine Color WHITE Urine Appearance TURBID Urine pH 5.5 Urine Specific [place] >= 1.030 Urine Protein 1+ Urine Glucose (UA) NEG Urine Ketones 1+ Urine Occult Blood 2+ Urine Nitrite NEG Urine Bilirubin NEG Urine Urobilinogen NEG Urine Leukocyte Esterase NEG White Blood Count 9.04 K/uL Red Blood Count 3.15 M/uL Hemoglobin 8.8 g/dL Hematocrit 28.9 % Mean Corpuscular Volume 91.7 fL Mean Corpuscular Hemoglobin 27.9 pg Mean Corpuscular Hemoglobin Concent 30.4 g/dl Platelet Count 293 K/uL Mean Platelet Volume 9.1 fL Neutrophils (%) (Auto) 61.2 % Lymphocytes (%) (Auto) 21.8 % Monocytes (%) (Auto) 9.3 % Eosinophils (%) (Auto) 5.4 % Basophils (%) (Auto) 0.6 % Neutrophils # (Auto) 5.54 K/uL Lymphocytes # (Auto) 1.97 K/uL Monocytes # (Auto) 0.84 K/uL Eosinophils # (Auto) 0.49 K/uL Basophils # (Auto) 0.05 K/uL RDW Standard Deviation 62.7 fL RDW Coefficient of Variation 18.8 % Immature Granulocyte % (Auto) 1.7 % Immature Granulocyte # (Auto) 0.15 K/uL Nucleated RBC Absolute Count (auto) 0.02 K/uL Nucleated Red Blood Cells % 0.3 % Polychromasia 1+ Anisocytosis PRESENT Spherocytes OCCASIONAL Prothrombin Time 24.0 SECONDS Prothromb Time International Ratio 2.2 Activated Partial Thromboplast Time 38.3 SECONDS Partial Thromboplastin Ratio 1.5 Sodium Level 137 mmol/L Potassium Level 6.0 mmol/L 5.5 mmol/L Chloride Level 106 mmol/L Carbon Dioxide Level 24 mmol/L Anion Gap 7.0 mmol/L Blood Urea Nitrogen 15 mg/dl Creatinine 1.50 mg/dl Est Creatinine Clear Calc Drug Dose 27.1 ml/min Estimated GFR () 36.7 Estimated GFR (Non- 31.7 BUN/Creatinine Ratio 10.2 Random Glucose 179 mg/dl Calcium Level 8.8 mg/dl Total Bilirubin 0.2 mg/dl Aspartate Amino Transf (AST/SGOT) 14 U/L Alanine Aminotransferase (ALT/SGPT) 14 U/L Alkaline Phosphatase 55 U/L Total Creatine Kinase 23 U/L Troponin I < 0.015 ng/ml Total Protein 6.2 gm/dl Albumin 2.3 gm/dl Globulin 3.9 gm/dl Albumin/Globulin Ratio 0.6 Thyroid Stimulating Hormone (TSH) 2.570 uIu/ml Stool Occult Blood POSITIVE Test 02/20/17 01:26 02/20/17 06:56 02/20/17 12:17 Bedside Hemoglobin 8.5 g/dl Bedside Hematocrit 25 % Bedside Sodium 135 mEq/L Bedside Potassium 5.5 mEq/L Bedside Chloride 104 mEq/L Bedside Total CO2 26 mEq/l Anion Gap 13.0 mmol/L 9.0 mmol/L Bedside Blood Urea Nitrogen 15 mg/dl Bedside Creatinine 1.3 mg/dl Bedside Glucose (other) 192 mg/dl Bedside Ionized Calcium (Gayla) 1.21 mmol/l Bedside Glucose 264 mg/dl Hemoglobin 8.3 g/dL Hematocrit 26.6 % Sodium Level 135 mmol/L Potassium Level 5.3 mmol/L Chloride Level 106 mmol/L Carbon Dioxide Level 20 mmol/L Blood Urea Nitrogen 15 mg/dl Creatinine 1.60 mg/dl Est Creatinine Clear Calc Drug Dose 24.0 ml/min Estimated GFR () 33.9 Estimated GFR (Non- 29.3 BUN/Creatinine Ratio 9.6 Random Glucose 406 mg/dl Calcium Level 8.1 mg/dl Beta-Hydroxybutyric Acid 4.55 mg/dL Assessment and Plan 86 yo female from SNF with altered mental status, evidence of UTI - Metabolic encephalopathy: possibly secondary to UTI, responding well to Aztreonam, will follow up culture results afebrile, WBC normal, UA not impressive but she has had two recent UTI's - Acute on chronic anemia, GI bleed: heme positive stools, Hb at 8.3, BP normal typed and screened, no need for transfusion currently Protonix IV BID NPO after midnight, plan for EGD tomorrow - Hyperkalemia: mildly decreased with IV fluids, will give kayaxalate now, repeat in the AM no EKG changes or arrhythmias - Diarrhea: suspect it is due to bleeding, C diff negative - DM with hyperglycemia: due to decreasing Levemir this AM, adjust back to 30 units in AM and 20 in PM today tomorrow, she is NPO so will decrease to 15 units, Novolog - Mild COPD exacerbation: wheezing on exam, Solu Medrol 40 q12, nebulizers - CKD stage III: stable, Cr 1.6 CAD/Hypertension--hold aspirin, furosemide, losartan, Zaroxolyn, potassium chloride. PE--hold warfarin for now until hemoglobin is stabilized. Peripheral neuropathy--continue gabapentin. Chronic prednisone use--hold prednisone, on Solu Medrol for mild COPD exacerbation Breast cancer--continue tamoxifen. Hyperlipidemia--hold Crestor. CODE STATUS--patient is a level V DO NOT RESUSCITATE
[2017-02-20] MEDS: PANTOprazole INJ 40 MG in SYRINGE 0 ML IV SCH (20:27)
[2017-02-20] MEDS: METHYLPREDNISOLONE IV 40 MG in SYRINGE 0 ML IV SCH (20:28)
[2017-02-20] MEDS: GABAPENTIN 800 MG TAB PO SCH (20:28)
[2017-02-20] MEDS: INSULIN DETEMIR FLEXPEN/FLEX TOUCH 100 UNITS/ML 3ML SC SCH (20:34)
--- NOTE | 2017-02-20 21:45 | Medical Consult ---
Consultation Note Date of Service Feb 20, 2017. Consultation Note Patient seen in consultation on 02/20/17 at 2:00 PM. I have been unable to dictate the consultation report due to non-operational; miscellaneous machine operator service, Several attempts made throughout evening but remains non-operational. A full note will be dictated once miscellaneous machine operator service is available. 86 y/o with prior Hx GI bleed. Seen with EGD/Colon by Dr Hardin in October 2016. No clear source of GI blood loss. Pt is confused, however denies BRBPR or melena. however NH and nursing reports dark appearing stools that are heme positive. based on above, although anemic yet appears stable, will pursue ED/push enteroscopy for tomorrow with consent from family/POA NPO after MN except meds. Holding Coumadin presently; follow H/H and empiric PPI May eventually need repeat colonoscopy and SB video capsule if bidirectional endoscopy is unrevealing. Rec d/w Dr Corwin marroquin
[2017-02-21] VITALS (8 sets, daily range): BP systolic 122–175; BP diastolic 67–75; PULSE 87–99; TEMP 36.9–37.4; O2SAT 92–97
[2017-02-21] MEDS: AZTREONAM IV 500 MG in DEXTROSE 5% 100ML 100 ML IV SCH ×2 (00:55→08:24)
[2017-02-21] MEDS ORDERED: VANCOMYCIN INJ 1,100 MG in SODIUM CHLORIDE 0.9% 250ML 250 ML IV SCH (02:00)
[2017-02-21] MEDS: SODIUM CHLORIDE 0.9% 1000ML 1,000 ML IV SCH (05:58)
[2017-02-21 06:20] LABS: BASO % 0.5 %; BASO ABS # 0.04 K/uL (0-0.2); HEMATOCRIT 24.6 % (37-47); IG% 1.3 %; LYMPH % 9.3 %; LYMPH ABS # 0.72 K/uL (1.2-3.4); MEAN CELL VOLUME 90.4 fL (80-100); MEAN CORPUSCULAR HEMOGLOBIN 27.9 pg (25-34); MEAN CORPUSCULAR HGB CONC 30.9 g/dl (32-36); MEAN PLATELET VOLUME 8.8 fL (7.4-10.4); NEUT % 87.9 %; PLATELET COUNT 286 K/uL (130-400); RED BLOOD COUNT 2.72 M/uL (4.2-5.4); WHITE BLOOD COUNT 7.77 K/uL (4.8-10.8)
[2017-02-21 06:30] LABS: INR 2.1 (0.9-1.1); PARTIAL THROMBOPLASTIN RATIO 1.6; PROTHROMBIN TIME (PATIENT) 23.2 SECONDS (9.0-12.0)
[2017-02-21 06:49] LABS: ANISOCYTOSIS PRESENT; COMPLETE YES; OVALOCYTES 1+; POLYCHROMASIA 1+; SPHEROCYTE OCCASIONAL
[2017-02-21 06:59] LABS: BUN/CREATININE RATIO 9.7 (10-20); CALCIUM 8.2 mg/dl (8.5-10.1); CREATININE 1.4 mg/dl (0.60-1.20); POTASSIUM 4.5 mmol/L (3.5-5.1)
[2017-02-21] MEDS: FERROUS SULFATE 325 MG TAB PO SCH ×2 (07:30→16:45)
[2017-02-21] MEDS: METHYLPREDNISOLONE IV 40 MG in SYRINGE 0 ML IV SCH (08:05)
[2017-02-21] MEDS: PANTOprazole INJ 40 MG in SYRINGE 0 ML IV SCH ×2 (08:05→19:49)
[2017-02-21] MEDS: TOBRAMYCIN/DEXAMETHASONE OPH SUSP 2.5 ML BTL OPB SCH ×2 (08:05→19:49)
[2017-02-21] MEDS: TAMOXIFEN CITRATE 10 MG TAB PO SCH (08:06)
[2017-02-21] MEDS: DOCUSATE SODIUM 100 MG CAP PO SCH ×2 (08:07→19:49)
[2017-02-21] MEDS: INSULIN ASPART 100 UNITS/ML 3 ML PEN SC SCH ×4 (08:10→20:52)
[2017-02-21] MEDS: INSULIN DETEMIR FLEXPEN/FLEX TOUCH 100 UNITS/ML 3ML SC SCH ×2 (08:52→20:53)
[2017-02-21] MEDS: CITALOPRAM 20 MG TAB PO SCH (09:00)
[2017-02-21] MEDS ORDERED: INSULIN DETEMIR FLEXPEN/FLEX TOUCH 100 UNITS/ML 3ML SC SCH (09:00)
[2017-02-21] MEDS: GABAPENTIN 400 MG CAP PO SCH (09:00)
[2017-02-21] MEDS ORDERED: LOSARTAN POTASSIUM 50 MG TAB PO ONE (13:00)
--- NOTE | 2017-02-21 13:59 | Progress Note ---
Subjective Date of Service: Feb 21, 2017. Subjective Pt evaluation today including: conversation w/ patient, physical exam, lab review, review of inpatient medication list Pain: denies pain PO Intake: NPO for EGD today Voiding: no voiding problems patient still pleasantly confused but more alert denies pain another melanotic stool today per RN breathing better, no cough, less wheezing awaiting EGD today reviewed labs, Cr stable, mild drop in Hb to 7.6, hypertensive Problem List Medical Problems: (1) Altered mental status Status: Acute (2) Altered mental status Status: Acute (3) Anemia Status: Acute (4) Dehydration Status: Acute (5) E. coli UTI (urinary tract infection) Status: Acute (6) GI bleed Status: Acute (7) GI bleeding Status: Acute (8) Hyperglycemia Status: Acute (9) Hypomagnesemia Status: Acute (10) SOB (shortness of breath) Status: Acute (11) Substernal chest pain Status: Acute (12) Urinary tract infection Status: Acute (13) UTI (urinary tract infection) Status: Acute (14) UTI (urinary tract infection) Status: Acute (15) Weakness Status: Acute (16) Weakness Status: Acute Review of Systems Constitutional: + weakness, + fatigue Abdomen: + GI bleeding (melena) Neurologic: + memory loss, + weakness All Other Systems: Reviewed and Negative Medications Current Inpatient Medications Medications (Trade) Dose Ordered Sig/Rea Route Start Time Stop Time Status Last Admin Dose Admin Acetaminophen (Tylenol Tab) 650 mg Q6 PRN PO 02/20/17 02:15 03/22/17 02:14 Albuterol Sulfate (Ventolin 0.083% 2.5MG/3ML Neb) 2.5 mg Q4 PRN INH 02/20/17 02:15 03/22/17 02:14 02/20/17 17:48 2.5 MG Al Hydrox/Mg Hydrox/Simethicone (Maalox Max Susp) 30 ml Q6 PRN PO 02/20/17 02:15 03/22/17 02:14 Buspirone HCl (Buspar Tab) 5 mg QAM PO 02/20/17 09:00 03/22/17 08:59 02/20/17 09:53 5 MG Citalopram Hydrobromide (celeXA TAB) 20 mg DAILY PO 02/20/17 09:00 03/22/17 08:59 02/20/17 09:54 20 MG Docusate Sodium (coLACE CAP) 100 mg BID PO 02/20/17 09:00 03/22/17 08:59 02/20/17 09:54 100 MG Ferrous Sulfate (Feosol Tab) 325 mg BIDM PO 02/20/17 07:30 03/22/17 07:59 02/20/17 16:57 325 MG Folic Acid (Folvite Tab) 1 mg DAILY PO 02/20/17 09:00 03/22/17 08:59 02/20/17 09:54 1 MG Gabapentin (Neurontin Cap) 400 mg QAM PO 02/20/17 09:00 03/22/17 08:59 02/20/17 09:55 400 MG Gabapentin (Neurontin Tab) 800 mg HS PO 02/20/17 21:00 03/22/17 20:59 02/20/17 20:28 800 MG Tamoxifen Citrate (Nolvadex Tab) 20 mg DAILY PO 02/20/17 09:00 03/22/17 08:59 02/21/17 08:06 20 MG Tobramycin/ Dexamethasone (Tobradex Oph Susp) 2 drops BID OPB 02/20/17 09:00 03/22/17 08:59 02/21/17 08:05 2 DROPS Ondansetron HCl (Zofran Inj) 4 mg Q6H PRN IV 02/20/17 02:15 03/22/17 02:14 Insulin Aspart (novoLOG ASPART) SLIDING SCALE If C... ACHS SC 02/20/17 07:00 03/22/17 06:59 02/21/17 13:12 4 UNITS Glucose (Glucose 40% Gel) UD PRN PO 02/20/17 02:15 03/22/17 02:14 Glucose (Glucose Chew Tab) 1 tabs UD PRN PO 02/20/17 02:15 03/22/17 02:14 Dextrose (Dextrose 50% 50ML Syringe) 50 ml UD PRN IV 02/20/17 02:15 03/22/17 02:14 Glucagon (Glucagon Inj) 1 mg UD PRN SQ 02/20/17 02:15 03/22/17 02:14 Sodium Chloride 1,000 ml @ 75 mls/hr [id number] IV 02/20/17 02:15 03/22/17 02:14 02/21/17 05:58 75 MLS/HR Aztreonam 500 mg/ Dextrose 102.5 ml @ 100 mls/hr Q8H IV 02/20/17 08:00 03/02/17 07:59 02/21/17 08:24 100 MLS/HR Aztreonam (Consult) 1 ea UD PRN N/A 02/20/17 03:15 03/22/17 03:14 Insulin Detemir (Levemir Flexpen/ FlexTouch) 20 unit QPM SC 02/20/17 21:00 03/22/17 20:59 02/20/17 20:34 20 UNIT Pantoprazole Sodium 40 mg/ Syringe 10 ml @ 5 mls/min DAILY@09,21 IV 02/20/17 21:00 03/22/17 20:59 02/21/17 08:05 5 MLS/MIN Insulin Detemir (Levemir Flexpen/ FlexTouch) 15 unit QAM SC 02/21/17 09:00 03/22/17 08:59 02/21/17 08:52 15 UNIT Losartan Potassium (coZAAR TAB) 50 mg DAILY PO 02/22/17 09:00 03/24/17 08:59 Methylprednisolone Sodium Succinate 20 mg/Syringe 0.32 ml @ 1.5 mls/min Q12 IV 02/21/17 21:00 03/23/17 20:59 Objective Vital Signs Date Time Temp Pulse Resp B/P (MAP) Pulse Ox O2 Delivery O2 Flow Rate FiO2 02/21/17 12:04 37.2 96 20 175/75 (108) 92 Room Air 2.0 02/21/17 12:00 Nasal Cannula 2.0 02/21/17 08:00 Nasal Cannula 2.0 02/21/17 07:42 37.4 90 20 155/67 (96) 94 Room Air 02/21/17 04:00 Nasal Cannula 2.0 02/21/17 03:51 37.2 98 18 161/70 (100) 93 Nasal Cannula 02/21/17 00:00 Nasal Cannula 2.0 02/20/17 23:49 37.2 83 18 163/69 (100) 95 Nasal Cannula 02/20/17 20:00 Nasal Cannula 2.0 02/20/17 20:00 37.1 90 22 124/68 (86) 95 Nasal Cannula 3.0 02/20/17 17:48 82 18 97 Nasal Cannula 3.0 02/20/17 16:30 95 Nasal Cannula 2.0 02/20/17 16:08 37.2 92 22 161/77 (105) 95 Nasal Cannula 2.0 Physical Exam General Appearance: WD/WN, no apparent distress Eyes: normal inspection, EOMI, sclerae normal ENT: normal ENT inspection, hearing grossly normal, pharynx normal Neck: supple, no adenopathy, no JVD, trachea midline Respiratory/Chest: chest non-tender, no respiratory distress, no accessory muscle use, + wheezing Cardiovascular: regular rate, rhythm, no edema, no gallop, no JVD, no murmur Abdomen: normal bowel sounds, non tender, soft, no organomegaly Extremities: normal range of motion, non-tender, normal inspection, no pedal edema, no calf tenderness 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, no motor/sensory deficits, alert, normal mood/affect, + disoriented Skin: normal color, warm/dry, no rash Laboratory Results Last 24 Hours Test 02/20/17 16:21 02/20/17 20:24 02/21/17 05:29 02/21/17 07:01 Bedside Glucose 273 mg/dl 237 mg/dl 300 mg/dl White Blood Count 7.77 K/uL Red Blood Count 2.72 M/uL Hemoglobin 7.6 g/dL Hematocrit 24.6 % Mean Corpuscular Volume 90.4 fL Mean Corpuscular Hemoglobin 27.9 pg Mean Corpuscular Hemoglobin Concent 30.9 g/dl Platelet Count 286 K/uL Mean Platelet Volume 8.8 fL Neutrophils (%) (Auto) 87.9 % Lymphocytes (%) (Auto) 9.3 % Monocytes (%) (Auto) 1.0 % Eosinophils (%) (Auto) 0.0 % Basophils (%) (Auto) 0.5 % Neutrophils # (Auto) 6.83 K/uL Lymphocytes # (Auto) 0.72 K/uL Monocytes # (Auto) 0.08 K/uL Eosinophils # (Auto) 0.00 K/uL Basophils # (Auto) 0.04 K/uL RDW Standard Deviation 59.4 fL RDW Coefficient of Variation 18.4 % Immature Granulocyte % (Auto) 1.3 % Immature Granulocyte # (Auto) 0.10 K/uL Polychromasia 1+ Anisocytosis PRESENT Spherocytes OCCASIONAL Ovalocytes 1+ Prothrombin Time 23.2 SECONDS Prothromb Time International Ratio 2.1 Activated Partial Thromboplast Time 41.3 SECONDS Partial Thromboplastin Ratio 1.6 Sodium Level 140 mmol/L Potassium Level 4.5 mmol/L Chloride Level 107 mmol/L Carbon Dioxide Level 20 mmol/L Anion Gap 13.0 mmol/L Blood Urea Nitrogen 14 mg/dl Creatinine 1.40 mg/dl Est Creatinine Clear Calc Drug Dose 27.7 ml/min Estimated GFR () 39.9 Estimated GFR (Non- 34.4 BUN/Creatinine Ratio 9.7 Random Glucose 273 mg/dl Calcium Level 8.2 mg/dl Magnesium Level 2.0 mg/dl Test 02/21/17 10:50 Bedside Glucose 262 mg/dl Assessment and Plan 86 yo female from SNF with altered mental status, evidence of UTI - Metabolic encephalopathy: possibly secondary to UTI, - Enterococcus initially on culture stop Aztreonam and resume Vancomycin afebrile, WBC normal, UA not impressive but she has had two recent UTI's - Acute on chronic anemia, GI bleed: heme positive stools, Hb at 8.3 yesterday, dropped to 7.6 this AM, repeat in afternoon BP elevated, no need for transfusion unless < 7.0 typed and screened Protonix IV BID NPO, for EGD today - Hyperkalemia: resolved today after Kayexalate yesterday - Diarrhea: suspect it is due to bleeding, C diff negative - DM with hyperglycemia: continues to be labile, only Levemir 15 units this AM due to NPO status but sugars still high resume typical Levemir dosing once eating - Mild COPD exacerbation: wheezing on exam yesterday, better today, decrease Solu Medrol 20 q12, nebulizers transition to low dose Prednisone tomorrow - CKD stage III: stable, Cr 1.4 CAD/Hypertension--hold aspirin due to bleeding likely resume Lasix tomorrow, resume Losartan today due to elevated BP PE--hold warfarin for now until hemoglobin is stabilized. Peripheral neuropathy--continue gabapentin. Chronic prednisone use--hold prednisone, on Solu Medrol for mild COPD exacerbation Breast cancer--continue tamoxifen. Hyperlipidemia--hold Crestor. CODE STATUS--patient is a level V DO NOT RESUSCITATE
[2017-02-21] MEDS ORDERED: PROPOFOL IV EMULSION 10 MG/ML 20 ML VIAL IV ONE (14:08)
[2017-02-21] MEDS ORDERED: LIDOCAINE HCL 2% 2 ML VIAL (20MG/ML) ONE (14:08)
[2017-02-21] MEDS ORDERED: VANCOMYCIN CONSULT ACTIVE PRN (14:45)
[2017-02-21] MEDS: ALBUTEROL 0.083% NEBU SOLN 3 ML VIAL INH PRN ×2 (14:56→19:21)
--- NOTE | 2017-02-21 14:56 | Gastrointestinal Consultation ---
Gastrointestinal Consultation Date of Consultation: Feb 20, 2017 Consulting Physician: Elmer Louis History of Present Illness Patient is an 86 year old female admitted for change in mental status. Pt found to have heme positive stools. Pt had prior workup in October 2016 with bidirectional endoscopy without significant source identified. Pt denies BRBPR or melena although reports of dark stools per [place] and [facility] nursing. No hemetemsis reproted. Past Medical/Surgical History Medical Problems: (1) Altered mental status Status: Acute (2) Altered mental status Status: Acute (3) Anemia Status: Acute (4) Dehydration Status: Acute (5) E. coli UTI (urinary tract infection) Status: Acute (6) GI bleed Status: Acute (7) GI bleeding Status: Acute (8) Hyperglycemia Status: Acute (9) Hypomagnesemia Status: Acute (10) SOB (shortness of breath) Status: Acute (11) Substernal chest pain Status: Acute (12) Urinary tract infection Status: Acute (13) UTI (urinary tract infection) Status: Acute (14) UTI (urinary tract infection) Status: Acute (15) Weakness Status: Acute (16) Weakness Status: Acute Family History FH: breast cancer DAUGHTER FH: coronary artery disease FATHER FH: diabetes mellitus FATHER MOTHER BROTHER BROTHER FH: lung cancer FATHER FH: stroke FATHER MOTHER Social History Smoking Status: Former Smoker Alcohol Use: none Drug Use: none Marital Status: Housing Status: lives with family Occupation Status: retired Allergies Coded Allergies: Ibuprofen (Verified Allergy, Severe, ANAPHYLAXIS, 05/23/16) Amoxicillin (Verified Allergy, Mild, URTICARIA-HAS TOLERATED ZOSYN PREV ADM., 05/23/16) Noted at [facility] 12/07/10 Has tolerated Zosyn on previous admissions Aspartame (Unverified Allergy, Mild, HIVES, 05/23/16) Cephalexin (Unverified Allergy, Mild, HIVES, 05/23/16) Clavulanic Acid (Verified Allergy, Mild, urticaria-HAS TOLERATED ZOSYN PREV ADM., 05/23/16) Noted at [facility] 12/07/10 Cephalosporins (Verified Allergy, Unknown, HAS TOLERATED CEFTRIAXONE, CEFEPIME, 05/23/16) 05/14/12 - PATIENT DENIES EVER HAVING A REACTION TO OR TAKING ANY CEPHALOSPORINS Codeine (Verified Allergy, Unknown, 05/23/16) Cromolyn (Verified Allergy, Unknown, 05/23/16) Morphine and Related (Verified Allergy, Unknown, Unknown, 05/23/16) Naproxen (Verified Allergy, Unknown, ANAPHYLAXIS, 05/23/16) Penicillins (Verified Allergy, Unknown, Unknown, 05/23/16) Sulfa Antibiotics (Verified Allergy, Unknown, 05/14/12 - STATES THAT SHE IS UNABLE TO TOLERATE ANY SULFA, 05/23/16) 05/14/12 - STATES THAT SHE IS UNABLE TO TOLERATE ANY SULFA DRUGS Quinolones (Verified Adverse Reaction, Mild, NAUSEA, 05/23/16) PER DR. GARCIA - SPOKE W PT WHO SAID SHE HAD CIPRO FOR UTI A "LONG TIME AGO". REACTION WAS NAUSEA. I CONFIRMED ADMINISTREATION HX WITH OUR RECORDS - ADMIN 06/19/08. THEREFORE PT LIKELY ABLE TO TOLERATE CIPRO. Current Medications Home Meds and Scripts Medications Dose Route/Sig Max Daily Dose Days Date Category Dose Instructions Coumadin (Warfarin Sodium) 2 Mg Tab 2 Mg PO QPM 02/19/17 Reported Neurontin (Gabapentin) 800 Mg Tab 800 Mg PO HS 02/19/17 Reported Crestor (Rosuvastatin Calcium) 40 Mg Tab 40 Mg PO HS 02/19/17 Reported Levemir (Insulin Detemir) 100 Units/Ml Inj 20 Units SC PM 11/25/16 Reported Tobradex 0.3% Oph (Tobramycin/Dexamethasone) Susp 2 Drops OPB BID 10 11/25/16 Reported Claritin (Loratadine) 10 Mg Tab 10 Mg PO DAILY 11/25/16 Reported Maalox Max Susp (Al Hydrox/Mg Hydrox/Simethicone) Susp 30 Ml PO Q6 PRN 11/25/16 Reported Nitrostat (Nitroglycerin) 0.4 Mg Tab 0.4 Mg UT PRN 11/25/16 Reported Ferrous Sulfate 325 Mg Tab 325 Mg PO BIDM 11/15/16 Rx Proventil 0.083% 2.5MG/3ML (Albuterol Sulf) 2.5 Mg/3 Ml Nebu 2.5 Mg INH Q4 PRN 11/08/16 Reported Roxicodone Ir (Oxycodone HCl) 5 Mg Tab 10 Mg PO Q8 PRN 11/08/16 Reported Tylenol (Acetaminophen) 325 Mg Tab 650 Mg PO Q6 PRN 11/08/16 Reported Micro-K Ext Rel (Potassium Chloride) 10 Meq Capcr 40 Meq PO TID 11/08/16 Reported Novolog Flexpen (Insulin Aspart) 100 Units/Ml Inj 8-18 Units SC UD PRN 11/08/16 Reported USE 4 TIMES DAILY IF BLOOD SUGAR: 351-400 = 8 UNITS 304-450 = 12 UNITS 451-500= 16 UNITS > 500= 18 UNITS AND RECHECK BSG IN 2 HOURS Novolog Flexpen (Insulin Aspart) 100 Units/Ml Inj 15 Units SC BID 11/08/16 Reported Zaroxolyn (Metolazone) 2.5 Mg Tab 2.5 Mg PO QAM 11/08/16 Reported TAKE 2 HOURS PRIOR TO AM LASIX DOSE Levemir (Insulin Detemir) 100 Units/Ml Inj 30 Units SC QAM 11/08/16 Reported Folvite (Folic Acid) 1 Mg Tab 1 Mg PO DAILY 11/08/16 Reported Citalopram Hydrobromide 20 Mg Tab 20 Mg PO DAILY 11/08/16 Reported Roxicodone Ir (Oxycodone HCl) 5 Mg Tab 5 Mg PO Q8 PRN 11/09/15 Reported Cozaar (Losartan Potassium) 50 Mg Tab 50 Mg PO DAILY 11/09/15 Reported Nolvadex (Tamoxifen Citrate) 20 Mg Tab 20 Mg PO DAILY 11/07/15 Reported Prednisone 10 Mg Tab 10 Mg PO DAILY 07/31/15 Reported Prilosec (Omeprazole) 20 Mg Capcr 20 Mg PO QAM 07/31/15 Reported CAP MAY BE OPENED & SPRINKLED ON APPLESAUCE Lasix (Furosemide) 40 Mg Tab 40 Mg PO BID 06/09/15 Reported Colace (Docusate Sodium) 100 Mg Cap 100 Mg PO BID 06/09/15 Reported Aspirin Ec (Aspirin) 81 Mg Tab 81 Mg PO DAILY 04/16/15 Reported Neurontin (Gabapentin) 400 Mg Cap 400 Mg PO QAM 04/15/15 Reported Buspirone HCl 5 Mg Tab 5 Mg PO QAM 08/22/14 Reported Review of Systems Constitutional: No see HPI, No fever, No chills, No sweats, No weight loss, No weakness, No fatigue, No problem reported Eyes: + redness Abdomen: No see HPI, No pain, No nausea, No vomiting, No diarrhea, No constipation, No GI bleeding, No dysphagia, No odynophagia, No acolic stools, No jaundice, No dark urine, No problem reported Abd soft NT/ND + BS ; no ascities or shifting dullness - C/C + edema bilaterally- +1-2 edema AAO x 1 ( person only) Neuro - non focal sclera anicteric, conjunctiva moist oral mucosa is parched lungs with + wheezes and crackles b/l heart Nl S1/S2 Physical Exam Date Time Temp Pulse Resp B/P (MAP) Pulse Ox O2 Delivery O2 Flow Rate FiO2 02/21/17 12:04 37.2 96 20 175/75 (108) 92 Room Air 2.0 02/21/17 12:00 Nasal Cannula 2.0 02/21/17 08:00 Nasal Cannula 2.0 02/21/17 07:42 37.4 90 20 155/67 (96) 94 Room Air 02/21/17 04:00 Nasal Cannula 2.0 02/21/17 03:51 37.2 98 18 161/70 (100) 93 Nasal Cannula 02/21/17 00:00 Nasal Cannula 2.0 02/20/17 23:49 37.2 83 18 163/69 (100) 95 Nasal Cannula 02/20/17 20:00 Nasal Cannula 2.0 02/20/17 20:00 37.1 90 22 124/68 (86) 95 Nasal Cannula 3.0 02/20/17 17:48 82 18 97 Nasal Cannula 3.0 02/20/17 16:30 95 Nasal Cannula 2.0 02/20/17 16:08 37.2 92 22 161/77 (105) 95 Nasal Cannula 2.0 General Appearance: no apparent distress, + obese Eyes: + pertinent finding ENT: normal ENT inspection Neck: supple, no adenopathy, thyroid normal, no JVD Respiratory/Chest: + crackles, + wheezing Cardiovascular: + tachycardia, + normal peripheral pulses Abdomen: normal bowel sounds, non tender, no organomegaly, no pulsatile mass Extremities: non-tender, + swelling Neurologic/Psych: alert, normal mood/affect, oriented x 3 Skin: normal color Laboratory Results Last 24 Hours Test 02/20/17 16:21 02/20/17 20:24 02/21/17 05:29 02/21/17 07:01 Bedside Glucose 273 mg/dl 237 mg/dl 300 mg/dl White Blood Count 7.77 K/uL Red Blood Count 2.72 M/uL Hemoglobin 7.6 g/dL Hematocrit 24.6 % Mean Corpuscular Volume 90.4 fL Mean Corpuscular Hemoglobin 27.9 pg Mean Corpuscular Hemoglobin Concent 30.9 g/dl Platelet Count 286 K/uL Mean Platelet Volume 8.8 fL Neutrophils (%) (Auto) 87.9 % Lymphocytes (%) (Auto) 9.3 % Monocytes (%) (Auto) 1.0 % Eosinophils (%) (Auto) 0.0 % Basophils (%) (Auto) 0.5 % Neutrophils # (Auto) 6.83 K/uL Lymphocytes # (Auto) 0.72 K/uL Monocytes # (Auto) 0.08 K/uL Eosinophils # (Auto) 0.00 K/uL Basophils # (Auto) 0.04 K/uL RDW Standard Deviation 59.4 fL RDW Coefficient of Variation 18.4 % Immature Granulocyte % (Auto) 1.3 % Immature Granulocyte # (Auto) 0.10 K/uL Polychromasia 1+ Anisocytosis PRESENT Spherocytes OCCASIONAL Ovalocytes 1+ Prothrombin Time 23.2 SECONDS Prothromb Time International Ratio 2.1 Activated Partial Thromboplast Time 41.3 SECONDS Partial Thromboplastin Ratio 1.6 Sodium Level 140 mmol/L Potassium Level 4.5 mmol/L Chloride Level 107 mmol/L Carbon Dioxide Level 20 mmol/L Anion Gap 13.0 mmol/L Blood Urea Nitrogen 14 mg/dl Creatinine 1.40 mg/dl Est Creatinine Clear Calc Drug Dose 27.7 ml/min Estimated GFR () 39.9 Estimated GFR (Non- 34.4 BUN/Creatinine Ratio 9.7 Random Glucose 273 mg/dl Calcium Level 8.2 mg/dl Magnesium Level 2.0 mg/dl Test 02/21/17 10:50 Bedside Glucose 262 mg/dl Impression Patient is a 86 year old female with anemia, admitted for change in mental status with report of dark stools and anemia. Case d/w Dr Olivia. Will initially plan for EGD/push enteroscopy on 02/21. Depending on findings, may need repeat colonoscopy and ultimately SB video capsule. NPO after MN except Meds; follow H/H and transfuse as needed. Holding anticoagulation. Maintain normal electrolytes. Will obtain consent from family members/POA. Plan See impression
[2017-02-21] MEDS ORDERED: VANCOMYCIN INJ 1,400 MG in SODIUM CHLORIDE 0.9% 500ML 500 ML IV ONE (15:00)
--- NOTE | 2017-02-21 15:05 | Pharmacy Progress Note ---
Pharmacy Abx Dose Short Note Date of Service Feb 21, 2017. Assessment & Plan Assessment 86 year old female admitted with metabolic encephalopathy secondary to UTI. Patient had recent UTI with Proteus (FQ resistant) on 02/10/17 and farrell-sensitive E.coli 11/25/16. She was started on Vancomycin and Aztreonam IV for treatment of UTI. Patient received a loading dose of 2000 mg IV on 02/20 ~0330. Vancomycin was discontinued shortly after. * Preliminary urine culture reported Enterococcus -> Aztreonam was discontinued and vancomycin was re-started (PCN allergy) Risk factors for drug resistance: * long-term resident * recent hospital admission * recent antibiotic use: cefuroxime x 7 days starting 02/12, doxycycline x 7 days starting 02/06, Levaquin x ? days in November of 2016 (obtained from outpatient records - unsure of compliance) Plan Vancomycin * Loading dose of 2000 mg was given 02/20 @ 0330 -> patient is overdue to be re- dosed. * Will give 1400 mg (16 mg/kg) IV x 1 dose, then start 1100 mg (13 mg/kg) IV every 24 hours on 02/22 * Less than traditional dose selected due to likely accumulation of drug in obese population. * Goal trough level for UTI : ~15 mcg/mL * Trough level ordered for: 02/24/17 Pharmacy will continue to follow and will adjust dose/frequency as necessary. Thank you.
--- NOTE | 2017-02-21 15:08 | Progress Note ---
Subjective Date of Service: Feb 21, 2017. Subjective Pt evaluation today including: conversation w/ patient Voiding: no voiding problems Pt presented for EGD/SB enteroscopy for anemia. However, patient with increased SOB with wheezing/crackles c/w yesterday afternoon. Hb decrease from admission Problem List Medical Problems: (1) Altered mental status Status: Acute (2) Altered mental status Status: Acute (3) Anemia Status: Acute (4) Dehydration Status: Acute (5) E. coli UTI (urinary tract infection) Status: Acute (6) GI bleed Status: Acute (7) GI bleeding Status: Acute (8) Hyperglycemia Status: Acute (9) Hypomagnesemia Status: Acute (10) SOB (shortness of breath) Status: Acute (11) Substernal chest pain Status: Acute (12) Urinary tract infection Status: Acute (13) UTI (urinary tract infection) Status: Acute (14) UTI (urinary tract infection) Status: Acute (15) Weakness Status: Acute (16) Weakness Status: Acute Review of Systems Constitutional: No see HPI, No fever, No chills, No sweats, No weight loss, No weakness, No fatigue, No problem reported Eyes: + redness ENT: No see HPI, No hearing loss, No unusual epistaxis, No nasal symptoms, No sore throat, No tinnitus, No dental problems, No trouble swallowing, No problem reported Respiratory: + see HPI, + wheezing, + shortness of breath Cardiac: No see HPI, No chest pain, No orthopnea, No PND, No edema, No claudication, No palpitations, No problem reported Breast: + see HPI Abdomen: + see HPI Musculoskeletal: + see HPI Female : + see HPI Neurologic: + see HPI Psychiatric: + see HPI Heme: + see HPI Endo: + see HPI Skin: + see HPI case discussed with navdeep. rs status is poor and would prefer to hold on EGD today ontin Rs staus optimized. Medications Current Inpatient Medications Medications (Trade) Dose Ordered Sig/Rea Route Start Time Stop Time Status Last Admin Dose Admin Acetaminophen (Tylenol Tab) 650 mg Q6 PRN PO 02/20/17 02:15 03/22/17 02:14 Albuterol Sulfate (Ventolin 0.083% 2.5MG/3ML Neb) 2.5 mg Q4 PRN INH 02/20/17 02:15 03/22/17 02:14 02/20/17 17:48 2.5 MG Al Hydrox/Mg Hydrox/Simethicone (Maalox Max Susp) 30 ml Q6 PRN PO 02/20/17 02:15 03/22/17 02:14 Buspirone HCl (Buspar Tab) 5 mg QAM PO 02/20/17 09:00 03/22/17 08:59 02/20/17 09:53 5 MG Citalopram Hydrobromide (celeXA TAB) 20 mg DAILY PO 02/20/17 09:00 03/22/17 08:59 02/20/17 09:54 20 MG Docusate Sodium (coLACE CAP) 100 mg BID PO 02/20/17 09:00 03/22/17 08:59 02/20/17 09:54 100 MG Ferrous Sulfate (Feosol Tab) 325 mg BIDM PO 02/20/17 07:30 03/22/17 07:59 02/20/17 16:57 325 MG Folic Acid (Folvite Tab) 1 mg DAILY PO 02/20/17 09:00 03/22/17 08:59 02/20/17 09:54 1 MG Gabapentin (Neurontin Cap) 400 mg QAM PO 02/20/17 09:00 03/22/17 08:59 02/20/17 09:55 400 MG Gabapentin (Neurontin Tab) 800 mg HS PO 02/20/17 21:00 03/22/17 20:59 02/20/17 20:28 800 MG Tamoxifen Citrate (Nolvadex Tab) 20 mg DAILY PO 02/20/17 09:00 03/22/17 08:59 02/21/17 08:06 20 MG Tobramycin/ Dexamethasone (Tobradex Oph Susp) 2 drops BID OPB 02/20/17 09:00 03/22/17 08:59 02/21/17 08:05 2 DROPS Ondansetron HCl (Zofran Inj) 4 mg Q6H PRN IV 02/20/17 02:15 03/22/17 02:14 Insulin Aspart (novoLOG ASPART) SLIDING SCALE If C... ACHS SC 02/20/17 07:00 03/22/17 06:59 02/21/17 13:12 4 UNITS Glucose (Glucose 40% Gel) UD PRN PO 02/20/17 02:15 03/22/17 02:14 Glucose (Glucose Chew Tab) 1 tabs UD PRN PO 02/20/17 02:15 03/22/17 02:14 Dextrose (Dextrose 50% 50ML Syringe) 50 ml UD PRN IV 02/20/17 02:15 03/22/17 02:14 Glucagon (Glucagon Inj) 1 mg UD PRN SQ 02/20/17 02:15 03/22/17 02:14 Sodium Chloride 1,000 ml @ 75 mls/hr [id number] IV 02/20/17 02:15 03/22/17 02:14 02/21/17 05:58 75 MLS/HR Aztreonam 500 mg/ Dextrose 102.5 ml @ 100 mls/hr Q8H IV 02/20/17 08:00 03/02/17 07:59 02/21/17 08:24 100 MLS/HR Aztreonam (Consult) 1 ea UD PRN N/A 02/20/17 03:15 03/22/17 03:14 Insulin Detemir (Levemir Flexpen/ FlexTouch) 20 unit QPM SC 02/20/17 21:00 03/22/17 20:59 02/20/17 20:34 20 UNIT Pantoprazole Sodium 40 mg/ Syringe 10 ml @ 5 mls/min DAILY@09,21 IV 02/20/17 21:00 03/22/17 20:59 02/21/17 08:05 5 MLS/MIN Insulin Detemir (Levemir Flexpen/ FlexTouch) 15 unit QAM SC 02/21/17 09:00 03/22/17 08:59 02/21/17 08:52 15 UNIT Losartan Potassium (coZAAR TAB) 50 mg DAILY PO 02/22/17 09:00 03/24/17 08:59 Methylprednisolone Sodium Succinate 20 mg/Syringe 0.32 ml @ 1.5 mls/min Q12 IV 02/21/17 21:00 03/23/17 20:59 Objective Vital Signs Date Time Temp Pulse Resp B/P (MAP) Pulse Ox O2 Delivery O2 Flow Rate FiO2 02/21/17 12:04 37.2 96 20 175/75 (108) 92 Room Air 2.0 02/21/17 12:00 Nasal Cannula 2.0 02/21/17 08:00 Nasal Cannula 2.0 02/21/17 07:42 37.4 90 20 155/67 (96) 94 Room Air 02/21/17 04:00 Nasal Cannula 2.0 02/21/17 03:51 37.2 98 18 161/70 (100) 93 Nasal Cannula 02/21/17 00:00 Nasal Cannula 2.0 02/20/17 23:49 37.2 83 18 163/69 (100) 95 Nasal Cannula 02/20/17 20:00 Nasal Cannula 2.0 02/20/17 20:00 37.1 90 22 124/68 (86) 95 Nasal Cannula 3.0 02/20/17 17:48 82 18 97 Nasal Cannula 3.0 02/20/17 16:30 95 Nasal Cannula 2.0 02/20/17 16:08 37.2 92 22 161/77 (105) 95 Nasal Cannula 2.0 Physical Exam General Appearance: + obese Respiratory/Chest: + respiratory distress, + crackles, + rales Cardiovascular: + tachycardia Abdomen: normal bowel sounds, non tender, soft Extremities: + swelling Skin: normal color Lymphatic: no adenopathy Laboratory Results Last 24 Hours Test 02/20/17 16:21 02/20/17 20:24 02/21/17 05:29 02/21/17 07:01 Bedside Glucose 273 mg/dl 237 mg/dl 300 mg/dl White Blood Count 7.77 K/uL Red Blood Count 2.72 M/uL Hemoglobin 7.6 g/dL Hematocrit 24.6 % Mean Corpuscular Volume 90.4 fL Mean Corpuscular Hemoglobin 27.9 pg Mean Corpuscular Hemoglobin Concent 30.9 g/dl Platelet Count 286 K/uL Mean Platelet Volume 8.8 fL Neutrophils (%) (Auto) 87.9 % Lymphocytes (%) (Auto) 9.3 % Monocytes (%) (Auto) 1.0 % Eosinophils (%) (Auto) 0.0 % Basophils (%) (Auto) 0.5 % Neutrophils # (Auto) 6.83 K/uL Lymphocytes # (Auto) 0.72 K/uL Monocytes # (Auto) 0.08 K/uL Eosinophils # (Auto) 0.00 K/uL Basophils # (Auto) 0.04 K/uL RDW Standard Deviation 59.4 fL RDW Coefficient of Variation 18.4 % Immature Granulocyte % (Auto) 1.3 % Immature Granulocyte # (Auto) 0.10 K/uL Polychromasia 1+ Anisocytosis PRESENT Spherocytes OCCASIONAL Ovalocytes 1+ Prothrombin Time 23.2 SECONDS Prothromb Time International Ratio 2.1 Activated Partial Thromboplast Time 41.3 SECONDS Partial Thromboplastin Ratio 1.6 Sodium Level 140 mmol/L Potassium Level 4.5 mmol/L Chloride Level 107 mmol/L Carbon Dioxide Level 20 mmol/L Anion Gap 13.0 mmol/L Blood Urea Nitrogen 14 mg/dl Creatinine 1.40 mg/dl Est Creatinine Clear Calc Drug Dose 27.7 ml/min Estimated GFR () 39.9 Estimated GFR (Non- 34.4 BUN/Creatinine Ratio 9.7 Random Glucose 273 mg/dl Calcium Level 8.2 mg/dl Magnesium Level 2.0 mg/dl Test 02/21/17 10:50 02/21/17 14:58 Bedside Glucose 262 mg/dl Assessment and Plan Will postpone EGD/push enteroscopy today. Would consider HFN nebulizers q 6 hours, chest xray today; diureses as needed. Hb at 7.6, may need to transfuse cautiously. Will tentatively plan for repeat EGD/push enteroscopy for tomorrow.
[2017-02-21 15:14] LABS: HEMATOCRIT 27.4 % (37-47)
[2017-02-21] MEDS ORDERED: FUROSEMIDE 40 MG TAB PO ONE (15:31)
[2017-02-21] MEDS: METHYLPREDNISOLONE IV 20 MG in SYRINGE 0 ML IV SCH (19:49)
[2017-02-21] MEDS: GABAPENTIN 800 MG TAB PO SCH (19:50)
[2017-02-22 04:12] VITALS: BP 121/75; PULSE 80; TEMP 36.9; O2SAT 95
[2017-02-22 04:36] VITALS: BP 121/75; PULSE 80; TEMP 36.9; O2SAT 95
[2017-02-22 05:40] LABS: BASO % 0.1 %; BASO ABS # 0.01 K/uL (0-0.2); HEMATOCRIT 24.2 % (37-47); IG% 1.1 %; LYMPH % 10.3 %; LYMPH ABS # 0.86 K/uL (1.2-3.4); MEAN CELL VOLUME 90.3 fL (80-100); MEAN CORPUSCULAR HEMOGLOBIN 27.6 pg (25-34); MEAN CORPUSCULAR HGB CONC 30.6 g/dl (32-36); MEAN PLATELET VOLUME 8.7 fL (7.4-10.4); MONO % 6.9 %; NEUT % 81.6 %; PLATELET COUNT 274 K/uL (130-400); RED BLOOD COUNT 2.68 M/uL (4.2-5.4); WHITE BLOOD COUNT 8.31 K/uL (4.8-10.8)
[2017-02-22 05:44] LABS: PARTIAL THROMBOPLASTIN RATIO 1.2; PROTHROMBIN TIME (PATIENT) 22.4 SECONDS (9.0-12.0)
[2017-02-22 06:14] LABS: COMPLETE YES; OVALOCYTES 1+; POLYCHROMASIA 1+; SPHEROCYTE OCCASIONAL
[2017-02-22 06:25] LABS: BUN/CREATININE RATIO 13.4 (10-20); CREATININE 1.1 mg/dl (0.60-1.20); MAGNESIUM 1.9 mg/dl (1.8-2.4); POTASSIUM 3.7 mmol/L (3.5-5.1)
[2017-02-22 06:34] LABS: HEMATOCRIT 23.9 % (37-47)
[2017-02-22 07:07] LABS: CALCIUM 8.4 mg/dl (8.5-10.1)
[2017-02-22 07:25] VITALS: BP 150/73; PULSE 80; TEMP 36.8; O2SAT 95
[2017-02-22] MEDS: FERROUS SULFATE 325 MG TAB PO SCH (07:30)
[2017-02-22] MEDS: INSULIN ASPART 100 UNITS/ML 3 ML PEN SC SCH ×2 (07:55→13:24)
[2017-02-22] MEDS: INSULIN DETEMIR FLEXPEN/FLEX TOUCH 100 UNITS/ML 3ML SC SCH (07:56)
[2017-02-22] MEDS ORDERED: LOSARTAN POTASSIUM 50 MG TAB PO SCH (09:00)
[2017-02-22] MEDS: DOCUSATE SODIUM 100 MG CAP PO SCH (09:00)
[2017-02-22] MEDS ORDERED: FUROSEMIDE 40 MG TAB PO SCH (09:00)
[2017-02-22] MEDS: METHYLPREDNISOLONE IV 20 MG in SYRINGE 0 ML IV SCH (09:02)
[2017-02-22] MEDS: PANTOprazole INJ 40 MG in SYRINGE 0 ML IV SCH (09:02)
[2017-02-22] MEDS: TOBRAMYCIN/DEXAMETHASONE OPH SUSP 2.5 ML BTL OPB SCH (09:02)
[2017-02-22 11:34] VITALS: BP 150/76; PULSE 74; TEMP 36.8; O2SAT 95
--- NOTE | 2017-02-22 11:42 | Progress Note ---
Subjective Date of Service: Feb 22, 2017. Subjective Pt evaluation today including: conversation w/ patient, physical exam, lab review, review of inpatient medication list Pain: denies pain PO Intake: NPO for EGD Voiding: matute catheter in place patient tired this AM, but breathing is better, no distress, no wheezing, no stridor reviewed labs, Hb down to 7.6, BP normal, will repeat H/h this afternoon, hold on transfusion if possible hopeful for EGD later, vitals stable, lungs clear micro reviewed, Enterococcus farrell sensitive, limited by allergies for coverage, keep Vanco for now Problem List Medical Problems: (1) Altered mental status Status: Acute (2) Altered mental status Status: Acute (3) Anemia Status: Acute (4) Dehydration Status: Acute (5) E. coli UTI (urinary tract infection) Status: Acute (6) GI bleed Status: Acute (7) GI bleeding Status: Acute (8) Hyperglycemia Status: Acute (9) Hypomagnesemia Status: Acute (10) SOB (shortness of breath) Status: Acute (11) Substernal chest pain Status: Acute (12) Urinary tract infection Status: Acute (13) UTI (urinary tract infection) Status: Acute (14) UTI (urinary tract infection) Status: Acute (15) Weakness Status: Acute (16) Weakness Status: Acute Review of Systems Constitutional: + weakness, + fatigue Respiratory: + cough, + dyspnea on exertion Neurologic: + memory loss, + weakness Endo: + fatigue All Other Systems: Reviewed and Negative Medications Current Inpatient Medications Medications (Trade) Dose Ordered Sig/Rea Route Start Time Stop Time Status Last Admin Dose Admin Acetaminophen (Tylenol Tab) 650 mg Q6 PRN PO 02/20/17 02:15 03/22/17 02:14 Albuterol Sulfate (Ventolin 0.083% 2.5MG/3ML Neb) 2.5 mg Q4 PRN INH 02/20/17 02:15 03/22/17 02:14 02/21/17 19:21 2.5 MG Al Hydrox/Mg Hydrox/Simethicone (Maalox Max Susp) 30 ml Q6 PRN PO 02/20/17 02:15 03/22/17 02:14 Buspirone HCl (Buspar Tab) 5 mg QAM PO 02/20/17 09:00 03/22/17 08:59 02/20/17 09:53 5 MG Citalopram Hydrobromide (celeXA TAB) 20 mg DAILY PO 02/20/17 09:00 03/22/17 08:59 02/20/17 09:54 20 MG Docusate Sodium (coLACE CAP) 100 mg BID PO 02/20/17 09:00 03/22/17 08:59 02/21/17 19:49 100 MG Ferrous Sulfate (Feosol Tab) 325 mg BIDM PO 02/20/17 07:30 03/22/17 07:59 02/21/17 16:45 325 MG Folic Acid (Folvite Tab) 1 mg DAILY PO 02/20/17 09:00 03/22/17 08:59 02/20/17 09:54 1 MG Gabapentin (Neurontin Cap) 400 mg QAM PO 02/20/17 09:00 03/22/17 08:59 02/20/17 09:55 400 MG Gabapentin (Neurontin Tab) 800 mg HS PO 02/20/17 21:00 03/22/17 20:59 02/21/17 19:50 800 MG Tamoxifen Citrate (Nolvadex Tab) 20 mg DAILY PO 02/20/17 09:00 03/22/17 08:59 02/21/17 08:06 20 MG Tobramycin/ Dexamethasone (Tobradex Oph Susp) 2 drops BID OPB 02/20/17 09:00 03/22/17 08:59 02/22/17 09:02 2 DROPS Ondansetron HCl (Zofran Inj) 4 mg Q6H PRN IV 02/20/17 02:15 03/22/17 02:14 Insulin Aspart (novoLOG ASPART) SLIDING SCALE If C... ACHS SC 02/20/17 07:00 03/22/17 06:59 02/22/17 07:55 4 UNITS Glucose (Glucose 40% Gel) UD PRN PO 02/20/17 02:15 03/22/17 02:14 Glucose (Glucose Chew Tab) 1 tabs UD PRN PO 02/20/17 02:15 03/22/17 02:14 Dextrose (Dextrose 50% 50ML Syringe) 50 ml UD PRN IV 02/20/17 02:15 03/22/17 02:14 Glucagon (Glucagon Inj) 1 mg UD PRN SQ 02/20/17 02:15 03/22/17 02:14 Insulin Detemir (Levemir Flexpen/ FlexTouch) 20 unit QPM SC 02/20/17 21:00 03/22/17 20:59 02/21/17 20:53 20 UNIT Pantoprazole Sodium 40 mg/ Syringe 10 ml @ 5 mls/min DAILY@09,21 IV 02/20/17 21:00 03/22/17 20:59 02/22/17 09:02 5 MLS/MIN Insulin Detemir (Levemir Flexpen/ FlexTouch) 15 unit QAM SC 02/21/17 09:00 03/22/17 08:59 02/22/17 07:56 15 UNIT Losartan Potassium (coZAAR TAB) 50 mg DAILY PO 02/22/17 09:00 03/24/17 08:59 Methylprednisolone Sodium Succinate 20 mg/Syringe 0.32 ml @ 1.5 mls/min Q12 IV 02/21/17 21:00 03/23/17 20:59 02/22/17 09:02 1.5 MLS/MIN Vancomycin HCl (Consult) 1 ea UD PRN N/A 02/21/17 14:45 03/23/17 14:44 Vancomycin HCl 1100 mg/Sodium Chloride 272 ml @ 125 mls/hr Q24H IV 02/22/17 14:00 03/03/17 13:59 Furosemide (Lasix Tab) 40 mg BID17 PO 02/22/17 09:00 03/24/17 08:59 Objective Vital Signs Date Time Temp Pulse Resp B/P (MAP) Pulse Ox O2 Delivery O2 Flow Rate FiO2 02/22/17 08:00 Nasal Cannula 2.0 02/22/17 07:25 36.8 80 20 150/73 (98) 95 Nasal Cannula 2.0 02/22/17 04:36 36.9 80 18 121/75 95 Nasal Cannula 2.0 02/22/17 04:12 36.9 80 18 121/75 (90) 95 Nasal Cannula 02/22/17 04:00 Nasal Cannula 2.0 02/22/17 00:00 Nasal Cannula 2.0 02/21/17 23:54 37.2 90 18 122/70 (87) 93 Nasal Cannula 02/21/17 20:00 Nasal Cannula 2.0 02/21/17 19:21 99 18 95 Nasal Cannula 2.0 02/21/17 19:02 37.1 93 16 137/72 (93) 97 Nasal Cannula 2.0 02/21/17 16:00 Nasal Cannula 2.0 02/21/17 15:09 36.9 90 16 164/74 (104) 96 Nasal Cannula 3.0 02/21/17 14:56 87 18 93 Nasal Cannula 3.0 02/21/17 12:04 37.2 96 20 175/75 (108) 92 Room Air 2.0 02/21/17 12:00 Nasal Cannula 2.0 Physical Exam General Appearance: no apparent distress, + obese Eyes: normal inspection, EOMI, sclerae normal ENT: normal ENT inspection, hearing grossly normal, pharynx normal Neck: supple, no adenopathy, no JVD, trachea midline Respiratory/Chest: chest non-tender, lungs clear, no respiratory distress, no accessory muscle use, + decreased breath sounds Cardiovascular: regular rate, rhythm, no edema, no gallop, no JVD, no murmur Abdomen: normal bowel sounds, non tender, soft, no organomegaly Extremities: normal range of motion, non-tender, normal inspection, no pedal edema, no calf tenderness Neurologic/Psychiatric: 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, alert, normal mood/affect, oriented x 3, + motor weakness (generalized) Skin: normal color, warm/dry, no rash Laboratory Results Last 24 Hours Test 02/21/17 14:58 02/21/17 16:13 02/21/17 20:29 02/22/17 05:17 Hemoglobin 8.3 g/dL 7.4 g/dL Hematocrit 27.4 % 24.2 % Bedside Glucose 272 mg/dl 281 mg/dl White Blood Count 8.31 K/uL Red Blood Count 2.68 M/uL Mean Corpuscular Volume 90.3 fL Mean Corpuscular Hemoglobin 27.6 pg Mean Corpuscular Hemoglobin Concent 30.6 g/dl Platelet Count 274 K/uL Mean Platelet Volume 8.7 fL Neutrophils (%) (Auto) 81.6 % Lymphocytes (%) (Auto) 10.3 % Monocytes (%) (Auto) 6.9 % Eosinophils (%) (Auto) 0.0 % Basophils (%) (Auto) 0.1 % Neutrophils # (Auto) 6.78 K/uL Lymphocytes # (Auto) 0.86 K/uL Monocytes # (Auto) 0.57 K/uL Eosinophils # (Auto) 0.00 K/uL Basophils # (Auto) 0.01 K/uL RDW Standard Deviation 59.7 fL RDW Coefficient of Variation 18.5 % Immature Granulocyte % (Auto) 1.1 % Immature Granulocyte # (Auto) 0.09 K/uL Nucleated RBC Absolute Count (auto) 0.05 K/uL Nucleated Red Blood Cells % 0.5 % Polychromasia 1+ Spherocytes OCCASIONAL Ovalocytes 1+ Prothrombin Time 22.4 SECONDS Prothromb Time International Ratio 2.0 Activated Partial Thromboplast Time 30.9 SECONDS Partial Thromboplastin Ratio 1.2 Sodium Level 143 mmol/L Potassium Level 3.7 mmol/L Chloride Level 109 mmol/L Carbon Dioxide Level 26 mmol/L Anion Gap 8.0 mmol/L Blood Urea Nitrogen 15 mg/dl Creatinine 1.10 mg/dl Est Creatinine Clear Calc Drug Dose 35.4 ml/min Estimated GFR () 53.4 Estimated GFR (Non- 46.1 BUN/Creatinine Ratio 13.4 Random Glucose 239 mg/dl Calcium Level 8.4 mg/dl Magnesium Level 1.9 mg/dl Test 02/22/17 06:20 02/22/17 06:53 Hemoglobin 7.5 g/dL Hematocrit 23.9 % Bedside Glucose 247 mg/dl Assessment and Plan 86 yo female from SNF with altered mental status, evidence of UTI - Metabolic encephalopathy: possibly secondary to UTI, - Enterococcus, farrell sensitive but limited by allergies for coverage will continue Vancomycin while admitted, consider Macrobid on discharge afebrile, WBC normal - Acute on chronic anemia, GI bleed: heme positive stools, Hb at 7.6 yesterday AM then above 8 in the afternoon dropped again this AM to 7.5, will repeat H/H this afternoon BP elevated, no need for transfusion unless < 7.0 typed and screened Protonix IV BID NPO, for EGD today, was cancelled yesterday due to breathing issues, lungs clear today, breathing comfortably on 2 liters - Hyperkalemia: resolved - Diarrhea: suspect it is due to bleeding, C diff negative - DM with hyperglycemia: continues to be labile, only Levemir 15 units this AM due to NPO status but sugars still high resume typical Levemir dosing once eating - Mild COPD exacerbation: no wheezing today, will continue Solu Medrol since she is NPO plan for Prednisone tomorrow after EGD today - CKD stage III: stable, Cr 1.1 Acute on chronic diastolic heart failure: pulmonary edema yesterday, responded well to Lasix IV, matute placed, fluids stopped CAD/Hypertension--hold aspirin due to bleeding likely resume Lasix tomorrow, resume Losartan today due to elevated BP PE- holding Coumadin but INR still 2.0, was 2.2 on admission hesitant to completely reverse but may need to consider for EGD Peripheral neuropathy--continue gabapentin. Chronic prednisone use--hold prednisone, on Solu Medrol for mild COPD exacerbation Breast cancer--continue tamoxifen. Hyperlipidemia--hold Crestor. CODE STATUS--patient is a level V DO NOT RESUSCITATE
[2017-02-22] MEDS ORDERED: FUROSEMIDE INJ 40 MG in SYRINGE 0 ML IV ONE (12:45)
[2017-02-22] MEDS ORDERED: SCOP1.5D2 TD (12:55)
[2017-02-22] MEDS ORDERED: LORA-741 PO (12:55)
[2017-02-22] MEDS ORDERED: OXYC1TAB3 PO (12:55)
[2017-02-22] MEDS ORDERED: RXNS5 PO (12:55)
--- NOTE | 2017-02-22 13:05 | Discharge Instructions ---
Discharge Instructions Date of Service Feb 22, 2017. Admission Reason for Admission: Ams,Uti Discharge Discharge Diagnosis / Problem: GI bleed, anemia, COPD exacerbation, Discharge Goals Goal(s): Decrease discomfort, Specific goals (comfort care) Activity Recommendations Activity Level: Bedrest Lifting Limitations: none Shower/Bathe: no limitations . Additional Information Patient informed of condition: Yes Advance Directives: Yes DNR: Yes Level of Care: Skilled Communicable Disease: No Prognosis: Deteriorating Oxygen at (LPM): 4L [place] Catheter: Yes Instructions / Follow-Up Instructions / Follow-Up Medications: limited to only medications that will provide comfort No blood draws Long talk with patient and family, due to multiple co-morbid conditions and deteriorating condition, patient and family would like to pursue comfort care. Will transfer back to [facility] on comfort measures - Roxanol, Ativan, Scopolamine patch prescriptions ordered Eat as tolerated, eat for comfort POLST completed, DNR, comfort only, no artificial hydration or feeding Current Hospital Diet Patient's current hospital diet: Diabetes Type 2 Diet, AHA Diet (Heart Healthy) Discharge Diet Recommended Diet: Regular Diet (as tolerated) Diet Texture: Pureed (blended smooth) Pending Studies Studies pending at discharge: no Physician Orders On Transfer POLST Discussion: with POLST completion Laboratory Results Hemoglobin A1c Test 01/26/17 05:30 Range/Units Estimated Average Glucose 186 mg/dl Hemoglobin A1c 8.1 H 4.5-5.6 % Lipid Panel Test 01/19/17 07:14 Range/Units Triglycerides Level 231 H 0-150 mg/dl Cholesterol Level 212 H 0-200 mg/dl HDL Cholesterol 60 mg/dl Cholesterol/HDL Ratio 3.5 LDL Cholesterol, Calculated 106 mg/dl Medical Emergencies . Who to Call and When: Medical Emergencies: If at any time you feel your situation is an emergency, please call 911 immediately. . Non-Emergent Contact Non-Emergency issues call your: Primary Care Provider Call Non-Emergent contact if: your pain is not controlled, your pain is worsening, you have any medication questions . . "Provider Documentation" section prepared by Eron Olivia. . Core Measure Problem Core Measures: None [place] Drug Monitoring Program Search Results: no issues identified
[2017-02-22] MEDS ORDERED: MoRPHine SULFATE 4 MG/ML 1 ML CARP\\VIAL IV ONE (13:10)
[2017-02-22] MEDS ORDERED: MoRPHine SULFATE 2 MG/ML CARP IV PRN (13:15)
[2017-02-22] MEDS ORDERED: DiphenhydrAMINE HCL 50 MG/ML VIAL IV ONE (13:15)
[2017-02-22] MEDS: GABAPENTIN 400 MG CAP PO SCH (13:19)
[2017-02-22 13:38] VITALS: BP 150/76; PULSE 74; TEMP 36.8; O2SAT 95
[2017-02-22] MEDS ORDERED: VANCOMYCIN INJ 1,100 MG in SODIUM CHLORIDE 0.9% 250ML 250 ML IV SCH (14:00)
[2017-02-22 14:04] VITALS: Ht 147.3 cm; Wt 86.1 kg
--- NOTE | 2017-02-22 14:37 | Medical Consult ---
Consultation Note Date of Service Feb 22, 2017. Consultation Note Contacted by Dr Olivia early this afternoon . After family meeting, pt for hospice comfort care and no further testing /procedures desired. Will sign off at this time, please call if needed Thank You lopez
[2017-02-23] MEDS ORDERED: VANCOMYCIN TROUGH ONE (01:30)
[2017-02-24] MEDS ORDERED: VANCOMYCIN TROUGH ONE (13:30)
--- NOTE | 2017-03-05 07:40 | Discharge Summary ---
Discharge Summary Date of Service February 22, 2017. Discharge Summary Admission Date: Feb 20, 2017 at 02:03 Discharge Date: Feb 22, 2017 [facility] Principal Diagnosis: Metabolic encephalopathy Problems/Secondary Diagnoses: blood loss anemia from GI bleeding COPD exacerbation acute on chronic diastolic heart failure h/o PE on Coumadin CKD stage III Immunizations: Have You Had Influenza Vaccine: Yes History of Tetanus Vaccine?: Yes Tetanus Immunization Date: Oct 25, 2012 History of Pneumococcal: Yes Pneumococcal Date: Nov 16, 2014 History of Hepatitis B Vaccine: No Procedures: none Consultations: Gastroenterology Medication Reconciliation New Medications: Morphine Sulfate (Morphine Sulfate) 5 Mg/0.25 Ml Soln 0.25 ML PO Q2H PRN for Pain, #50 ML 0 Refills Scopolamine (Transderm-Scop) 1 Mg/3 Days Dis 3 MG TD Q72H PRN for secretions, #5 PATCH 0 Refills Continued Medications: Acetaminophen (Tylenol) 325 Mg Tab 650 MG PO Q6 PRN for Mild Pain Albuterol Sulf (Proventil 0.083% 2.5MG/3ML) 2.5 Mg/3 Ml Nebu 2.5 MG INH Q4 PRN for SOB/Wheezing, EA Aluminum/Magnesium/Simeth (Maalox Max Susp) Susp 30 ML PO Q6 PRN for Gas or Constipation Docusate Sodium (Colace) 100 Mg Cap 100 MG PO BID, CAP Furosemide (Lasix) 40 Mg Tab 40 MG PO BID, TAB Gabapentin (Neurontin) 400 Mg Cap 400 MG PO QAM Gabapentin (Neurontin) 800 Mg Tab 800 MG PO HS, TAB Insulin Aspart (Novolog Flexpen) 100 Units/Ml Inj 15 UNITS SC BID Insulin Aspart (Novolog Flexpen) 100 Units/Ml Inj 8-18 UNITS SC UD PRN for SLIDING SCALE USE 4 TIMES DAILY IF BLOOD SUGAR: 351-400 = 8 UNITS 304-450 = 12 UNITS 451-500= 16 UNITS > 500= 18 UNITS AND RECHECK BSG IN 2 HOURS Insulin Detemir (Levemir) 100 Units/Ml Inj 30 UNITS SC QAM Insulin Detemir (Levemir) 100 Units/Ml Inj 20 UNITS SC PM Oxycodone Immediate Rel Tab (Roxicodone Ir) 5 Mg Tab 5 MG PO Q8 PRN for Moderate Pain, #20 TAB (This prescription has been renewed) Oxycodone Ir (Roxicodone Ir) 5 Mg Tab 10 MG PO Q8 PRN for Severe Pain, #20 TAB (This prescription has been renewed) Tobramycin/Dexamethasone 0.3% Oph (Tobradex 0.3% Oph) Susp 2 DROPS OPB BID for 10 Days Discontinued Medications: Aspirin (Aspirin Ec) 81 Mg Tab 81 MG PO DAILY Buspirone HCl (Buspirone HCl) 5 Mg Tab 5 MG PO QAM Citalopram Hydrobromide (Citalopram Hydrobromide) 20 Mg Tab 20 MG PO DAILY Ferrous Sulfate (Ferrous Sulfate) 325 Mg Tab 325 MG PO BIDM, #60 TAB 3 Refills Folic Acid (Folvite) 1 Mg Tab 1 MG PO DAILY Loratadine (Claritin) 10 Mg Tab 10 MG PO DAILY, TAB Losartan Potassium (Cozaar) 50 Mg Tab 50 MG PO DAILY, TAB Metolazone (Zaroxolyn) 2.5 Mg Tab 2.5 MG PO QAM TAKE 2 HOURS PRIOR TO AM LASIX DOSE Nitroglycerin (Nitrostat) 0.4 Mg Tab 0.4 MG UT PRN, BTL Omeprazole (Prilosec) 20 Mg Capcr 20 MG PO QAM, CAP CAP MAY BE OPENED & SPRINKLED ON APPLESAUCE Potassium Chloride (Micro-K Ext Rel) 10 Meq Capcr 40 MEQ PO TID Prednisone (Prednisone) 10 Mg Tab 10 MG PO DAILY, TAB Rosuvastatin Calcium (Crestor) 40 Mg Tab 40 MG PO HS, TAB Tamoxifen (Nolvadex) 20 Mg Tab 20 MG PO DAILY, TAB Warfarin Sodium (Coumadin) 2 Mg Tab 2 MG PO QPM, TAB Discharge Exam Came back to assess patient in the late morning on 02/22, daughter at the bedside. Discussed multiple ongoing issues. Patient had told daughter that she did not want to go through any more, that she just wanted to pass away. In fact, daughter said that the patient had been "wanting to " for several months. We discussed transitioning to comfort care and both the patient and daughter completely agreed with that approach. POLST form completed, DNR, comfort only and no tube feeds or IV fluids. Arranged to go back to [facility]. Review of Systems: Constitutional: + weight loss, + weakness, + fatigue, No fever, No chills, No sweats Eyes: + worsening of vision, + eye pain, + redness, + discharge ENT: No hearing loss, No unusual epistaxis, No nasal symptoms, No sore throat, No tinnitus, No dental problems, No trouble swallowing, No problem reported Respiratory: + cough, + shortness of breath, No sputum, No wheezing, No dyspnea at rest, No hemoptysis, No problem reported Cardiovascular: No chest pain, No orthopnea, No PND, No edema, No claudication, No palpitations, No problem reported Abdomen: No pain, No nausea, No vomiting, No diarrhea, No constipation, No GI bleeding, No problem reported Musculoskeletal: + joint pain, No muscle pain, No swelling, No calf pain, No problem reported Genitourinary - Female: No dysuria, No urinary frequency, No urinary urgency , No urinary incontinence, No urinary retention, No hematuria Neurologic: + memory loss, + weakness, No paralysis, No numbness/tingling, No vertigo, No balance problems, No problem reported Psychiatric: + depression symptoms, No anhedonism, No anxiety, No insomnia, No substance abuse, No problem reported Endocrine: No fatigue, No excessive thirst, No excessive urination, No problem reported Hematologic / Lymphatic: No abnormal bleeding/bruising, No clotting problems , No swollen lymph nodes, No night sweats, No problem reported Integumentary: No rash, No itch, No new/changing skin lesions, No color change, No bleeding, No problem reported Physical Exam: General Appearance: WD/WN, + mild distress Eyes: + abnormal sclerae exam (conjunctivitis, purulent discharge) ENT: normal ENT inspection, hearing grossly normal, TMs normal, pharynx normal Neck: supple, no adenopathy, thyroid normal, no JVD, trachea midline Respiratory/Chest: chest non-tender, lungs clear, no respiratory distress, no accessory muscle use, + decreased breath sounds Cardiovascular: regular rate, rhythm, no gallop, no JVD, no murmur, normal peripheral pulses Abdomen / GI: normal bowel sounds, non tender, soft, no organomegaly Extremities: normal inspection, no calf tenderness, normal capillary refill , normal range of motion, pelvis stable, + pedal edema 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, + motor weakness, + depressed affect, + disoriented Skin: normal color, warm/dry, no rash Hospital Course 86 yo female from SNF with altered mental status, evidence of UTI - Metabolic encephalopathy: possibly secondary to UTI, - Enterococcus, farrell sensitive but limited by allergies for coverage treated with Vancomycin while admitted, no plans for antibiotics on discharge per family afebrile, WBC normal - Acute on chronic anemia, GI bleed: heme positive stools, Hb at 7.4 on the day of discharge discussed with family, do not desire blood transfusion EGD was planned but will now be cancelled, comfort measures only - Hyperkalemia: resolved - Diarrhea: suspect it is due to bleeding, C diff negative - DM with hyperglycemia: treated with Levemir and Novolog while in the hospital - Mild COPD exacerbation: no wheezing after starting Solu Medrol, no plans for steroids on discharge - CKD stage III: stable Acute on chronic diastolic heart failure: pulmonary edema on 02/21, responded well to Lasix IV, matute placed, fluids stopped CAD/Hypertension--hold aspirin due to bleeding continue Lasix and Losartan PE- holding Coumadin with bleeding Peripheral neuropathy--continue gabapentin. Chronic prednisone use--hold prednisone, on Solu Medrol for mild COPD exacerbation Breast cancer--continue tamoxifen. Hyperlipidemia--hold Crestor. DISPOSITION: Long talk with patient and family, due to multiple co-morbid conditions and deteriorating condition, patient and family would like to pursue comfort care. Per daughter and son, the patient has been stating that she wants to pass away for months now. She continues to have encephalopathy, cannot eat, difficulty breathing at times. She does not want aggressive measures including invasive procedures, blood transfusions. Will transfer back to [facility] on comfort measures - Roxanol, Ativan, Scopolamine patch prescriptions ordered Eat as tolerated, eat for comfort POLST completed, DNR, comfort only, no artificial hydration or feeding Total Time Spent: Greater than 30 minutes This includes examination of the patient, discharge planning, medication reconciliation, and communication with other providers. Discharge Instructions Please refer to the electronic Patient Visit Report (Discharge Instructions) for additional information. Follow-Up physician at [facility] Additional Copies To [facility] Walters
== END 2017-02-22 15:03 | DRG 377 ==
LOC: EDBD 22:03 → C.EDC 22:05 → C.2T 02-20 02:03 → ENRESERV 02-20 02:14 → CANBEDREQ 02-22 13:21
PROVIDERS: ADMIT Hospitalist; ATTEND Internal Medicine
DX: K92.2 Gastrointestinal hemorrhage, unspecified (principal); G93.41 Metabolic encephalopathy; I50.33 Acute on chronic diastolic (congestive) heart failure; I13.0 Hypertensive heart and chronic kidney disease with heart failure and stage 1 through stage 4 chronic kidney disease, or unspecified chronic kidney disease; J96.10 Chronic respiratory failure, unspecified whether with hypoxia or hypercapnia; J44.1 Chronic obstructive pulmonary disease with (acute) exacerbation; N18.3 Chronic kidney disease, stage 3 (moderate); F32.9 Major depressive disorder, single episode, unspecified; E11.65 Type 2 diabetes mellitus with hyperglycemia; E11.40 Type 2 diabetes mellitus with diabetic neuropathy, unspecified; E78.5 Hyperlipidemia, unspecified; G47.33 Obstructive sleep apnea (adult) (pediatric); E66.9 Obesity, unspecified; Z66 Do not resuscitate; I25.10 Atherosclerotic heart disease of native coronary artery without angina pectoris; F41.0 Panic disorder [episodic paroxysmal anxiety]; R19.7 Diarrhea, unspecified; E87.5 Hyperkalemia; D64.9 Anemia, unspecified; Z85.3 Personal history of malignant neoplasm of breast; Z87.19 Personal history of other diseases of the digestive system; Z79.01 Long term (current) use of anticoagulants; Z51.5 Encounter for palliative care; Z86.711 Personal history of pulmonary embolism; Z90.49 Acquired absence of other specified parts of digestive tract; Z99.81 Dependence on supplemental oxygen; Z90.710 Acquired absence of both cervix and uterus; Z87.891 Personal history of nicotine dependence; Z79.52 Long term (current) use of systemic steroids; Z79.82 Long term (current) use of aspirin; Z79.899 Other long term (current) drug therapy; Z79.4 Long term (current) use of insulin; Z80.3 Family history of malignant neoplasm of breast; Z82.49 Family history of ischemic heart disease and other diseases of the circulatory system; Z83.3 Family history of diabetes mellitus; Z80.1 Family history of malignant neoplasm of trachea, bronchus and lung; Z82.3 Family history of stroke; Z88.6 Allergy status to analgesic agent; Z88.0 Allergy status to penicillin; Z88.5 Allergy status to narcotic agent; Z88.8 Allergy status to other drugs, medicaments and biological substances; Z88.2 Allergy status to sulfonamides; Z96.642 Presence of left artificial hip joint; Z68.39 Body mass index [BMI] 39.0-39.9, adult; N17.9 Acute kidney failure, unspecified

== ENCOUNTER → 2017-02-19 | Outpatient (CLI) | payer OTHER, MEDICARE ==
[2017-02-19 10:58] LABS: BASO % 0.6 %; BASO ABS # 0.05 K/uL (0-0.2); EOS % 6.6 %; HEMATOCRIT 27.9 % (37-47); IG% 0.9 %; LYMPH % 29.8 %; LYMPH ABS # 2.52 K/uL (1.2-3.4); MEAN CELL VOLUME 93.6 fL (80-100); MEAN CORPUSCULAR HEMOGLOBIN 28.2 pg (25-34); MEAN CORPUSCULAR HGB CONC 30.1 g/dl (32-36); MEAN PLATELET VOLUME 9.6 fL (7.4-10.4); MONO % 10.5 %; NEUT % 51.6 %; PLATELET COUNT 273 K/uL (130-400); RED BLOOD COUNT 2.98 M/uL (4.2-5.4); WHITE BLOOD COUNT 8.45 K/uL (4.8-10.8)
[2017-02-19 10:59] LABS: INR 2.1 (0.9-1.1); PROTHROMBIN TIME (PATIENT) 23.7 SECONDS (9.0-12.0)
[2017-02-19 11:09] LABS: BLOOD UREA NITROGEN 18 mg/dl (7-18); BUN/CREATININE RATIO 12.1 (10-20); CALCIUM 8.7 mg/dl (8.5-10.1); CARBON DIOXIDE 27 mmol/L (21-32); CHLORIDE 106 mmol/L (98-107); GLUCOSE 132 mg/dl (70-99); MAGNESIUM 2.2 mg/dl (1.8-2.4); POTASSIUM 4.9 mmol/L (3.5-5.1); SODIUM 140 mmol/L (136-145)
[2017-02-19 11:14] LABS: FERRITIN 57.9 ng/ml (8.0-388.0); TOTAL IRON BINDING CAPACITY 206 mcg/dl (250-450)
[2017-02-19 12:16] LABS: ANISOCYTOSIS PRESENT; COMPLETE YES; SPHEROCYTE OCCASIONAL
== END | disposition home or self-care (01) ==
LOC: C.LABCC 08:55
PROVIDERS: ATTEND Internal Medicine
DX: N17.9 Acute kidney failure, unspecified (principal); D64.9 Anemia, unspecified; Z86.711 Personal history of pulmonary embolism